=== PATIENT | female | born 1940 | race Caucasian/White ===

== ENCOUNTER 2016-12-05 08:22 | Inpatient (IN) ==
[2016-12-05 08:58] VITALS: BMI 40.1
[2016-12-05] MEDS ORDERED: ONDANSETRON 4 MG/2 ML INJECTION IVP PRN (08:58)
[2016-12-05] MEDS ORDERED: NS 1,000 ML IV SCH (09:00)
--- NOTE | 2016-12-05 10:05 | XRay Report ---
Indication: Preop PROCEDURE: XR chest 1V: Encounter: Initial Comparison: October 27, 2015 Findings: Prior right PICC line has been removed. Mild interstitial prominence without focal lobar consolidation. No pneumothorax or obvious pleural effusion. Heart size and mediastinal contours are stable. Scoliosis. Prior distal left clavicular resection with suture anchor in the left humeral head. Impression: No focal pneumonia or CHF. Chronic increased interstitial markings. .
--- NOTE | 2016-12-05 10:44 | History & Physical Report ---
<Diana Arana V - Last Filed: 12/05/16 10:39> History of Present Illness Date: 12/05/16 Chief complaint: Abdominal pain HPI: Suzy is a 76 yr old female who is known to the hospitalist services from previous admission in 2015 at which time she was admitted for intra abdominal abscess. Since that time she has been under the primary care of Dr Kevin Pro and attends the [facility] twice a week. Over the past 4-5 days. She reports having increased abdominal pain. It radiates into the lower abdomen. She was seen and found to have a fever greater than 101. An outpatient CT scan was performed on 11/27/16 that did reveal a large area of fluid in the left anterior pelvis extending through the pelvic wall into subcutaneous tissue. There is also presence of a large peristomal and small ventral hernia. Outpatient lab did reveal an elevated white count, this accompanied with fever and concern for abscess recurrence Dr. Pro contacted the hospitalist service and patient was directly admitted as an inpatient for further evaluation and treatment. Labs were obtained on admission and she was found to have leukocytosis with WBC count 13.3, hemoglobin 9.3, hematocrit 32.8, platelet count 440, neutrophils 89% . Sodium is normal at 143, potassium low at 3.2, BUN 8, creatinine 0.7, calcium 8.3. CRP is elevated at 61.7. Venous lactate 1.2, pro calcitonin 0.08. INR 1.45. On arrival, patient is afebrile with temperature of 97.3, pulse 95, respiration rate 18, blood pressure 101/65, room air saturations 90%. Chest x- ray on admission does not show any acute pneumonia or failure. However, does show chronic interstitial markings. Review of Systems All systems PM: 10-point ROS was reviewed, no additional remarkable complaints except - Constitutional Constitutional: Present: chills, fever(s) - Gastrointestinal Gastrointestinal: Present: as per HPI, abdominal pain Gastrointestinal Comments: Ostomy present [facility] Patient Stated Medical History History of intra-abdominal abscess. Hypertension Hyperlipidemia Congestive heart failure GERD Restless leg syndrome chronic back pain Cataracts Anxiety Depression Obesity Surgical History: 09/20/15: PICC line inserted, intubated, and NG tube placed. : Exploratory laparotomy, extensive adhesiolysis, drainage of. multiple intra-abdominal abscesses, small bowel resection, placement of. multiple intraperitoneal drains, creation of end colostomy, drainage of. abdominal wall abscess with excisional surgical debridement of necrotic. skin and subcutaneous tissues. Per Dr. Bowers, and Dr. Mays. Echocardiogram on September 21, 2015. EF 55%. Moderate tricuspid regurgitation with moderate pulmonary hypertension. 10/05/15: Additional excisional surgical debridement of skin and necrotic. tissues. Area excised 5 cm x 4 cm. Delayed primary closure of 16 cm wound. with application of wound VAC. Per Dr. Bowers. 10/11/15: Ultrasound guided percutaneous abscess drainage with removal of. approximately 40 cc of straw-colored fluid. vaginal hysterectomy. CT guided drainage intra- abdominal abscesses 07-06-2015. colonoscopy 03-30-2015. EGD 03-30-2015. right total knee. back surgery- Lumbar. left shoulder surgery Family History: Mother had Parkinson's and father had Alzheimer's dementia - Social History Smoking status: Never smoker Substance use type: does not use Current residence: Apartment/Private Home Social history: Resides independently in [place]. Attends [facility] twice a week PCP Dr Pro Medications Home Medications Medication Instructions Recorded Confirmed Type Alendronate [Fosamax] 70 mg PO Q7D #0 tab 06/18/14 12/05/16 History Aspirin [Aspir-Low] 81 mg PO DAILY #0 06/18/14 12/05/16 History Lovastatin 40 mg PO WS #0 tab 06/18/14 12/05/16 History Pramipexole Di-HCl [Pramipexole 2 mg PO DAILY #0 06/18/14 12/05/16 History Dihydrochloride] Amox/Clav [Augmentin] 500 mg PO DAILY 12/05/16 12/05/16 History Baclofen [Lioresal] 1 tab PO TID 12/05/16 12/05/16 History Calcium Carbonate/Vitamin D3 1 each PO DAILY 12/05/16 12/05/16 History [Calcium 600-Vit D3 200 Tablet] Cyanocobalamin (B-12) [Vit. B-12] 1,000 mcg IM Q14D 12/05/16 12/05/16 History Estradiol Vag Cream [Estrace Vag 1 applic VAGINAL 3XW 12/05/16 12/05/16 History Cream] Folic Acid [Folate] 1 tab PO DAILY 12/05/16 12/05/16 History Potassium Chloride 10 meq PO DAILY 12/05/16 12/05/16 History Sertraline [Zoloft] 150 mg PO DAILY 12/05/16 12/05/16 History metroNIDAZOLE [Flagyl] 500 mg PO TID 12/05/16 12/05/16 History Allergies Allergy/AdvReac Type Severity Reaction Status Date / Time hydrocodone bit Allergy Unknown Uncoded 12/05/16 09:09 Exam Vital Signs: Temperature 97.3 F 12/05/16 08:41 Pulse Rate 95 12/05/16 08:41 Respiratory Rate 18 12/05/16 08:41 Blood Pressure 101/65 12/05/16 08:41 Pulse Oximetry 90 12/05/16 08:41 Telemetry Rhythm: Sinus Rhythm Height/Weight/BMI: Height 1.55 m Weight 96.4 kg Body Mass Index 40.1 - Constitutional Present: no acute distress, well nourished, well developed - Routine HEENT Exam Eye: Present: EOMI, PERRL ENT: Present: mucous membranes moist, dentition normal - Routine Neck Exam Present: full ROM - Routine Respiratory Exam Present: CTA bilaterally. Absent: wheezes - Routine Cardiovascular Exam Present: RRR. Absent: murmur - Routine Abdominal Exam Present: soft, normoactive bowel sounds, non distended, ostomy. Absent: tenderness - Routine Extremities Exam Present: edema (1+ bilateral lower ext), full ROM, pulses intact - Routine Skin Exam Present: dry, warm - Routine Neurological Exam Present: alert, oriented X3, CN II-XII intact - Routine Psychiatric Exam Present: normal affect Results - Labs CBC & Chem 7: 12/05/16 09:37 12/05/16 09:36 Microbiology Results: Microbiology 12/05/16 09:35 Peripheral/Iv Start Blood Culture - Preliminary Culture Initiated - Results Pending Assessment and Plan (1) Abdominal abscess Current visit: Yes Status: Acute (2) Leukocytosis Current visit: Yes Status: Acute Resuscitation Status: Do Not Resuscitate Assessment and Plan: Impression Abdominal Abscess Leukocytosis Hypokalemia History of extensive abdominal abscess related to diverticulitis Hypertension Hyperlipidemia GERD Congestive heart failure Restless leg syndrome Chronic back pain Anxiety and depression Plan Admit as a inpatient under the care of Dr. Aviles for abdominal abscess with leukocytosis. Laboratory studies are ordered on admission, CBC, CMP, venous lactate, pro calcitonin, magnesium, blood cultures 2, urinalysis. Twelve-lead EKG and chest x-ray are performed for preoperative clearance. Patient is placed on IV Zosyn on admission for antimicrobial coverage. Normal saline at 100 ML per hour for gentle hydration. Will replace potassium with IV fluid bolus given NPO status. Patient is made nothing by mouth at this time until further surgical evaluation. Consulted is placed with Dr. Bowers. According to med rec patient has currently been on Augmentin and Flagyl. Patient does wish to be a do not resuscitate and this order is written. Recheck CBC and BMP Orders and plan discussed with attending Dr Aviles At time of discharge medical care will return to PCP Dr Pro with [facility] program Hospital Course Summary Disclaimer: The visit summary below is not to be considered part of the above Progress Note. Hospital Course: 12/05/16 Impression Abdominal Abscess Leukocytosis Hypokalemia History of extensive abdominal abscess related to diverticulitis Hypertension Hyperlipidemia GERD Congestive heart failure Restless leg syndrome Chronic back pain Anxiety and depression Plan Admit as a inpatient under the care of Dr. Aviles for abdominal abscess with leukocytosis. Laboratory studies are ordered on admission, CBC, CMP, venous lactate, pro calcitonin, magnesium, blood cultures 2, urinalysis. Twelve-lead EKG and chest x-ray are performed for preoperative clearance. Patient is placed on IV Zosyn on admission for antimicrobial coverage. Normal saline at 100 ML per hour for gentle hydration. Will replace potassium with IV fluid bolus given NPO status. Patient is made nothing by mouth at this time until further surgical evaluation. Consulted is placed with Dr. Bowers. According to med rec patient has currently been on Augmentin and Flagyl. Patient does wish to be a do not resuscitate and this order is written. Recheck CBC and BMP Orders and plan discussed with attending Dr Aviles At time of discharge medical care will return to PCP Dr Pro with [facility] program <Basim Aviles - Last Filed: 12/05/16 15:05> History of Present Illness Date: 12/05/16 [facility] Patient Stated Medical History Cataracts Yes Dental Problems Yes: "BIG CHUNKS OF MY TEETH FELL OUT" Hearing Loss Yes Sleep Apnea Yes Obstructive Bowel Yes Hx Renal Disease No Anemia Yes Exam Vital Signs: Temperature 97.3 F 12/05/16 08:41 Pulse Rate 88 12/05/16 11:19 Respiratory Rate 16 12/05/16 11:19 Blood Pressure 101/65 12/05/16 08:41 Pulse Oximetry 95 12/05/16 11:19 Height/Weight/BMI: Height 1.55 m Weight 96.4 kg Body Mass Index 40.1 Results - Labs CBC & Chem 7: 12/05/16 09:37 12/05/16 09:36 Microbiology Results: Microbiology 12/05/16 13:15 Peripheral/Iv Start Blood Culture - Preliminary Culture Initiated - Results Pending 12/05/16 12:32 Not Provided Urine Culture - Preliminary Culture Initiated - Results Pending 12/05/16 09:35 Peripheral/Iv Start Blood Culture - Preliminary Culture Initiated - Results Pending Assessment and Plan (1) Abdominal abscess Current visit: Yes Status: Acute (2) Leukocytosis Current visit: Yes Status: Acute DVT Prophylaxis: SCD's Assessment and Plan: Impression 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 Chart reviewed. Case discussed with my PILL MAKER. Care plan developed with my supervision; agree with above. Admitted to [facility] for surgical evaluation and treatment of small bowel fistula. Report having temp of 102 for about 3 days ago-temp has resolve, but patient has never really started feeling better since. More tired weak and puny. Note pain in abdomen right behind her ostomy site. Appetite okay, but notes nausea frequently. No emesis, but feels like could vomit. Breathing has been stable- not feeling chest congestion, pain, or cough. No palpitations. Does report nasal congestion at night. Not having urinary pain or burning. Had recent abnormal BE showing fistula. Lungs: decreased, no crackles/wheezes/distress CV: regular AB: soft Obese nd. BS decreased. Ostomy present in LLQ EXT: patient has 1cm in diameter round red lesion on left distal leg. +2 edema bilaterally. MSE: awake alert. Interacts appropriately. GEN: looks tired and weak. Plan: Inpatient admission for surgical evaluation and correction of fistula. Consult with Dr Bowers for evaluation. Zosyn for empiric antimicrobial coverage of GI pathogens-likely with cover urine as well. Check on urine culture. Low flow IVF of NS with 20KCl to maintain hydration due to patient being NPO for potential surgery. Hold on initiations of home medications for now. SCD for DVT prevention. Zofran prn nausea. Monitor lab. Hospital Course Summary Disclaimer: The visit summary below is not to be considered part of the above Progress Note.
--- NOTE | 2016-12-05 11:29 | General Surgery Consult Note ---
Consult date: 12/05/16 Attending Physician: Basim Aviles MD Reason for consult: abdominal pain [facility] Patient Stated Medical History Cataracts Yes Dental Problems Yes: "BIG CHUNKS OF MY TEETH FELL OUT" Hearing Loss Yes Sleep Apnea Yes Obstructive Bowel Yes Anemia Yes Intr-abdominal abscess Diverticulitis Creation of colostomy colovaginal fistula Surgical History: 09/20/15: PICC line inserted, intubated, and NG tube placed. : Exploratory laparotomy, extensive adhesiolysis, drainage of. multiple intra-abdominal abscesses, small bowel resection, placement of. multiple intraperitoneal drains, creation of end colostomy, drainage of. abdominal wall abscess with excisional surgical debridement of necrotic. skin and subcutaneous tissues. Per Dr. Bowers, and Dr. Mays. Echocardiogram on September 21, 2015. EF 55%. Moderate tricuspid regurgitation with moderate pulmonary hypertension. 10/05/15: Additional excisional surgical debridement of skin and necrotic. tissues. Area excised 5 cm x 4 cm. Delayed primary closure of 16 cm wound. with application of wound VAC. Per Dr. Bowers. 10/11/15: Ultrasound guided percutaneous abscess drainage with removal of. approximately 40 cc of straw-colored fluid. vaginal hysterectomy. CT guided drainage intra- abdominal abscesses 07-06-2015. colonoscopy 03-30-2015. EGD 03-30-2015. right total knee. back surgery- Lumbar. left shoulder surgery Family History: Mother had Parkinson's and father had Alzheimer's dementia - Social History Smoking status: Never smoker Current residence: Apartment/Private Home Social history: Resides independently in [place]. Attends [facility] program twice a week PCP Dr Pro Medications Home Medications Medication Instructions Recorded Confirmed Type Alendronate [Fosamax] 70 mg PO Q7D #0 tab 06/18/14 12/05/16 History Aspirin [Aspir-Low] 81 mg PO DAILY #0 06/18/14 12/05/16 History Lovastatin 40 mg PO WS #0 tab 06/18/14 12/05/16 History Pramipexole Di-HCl [Pramipexole 2 mg PO DAILY #0 06/18/14 12/05/16 History Dihydrochloride] Amox/Clav [Augmentin] 500 mg PO DAILY 12/05/16 12/05/16 History Baclofen [Lioresal] 1 tab PO TID 12/05/16 12/05/16 History Calcium Carbonate/Vitamin D3 1 each PO DAILY 12/05/16 12/05/16 History [Calcium 600-Vit D3 200 Tablet] Cyanocobalamin (B-12) [Vit. B-12] 1,000 mcg IM Q14D 12/05/16 12/05/16 History Estradiol Vag Cream [Estrace Vag 1 applic VAGINAL 3XW 12/05/16 12/05/16 History Cream] Folic Acid [Folate] 1 tab PO DAILY 12/05/16 12/05/16 History Potassium Chloride 10 meq PO DAILY 12/05/16 12/05/16 History Sertraline [Zoloft] 150 mg PO DAILY 12/05/16 12/05/16 History metroNIDAZOLE [Flagyl] 500 mg PO TID 12/05/16 12/05/16 History Allergies Allergy/AdvReac Type Severity Reaction Status Date / Time hydrocodone bit Allergy Unknown Uncoded 12/05/16 09:09 Review of Systems 10-point ROS: negative except for HPI and the following: - General General: Present: fever, chills - Gastrointestinal Gastrointestinal: Present: other (see HPI) - Neurological Neurological: Present: muscle weakness - Psychiatric Psychiatric: Present: depression - Vital Signs Last Vital Signs Temp 97.3 F 12/05/16 08:41 Pulse 95 12/05/16 08:41 Resp 18 12/05/16 08:41 BP 101/65 12/05/16 08:41 Pulse Ox 90 12/05/16 08:41 - Laboratory Result Diagrams: 12/05/16 09:37 12/05/16 09:36 - Microbiogy Microbiology 12/05/16 09:35 Peripheral/Iv Start Blood Culture - Preliminary Culture Initiated - Results Pending General Surgery Results - Results Labs: 12/05/16 09:37 12/05/16 09:36 Microbiology: Microbiology 12/05/16 09:35 Peripheral/Iv Start Blood Culture - Preliminary Culture Initiated - Results Pending Hospital Course Summary Disclaimer: The visit summary below is not to be considered part of the above Progress Note. Hospital Course: 12/05/16 Impression Abdominal Abscess Leukocytosis Hypokalemia History of extensive abdominal abscess related to diverticulitis Hypertension Hyperlipidemia GERD Congestive heart failure Restless leg syndrome Chronic back pain Anxiety and depression Plan Admit as a inpatient under the care of Dr. Aviles for abdominal abscess with leukocytosis. Laboratory studies are ordered on admission, CBC, CMP, venous lactate, pro calcitonin, magnesium, blood cultures 2, urinalysis. Twelve-lead EKG and chest x-ray are performed for preoperative clearance. Patient is placed on IV Zosyn on admission for antimicrobial coverage. Normal saline at 100 ML per hour for gentle hydration. Will replace potassium with IV fluid bolus given NPO status. Patient is made nothing by mouth at this time until further surgical evaluation. Consulted is placed with Dr. Bowers. According to med rec patient has currently been on Augmentin and Flagyl. Patient does wish to be a do not resuscitate and this order is written. Recheck CBC and BMP Orders and plan discussed with attending Dr Aviles At time of discharge medical care will return to PCP Dr Pro with [facility] program
[2016-12-05] MEDS: PIPERACILLIN/TAZOBACTAM 3.375 GM in NS 100 ML IV SCH ×3 (13:22→21:26)
[2016-12-05] MEDS ORDERED: LIDOCAINE 1% (10mg/ml) 30ml PF SDV STERI-PAK ONE (14:48)
[2016-12-05] MEDS: NS with KCL 20 mEq 1,000 ML IV SCH (16:04)
--- NOTE | 2016-12-05 16:45 | Ultrasound Report ---
Indication:abdominal abscess Procedure:US percutaneous absc drainage ABSCESS DRAIN PLACEMENT WITH ULTRASOUND GUIDANCE: After discussing the details of the procedure, including risks, the patient wished to proceed. Informed consent was obtained. A preprocedural timeout was performed to confirm the correct patient and procedure. Using aseptic technique, local lidocaine anesthetic, and ultrasound guidance throughout, a 8.5 [place] locking loop Cook drainage catheter was advanced into the large fluid collection located in the left anterior portion of the abdomen and pelvis. Approximately 120 cc of purulent, serosanguineous fluid was aspirated from the catheter. 20 cc of this fluid was sent to lab while the remainder was discarded. A CANDACE bulb was attached to the catheter and was secured to the patient's skin with a StatLock device. The patient tolerated this procedure well. There was no complication. Following this, the patient was taken back to her room on the surgical floor in stable condition. Impression: Successful abscess drain placement in the left lower abdomen. Kishore Newell RPA/ELLA performed this under my personal supervision. .
[2016-12-05] MEDS ORDERED: ACETAMINOPHEN 325 MG TABLET PO PRN (16:57)
[2016-12-05] MEDS: PRAMIPEXOLE 1 MG TABLET PO SCH (21:25)
[2016-12-05] MEDS: BACLOFEN 10 MG TABLET PO SCH (21:25)
[2016-12-05] MEDS: LOVASTATIN 40 MG TABLET PO SCH (21:25)
[2016-12-06] MEDS: PIPERACILLIN/TAZOBACTAM 3.375 GM in NS 100 ML IV SCH ×4 (02:45→20:03)
[2016-12-06] MEDS: NS with KCL 20 mEq 1,000 ML IV SCH ×2 (05:51→06:22)
[2016-12-06] MEDS ORDERED: VANCOMYCIN - PHARMACY CONSULT MC ONE (08:15)
[2016-12-06] MEDS: PRAMIPEXOLE 1 MG TABLET PO SCH ×2 (08:28→20:02)
[2016-12-06] MEDS: FERROUS SULFATE 324 MG TABLET PO SCH (08:39)
[2016-12-06] MEDS: CALCIUM 600 + VIT D 400 TABLET PO SCH (08:40)
[2016-12-06] MEDS: FUROSEMIDE 40 MG TABLET PO SCH (08:40)
[2016-12-06] MEDS: FOLIC ACID 1 MG TABLET PO SCH (08:40)
[2016-12-06] MEDS: BACLOFEN 10 MG TABLET PO SCH ×3 (08:40→20:03)
[2016-12-06] MEDS: SPIRONOLACTONE 25 MG TABLET PO SCH (08:40)
[2016-12-06] MEDS: ASPIRIN *EC* 81 MG TABLET PO SCH (08:40)
[2016-12-06] MEDS: SERTRALINE 100 MG TABLET PO SCH (08:40)
--- NOTE | 2016-12-06 08:51 | Pharmacy Consult-Antibiotics ---
Pharmacy Consult-Vancomycin - Laboratory Information WBC 10.5 T/MM3 (4.5-11.0) 12/06/16 04:30 BUN 8.0 MG/DL (7-17) 12/06/16 04:30 Creatinine 0.7 MG/DL (0.7-1.2) 12/06/16 04:30 Procalcitonin 0.08 NG/ML 12/05/16 09:37 - Consult Information Ms Magdaleno is a 76 yo female, 97.1kg, with an abdominal abscess. Her serum creatinine is 0.7 mg/dl. Ordered vancomycin 1500mg IV q12h. Will draw a trough in the am of 12/08/16 and re-evaluate. Thank you.
[2016-12-06] MEDS ORDERED: NON-FORMULARY MEDICATION 1 EACH EACH (Calcium Carbonate/Vitamin D3 [Calcium 600-Vit D3 200 PO SCH (09:00)
--- NOTE | 2016-12-06 11:43 | Consultation ---
DATE OF CONSULTATION 12/05/2016 FINDINGS Mrs. Magdaleno is a 76-year-old female who is very well known my surgical practice. I have taken care of Suzy in the past as the result of a complicated bout of perforated diverticulitis. The patient apparently had recently had an episode of fever to 102-103 and had presented to her primary care physician. During the process of examination the patient was found to have some drainage from her vaginal area. Subsequent radiographic evaluation was undertaken consisting of a CT scan as well as a barium enema through her remaining rectal/ sigmoid stump. A CT scan did reveal evidence of an abscess extending into the subcutaneous tissues. 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 As a result of the above indications the patient was admitted to the hospital. I did see Suzy earlier today. She states that she has had no further fever and is actually feeling fairly well. Suzy does have a history of somewhat "downplaying" her symptoms. Upon questioning Suzy, she denied really much in the way of any element of abdominal pain or discomfort. Later during the discussion, she did state that she has noted some pain within her left lower quadrant. She has had no element of nausea or vomiting. She does state that she has noted at times some minimal amount of drainage from the vaginal area. She denies ever noticing any type of stool-like content coming forth from her vagina and describes it as clear mucous -like material. PAST MEDICAL HISTORY Performed by my nurse practitioner, Nitesh Waite. PAST SURGICAL HISTORY Performed by my nurse practitionerNitesh. MEDICATIONS Performed by my nurse practitionerNitesh. ALLERGIES Performed by my nurse practitionerNitesh. SOCIAL HISTORY Performed by my nurse practitionerNitesh. FAMILY HISTORY Performed by my nurse practitionerNitesh. REVIEW OF SYSTEMS Performed by my nurse practitionerNitesh. PHYSICAL EXAMINATION Mrs. Magdaleno is a 76-year-old female who earlier today did not appear to be in acute distress. VITALS: Temperature 97.3, pulse 88, respirations 16, blood pressure 101/65, SaO2 95% on room air. HEENT: Normocephalic. Pupils are equal, round and reactive to light and accommodation. NECK: Supple without lymphadenopathy. CHEST: Clear to auscultation bilaterally. HEART: Regular rate and rhythm. Normal S1 and S2 without gallops, murmurs or clicks. ABDOMEN: Visualization of the abdomen reveals it to be quite protuberant in nature, i.e. the patient has a component of obesity. The patient does have a colostomy present within the left lower quadrant. Visualization of the skin did not reveal any evidence for marked erythema. There is some erythema involving the inferior portion of her pannus. I do believe this is likely more result of a Yajaira infection than that of a true cellulitis. The entire lower aspect of her pannus is quite moist and erythematous in nature. Palpation of her abdomen did reveal a mass located beneath the colostomy. One could appreciate a firm mass that was perhaps 7-8 cm in diameter. This mass was tender on palpation. The mass does correspond with the abscess cavity noted upon prior CT scan. Remainder of the abdomen was soft and nontender without evidence for significant tenderness. 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 EXTREMITIES: Attention was focused to her upper and lower extremities. I had been informed the patient had an area of redness involving her left lower extremity. Upon further evaluation this area of erythema was actually overlying the mid anterior tibial surface and was on the order of about 2 cm in diameter. There did not appear to be any type of underlying abscess associated with this area of erythema. NEURO: Cranial nerves II-XII grossly intact. Patient is without focal motor or sensory deficits. LABORATORY/RADIOGRAPH EVALUATION I did spend a fair amount of time reviewing the patient's prior radiographic evaluation as well as her admission lab. A CBC was obtained and her white count was elevated at 13.2. Hemoglobin is low at 9.3. Did have a left shift with 89 % neutrophils. A CMP was obtained and found to be essentially within normal limits. Potassium was low at 3.2. A C-reactive protein was also obtained and found be elevated at 61.7. Plasma lactate level was normal at 1.2. Radiographically, the patient had undergone a CT scan of her abdomen and pelvis on 11/27/2016, about [address] scan did reveal a large area of enhancement and fluid within the left anterior pelvis extending into the subcutaneous tissues just beneath the colostomy. Radiology stated that this could represent necrotic tumor/metastatic disease or a potential abscess. One could see a focus of gas within this area consistent with that of an abscess. There was again abnormal wall thickening and irregularity of the remaining distal sigmoid colon to the rectum. I reviewed her barium enema results from and discussed this with our radiologist earlier today. 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 Initially there was thought to perhaps be a coloenteric fistula but upon further evaluation radiology thought that this was perhaps a colocolonic fistula between the proximal and distal portion of the remaining rectum/sigmoid stump. ASSESSMENT 76-year-old female with known significant associated medical comorbidities who presents with probable ongoing diverticulitis of remaining rectal/sigmoid stump with development of colovaginal and "colo-colo" fistula as well as development of a probable abscess. PLAN It would be my recommendation that the patient be admitted to the hospital and broad spectrum antibiotics be initiated. The patient is on Zosyn 3.375 g IV q.6h. From a surgical standpoint I would recommend that we go ahead and proceed with an attempted percutaneous drainage of this suspected abscess involving the left lower quadrant of the anterior abdominal wall and extending into the pelvis. I informed the patient that she is somewhat of an unusual case in fact that she is the only patient over the last 20 years on whom I have not been able to resect the sigmoid colon as the result of a severe phlegmonous process from a bout of ruptured diverticulitis. I informed the patient that typically when someone presents with a severe bout of ruptured diverticulitis we will perform a sigmoid resection with creation of a Batsheva' s pouch and diverting loop ileostomy. In her situation there was such a marked phlegmonous process involving the sigmoid colon that it was adherent to her iliac vessels as well as to her anterior abdominal wall and surrounding viscus. I also remember at the time of her original surgery that the mesentery to the sigmoid colon was perhaps 8 cm in thickness as a result of this phlegmonous process that was present. I had initially planned on bringing the patient back and resecting the sigmoid colon and perhaps performing a primary anastomosis at a later date. Given her significant medical comorbidities, after some additional thought, we had concluded in the past with we would not proceed with additional surgery. The patient had been doing quite well for an extended period time, perhaps over the last 9 months, until just recently. For now will proceed with percutaneous drainage, broad-spectrum antibiotics and continue to follow the patient from a clinical standpoint. Ultimately the patient may require reexploration/surgery. CARMINE
--- NOTE | 2016-12-06 11:56 | Progress Note ---
Subjective: Feeling queasy today after eating a little breakfast. Not taking in much po. No fevers, chills, dyspnea. Abdomen feels okay. Discussed antibiotics and adding vancomycin due to prelim cx results. Objective Vital signs: Temperature 96.3 F L 12/06/16 08:00 Pulse Rate 81 12/06/16 08:00 Respiratory Rate 18 12/06/16 08:00 Blood Pressure 97/61 12/06/16 08:00 Pulse Oximetry 94 12/06/16 08:00 Rhythm: Normal Sinus Rhythm Height/Weight/BMI: Height 1.55 m Weight 97.1 kg Body Mass Index 40.1 - Constitutional Present: no acute distress, well nourished, well developed - Routine HEENT Exam Head: Present: normocephalic, atraumatic Eye: Present: EOMI, PERRL ENT: Present: mucous membranes moist, oropharynx clear - Routine Respiratory Exam Present: CTA bilaterally. Absent: rales, rhonchi - Routine Cardiovascular Exam Present: RRR - Routine Abdominal Exam Present: soft, normoactive bowel sounds, non distended - Routine Extremities Exam Absent: cyanosis, clubbing, edema - Routine Skin Exam Present: intact, dry. Absent: rash - Routine Neurological Exam Present: alert, oriented X3, moving all extremities - Routine Psychiatric Exam Present: normal affect, normal thought process Results - Labs CBC & Chem 7: 12/06/16 04:30 12/06/16 04:30 Microbiology Results: Microbiology 12/05/16 12:32 Not Provided Urine Culture - Preliminary Culture Initiated - Results Pending 12/05/16 09:35 Peripheral/Iv Start Blood Culture - Preliminary No Growth After 1 Day 12/05/16 15:30 Aspirate, Abdomen Gram Stain - Final 12/05/16 15:30 Aspirate, Abdomen Body Fluid Culture - Preliminary Staphylococcus aureus Pseudomonas species Gram Negative Rafy 12/05/16 13:15 Peripheral/Iv Start Blood Culture - Preliminary Culture Initiated - Results Pending Assessment and Plan DVT Prophylaxis: SCD's Resuscitation Status: Do Not Resuscitate Assessment and Plan: Impression 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 Abdominal Abscess Leukocytosis Hypokalemia (POA) and persistent UTI (POA) History of extensive abdominal abscess related to diverticulitis Hypertension Hyperlipidemia GERD Congestive heart failure Restless leg syndrome Chronic back pain Anxiety and depression Morbid obesity with BMI 40.2 Nausea, no vomiting thus far Plan: Continue zosyn and add vancomycin for coverage of MRSA given early culture results from abdominal abscess fluid Follow cultures for final results Zofran prn for nausea Hold furosemide given poor po intake Continue gentle IVF today, may be able to DC tomorrow if taking more po Potassium chloride 20 meq BID today for replacement Repeat renal panel, Mg, CBC in AM for surveillance Hospital Course Summary Disclaimer: The visit summary below is not to be considered part of the above Progress Note. Hospital Course: 12/05/16 Impression Abdominal Abscess Leukocytosis Hypokalemia History of extensive abdominal abscess related to diverticulitis Hypertension Hyperlipidemia GERD Congestive heart failure Restless leg syndrome Chronic back pain Anxiety and depression Plan Admit as a inpatient under the care of Dr. Aviles for abdominal abscess with leukocytosis. Laboratory studies are ordered on admission, CBC, CMP, venous lactate, pro calcitonin, magnesium, blood cultures 2, urinalysis. Twelve-lead EKG and chest x-ray are performed for preoperative clearance. Patient is placed on IV Zosyn on admission for antimicrobial coverage. Normal saline at 100 ML per hour for gentle hydration. Will replace potassium with IV fluid bolus given NPO status. Patient is made nothing by mouth at this time until further surgical evaluation. Consulted is placed with Dr. Bowers. According to med rec patient has currently been on Augmentin and Flagyl. Patient does wish to be a do not resuscitate and this order is written. Recheck CBC and BMP Orders and plan discussed with attending Dr Aviles At time of discharge medical care will return to PCP Dr [facility] with [facility] 12/06/16 Continue zosyn and add vancomycin for coverage of MRSA given early culture results from abdominal abscess fluid Follow cultures for final results Zofran prn for nausea Hold furosemide given poor po intake Continue gentle IVF today, may be able to DC tomorrow if taking more po Potassium chloride 20 meq BID today for replacement Repeat renal panel, Mg, CBC in AM for surveillance
[2016-12-06] MEDS: LOVASTATIN 40 MG TABLET PO SCH (18:02)
[2016-12-07] MEDS: NS with KCL 20 mEq 1,000 ML IV SCH ×2 (01:59→08:32)
[2016-12-07] MEDS: PIPERACILLIN/TAZOBACTAM 3.375 GM in NS 100 ML IV SCH ×4 (02:00→20:58)
[2016-12-07] MEDS: FOLIC ACID 1 MG TABLET PO SCH (08:30)
[2016-12-07] MEDS: SPIRONOLACTONE 25 MG TABLET PO SCH (08:30)
[2016-12-07] MEDS: CALCIUM 600 + VIT D 400 TABLET PO SCH (08:30)
[2016-12-07] MEDS: SERTRALINE 100 MG TABLET PO SCH (08:30)
[2016-12-07] MEDS: ASPIRIN *EC* 81 MG TABLET PO SCH (08:30)
[2016-12-07] MEDS: FERROUS SULFATE 324 MG TABLET PO SCH (08:30)
[2016-12-07] MEDS: BACLOFEN 10 MG TABLET PO SCH ×3 (08:30→20:58)
--- NOTE | 2016-12-07 10:32 | Progress Note ---
Subjective: Feeling better today. Less nausea, able to eat some. Has not been drinking much water, encouraged her to drink a little more today. Has home health with [facility] already and would like to keep using them when she goes home. Still feels pretty weak today. Denies fevers, chills, dyspnea. Objective Vital signs: Temperature 97.1 F 12/07/16 08:16 Pulse Rate 73 12/07/16 08:16 Respiratory Rate 18 12/07/16 08:16 Blood Pressure 91/57 12/07/16 08:16 Pulse Oximetry 95 12/07/16 08:16 Rhythm: Normal Sinus Rhythm Height/Weight/BMI: Height 1.55 m Weight 99 kg Body Mass Index 40.1 Comments: Will DC telemetry; has been stable. - Constitutional Present: no acute distress - Routine HEENT Exam Head: Present: normocephalic, atraumatic Eye: Present: EOMI, PERRL ENT: Present: mucous membranes moist, oropharynx clear - Routine Respiratory Exam Present: decreased breath sounds. Absent: rales, wheezes - Routine Cardiovascular Exam Present: RRR. Absent: murmur - Routine Abdominal Exam Present: soft, non distended, non tender - Routine Extremities Exam Absent: cyanosis, clubbing, edema - Routine Skin Exam Present: dry, warm. Absent: rash - Routine Neurological Exam Present: alert, oriented X3, normal speech - Routine Psychiatric Exam Present: normal affect, normal thought process Results - Labs CBC & Chem 7: 12/07/16 04:47 12/07/16 04:47 Microbiology Results: Microbiology 12/05/16 09:35 Peripheral/Iv Start Blood Culture - Preliminary No Growth After 2 Days 12/05/16 15:30 Aspirate, Abdomen Gram Stain - Final 12/05/16 15:30 Aspirate, Abdomen Body Fluid Culture - Preliminary Staphylococcus aureus Pseudomonas species Gram Negative Rafy 12/05/16 12:32 Not Provided Urine Culture - Final Mixed Bacterial Ree 12/05/16 13:15 Peripheral/Iv Start Blood Culture - Preliminary No Growth After 1 Day Assessment and Plan Assessment and Plan: Impression 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 Abdominal Abscess Leukocytosis Hypokalemia (POA) and persistent UTI (POA) History of extensive abdominal abscess related to diverticulitis Hypertension Hyperlipidemia GERD Congestive heart failure Restless leg syndrome Chronic back pain Anxiety and depression Morbid obesity with BMI 40.2 Nausea, no vomiting thus far Plan: Continue zosyn and add vancomycin for coverage of MRSA given early culture results from abdominal abscess fluid Follow cultures for final results Zofran prn for nausea Hold furosemide given poor po intake Continue gentle IVF today, may be able to DC tomorrow if taking more po Potassium chloride 20 meq BID today for replacement Repeat renal panel, Mg, CBC in AM for surveillance Hospital Course Summary Disclaimer: The visit summary below is not to be considered part of the above Progress Note. Hospital Course: 12/05/16 Impression Abdominal Abscess Leukocytosis Hypokalemia History of extensive abdominal abscess related to diverticulitis Hypertension Hyperlipidemia GERD Congestive heart failure Restless leg syndrome Chronic back pain Anxiety and depression Plan Admit as a inpatient under the care of Dr. Aviles for abdominal abscess with leukocytosis. Laboratory studies are ordered on admission, CBC, CMP, venous lactate, pro calcitonin, magnesium, blood cultures 2, urinalysis. Twelve-lead EKG and chest x-ray are performed for preoperative clearance. Patient is placed on IV Zosyn on admission for antimicrobial coverage. Normal saline at 100 ML per hour for gentle hydration. Will replace potassium with IV fluid bolus given NPO status. Patient is made nothing by mouth at this time until further surgical evaluation. Consulted is placed with Dr. Bowers. According to med rec patient has currently been on Augmentin and Flagyl. Patient does wish to be a do not resuscitate and this order is written. Recheck CBC and BMP Orders and plan discussed with attending Dr Aviles At time of discharge medical care will return to PCP Dr [facility] 12/06/16 Continue zosyn and add vancomycin for coverage of MRSA given early culture results from abdominal abscess fluid Follow cultures for final results Zofran prn for nausea Hold furosemide given poor po intake Continue gentle IVF today, may be able to DC tomorrow if taking more po Potassium chloride 20 meq BID today for replacement Repeat renal panel, Mg, CBC in AM for surveillance
[2016-12-07] MEDS: LOVASTATIN 40 MG TABLET PO SCH (17:03)
[2016-12-07] MEDS: PRAMIPEXOLE 1 MG TABLET PO SCH (20:58)
[2016-12-07] MEDS: NS FLUSH BAG 500ml IV PRN (21:04)
[2016-12-08] MEDS: PIPERACILLIN/TAZOBACTAM 3.375 GM in NS 100 ML IV SCH ×4 (03:25→22:25)
--- NOTE | 2016-12-08 07:50 | Progress Note ---
DATE 12/06/2016 FINDINGS Mrs. Magdaleno today states that she is feeling significantly better. She states that as soon as the drain was placed she began to feel some relief. The patient today now informs me that she had been doing poorly over the last 4-5 days. The patient, yesterday, had stated that she was for the most part asymptomatic. Today, however, she shared with me that she had gotten to the point that it was difficult to get up out of bed or out of a chair as a result of pain and "feeling so bad." VITALS: Afebrile. Normotensive. Please refer to EMR. Last recorded vitals include temperature 96.3, pulse 81, respirations 18, blood pressure 97/61, SaO2 94% on room air. HEENT: Normocephalic. Pupils are equal, round and reactive to light and accommodation. CHEST: Clear to auscultation bilaterally. HEART: Regular rate and rhythm. Normal S1 and S2 without gallops, murmurs or clicks. ABDOMEN: Stool was present within her colostomy with the left lower quadrant. There is a drain not exiting from the left lateral abdominal wall. There is purulent drainage within the drain itself. LABORATORY/RADIOGRAPH EVALUATION The patient had a CBC today and her white count is down to 10.5. Hemoglobin is stable at 9.3. BMP obtained and found to be within normal limits. I did review the microbiology results from her drainage yesterday. Radiology stated that they had perhaps removed more than 100 ml following placement of the drain. Microbiology is showing probable MRSA, Pseudomonas, and a gram-negative lillian. Patient currently is on Zosyn and vancomycin has been added to her antibiotic regimen. ASSESSMENT A 76-year-old female with the development of a perisigmoid abscess extending into anterior abdominal wall. Patient status post exploratory laparotomy with creation of diverting end colostomy. 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 It is my recollection that the patient has had endoscopic evaluation of her colon within the last couple of years. Given her ongoing symptoms, it would be my thought that we would continue with vancomycin and broad-spectrum antibiotics at this juncture in time. I would not recommend proceeding with exploratory laparotomy in the midst of active infection. One may wish to proceed with a colonoscopy through her remaining rectal stump/remaining sigmoid to rule out an underlying potential neoplastic process. It is my clinical intuition that ultimately, if we are going to resolve this process, that she likely will need to undergo resection of her remaining sigmoid colon that still persists within the peritoneal cavity that is acting as the ongoing nidus/source for infection despite undergoing a diverting colostomy. This surgery, however, could be fraught with significant complications given her age and associated medical comorbidities. Another option may be to place the patient on long-term antibiotics. For now will continue with current care as above. CARMINE
[2016-12-08] MEDS ORDERED: FLEET PHOSPHO - SODA ENEMA 133ml PR ONE (08:04)
--- NOTE | 2016-12-08 08:46 | Progress Note ---
DATE 12/07/2016 FINDINGS Mrs. Magdaleno today states that she continues to feel better. She denied much in the way of abdominal pain. VITALS: Afebrile. Normotensive. Current vitals include temperature 97.1, pulse 73, respirations 18, blood pressure 91/57, SaO2 95% on room air. CHEST: Clear to auscultation bilaterally. HEART: Regular rate and rhythm. Normal S1 and S2 without gallops, murmurs or clicks. ABDOMEN: Soft, essentially nontender today. CANDACE drain did contain purulent serosanguineous-like material. The mass noted beneath her colostomy within the subcutaneous tissue is no longer palpable. LABORATORY/RADIOGRAPH EVALUATION White count continues on a downward trend to 8.9. Hemoglobin overall stable at 8.8. A BMP obtained and found to be essentially within normal limits with some slight electrolyte abnormalities. Sodium is elevated at 145. Chloride is elevated at 109. Culture still reveals Pseudomonas, probable MRSA and gram- negative lillian. Sensitivities are still pending. ASSESSMENT 76-year-old female status post percutaneous drainage of intraabdominal/ abdominal wall abscess. Patient with ongoing probable diverticulitis involving remaining rectum/sigmoid colon. PLAN Continue with ongoing current antibiotic therapy. Perhaps early next week we can obtain an ID consult for antibiotic recommendations and duration of antibiotics on an outpatient basis. Tomorrow, we may attempt to perform a colonoscopy through the remaining rectal stump for further evaluation. This will be performed to rule out any type of underlying malignant etiology. Once the current infection has defervesced, one may need to proceed with surgical intervention at a later date. Will continue with current care at this time. CARMINE
[2016-12-08] MEDS: FUROSEMIDE 40 MG TABLET PO SCH (08:48)
[2016-12-08] MEDS: CALCIUM 600 + VIT D 400 TABLET PO SCH (08:48)
[2016-12-08] MEDS: FERROUS SULFATE 324 MG TABLET PO SCH (08:48)
[2016-12-08] MEDS: SPIRONOLACTONE 25 MG TABLET PO SCH (08:48)
[2016-12-08] MEDS: SERTRALINE 100 MG TABLET PO SCH (08:48)
[2016-12-08] MEDS: BACLOFEN 10 MG TABLET PO SCH ×3 (08:48→22:25)
[2016-12-08] MEDS: ASPIRIN *EC* 81 MG TABLET PO SCH (08:48)
[2016-12-08] MEDS: FOLIC ACID 1 MG TABLET PO SCH (08:48)
--- NOTE | 2016-12-08 09:37 | Progress Note ---
<Diana Arana V - Last Filed: 12/08/16 09:30> Subjective: Suzy is seen this morning while resting in bed. She is overall feeling okay without new complaints. Denies shortness of breath or nausea. She is scheduled for a flex sigmoidoscopy with Dr Bowers today. VItal signs stable. Objective Vital signs: Temperature 96.4 F L 12/08/16 07:28 Pulse Rate 70 12/08/16 07:28 Respiratory Rate 20 12/08/16 07:28 Blood Pressure 120/67 12/08/16 07:28 Pulse Oximetry 95 12/08/16 07:28 Height/Weight/BMI: Height 1.55 m Weight 99.8 kg Body Mass Index 40.1 - Constitutional Present: well nourished, well developed - Routine HEENT Exam Eye: Present: EOMI ENT: Present: mucous membranes moist, dentition normal - Routine Respiratory Exam Present: CTA bilaterally. Absent: wheezes - Routine Cardiovascular Exam Present: RRR, S1, S2. Absent: murmur - Routine Abdominal Exam Present: soft, ostomy. Absent: tenderness - Routine Extremities Exam Present: normal capillary refill - Routine Skin Exam Present: dry, warm - Routine Neurological Exam Present: alert, oriented X3, CN II-XII intact - Routine Lymphatic Exam Lymphatic: Absent: adenopathy - Routine Psychiatric Exam Present: normal affect Results - Labs CBC & Chem 7: 12/08/16 08:07 12/08/16 08:07 Microbiology Results: Microbiology 12/05/16 15:30 Aspirate, Abdomen Gram Stain - Final 12/05/16 15:30 Aspirate, Abdomen Body Fluid Culture - Final Staphylococcus aureus, MRSA Pseudomonas aeruginosa Citrobacter freundii 12/05/16 13:15 Peripheral/Iv Start Blood Culture - Preliminary No Growth After 2 Days 12/05/16 09:35 Peripheral/Iv Start Blood Culture - Preliminary No Growth After 2 Days 12/05/16 12:32 Not Provided Urine Culture - Final Mixed Bacterial Ree Assessment and Plan (1) Abdominal abscess Current visit: Yes Status: Acute (2) Leukocytosis Current visit: Yes Status: Acute Assessment and Plan: Impression 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 Abdominal Abscess Leukocytosis Hypokalemia (POA) and persistent UTI (POA) History of extensive abdominal abscess related to diverticulitis Hypertension Hyperlipidemia GERD Congestive heart failure Restless leg syndrome Chronic back pain Anxiety and depression Morbid obesity with BMI 40.2 Nausea, no vomiting thus far 12/08-Plan: Continue Zosyn and vancomycin for MRSA coverage of C/S results from abdominal abscess fluid NPO this morning for planned Flex Sigmoidoscopy with Dr Bowers 1/2 NS for gently hydration. NA increased to 145. Monitor electrolytes. Continues to receive PO potassium supplementation. Encourage use of Incentive spirometry Check CBC, BMP, magnesium tomorrow Hospital Course Summary Disclaimer: The visit summary below is not to be considered part of the above Progress Note. Hospital Course: 12/05/16 Impression Abdominal Abscess Leukocytosis Hypokalemia History of extensive abdominal abscess related to diverticulitis Hypertension Hyperlipidemia GERD Congestive heart failure Restless leg syndrome Chronic back pain Anxiety and depression Plan Admit as a inpatient under the care of Dr. Aviles for abdominal abscess with leukocytosis. Laboratory studies are ordered on admission, CBC, CMP, venous lactate, pro calcitonin, magnesium, blood cultures 2, urinalysis. Twelve-lead EKG and chest x-ray are performed for preoperative clearance. Patient is placed on IV Zosyn on admission for antimicrobial coverage. Normal saline at 100 ML per hour for gentle hydration. Will replace potassium with IV fluid bolus given NPO status. Patient is made nothing by mouth at this time until further surgical evaluation. Consulted is placed with Dr. Bowers. According to med rec patient has currently been on Augmentin and Flagyl. Patient does wish to be a do not resuscitate and this order is written. Recheck CBC and BMP Orders and plan discussed with attending Dr Aviles At time of discharge medical care will return to PCP Dr Pro with [facility] program 12/06/16 Continue zosyn and add vancomycin for coverage of MRSA given early culture results from abdominal abscess fluid Follow cultures for final results Zofran prn for nausea Hold furosemide given poor po intake Continue gentle IVF today, may be able to DC tomorrow if taking more po Potassium chloride 20 meq BID today for replacement Repeat renal panel, Mg, CBC in AM for surveillance 12/08-Plan: Continue Zosyn and vancomycin for MRSA coverage of C/S results from abdominal abscess fluid NPO this morning for planned Flex Sigmoidoscopy with Dr Bowers 1/2 NS for gently hydration. NA increased to 145. Monitor electrolytes. Continues to receive PO potassium supplementation. Encourage use of Incentive spirometry Check CBC, BMP, magnesium tomorrow <Basim Aviles D - Last Filed: 12/08/16 14:37> Objective Vital signs: Temperature 97.1 F 12/08/16 13:44 Pulse Rate 75 12/08/16 13:44 Respiratory Rate 18 12/08/16 13:44 Blood Pressure 111/61 12/08/16 13:44 Pulse Oximetry 100 12/08/16 13:44 Height/Weight/BMI: Height 1.55 m Weight 99.8 kg Body Mass Index 40.1 Results - Labs CBC & Chem 7: 12/08/16 08:07 12/08/16 08:07 Microbiology Results: Microbiology 12/05/16 13:15 Peripheral/Iv Start Blood Culture - Preliminary No Growth After 3 Days 12/05/16 09:35 Peripheral/Iv Start Blood Culture - Preliminary No Growth After 3 Days 12/05/16 15:30 Aspirate, Abdomen Gram Stain - Final 12/05/16 15:30 Aspirate, Abdomen Body Fluid Culture - Final Staphylococcus aureus, MRSA Pseudomonas aeruginosa Citrobacter freundii 12/05/16 12:32 Not Provided Urine Culture - Final Mixed Bacterial Ree Assessment and Plan (1) Abdominal abscess Current visit: Yes Status: Acute (2) Leukocytosis Current visit: Yes Status: Acute Assessment and Plan: Impression Abdominal Abscess 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 Leukocytosis Hypokalemia (POA) and persistent UTI (POA) History of extensive abdominal abscess related to diverticulitis Hypertension Hyperlipidemia GERD Congestive heart failure Restless leg syndrome Chronic back pain Anxiety and depression Morbid obesity with BMI 40.2 Nausea, no vomiting thus far Have independently interviewed and examined pt. Chart reviewed. Case discussed with CM, Dr Bowers, and my [employer]. Care plan developed with my supervision; agree with above. Doing okay today. Tolerated Flex Sig. Notes minimal ab bloating. Nausea decreased. Appetite variable. No f/c. Breathing well-not SOA or congested. Strength decreased. Feels very tired and weak in general. Not sleeping well here (but also not sleeping well at home). Lungs: decreased, no distress CV: regular AB: soft obese, nt/nd BS decreased MSE: awake alert appropriate Plan: Continue with current antibiotics-should have good coverage based on C/S report. Will work on ID evaluation. PT/OT consult to help improve strength and functional status. Monitor lab. Hospital Course Summary Disclaimer: The visit summary below is not to be considered part of the above Progress Note.
--- NOTE | 2016-12-08 11:06 | General Surgery Progress Note ---
Subjective Patient reports: feels better - Vital Signs Last Vital Signs Temp 96.4 F L 12/08/16 07:28 Pulse 70 12/08/16 07:28 Resp 20 12/08/16 07:28 BP 120/67 12/08/16 07:28 Pulse Ox 95 12/08/16 07:28 - Laboratory Result Diagrams: 12/08/16 08:07 12/08/16 08:07 - Microbiogy Microbiology 12/05/16 09:35 Peripheral/Iv Start Blood Culture - Preliminary No Growth After 3 Days 12/05/16 15:30 Aspirate, Abdomen Gram Stain - Final 12/05/16 15:30 Aspirate, Abdomen Body Fluid Culture - Final Staphylococcus aureus, MRSA Pseudomonas aeruginosa Citrobacter freundii 12/05/16 13:15 Peripheral/Iv Start Blood Culture - Preliminary No Growth After 2 Days 12/05/16 12:32 Not Provided Urine Culture - Final Mixed Bacterial Ree - Abnormal Exam Abdominal: obese - Normal Exam General: no acute distress (although anxious) Respiratory: clear bilaterally Abdominal: soft, non-tender, other (CANDACE with serosanguinous fluid) Psychiatric: other (anxious) Neurological: CN 2-12 grossly intact Assessment and Plan (1) Abdominal abscess Current Visit: Yes Status: Acute Plan: Sono guided drainage of abscess on 12-05 resulted in 120 ml fluid, some sent for culture. Culture + for MRSA and Pseudomonous, sensitivity pending. She is physically feeling better today. NPO since midnight and plan Flex Sig today through rectum today. Hospital Course Summary Disclaimer: The visit summary below is not to be considered part of the above Progress Note. Hospital Course: 12/05/16 Impression Abdominal Abscess Leukocytosis Hypokalemia History of extensive abdominal abscess related to diverticulitis Hypertension Hyperlipidemia GERD Congestive heart failure Restless leg syndrome Chronic back pain Anxiety and depression Plan Admit as a inpatient under the care of Dr. Aviles for abdominal abscess with leukocytosis. Laboratory studies are ordered on admission, CBC, CMP, venous lactate, pro calcitonin, magnesium, blood cultures 2, urinalysis. Twelve-lead EKG and chest x-ray are performed for preoperative clearance. Patient is placed on IV Zosyn on admission for antimicrobial coverage. Normal saline at 100 ML per hour for gentle hydration. Will replace potassium with IV fluid bolus given NPO status. Patient is made nothing by mouth at this time until further surgical evaluation. Consulted is placed with Dr. Bowers. According to med rec patient has currently been on Augmentin and Flagyl. Patient does wish to be a do not resuscitate and this order is written. Recheck CBC and BMP Orders and plan discussed with attending Dr Aviles At time of discharge medical care will return to PCP Dr Pro with [facility] program 12/06/16 Continue zosyn and add vancomycin for coverage of MRSA given early culture results from abdominal abscess fluid Follow cultures for final results Zofran prn for nausea Hold furosemide given poor po intake Continue gentle IVF today, may be able to DC tomorrow if taking more po Potassium chloride 20 meq BID today for replacement Repeat renal panel, Mg, CBC in AM for surveillance 12/08-Plan: Continue Zosyn and vancomycin for MRSA coverage of C/S results from abdominal abscess fluid NPO this morning for planned Flex Sigmoidoscopy with Dr Bowers / NS for gently hydration. NA increased to 145. Monitor electrolytes. Continues to receive PO potassium supplementation. Encourage use of Incentive spirometry Check CBC, BMP, magnesium tomorrow
--- NOTE | 2016-12-08 12:22 | Pharmacy Consult-Antibiotics ---
Pharmacy Consult-Vancomycin - Laboratory Information WBC 8.4 T/MM3 (4.5-11.0) 12/08/16 08:07 BUN 7.0 MG/DL (7-17) 12/08/16 08:07 Creatinine 0.6 MG/DL (0.7-1.2) L 12/08/16 08:07 Procalcitonin 0.08 NG/ML 12/05/16 09:37 Vancomycin Trough 23.55 UG/ML (15-20) H* 12/08/16 08:07 - Consult Information Vancomycin day3 76 y.o. F with abdominal abscess. C&S of abdominal fluid resulted MRSA, P. Aeruginosa, and Citrobacter freundii Patient receiving Pip/Tazo and Vancomycin 1,500 mg IV Q12h. 12/08/16 am trough = 23.55 mcg/ml goal trough range= 15 to 20 mcg/ml. Dose adjusted to : Vancomycin 1,500 mg IV Q18H. Pharmacy will monitor and adjust as needed. Thank you for the consult, Keeley Myers RPh
--- NOTE | 2016-12-08 12:24 | Anesthesia Preoperative Report ---
Anesthesia Preoperative Record - Date and Time Date: 12/08/16 Preoperative Diagnosis: Abd Abcess Proposed Procedure: flexible sigmoidoscopy NPO Since Date: 12/07/16 NPO Since Time: 23:00 Allergies/Adverse Reactions: Allergies Allergy/AdvReac Type Severity Reaction Status Date / Time hydrocodone Allergy Unknown Verified 12/05/16 17:31 - Vital Signs Vital Signs: Temperature 96.4 F L 12/08/16 07:28 Pulse Rate 70 12/08/16 07:28 Respiratory Rate 20 12/08/16 07:28 Blood Pressure 120/67 12/08/16 07:28 Pulse Oximetry 95 12/08/16 07:28 Height and Weight: Height 1.55 m Weight 99.8 kg Body Mass Index 40.1 - Medications Inpatient Medications: Current Medications Acetaminophen (Tylenol) 650 mg PO Q5H PRN PRN Reason: Discomfort Aspirin (Ecotrin) 81 mg PO DAILY [facility] Last Admin: 12/08/16 08:48 Dose: Not Given Baclofen (Lioresal) 10 mg PO TID [facility] Last Admin: 12/08/16 08:48 Dose: Not Given Calcium/Vitamin D (Caltrate + D) 1 tab PO DAILY [facility] Last Admin: 12/08/16 08:48 Dose: Not Given Ferrous Sulfate (Feosol) 324 mg PO WB [facility] Last Admin: 12/08/16 08:48 Dose: Not Given Folic Acid (Folate) 1 mg PO DAILY [facility] Last Admin: 12/08/16 08:48 Dose: Not Given Furosemide (Lasix) 40 mg PO DAILY [facility] Last Admin: 12/08/16 08:48 Dose: Not Given Piperacillin Sod/Tazobactam (Sod 3.375 gm/ Sodium Chloride) 100 mls @ 200 mls/ hr IV Q6H [facility] Last Infusion: 12/08/16 09:37 Dose: Infused Vancomycin HCl 1,500 mg/ (Sodium Chloride) 500 mls @ 250 mls/hr IV Q18H [facility] Lovastatin (Mevacor) 40 mg PO WS [facility] Last Admin: 12/07/16 17:03 Dose: 40 mg Ondansetron HCl (Zofran) 4 mg IVP Q6H PRN PRN Reason: Nausea Last Admin: 12/06/16 09:19 Dose: 4 mg Potassium Chloride (K-Dur) 20 meq PO BIDWM [facility] Last Admin: 12/08/16 08:48 Dose: Not Given Pramipexole Dihydrochloride (Mirapex) 2 mg PO HS [facility] Last Admin: 12/07/16 20:58 Dose: 2 mg Sertraline HCl (Zoloft) 150 mg PO DAILY [facility] Last Admin: 12/08/16 08:48 Dose: Not Given Sodium Chloride (Normal Saline) 500 ml IV PRN PRN Last Admin: 12/07/16 21:04 Dose: 500 ml Spironolactone (Aldactone) 25 mg PO DAILY [facility] Last Admin: 12/08/16 08:48 Dose: Not Given Home Medications: Home Medications Medication Instructions Recorded Confirmed Type Alendronate [Fosamax] 70 mg PO Q7D #0 tab 06/18/14 12/05/16 History Aspirin [Aspir-Low] 81 mg PO DAILY #0 06/18/14 12/05/16 History Lovastatin 40 mg PO WS #0 tab 06/18/14 12/05/16 History Pramipexole Di-HCl [Pramipexole 2 mg PO DAILY #0 06/18/14 12/05/16 History Dihydrochloride] Amox/Clav [Augmentin] 500 mg PO DAILY 12/05/16 12/05/16 History Baclofen [Lioresal] 1 tab PO TID 12/05/16 12/05/16 History Calcium Carbonate/Vitamin D3 1 each PO DAILY 12/05/16 12/05/16 History [Calcium 600-Vit D3 200 Tablet] Cyanocobalamin (B-12) [Vit. B-12] 1,000 mcg IM Q14D 12/05/16 12/05/16 History Estradiol Vag Cream [Estrace Vag 1 applic VAGINAL 3XW 12/05/16 12/05/16 History Cream] Folic Acid [Folate] 1 tab PO DAILY 12/05/16 12/05/16 History Potassium Chloride 10 meq PO DAILY 12/05/16 12/05/16 History Sertraline [Zoloft] 150 mg PO DAILY 12/05/16 12/05/16 History metroNIDAZOLE [Flagyl] 500 mg PO TID 12/05/16 12/05/16 History - Medical History Respiratory: Reports: Sleep Apnea Gastrointestional: Reports: Morbid Obesity - Surgical History Cardiac Surgeries/Treatments: DENIES: Pacemaker GI Surgery/Treatments: Reports: Appendectomy, Colon Resection Musculoskeletal Surgery/Tx: Reports: Shoulder Arthroscopy, Total Knee Replacement, Other (bACK ) Reproductive Surgery/Treatment: Reports: Hysterectomy DENIES: Mastectomy Anesthesia Reactions: None Hx Family Anesthesia Reaction: No - Social History Smoking Status: Never smoker - Pertinent Findings Laboratory: CBC and BMP 12/08/16 08:07 12/08/16 08:07 BMP 12/08/16 08:07 Sodium 145 H Potassium 4.7 Chloride 107 Carbon Dioxide 33 H BUN 7.0 Creatinine 0.6 L Glucose 90 Calcium 8.5 D Liver Function 12/08/16 Range/Units 08:07 Albumin 2.6 L (3.5-5.0) G/DL EKG: Sinus Rhythm - Discussion Discussion: Discussed risks/options/alternatives of anesthesia and questions answered. Patient consents. Nursing pain assessment noted. Attestation Statement: Prior to the delivery of any anesthetic medication, I examined the patient, developed the plan, obtained the patient's consent and discussed the risk and benefits of the procedure with the patient/guardian.
[2016-12-08] MEDS: LR 1,000 ML IV SCH ×2 (12:35→16:10)
[2016-12-08] MEDS ORDERED: PROPOFOL 20 ML ONE (12:42)
--- NOTE | 2016-12-08 12:51 | General Surgery Procedure Note ---
Date of Procedure: 12/08/16 Surgeon: Robinson Postoperative Diagnosis: Diverticulosis Procedure: Limited Flexible Sigmoidoscopy Estimated Blood Loss: See Anesthesia Record. Pathology: none sent
--- NOTE | 2016-12-08 13:34 | Anesthesia Postoperative Note ---
- Date and Time Date: 12/08/16 Time: 13:15 - Status Patient Participated in Evaluation: Patient Participated in Person Vital Signs: Temperature 96.4 F L 12/08/16 07:28 Pulse Rate 70 12/08/16 07:28 Respiratory Rate 20 12/08/16 07:28 Blood Pressure 120/67 12/08/16 07:28 Pulse Oximetry 95 12/08/16 07:28 Respiratory Function: Airway Patent Cardiovascular Function: Regular Pulse EKG: Sinus Rhythm Mental Status: Alert and Oriented Pain Intensity: 0 Hydration: IV Infusing Complications During Recover: None Apparent - Follow-Up Instructions Instructions: Per Surgeon
--- NOTE | 2016-12-08 14:34 | Operative Note ---
DATE OF SERVICE 12/08/2016 SURGEON Alejandro Bowers MD PREOPERATIVE DIAGNOSIS Personal history for recurrent diverticular abscess, personal history for abnormal barium enema. POSTOPERATIVE DIAGNOSIS Personal history for recurrent diverticular abscess, personal history for abnormal barium enema, apparent colonic stricture at 30 cm from anal verge, sigmoid diverticulosis. PROCEDURE Flexible sigmoidoscopy up to 30 cm from anal verge. ANESTHESIA TIVA. BRIEF HISTORY/INDICATIONS Mrs. Magdaleno is a 76-year-old female who has a very unique history. The patient had initially presented to our facility as a result of a diverticular perforation/abscess greater than a year ago. Surgery was fraught with significant difficulty given the extent of inflammatory changes present within the peritoneal cavity. The patient had a very large phlegmon involving her sigmoid colon. Her sigmoid colon was unable to be completely resected and a diverting end colostomy was performed. The patient had numerous intraabdominal abscesses that were drained surgically. Overall the patient has done fairly well over the course of last year but unfortunately again began to notice a component of some discomfort involving her lower abdomen. The patient did undergo a CT scan that revealed recurrent diverticular abscess extending into the anterior abdominal wall beneath her diverting end colostomy. She did undergo a barium enema which was initially read as containing fistulas between the colon adjacent small bowel as well as between the colon and the vaginal area. Upon reviewing the films it appears that there is somewhat of a "acute cut off" near the rectosigmoid junction with some fistulization occurring down to the vagina as well as to a more proximal segment of her remaining sigmoid colon. 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 The patient did not undergo a colonoscopy at the time of her perforation. She had underwent prior colonoscopy in [place] in the remote past. It was my recommendation that we go ahead and repeat a flexible sigmoidoscopy through her remaining rectosigmoid stump to rule out a potential neoplastic process. The patient presents today to undergo this procedure. DESCRIPTION OF PROCEDURE After informed consent was obtained, the patient was brought to the operative suite and placed on the table in left lateral cubitus position. The patient subsequently underwent total intravenous anesthesia. Next, a digital rectal examination was performed. Normal sphincter tone. No rectal masses were appreciated. An Olympus colonoscope was inserted in the anus and advanced up to about 30 cm from the anal verge where an acute angulation/stricture of the colon was noted. I was unable to advance the colonoscope past this location. I could not see any evidence for a staple line indicating that this was the end of her rectosigmoid stump. I did not however see any type of neoplastic process present at this location. One could see numerous diverticula that did not appear to be acutely inflamed at this region. The colonoscope was then slowly withdrawn and several additional diverticula were noted within the sigmoid colon region. No marked mucosal abnormalities were noted within the rectum. Once the colonoscope was withdrawn back to the rectum, a J maneuver was performed. No worrisome perianal pathology was noted. The scope was allowed to straighten and was withdrawn through the anal verge. The patient tolerated the procedure without difficulty and was sent back to preop area in stable condition. CARMINE
--- NOTE | 2016-12-08 16:45 | Progress Note ---
DATE 12/08/2016 FINDINGS Mrs. Magdaleno was seen earlier this morning. She denied much in the way of abdominal pain or discomfort. She states that she was continuing to "feel better". PHYSICAL EXAMINATION VITALS: Afebrile. Normotensive. Last recorded vitals include temperature 97.1 , pulse 75, respirations 18, blood pressure 111/61, SaO2 100% on room air. HEENT: Normocephalic. Pupils are equally round and react to light and accommodation. CHEST: Clear to auscultation bilaterally. HEART: Regular rate and rhythm. Normal S1, S2, without gallops, murmurs or clicks. ABDOMEN: Soft, essentially nontender. No evidence for guarding or rebound. LABORATORY/RADIOGRAPHIC EVALUATION The patient had a CBC today that was unremarkable. White count was 8.4. Hemoglobin stable at 9.3. BMP obtained and found to be without marked abnormalities. Cultures now are confirmative for MRSA, Pseudomonas and Citrobacter. Urine culture showed a mixed bacterial kingsley, less than 100,000 CFU/mL. ASSESSMENT 76-year-old female status post percutaneous drainage of intraperitoneal/ abdominal wall abscess, most likely secondary to recurrent diverticular abscess. Status post flexible sigmoidoscopy revealing probable colonic stricture at 30 cm from the anal verge. No evidence for underlying neoplastic process. PLAN Continuation of ongoing broad-spectrum antibiotics. Will likely obtain Infectious Disease input and continue with broad-spectrum intravenous antibiotics on an outpatient basis. I am pleased with the patient's progress at this time. [facility]
[2016-12-08] MEDS: LOVASTATIN 40 MG TABLET PO SCH (18:33)
[2016-12-08] MEDS ORDERED: FALL RISK - PHARMACY CONSULT XX ONE (19:23)
[2016-12-08] MEDS: PRAMIPEXOLE 1 MG TABLET PO SCH (22:25)
[2016-12-09] MEDS: PIPERACILLIN/TAZOBACTAM 3.375 GM in NS 100 ML IV SCH ×4 (03:37→20:12)
--- NOTE | 2016-12-09 08:53 | General Surgery Progress Note ---
Subjective Patient reports: no new complaints (She is feeling fairly good, denies abd pain , nausea.), tolerating a regular diet, bowel movement (soft brown in colostomy bag), afebrile Narrative: Limited Flex Sig thru rectum yesterday revealed an area of structure at about 30 cm, no masses identified, no biopsy needed. There was diverticulosis noted. - Vital Signs Last Vital Signs Temp 95.8 F L 12/09/16 06:50 Pulse 72 12/09/16 06:50 Resp 18 12/09/16 06:50 BP 135/74 12/09/16 06:50 Pulse Ox 96 12/09/16 06:50 - Laboratory Result Diagrams: 12/10/16 05:40 12/10/16 05:40 Microbiology 12/05/16 15:30 Aspirate, Abdomen Gram Stain - Final 12/05/16 15:30 Aspirate, Abdomen Body Fluid Culture - Preliminary Staphylococcus aureus Pseudomonas species Gram Negative Rafy Laboratory Tests 12/05/16 12/06/16 12/07/16 09:37 04:30 04:47 WBC 13.2 H 10.5 8.9 12/08/16 12/09/16 08:07 04:32 WBC 8.4 8.2 - Microbiogy Microbiology 12/05/16 13:15 Peripheral/Iv Start Blood Culture - Preliminary No Growth After 3 Days 12/05/16 09:35 Peripheral/Iv Start Blood Culture - Preliminary No Growth After 3 Days 12/05/16 15:30 Aspirate, Abdomen Gram Stain - Final 12/05/16 15:30 Aspirate, Abdomen Body Fluid Culture - Final Staphylococcus aureus, MRSA Pseudomonas aeruginosa Citrobacter freundii - Abnormal Exam Abdominal: obese Additional Abnormal Findings: CANDACE placed by radiology with cloudy pink drainage, 70 ml charted for yesterday, none charted for today and perhaps 5-10 ml in bulb upon exam this morning. - Normal Exam General: awake, alert, oriented, no acute distress Cardiovascular: regular rhythm, regular rate Respiratory: clear bilaterally, no labored breathing Abdominal: BS normo active x4, soft, non-tender, other (colostomy with brown soft stool in bag) Psychiatric: normal affect (but at times can become very anxious) Neurological: CN 2-12 grossly intact Assessment and Plan (1) Abdominal abscess Current Visit: Yes Status: Acute Assessment and plan: WBC has normalized and remains stable for 4 days. CANDACE with cloudy pink drainage, minimal amount now. 120 ml purulent drainage out initially by radiology on 12-05. C&S & KARL reviewed. Meropenem might be an option. Waiting for ID recommendations for ABX therapy. (2) Diverticulosis of colon Current Visit: Yes Status: Acute Plan: She is feeling well, WBC has normalized and remains stable for 4 days. CANDACE with cloudy pink drainage, minimal amount now. 120 ml purulent drainage out initially by radiology on 12-05. C&S & KARL reviewed. Meropenem might be an option. Waiting for ID recommendations for ABX therapy. Hospital Course Summary Disclaimer: The visit summary below is not to be considered part of the above Progress Note. Hospital Course: 12/05/16 Impression Abdominal Abscess Leukocytosis Hypokalemia History of extensive abdominal abscess related to diverticulitis Hypertension Hyperlipidemia GERD Congestive heart failure Restless leg syndrome Chronic back pain Anxiety and depression Plan Admit as a inpatient under the care of Dr. Aviles for abdominal abscess with leukocytosis. Laboratory studies are ordered on admission, CBC, CMP, venous lactate, pro calcitonin, magnesium, blood cultures 2, urinalysis. Twelve-lead EKG and chest x-ray are performed for preoperative clearance. Patient is placed on IV Zosyn on admission for antimicrobial coverage. Normal saline at 100 ML per hour for gentle hydration. Will replace potassium with IV fluid bolus given NPO status. Patient is made nothing by mouth at this time until further surgical evaluation. Consulted is placed with Dr. Bowers. According to med rec patient has currently been on Augmentin and Flagyl. Patient does wish to be a do not resuscitate and this order is written. Recheck CBC and BMP Orders and plan discussed with attending Dr Aviles At time of discharge medical care will return to PCP Dr Pro with [facility] program 12/06/16 Continue zosyn and add vancomycin for coverage of MRSA given early culture results from abdominal abscess fluid Follow cultures for final results Zofran prn for nausea Hold furosemide given poor po intake Continue gentle IVF today, may be able to DC tomorrow if taking more po Potassium chloride 20 meq BID today for replacement Repeat renal panel, Mg, CBC in AM for surveillance 12/08-Plan: Continue Zosyn and vancomycin for MRSA coverage of C/S results from abdominal abscess fluid NPO this morning for planned Flex Sigmoidoscopy with Dr Bowers 1/2 NS for gently hydration. NA increased to 145. Monitor electrolytes. Continues to receive PO potassium supplementation. Encourage use of Incentive spirometry Check CBC, BMP, magnesium tomorrow
[2016-12-09] MEDS: CALCIUM 600 + VIT D 400 TABLET PO SCH (09:10)
[2016-12-09] MEDS: SPIRONOLACTONE 25 MG TABLET PO SCH (09:10)
[2016-12-09] MEDS: FERROUS SULFATE 324 MG TABLET PO SCH (09:10)
[2016-12-09] MEDS: FOLIC ACID 1 MG TABLET PO SCH (09:10)
[2016-12-09] MEDS: FUROSEMIDE 40 MG TABLET PO SCH (09:10)
[2016-12-09] MEDS: ASPIRIN *EC* 81 MG TABLET PO SCH (09:11)
[2016-12-09] MEDS: BACLOFEN 10 MG TABLET PO SCH ×3 (09:11→20:12)
[2016-12-09] MEDS: SERTRALINE 100 MG TABLET PO SCH (09:11)
--- NOTE | 2016-12-09 09:26 | Progress Note ---
<Francia Serna - Last Filed: 12/09/16 09:23> Subjective: Suzy is seen today in follow up for her intraperitoneal/abdominal wall abscess. She is seen while sitting in her recliner, eating breakfast. She reports that each day she is feeling better and denies any abdominal pain or new concerns. She does admit to her chronic right sided neck pain which she states she is working with physical therapy on. She denies any chest pain, shortness of breath, abdominal pain, nausea, vomiting or dysuria. Her appetite is good and her bowels are moving. She has remained afebrile. Review of her prior medical records and nursing notes indicates that overall, she is doing well and making gains. CBC today revealed persistent anemia with slight decrease in hemoglobin at 8.6. She denies any lightheadedness, dizziness or palpitations. BMP was unremarkable and blood cultures remain negative after 3 days. Culture of body fluid confirmed MRSA, pseudomonas and citrobacter freundii. She remains on Zosyn and Vancomycin. Objective Vital signs: Temperature 95.8 F L 12/09/16 06:50 Pulse Rate 72 12/09/16 06:50 Respiratory Rate 18 12/09/16 06:50 Blood Pressure 135/74 12/09/16 06:50 Pulse Oximetry 96 12/09/16 06:50 Height/Weight/BMI: Height 5 ft 1 in Weight 213 lb 10.047 oz Body Mass Index 40.1 - Constitutional Present: no acute distress, well nourished, well developed, obese, cooperative - Routine HEENT Exam Head: Present: normocephalic, atraumatic Eye: Present: PERRL. Absent: conjunctival icterus ENT: Present: mucous membranes moist, dentition normal - Routine Respiratory Exam Present: CTA bilaterally. Absent: stridor, wheezes, crackles - Routine Cardiovascular Exam Present: RRR, S1, S2 - Routine Abdominal Exam Present: soft, normoactive bowel sounds, non tender - Routine Extremities Exam Present: edema (2+ pitting bilateral lower extremities.), pulses intact - Routine Back/Spine/Pelvis Exam Back/Spine: Present: full ROM - Routine Musculoskeletal Exam Musculoskeletal: Present: moving extremities well - Routine Skin Exam Present: intact, dry, warm Comments: afebrile. - Routine Neurological Exam Present: alert, oriented X3, moving all extremities, normal speech - Routine Psychiatric Exam Present: normal affect, cooperative Results - Labs CBC & Chem 7: 12/09/16 04:32 12/09/16 04:32 Microbiology Results: Microbiology 12/05/16 13:15 Peripheral/Iv Start Blood Culture - Preliminary No Growth After 3 Days 12/05/16 09:35 Peripheral/Iv Start Blood Culture - Preliminary No Growth After 3 Days 12/05/16 15:30 Aspirate, Abdomen Gram Stain - Final 12/05/16 15:30 Aspirate, Abdomen Body Fluid Culture - Final Staphylococcus aureus, MRSA Pseudomonas aeruginosa Citrobacter freundii 12/05/16 12:32 Not Provided Urine Culture - Final Mixed Bacterial Ree Assessment and Plan (1) Abdominal abscess Current visit: Yes Status: Acute (2) Leukocytosis Current visit: Yes Status: Acute DVT Prophylaxis: SCD's Resuscitation Status: Do Not Resuscitate Assessment and Plan: Impression Abdominal Abscess 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 Leukocytosis Hypokalemia (POA) and persistent UTI (POA) History of extensive abdominal abscess related to diverticulitis Hypertension Hyperlipidemia GERD Congestive heart failure Restless leg syndrome Chronic back pain Anxiety and depression Morbid obesity with BMI 40.2 Nausea, no vomiting thus far Plan - 12/09/16. Overall, Suzy is doing well. She tolerated the flexible sigmoidoscopy by Dr. Bowers which revealed probably colonic stricture. Review of body fluid culture confirmed MRSA, pseudomonas and citrobacter freundii. Continue Zosyn and Vancomycin for antimicrobial coverage. Will discuss duration of treatment with infectious disease. Vancomycin dosage was adjusted by pharmacy in light of elevated trough. Pharmacy to continue to monitor and manage. CBC revealed persistent anemia with hemoglobin slightly decreased at 8.6. Patient remains asymptomatic. Continue to monitor closely for signs of bleeding. BMP was unremarkable and potassium stable at 4.1. Blood cultures negative after 3 days. Will recheck CBC and BMP in AM to monitor blood counts, electrolytes and renal function.. Continue to encourage PT/OT to help improve strength and functional status. - Time spent with patient Time with patient PN: 25 minutes Hospital Course Summary Disclaimer: The visit summary below is not to be considered part of the above Progress Note. Hospital Course: 12/05/16 Impression Abdominal Abscess Leukocytosis Hypokalemia History of extensive abdominal abscess related to diverticulitis Hypertension Hyperlipidemia GERD Congestive heart failure Restless leg syndrome Chronic back pain Anxiety and depression Plan Admit as a inpatient under the care of Dr. Aviles for abdominal abscess with leukocytosis. Laboratory studies are ordered on admission, CBC, CMP, venous lactate, pro calcitonin, magnesium, blood cultures 2, urinalysis. Twelve-lead EKG and chest x-ray are performed for preoperative clearance. Patient is placed on IV Zosyn on admission for antimicrobial coverage. Normal saline at 100 ML per hour for gentle hydration. Will replace potassium with IV fluid bolus given NPO status. Patient is made nothing by mouth at this time until further surgical evaluation. Consulted is placed with Dr. Bowers. According to med rec patient has currently been on Augmentin and Flagyl. Patient does wish to be a do not resuscitate and this order is written. Recheck CBC and BMP Orders and plan discussed with attending Dr Aviles At time of discharge medical care will return to PCP Dr Pro with [facility] program 12/06/16 Continue zosyn and add vancomycin for coverage of MRSA given early culture results from abdominal abscess fluid Follow cultures for final results Zofran prn for nausea Hold furosemide given poor po intake Continue gentle IVF today, may be able to DC tomorrow if taking more po Potassium chloride 20 meq BID today for replacement Repeat renal panel, Mg, CBC in AM for surveillance 12/08-Plan: Continue Zosyn and vancomycin for MRSA coverage of C/S results from abdominal abscess fluid NPO this morning for planned Flex Sigmoidoscopy with Dr Bowers 03/10 NS for gently hydration. NA increased to 145. Monitor electrolytes. Continues to receive PO potassium supplementation. Encourage use of Incentive spirometry Check CBC, BMP, magnesium tomorrow Plan - 12/09/16. Overall, Suzy is doing well. She tolerated the flexible sigmoidoscopy by Dr. Bowers which revealed probably colonic stricture. Review of body fluid culture confirmed MRSA, pseudomonas and citrobacter freundii. Continue Zosyn and Vancomycin for antimicrobial coverage. Will discuss duration of treatment with infectious disease. Vancomycin dosage was adjusted by pharmacy in light of elevated trough. Pharmacy to continue to monitor and manage. CBC revealed persistent anemia with hemoglobin slightly decreased at 8.6. Patient remains asymptomatic. Continue to monitor closely for signs of bleeding. BMP was unremarkable and potassium stable at 4.1. Blood cultures negative after 3 days. Will recheck CBC and BMP in AM to monitor blood counts, electrolytes and renal function.. Continue to encourage PT/OT to help improve strength and functional status. <Basim Aviles D - Last Filed: 12/09/16 14:49> Objective Vital signs: Temperature 96.7 F L 12/09/16 12:29 Pulse Rate 74 12/09/16 12:29 Respiratory Rate 16 12/09/16 12:29 Blood Pressure 122/62 12/09/16 12:29 Pulse Oximetry 97 12/09/16 12:29 Height/Weight/BMI: Height 1.55 m Weight 96.9 kg Body Mass Index 40.1 Results - Labs CBC & Chem 7: 12/09/16 04:32 12/09/16 04:32 Microbiology Results: Microbiology 12/05/16 13:15 Peripheral/Iv Start Blood Culture - Preliminary No Growth After 4 Days 12/05/16 09:35 Peripheral/Iv Start Blood Culture - Preliminary No Growth After 4 Days 12/05/16 15:30 Aspirate, Abdomen Gram Stain - Final 12/05/16 15:30 Aspirate, Abdomen Body Fluid Culture - Final Staphylococcus aureus, MRSA Pseudomonas aeruginosa Citrobacter freundii 12/05/16 12:32 Not Provided Urine Culture - Final Mixed Bacterial Ree Assessment and Plan (1) Abdominal abscess Current visit: Yes Status: Acute (2) Leukocytosis Current visit: Yes Status: Acute Assessment and Plan: Impression Abdominal Abscess - polymicrobial growth 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 Leukocytosis (POA) - resolved Hypokalemia (POA) - resolved UTI (POA) - mixed growth History of extensive abdominal abscess related to diverticulitis Hypertension Hyperlipidemia GERD Congestive heart failure Restless leg syndrome Chronic back pain Anxiety and depression Morbid obesity with BMI 40.2 Nausea, no vomiting thus far Have independently interviewed and examined pt. Chart reviewed. Case discussed with PAUL, Dr Bowers, and my PA. Care plan developed with my supervision; agree with above. Doing okay today. Not having ab pain or discomfort. Eating well. No nausea. Tolerating therapy-strength starting to increase. Still weak, but improving. Breathing well. No f/c. Lungs: decreased, no distress CV: regular AB: soft nt BS present MSE: Awake alert appropriate Plan: Dr Bowers anticipate reassessing patient in 4 to 6 weeks for possible colon resection-need to have current abscess resolve and patient's functional status improve prior to colonic resection. Will continue with Zosyn and Vancomycin for antimicrobial coverage during hospitalization. Working with ID for outpatient recommendations. Encourage continue work with PT/OT to help improve patients strength prior to return home. Monitor lab. Likely discharge in near future. Time spent with patient care 25 minutes. Hospital Course Summary Disclaimer: The visit summary below is not to be considered part of the above Progress Note.
--- NOTE | 2016-12-09 15:39 | Progress Note ---
DATE 12/09/2016 FINDINGS Mrs. Magdaleno today states that she is feeling better. She states that she is having some problems "holding her urine". EXAM VITALS: Afebrile. Normotensive. Last recorded vitals include temperature 95.8 , pulse 72, respirations 18, blood pressure 135/74, SaO2 96% on room air. CHEST: Clear to auscultation bilaterally. HEART: Regular rate and rhythm. Normal S1, S2, without gallops, murmurs or clicks. ABDOMEN: Palpation of the abdomen reveals it to be soft and completely nontender. Previously noted mass beneath the colostomy is no longer palpable. CANDACE drainage continues to have some purulent serosanguineous material within the bulb. LABORATORY/RADIOGRAPHIC EVALUATION The patient's white count remains stable at 8.2. Hemoglobin stable at 8.6. BMP obtained and found to be within normal limits. ASSESSMENT 76-year-old female with history for recurrent diverticular abscess. Status post percutaneous placement of pigtail drain secondary to intraabdominal/ abdominal wall abscess. Patient has made marked clinical improvement. PLAN Continue with broad-spectrum antibiotics, percutaneous drainage. Yesterday upon flexible sigmoidoscopy, there was no evidence for any type of underlying malignant process as the potential etiology for her ongoing intraperitoneal process. It would be my recommendation that once she has been stabilized from a medical standpoint and arrangements have been made with Infectious Disease and that the patient be discharged to home with ongoing outpatient antibiotic infusions. Perhaps in 4-6 weeks after this acute infection has resolved, at that time we may proceed with exploratory laparotomy, sigmoid resection and possible takedown of her end colostomy/coloproctostomy. The above plan was discussed with the patient today. She understood and agreed. CARMINE
[2016-12-09] MEDS: LOVASTATIN 40 MG TABLET PO SCH (17:12)
[2016-12-09] MEDS: PRAMIPEXOLE 1 MG TABLET PO SCH (19:06)
[2016-12-10] MEDS: PIPERACILLIN/TAZOBACTAM 3.375 GM in NS 100 ML IV SCH ×4 (02:16→20:17)
[2016-12-10] MEDS: CALCIUM 600 + VIT D 400 TABLET PO SCH (09:30)
[2016-12-10] MEDS: SPIRONOLACTONE 25 MG TABLET PO SCH (09:30)
[2016-12-10] MEDS: SERTRALINE 100 MG TABLET PO SCH (09:31)
[2016-12-10] MEDS: ASPIRIN *EC* 81 MG TABLET PO SCH (09:31)
[2016-12-10] MEDS: FOLIC ACID 1 MG TABLET PO SCH (09:31)
[2016-12-10] MEDS: BACLOFEN 10 MG TABLET PO SCH ×3 (09:31→22:44)
[2016-12-10] MEDS: FERROUS SULFATE 324 MG TABLET PO SCH (09:31)
[2016-12-10] MEDS: FUROSEMIDE 40 MG TABLET PO SCH (09:31)
--- NOTE | 2016-12-10 09:42 | Progress Note ---
<Diana Arana V - Last Filed: 12/10/16 09:37> Subjective: Suzy is seen this morning in follow up. She is up in the chair eating breakfast without difficulty. She is without complains of pain or shortness of breath. No nausea and she is having normal stool output via ostomy. Appetite is good. Remains afebrile. Objective Vital signs: Temperature 98.0 F 12/10/16 07:00 Pulse Rate 61 12/10/16 07:00 Respiratory Rate 18 12/10/16 07:00 Blood Pressure 131/67 12/10/16 07:00 Pulse Oximetry 99 12/10/16 07:00 Height/Weight/BMI: Height 1.55 m Weight 96.9 kg Body Mass Index 40.1 - Constitutional Present: no acute distress, well nourished, well developed - Routine HEENT Exam Eye: Present: EOMI ENT: Present: mucous membranes moist, dentition normal - Routine Respiratory Exam Present: CTA bilaterally. Absent: wheezes - Routine Cardiovascular Exam Present: RRR. Absent: murmur - Routine Abdominal Exam Present: soft, normoactive bowel sounds, non distended. Absent: tenderness - Routine Extremities Exam Present: normal capillary refill - Routine Skin Exam Present: dry, warm - Routine Neurological Exam Present: alert, oriented X3, CN II-XII intact - Routine Lymphatic Exam Lymphatic: Absent: adenopathy - Routine Psychiatric Exam Present: normal affect Results - Labs CBC & Chem 7: 12/10/16 05:40 12/10/16 05:40 Microbiology Results: Microbiology 12/05/16 13:15 Peripheral/Iv Start Blood Culture - Preliminary No Growth After 4 Days 12/05/16 09:35 Peripheral/Iv Start Blood Culture - Preliminary No Growth After 4 Days 12/05/16 15:30 Aspirate, Abdomen Gram Stain - Final 12/05/16 15:30 Aspirate, Abdomen Body Fluid Culture - Final Staphylococcus aureus, MRSA Pseudomonas aeruginosa Citrobacter freundii 12/05/16 12:32 Not Provided Urine Culture - Final Mixed Bacterial Ree Assessment and Plan (1) Abdominal abscess Current visit: Yes Status: Acute (2) Leukocytosis Current visit: Yes Status: Acute Assessment and Plan: Impression Abdominal Abscess - polymicrobial growth 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 Leukocytosis (POA) - resolved Hypokalemia (POA) - resolved UTI (POA) - mixed growth History of extensive abdominal abscess related to diverticulitis Hypertension Hyperlipidemia GERD Congestive heart failure Restless leg syndrome Chronic back pain Anxiety and depression Morbid obesity with BMI 40.2 Nausea, no vomiting thus far 12/10-Plan Spoke with PCP Dr Pro with [facility] he is arranging discharge plan, as she will likely need stay at a facility for IV antibiotics. Appreciate Dr. Manning recommendations for ongoing IV antibiotics. Will likely do vancomycin and meropenem. Abdominal wound culture does reveal MRSA, Pseudomonas and Citrobacter. Blood cultures negative. Will plan follow-up at wound care center with Dr. Bowers in 4-6 weeks for reevaluation and possible further surgical procedure if needed. Reviewed morning labs, they remain stable. Awaiting further discharge plans Hospital Course Summary Disclaimer: The visit summary below is not to be considered part of the above Progress Note. Hospital Course: 12/05/16 Impression Abdominal Abscess Leukocytosis Hypokalemia History of extensive abdominal abscess related to diverticulitis Hypertension Hyperlipidemia GERD Congestive heart failure Restless leg syndrome Chronic back pain Anxiety and depression Plan Admit as a inpatient under the care of Dr. Aviles for abdominal abscess with leukocytosis. Laboratory studies are ordered on admission, CBC, CMP, venous lactate, pro calcitonin, magnesium, blood cultures 2, urinalysis. Twelve-lead EKG and chest x-ray are performed for preoperative clearance. Patient is placed on IV Zosyn on admission for antimicrobial coverage. Normal saline at 100 ML per hour for gentle hydration. Will replace potassium with IV fluid bolus given NPO status. Patient is made nothing by mouth at this time until further surgical evaluation. Consulted is placed with Dr. Bowers. According to med rec patient has currently been on Augmentin and Flagyl. Patient does wish to be a do not resuscitate and this order is written. Recheck CBC and BMP Orders and plan discussed with attending Dr Aviles At time of discharge medical care will return to PCP Dr Pro with [facility] 12/06/16 Continue zosyn and add vancomycin for coverage of MRSA given early culture results from abdominal abscess fluid Follow cultures for final results Zofran prn for nausea Hold furosemide given poor po intake Continue gentle IVF today, may be able to DC tomorrow if taking more po Potassium chloride 20 meq BID today for replacement Repeat renal panel, Mg, CBC in AM for surveillance 12/08-Plan: Continue Zosyn and vancomycin for MRSA coverage of C/S results from abdominal abscess fluid NPO this morning for planned Flex Sigmoidoscopy with Dr Bowers 03/10 NS for gently hydration. NA increased to 145. Monitor electrolytes. Continues to receive PO potassium supplementation. Encourage use of Incentive spirometry Check CBC, BMP, magnesium tomorrow Plan - 12/09/16. Overall, Suzy is doing well. She tolerated the flexible sigmoidoscopy by Dr. Bowers which revealed probably colonic stricture. Review of body fluid culture confirmed MRSA, pseudomonas and citrobacter freundii. Continue Zosyn and Vancomycin for antimicrobial coverage. Will discuss duration of treatment with infectious disease. Vancomycin dosage was adjusted by pharmacy in light of elevated trough. Pharmacy to continue to monitor and manage. CBC revealed persistent anemia with hemoglobin slightly decreased at 8.6. Patient remains asymptomatic. Continue to monitor closely for signs of bleeding. BMP was unremarkable and potassium stable at 4.1. Blood cultures negative after 3 days. Will recheck CBC and BMP in AM to monitor blood counts, electrolytes and renal function.. Continue to encourage PT/OT to help improve strength and functional status. 12/10-Plan Spoke with PCP Dr Pro with [facility] he is arranging discharge plan, as she will likely need stay at a facility for IV antibiotics. Appreciate Dr. Manning recommendations for ongoing IV antibiotics. Will likely do vancomycin and meropenem. Abdominal wound culture does reveal MRSA, Pseudomonas and Citrobacter. Blood cultures negative. Will plan follow-up at wound care center with Dr. Bowers in 4-6 weeks for reevaluation and possible further surgical procedure if needed. Reviewed morning labs, they remain stable. Awaiting further discharge plans <Basim Aviles D - Last Filed: 12/10/16 19:05> Objective Vital signs: Temperature 97.9 F 12/10/16 15:54 Pulse Rate 16 L 12/10/16 15:54 Respiratory Rate 77 H 12/10/16 15:54 Blood Pressure 117/56 12/10/16 15:54 Pulse Oximetry 96 12/10/16 15:54 Height/Weight/BMI: Height 1.55 m Weight 96.9 kg Body Mass Index 40.1 Results - Labs CBC & Chem 7: 12/10/16 05:40 12/10/16 05:40 Microbiology Results: Microbiology 12/05/16 13:15 Peripheral/Iv Start Blood Culture - Final No Growth After 5 Days 12/05/16 15:30 Aspirate Organism Identification - Preliminary 12/05/16 09:35 Peripheral/Iv Start Blood Culture - Final No Growth After 5 Days 12/05/16 15:30 Aspirate, Abdomen Gram Stain - Final 12/05/16 15:30 Aspirate, Abdomen Body Fluid Culture - Final Staphylococcus aureus, MRSA Pseudomonas aeruginosa Citrobacter freundii 12/05/16 12:32 Not Provided Urine Culture - Final Mixed Bacterial Ree Assessment and Plan (1) Abdominal abscess Current visit: Yes Status: Acute (2) Leukocytosis Current visit: Yes Status: Acute Assessment and Plan: Impression Abdominal Abscess - polymicrobial growth 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 Leukocytosis (POA) - resolved Hypokalemia (POA) - resolved UTI (POA) - mixed growth History of extensive abdominal abscess related to diverticulitis Hypertension Hyperlipidemia GERD Congestive heart failure Restless leg syndrome Chronic back pain Anxiety and depression Morbid obesity with BMI 40.2 Nausea, no vomiting thus far Have independently interviewed and examined pt. Chart reviewed. Cased discussed with CM and my PERSONAL FITNESS TRAINER. Care plan developed with my supervision; agree with above. Resting in chair this evening. Reports being up in chair all day. Up with assistance to bathroom. Breathing well. No nausea. Lungs: decreased, no distress CV: regular MSE: awake alert appropriate Plan: Continue with antimicrobial coverage for ab abscess. CM working on post discharge arrangements. Encourage activities to help strength. Hospital Course Summary Disclaimer: The visit summary below is not to be considered part of the above Progress Note.
--- NOTE | 2016-12-10 18:00 | General Surgery Progress Note ---
Subjective Patient reports: no new complaints, tolerating a regular diet, bowel movement ( normal brown in colostomy bag.), afebrile - Vital Signs Last Vital Signs Temp 97.9 F 12/10/16 15:54 Pulse 16 L 12/10/16 15:54 Resp 77 H 12/10/16 15:54 BP 117/56 12/10/16 15:54 Pulse Ox 96 12/10/16 15:54 - Laboratory Result Diagrams: 12/10/16 05:40 12/10/16 05:40 - Microbiogy Microbiology 12/05/16 13:15 Peripheral/Iv Start Blood Culture - Final No Growth After 5 Days 12/05/16 15:30 Aspirate Organism Identification - Preliminary 12/05/16 09:35 Peripheral/Iv Start Blood Culture - Final No Growth After 5 Days - Abnormal Exam Additional Abnormal Findings: CANDACE from intraabdominal abscess with cloudy pink drainage, 55 ml is documented in the I&O in the last 12 hours. - Normal Exam General: awake, alert, oriented, no acute distress Cardiovascular: regular rhythm, regular rate Respiratory: no labored breathing Psychiatric: normal affect Neurological: CN 2-12 grossly intact Assessment and Plan (1) Abdominal abscess Current Visit: Yes Status: Acute (2) Diverticulosis of colon Current Visit: Yes Status: Acute Plan: CANDACE still with some cloudy output. Appreciate ID consult, she has been switched to Meropenem and Vancomycin. Hospitalist team working with Dr. Pro for placement with [facility] and IV ABX after discharge. We would like to see her in the office the 1st or 2nd week of January to discuss colostomy takedown, after she has been on several weeks ABX. Hospital Course Summary Disclaimer: The visit summary below is not to be considered part of the above Progress Note. Hospital Course: 12/05/16 Impression Abdominal Abscess Leukocytosis Hypokalemia History of extensive abdominal abscess related to diverticulitis Hypertension Hyperlipidemia GERD Congestive heart failure Restless leg syndrome Chronic back pain Anxiety and depression Plan Admit as a inpatient under the care of Dr. Aviles for abdominal abscess with leukocytosis. Laboratory studies are ordered on admission, CBC, CMP, venous lactate, pro calcitonin, magnesium, blood cultures 2, urinalysis. Twelve-lead EKG and chest x-ray are performed for preoperative clearance. Patient is placed on IV Zosyn on admission for antimicrobial coverage. Normal saline at 100 ML per hour for gentle hydration. Will replace potassium with IV fluid bolus given NPO status. Patient is made nothing by mouth at this time until further surgical evaluation. Consulted is placed with Dr. Bowers. According to med rec patient has currently been on Augmentin and Flagyl. Patient does wish to be a do not resuscitate and this order is written. Recheck CBC and BMP Orders and plan discussed with attending Dr Aviles At time of discharge medical care will return to PCP Dr Pro with [facility] 12/06/16 Continue zosyn and add vancomycin for coverage of MRSA given early culture results from abdominal abscess fluid Follow cultures for final results Zofran prn for nausea Hold furosemide given poor po intake Continue gentle IVF today, may be able to DC tomorrow if taking more po Potassium chloride 20 meq BID today for replacement Repeat renal panel, Mg, CBC in AM for surveillance 12/08-Plan: Continue Zosyn and vancomycin for MRSA coverage of C/S results from abdominal abscess fluid NPO this morning for planned Flex Sigmoidoscopy with Dr Bowers 03/10 NS for gently hydration. NA increased to 145. Monitor electrolytes. Continues to receive PO potassium supplementation. Encourage use of Incentive spirometry Check CBC, BMP, magnesium tomorrow 12/10/16 18:06 12/10 CANDACE still with some cloudy output. Appreciate ID consult, she has been switched to Meropenem and Vancomycin. Hospitalist team working with Dr. Pro for placement with [facility] and IV ABX after discharge. We would like to see her in the office the or 2nd week of January to discuss colostomy takedown, after she has been on several weeks ABX.
[2016-12-10] MEDS: LOVASTATIN 40 MG TABLET PO SCH (18:08)
[2016-12-10] MEDS: PRAMIPEXOLE 1 MG TABLET PO SCH (18:08)
--- NOTE | 2016-12-10 18:09 | Discharge Instructions ---
Discharge Plan - Med Rec/Dispo Referrals/Follow Up: Alejandro Bowers MD [Physician] - 01/07/17 (Call for appointment time, this can be Jan 06 or Jan.07, 7, or 8.) Prescriptions: No Action Spironolactone [Aldactone] 25 mg PO DAILY 10 Days #10 tab Ferrous Sulfate 324 mg PO WB 30 Days #30 tab Furosemide 40 mg PO DAILY 30 Days #30 tab Potassium Chloride 10 meq PO DAILY metroNIDAZOLE [Flagyl] 500 mg PO TID Folic Acid [Folate] 1 tab PO DAILY Estradiol Vag Cream [Estrace Vag Cream] 1 applic VAGINAL 3XW Calcium Carbonate/Vitamin D3 [Calcium 600-Vit D3 200 Tablet] 1 each PO DAILY Baclofen [Lioresal] 1 tab PO TID Sertraline [Zoloft] 150 mg PO DAILY Aspirin [Aspir-Low] 81 mg PO DAILY #0 Pramipexole Di-HCl [Pramipexole Dihydrochloride] 2 mg PO DAILY #0 Lovastatin 40 mg PO WS #0 tab Alendronate [Fosamax] 70 mg PO Q7D #0 tab Cyanocobalamin (B-12) [Vit. B-12] 1,000 mcg IM Q14D Amox/Clav [Augmentin] 500 mg PO DAILY
[2016-12-10] MEDS: SALINE FLUSH 10ml SYRINGE IV PRN (23:33)
[2016-12-11] MEDS: SALINE FLUSH 10ml SYRINGE IV PRN ×3 (03:41→23:41)
[2016-12-11] MEDS: PIPERACILLIN/TAZOBACTAM 3.375 GM in NS 100 ML IV SCH ×3 (03:41→15:26)
[2016-12-11] MEDS: CALCIUM 600 + VIT D 400 TABLET PO SCH (08:44)
[2016-12-11] MEDS: SERTRALINE 100 MG TABLET PO SCH (08:44)
[2016-12-11] MEDS: FUROSEMIDE 40 MG TABLET PO SCH (08:45)
[2016-12-11] MEDS: SPIRONOLACTONE 25 MG TABLET PO SCH (08:45)
[2016-12-11] MEDS: ASPIRIN *EC* 81 MG TABLET PO SCH (08:45)
[2016-12-11] MEDS: BACLOFEN 10 MG TABLET PO SCH ×3 (08:46→23:40)
[2016-12-11] MEDS: FOLIC ACID 1 MG TABLET PO SCH (08:46)
[2016-12-11] MEDS: FERROUS SULFATE 324 MG TABLET PO SCH (08:46)
[2016-12-11] MEDS: NS FLUSH BAG 500ml IV PRN (08:47)
--- NOTE | 2016-12-11 14:31 | Progress Note ---
<Diana Arana V - Last Filed: 12/11/16 14:25> Subjective: Suzy is seen today in follow up today. She is up in the chair and in good spirits. Denies feeling short of breath or having chest pain. CANDACE drain in abdomen , draining without difficulty. Stool via ostomy, appetite is good. Objective Vital signs: Temperature 97.5 F 12/11/16 11:51 Pulse Rate 73 12/11/16 11:51 Respiratory Rate 18 12/11/16 11:51 Blood Pressure 120/68 12/11/16 11:51 Pulse Oximetry 95 12/11/16 11:51 Height/Weight/BMI: Height 1.55 m Weight 93.1 kg Body Mass Index 40.1 - Constitutional Present: no acute distress - Routine HEENT Exam Head: Present: normocephalic Eye: Present: EOMI ENT: Present: mucous membranes moist - Routine Respiratory Exam Present: CTA bilaterally - Routine Cardiovascular Exam Present: RRR, S1, S2, no murmur - Routine Abdominal Exam Present: soft Comments: CANDACE drain intact - Routine Extremities Exam Present: full ROM - Routine Back/Spine/Pelvis Exam Back/Spine: Present: full ROM - Routine Skin Exam Present: intact, warm - Routine Neurological Exam Present: alert, oriented X3, CN II-XII intact - Routine Psychiatric Exam Present: normal affect, normal thought process, cooperative Results - Labs CBC & Chem 7: 12/10/16 05:40 12/11/16 07:50 Microbiology Results: Microbiology 12/05/16 15:30 Aspirate Organism Identification - Final 12/05/16 13:15 Peripheral/Iv Start Blood Culture - Final No Growth After 5 Days 12/05/16 09:35 Peripheral/Iv Start Blood Culture - Final No Growth After 5 Days 12/05/16 15:30 Aspirate, Abdomen Gram Stain - Final 12/05/16 15:30 Aspirate, Abdomen Body Fluid Culture - Final Staphylococcus aureus, MRSA Pseudomonas aeruginosa Citrobacter freundii 12/05/16 12:32 Not Provided Urine Culture - Final Mixed Bacterial Ree Assessment and Plan (1) Abdominal abscess Current visit: Yes Status: Acute (2) Leukocytosis Current visit: Yes Status: Acute Assessment and Plan: Impression Abdominal Abscess - polymicrobial growth 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 Leukocytosis (POA) - resolved Hypokalemia (POA) - resolved UTI (POA) - mixed growth History of extensive abdominal abscess related to diverticulitis Hypertension Hyperlipidemia GERD Congestive heart failure Restless leg syndrome Chronic back pain Anxiety and depression Morbid obesity with BMI 40.2 Nausea, no vomiting thus far Plan Continue to work with [facility]- Dr Morteza CM and attending regarding fpc plan. Dr Manning recommends vancomycin and meropenem for antimicrobial coverage. She will decide length of treatment needed. Possible options- [facility]- home health. Overall doing well. Hospital Course Summary Disclaimer: The visit summary below is not to be considered part of the above Progress Note. Hospital Course: 12/05/16 Impression Abdominal Abscess Leukocytosis Hypokalemia History of extensive abdominal abscess related to diverticulitis Hypertension Hyperlipidemia GERD Congestive heart failure Restless leg syndrome Chronic back pain Anxiety and depression Plan Admit as a inpatient under the care of Dr. Aviles for abdominal abscess with leukocytosis. Laboratory studies are ordered on admission, CBC, CMP, venous lactate, pro calcitonin, magnesium, blood cultures 2, urinalysis. Twelve-lead EKG and chest x-ray are performed for preoperative clearance. Patient is placed on IV Zosyn on admission for antimicrobial coverage. Normal saline at 100 ML per hour for gentle hydration. Will replace potassium with IV fluid bolus given NPO status. Patient is made nothing by mouth at this time until further surgical evaluation. Consulted is placed with Dr. Bowers. According to med rec patient has currently been on Augmentin and Flagyl. Patient does wish to be a do not resuscitate and this order is written. Recheck CBC and BMP Orders and plan discussed with attending Dr Aviles At time of discharge medical care will return to PCP Dr Pro with [facility] 12/06/16 Continue zosyn and add vancomycin for coverage of MRSA given early culture results from abdominal abscess fluid Follow cultures for final results Zofran prn for nausea Hold furosemide given poor po intake Continue gentle IVF today, may be able to DC tomorrow if taking more po Potassium chloride 20 meq BID today for replacement Repeat renal panel, Mg, CBC in AM for surveillance 12/08-Plan: Continue Zosyn and vancomycin for MRSA coverage of C/S results from abdominal abscess fluid NPO this morning for planned Flex Sigmoidoscopy with Dr Bowers 1/2 NS for gently hydration. NA increased to 145. Monitor electrolytes. Continues to receive PO potassium supplementation. Encourage use of Incentive spirometry Check CBC, BMP, magnesium tomorrow 12/10/16 18:06 12/10 CANDACE still with some cloudy output. Appreciate ID consult, she has been switched to Meropenem and Vancomycin. Hospitalist team working with Dr. Pro for placement with [facility] and IV ABX after discharge. We would like to see her in the office the 1st or 2nd week of January to discuss colostomy takedown, after she has been on several weeks ABX. 12/11/16 Continue to work with [facility]- Dr Pro, PAUL and attending regarding fpc plan. Dr Manning recommends vancomycin and meropenem for antimicrobial coverage. She will decide length of treatment needed. Possible options- [facility]- home health. Overall doing well. <Basim Aviles - Last Filed: 12/11/16 16:03> Objective Vital signs: Temperature 97.5 F 12/11/16 11:51 Pulse Rate 73 12/11/16 11:51 Respiratory Rate 18 12/11/16 11:51 Blood Pressure 120/68 12/11/16 11:51 Pulse Oximetry 95 12/11/16 11:51 Height/Weight/BMI: Height 1.55 m Weight 93.1 kg Body Mass Index 40.1 Results - Labs CBC & Chem 7: 12/10/16 05:40 12/11/16 07:50 Microbiology Results: Microbiology 12/05/16 15:30 Aspirate Organism Identification - Final 12/05/16 13:15 Peripheral/Iv Start Blood Culture - Final No Growth After 5 Days 12/05/16 09:35 Peripheral/Iv Start Blood Culture - Final No Growth After 5 Days 12/05/16 15:30 Aspirate, Abdomen Gram Stain - Final 12/05/16 15:30 Aspirate, Abdomen Body Fluid Culture - Final Staphylococcus aureus, MRSA Pseudomonas aeruginosa Citrobacter freundii 12/05/16 12:32 Not Provided Urine Culture - Final Mixed Bacterial Ree Assessment and Plan (1) Abdominal abscess Current visit: Yes Status: Acute (2) Leukocytosis Current visit: Yes Status: Acute DVT Prophylaxis: SCD's Resuscitation Status: Do Not Resuscitate Assessment and Plan: Impression Abdominal Abscess - polymicrobial growth 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 Leukocytosis (POA) - resolved Hypokalemia (POA) - resolved UTI (POA) - mixed growth History of extensive abdominal abscess related to diverticulitis Hypertension Hyperlipidemia GERD Congestive heart failure Restless leg syndrome Chronic back pain Anxiety and depression Morbid obesity with BMI 40.2 Nausea Have independently interviewed and examined pt. Chart reviewed. Case discussed with CM and my MANAGING SUPERVISOR. Care plan developed with my supervision; agree with above. Doing okay overall. Not having ab pain. Eating well. Stools stable. Breathing without difficulty. Tolerating antibiotics. Lungs: clear bilaterally CV: regular AB: soft nt/nd +BS MSE: Awake alert appropriate Plan: Continue with antibiotics. Continue to work with CM on discharge disposition. Currently doing well and clinically responding to treatments. Hospital Course Summary Disclaimer: The visit summary below is not to be considered part of the above Progress Note.
--- NOTE | 2016-12-11 14:56 | Pharmacy Consult-Antibiotics ---
Pharmacy Consult-Vancomycin - Laboratory Information WBC 8.6 T/MM3 (4.5-11.0) 12/10/16 05:40 BUN 7.0 MG/DL (7-17) 12/10/16 05:40 Creatinine 0.7 MG/DL (0.7-1.2) 12/11/16 07:50 Procalcitonin 0.08 NG/ML 12/05/16 09:37 Vancomycin Trough 25.67 UG/ML (15-20) H* 12/11/16 07:50 Vancomycin day 6 76 y.o. F with abdominal abscess. C&S of abdominal fluid resulted MRSA, P. Aeruginosa, and Citrobacter freundii. Patient is receiving Pip/Tazo and Vancomycin 1,500 mg IV Q18h. S Cr= 0.7 mg/dL Cr Cl ~ 50 mL/min WBC's = N/A Tmax 24hr = 97.2 degrees F The 12/11/16 vancomycin level = 25.67 mcg/ml which drawn several hours early, but the pharmacokinetic verified that the current Vancomycin dose and frequency is okay. The Pharmacy will monitor and adjust as needed. Thank you for the consult, Janes Finn, Pharmacist.
[2016-12-11] MEDS: MEROPENEM 1 GM in NS 100 ML IV SCH ×3 (17:49→19:16)
[2016-12-11] MEDS: PRAMIPEXOLE 1 MG TABLET PO SCH (18:28)
[2016-12-11] MEDS: LOVASTATIN 40 MG TABLET PO SCH (18:29)
[2016-12-12] MEDS: MEROPENEM 1 GM in NS 100 ML IV SCH ×2 (01:53→09:22)
[2016-12-12] MEDS: SALINE FLUSH 10ml SYRINGE IV PRN (01:54)
--- NOTE | 2016-12-12 07:53 | Progress Note ---
DATE 12/11/2016 FINDINGS Ms. Magdaleno, this evening, was in good spirits. She denied any abdominal pain. She was eating a regular supper. VITALS: Temperature 98.5, pulse 80, respirations 20, blood pressure 96/56, SsO2 94% on room air. HEENT: Normocephalic. Pupils are equal, round and reactive to light and accommodation. CHEST: Clear to auscultation bilaterally. HEART: Regular rate and rhythm. Normal S1 and S2 without gallops, murmurs or clicks. ABDOMEN: Soft, nontender. CANDACE drainage was slightly purulent and serosanguineous. CANDACE output has been fairly minimal. ASSESSMENT 76-year-old female status post percutaneous drainage of a diverticular abscess. Patient with ongoing chronic diverticulitis, status post creation of end colostomy. PLAN Continue with broad-spectrum antibiotics. After several weeks' worth of intravenous antibiotics, would recommend proceeding with exploratory laparotomy , sigmoid resection and coloproctostomy. I am pleased with the patient's progress at this time. CARMINE
[2016-12-12] MEDS: ASPIRIN *EC* 81 MG TABLET PO SCH (09:17)
[2016-12-12] MEDS: FOLIC ACID 1 MG TABLET PO SCH (09:17)
[2016-12-12] MEDS: CALCIUM 600 + VIT D 400 TABLET PO SCH (09:17)
[2016-12-12] MEDS: BACLOFEN 10 MG TABLET PO SCH ×2 (09:17→15:30)
[2016-12-12] MEDS: FERROUS SULFATE 324 MG TABLET PO SCH (09:17)
[2016-12-12] MEDS: SERTRALINE 100 MG TABLET PO SCH (09:18)
[2016-12-12] MEDS: FUROSEMIDE 40 MG TABLET PO SCH (09:18)
[2016-12-12] MEDS: SPIRONOLACTONE 25 MG TABLET PO SCH (09:18)
[2016-12-12] MEDS: NS FLUSH BAG 500ml IV PRN (09:19)
--- NOTE | 2016-12-12 09:44 | Progress Note ---
<Diana Arana V - Last Filed: 12/12/16 09:14> Subjective: Suzy is seen this morning in follow up. She overall is without complaints. She is worried that she needs her ostomy and dressing changed today as it has been over a week and she generally changes it every 5 days. Appetite good. Vitals stable. Objective Vital signs: Temperature 97.2 F 12/12/16 07:56 Pulse Rate 74 12/12/16 07:56 Respiratory Rate 18 12/12/16 07:56 Blood Pressure 106/63 12/12/16 07:56 Pulse Oximetry 93 12/12/16 07:56 Height/Weight/BMI: Height 1.55 m Weight 91 kg Body Mass Index 40.1 - Constitutional Present: no acute distress, well nourished, well developed - Routine HEENT Exam Eye: Present: EOMI ENT: Present: mucous membranes moist, dentition normal - Routine Respiratory Exam Present: CTA bilaterally. Absent: wheezes - Routine Cardiovascular Exam Present: RRR, S1, S2. Absent: murmur - Routine Abdominal Exam Present: soft, normoactive bowel sounds, non distended. Absent: tenderness - Routine Extremities Exam Present: full ROM, normal capillary refill - Routine Back/Spine/Pelvis Exam Back/Spine: Present: full ROM - Routine Skin Exam Present: dry, warm - Routine Neurological Exam Present: alert, oriented X3, CN II-XII intact - Routine Lymphatic Exam Lymphatic: Absent: adenopathy - Routine Psychiatric Exam Present: normal affect Results - Labs CBC & Chem 7: 12/10/16 05:40 12/11/16 07:50 Microbiology Results: Microbiology 12/05/16 15:30 Aspirate Organism Identification - Final 12/05/16 13:15 Peripheral/Iv Start Blood Culture - Final No Growth After 5 Days 12/05/16 09:35 Peripheral/Iv Start Blood Culture - Final No Growth After 5 Days 12/05/16 15:30 Aspirate, Abdomen Gram Stain - Final 12/05/16 15:30 Aspirate, Abdomen Body Fluid Culture - Final Staphylococcus aureus, MRSA Pseudomonas aeruginosa Citrobacter freundii 12/05/16 12:32 Not Provided Urine Culture - Final Mixed Bacterial Ree Assessment and Plan (1) Abdominal abscess Current visit: Yes Status: Acute (2) Leukocytosis Current visit: Yes Status: Acute Assessment and Plan: Impression Abdominal Abscess - polymicrobial growth 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 Leukocytosis (POA) - resolved Hypokalemia (POA) - resolved UTI (POA) - mixed growth History of extensive abdominal abscess related to diverticulitis Hypertension Hyperlipidemia GERD Congestive heart failure Restless leg syndrome Chronic back pain Anxiety and depression Morbid obesity with BMI 40.2 Nausea Plan- 12/12 Continue on IV Meropenem and vancomycin for antimicrobial coverage. Awaiting for length of treatment as per Dr Manning Asked nursing staff to change ostomy bag and dressing. Will continue to change it every 5 days to avoid skin irritation Overall stable and doing well CM working with [facility] program to decide discharge plan. Swing verses outpatient IV antibiotics Hospital Course Summary Disclaimer: The visit summary below is not to be considered part of the above Progress Note. Hospital Course: 12/05/16 Impression Abdominal Abscess Leukocytosis Hypokalemia History of extensive abdominal abscess related to diverticulitis Hypertension Hyperlipidemia GERD Congestive heart failure Restless leg syndrome Chronic back pain Anxiety and depression Plan Admit as a inpatient under the care of Dr. Aviles for abdominal abscess with leukocytosis. Laboratory studies are ordered on admission, CBC, CMP, venous lactate, pro calcitonin, magnesium, blood cultures 2, urinalysis. Twelve-lead EKG and chest x-ray are performed for preoperative clearance. Patient is placed on IV Zosyn on admission for antimicrobial coverage. Normal saline at 100 ML per hour for gentle hydration. Will replace potassium with IV fluid bolus given NPO status. Patient is made nothing by mouth at this time until further surgical evaluation. Consulted is placed with Dr. Bowers. According to med rec patient has currently been on Augmentin and Flagyl. Patient does wish to be a do not resuscitate and this order is written. Recheck CBC and BMP Orders and plan discussed with attending Dr Aviles At time of discharge medical care will return to PCP Dr Pro with [facility] program 12/06/16 Continue zosyn and add vancomycin for coverage of MRSA given early culture results from abdominal abscess fluid Follow cultures for final results Zofran prn for nausea Hold furosemide given poor po intake Continue gentle IVF today, may be able to DC tomorrow if taking more po Potassium chloride 20 meq BID today for replacement Repeat renal panel, Mg, CBC in AM for surveillance 12/08-Plan: Continue Zosyn and vancomycin for MRSA coverage of C/S results from abdominal abscess fluid NPO this morning for planned Flex Sigmoidoscopy with Dr Bowers 1/2 NS for gently hydration. NA increased to 145. Monitor electrolytes. Continues to receive PO potassium supplementation. Encourage use of Incentive spirometry Check CBC, BMP, magnesium tomorrow 12/10/16 18:06 10/ CANDACE still with some cloudy output. Appreciate ID consult, she has been switched to Meropenem and Vancomycin. Hospitalist team working with Dr. Pro for placement with [facility] and IV ABX after discharge. We would like to see her in the office the or 2nd week of January to discuss colostomy takedown, after she has been on several weeks ABX. 12/11/16 Continue to work with [facility]- Dr Morteza CM and attending regarding manager long term care plan. Dr Manning recommends vancomycin and meropenem for antimicrobial coverage. She will decide length of treatment needed. Possible options- Swing-vs- home health. Overall doing well. Plan- 12/12 Continue on IV Meropenem and vancomycin for antimicrobial coverage. Awaiting for length of treatment as per Dr Manning Asked nursing staff to change ostomy bag and dressing. Will continue to change it every 5 days to avoid skin irritation Overall stable and doing well CM working with [facility] program to decide discharge plan. Swing verses outpatient IV antibiotics <Basim Aviles D - Last Filed: 12/12/16 14:14> Objective Vital signs: Temperature 97.2 F 12/12/16 11:00 Pulse Rate 78 12/12/16 11:00 Respiratory Rate 20 12/12/16 11:00 Blood Pressure 121/87 12/12/16 11:00 Pulse Oximetry 92 12/12/16 11:00 Height/Weight/BMI: Height 1.55 m Weight 91 kg Body Mass Index 40.1 Results - Labs CBC & Chem 7: 12/10/16 05:40 12/11/16 07:50 Microbiology Results: Microbiology 12/05/16 15:30 Aspirate Organism Identification - Final 12/05/16 13:15 Peripheral/Iv Start Blood Culture - Final No Growth After 5 Days 12/05/16 09:35 Peripheral/Iv Start Blood Culture - Final No Growth After 5 Days 12/05/16 15:30 Aspirate, Abdomen Gram Stain - Final 12/05/16 15:30 Aspirate, Abdomen Body Fluid Culture - Final Staphylococcus aureus, MRSA Pseudomonas aeruginosa Citrobacter freundii 12/05/16 12:32 Not Provided Urine Culture - Final Mixed Bacterial Ree Assessment and Plan (1) Abdominal abscess Current visit: Yes Status: Acute (2) Leukocytosis Current visit: Yes Status: Acute Resuscitation Status: Do Not Resuscitate Assessment and Plan: Impression Abdominal Abscess - polymicrobial growth 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 Leukocytosis (POA) - resolved Hypokalemia (POA) - resolved UTI (POA) - mixed growth History of extensive abdominal abscess related to diverticulitis Hypertension Hyperlipidemia GERD Congestive heart failure Restless leg syndrome Chronic back pain Anxiety and depression Morbid obesity with BMI 40.2 Nausea Have independently interviewed and examined pt. Chart reviewed. Case discussed with CM and my [employer]. Care plan developed with my supervision; agree with above. Doing okay today. Denies ab pain or nausea. Eating well. Breathing stable. No f/ c. Lungs: clear, no distress on RA CV: regular AB: soft nt/nd MSE: awake alert appropriate Plan: Will discharge to Swing Bed at [facility] [place] to continue IV antibiotics and care. Medically stable for Swing bed. See orders for details. Hospital Course Summary Disclaimer: The visit summary below is not to be considered part of the above Progress Note.
[2016-12-12 11:22] VITALS: RESP 20
--- NOTE | 2016-12-12 14:19 | Discharge Summary ---
Discharge Information Date of admission: 12/05/16 08:22 Anticipated date of discharge: 12/12/16 Attending Physician: Basim Aviles MD Primary care physician: Kevin Pro MD Consults: Physician Consult: Alejandro Bowers Reason For Exam: ab abcess, fistula PT/OT - Discharge Diagnosis (1) Abdominal abscess Status: Acute (2) Leukocytosis Status: Acute Discharge Diagnosis: Discharge diagnosis Abdominal Abscess - polymicrobial growth Associated conditions and complications 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 Leukocytosis (POA) - resolved Hypokalemia (POA) - resolved UTI (POA) - mixed growth History of extensive abdominal abscess related to diverticulitis Hypertension Hyperlipidemia GERD Congestive heart failure Restless leg syndrome Chronic back pain Anxiety and depression Morbid obesity with BMI 40.2 Nausea - Procedures Procedures: Date of Exam: 12/05/16 Type of Exam: US percutaneous absc drainage Impression: Successful abscess drain placement in the left lower abdomen. 12/08/2016 SURGEON: Alejandro Bowers MD PREOPERATIVE DIAGNOSIS Personal history for recurrent diverticular abscess, personal history for abnormal barium enema. POSTOPERATIVE DIAGNOSIS Personal history for recurrent diverticular abscess, personal history for abnormal barium enema, apparent colonic stricture at 30 cm from anal verge, sigmoid diverticulosis. PROCEDURE Flexible sigmoidoscopy up to 30 cm from anal verge. - Laboratory Labs: Admit Lab 12/05/16 09:37 WBC 13.2 H Hgb 9.3 L Hct 32.8 L Plt Count 440 H Neutrophils % (Manual) 89.0 H Band Neutrophils % 2.0 Lymphocytes % (Manual) 4.0 L Admit Lab 12/05/16 09:36 Sodium 143 Potassium 3.2 L Chloride 100 Carbon Dioxide 35 H Anion Gap 8 BUN 8.0 Creatinine 0.7 GFR Calculation 82 BUN/Creatinine Ratio 11 Glucose 100 Calculated Osmolality 273 Calcium 8.3 L Magnesium 1.9 Total Bilirubin 0.60 AST 9 L ALT 10 C-Reactive Protein 61.7 H Albumin 2.8 L Globulin 4.1 H Plasma Lactate 1.2 12/10/16 05:40 12/11/16 07:50 - Microbiology Microbiology 12/05/16 15:30 Aspirate Organism Identification - Final 12/05/16 13:15 Peripheral/Iv Start Blood Culture - Final No Growth After 5 Days 12/05/16 09:35 Peripheral/Iv Start Blood Culture - Final No Growth After 5 Days 12/05/16 15:30 Aspirate, Abdomen Gram Stain - Final 12/05/16 15:30 Aspirate, Abdomen Body Fluid Culture - Final Staphylococcus aureus, MRSA Pseudomonas aeruginosa Citrobacter freundii 12/05/16 12:32 Not Provided Urine Culture - Final Mixed Bacterial Ree - Radiology Radiology: Date of Exam: 12/05/16 PROCEDURE: XR chest 1V Findings: Prior right PICC line has been removed. Mild interstitial prominence without focal lobar consolidation. No pneumothorax or obvious pleural effusion. Heart size and mediastinal contours are stable. Scoliosis. Prior distal left clavicular resection with suture anchor in the left humeral head. Impression: No focal pneumonia or CHF. Chronic increased interstitial markings. History of Present Illness HPI: Suzy is a 76 yr old female who is known to the hospitalist services from previous admission in 2016 at which time she was admitted for intra abdominal abscess. Since that time she has been under the primary care of Dr Kevin Pro and attends the [facility] twice a week. Over the past 4-5 days. She reports having increased abdominal pain. It radiates into the lower abdomen. She was seen and found to have a fever greater than 101. An outpatient CT scan was performed on 11/27/16 that did reveal a large area of fluid in the left anterior pelvis extending through the pelvic wall into subcutaneous tissue. There is also presence of a large peristomal and small ventral hernia. Outpatient lab did reveal an elevated white count, this accompanied with fever and concern for abscess recurrence Dr. Pro contacted the hospitalist service and patient was directly admitted as an inpatient for further evaluation and treatment. Labs were obtained on admission and she was found to have leukocytosis with WBC count 13.3, hemoglobin 9.3, hematocrit 32.8, platelet count 440, neutrophils 89% . Sodium is normal at 143, potassium low at 3.2, BUN 8, creatinine 0.7, calcium 8.3. CRP is elevated at 61.7. Venous lactate 1.2, pro calcitonin 0.08. INR 1.45. On arrival, patient is afebrile with temperature of 97.3, pulse 95, respiration rate 18, blood pressure 101/65, room air saturations 90%. Chest x- ray on admission does not show any acute pneumonia or failure. However, does show chronic interstitial markings. For complete details of the H&P refer to that document. Objective Vital signs: Temperature 97.2 F 12/12/16 11:00 Pulse Rate 78 12/12/16 11:00 Respiratory Rate 20 12/12/16 11:00 Blood Pressure 121/87 12/12/16 11:00 Pulse Oximetry 92 12/12/16 11:00 Rhythm: Normal Sinus Rhythm Height/Weight/BMI: Height 1.55 m Weight 91 kg Body Mass Index 40.1 Hospital Course This is a general summary of the patient's hospital course. For more details refer to the complete medical record. Hospital course: 12/05/16 Admission Impression Abdominal Abscess Leukocytosis Hypokalemia History of extensive abdominal abscess related to diverticulitis Hypertension Hyperlipidemia GERD Congestive heart failure Restless leg syndrome Chronic back pain Anxiety and depression Plan Admit as a inpatient under the care of Dr. Aviles for abdominal abscess with leukocytosis. Laboratory studies are ordered on admission, CBC, CMP, venous lactate, pro calcitonin, magnesium, blood cultures 2, urinalysis. Twelve-lead EKG and chest x-ray are performed for preoperative clearance. Patient is placed on IV Zosyn for antimicrobial coverage. Normal saline at 100 ML per hour for gentle hydration. Will replace potassium with IV fluid bolus given NPO status. Patient is made nothing by mouth at this time until further surgical evaluation. Consulted is placed with Dr. Bowers. According to med rec patient has currently been on Augmentin and Flagyl. Patient does wish to be a do not resuscitate and this order is written. Recheck CBC and BMP Orders and plan discussed with attending Dr Aviles At time of discharge medical care will return to PCP Dr Pro with [facility] program CT guided percutaneous drain placed to abdominal abscess. 12/06/16 Continue zosyn and add vancomycin for coverage of MRSA given early culture results from abdominal abscess fluid Hold furosemide given poor po intake. Continue gentle IVF today, may be able to DC tomorrow if taking more po Potassium chloride 20 meq BID today for replacement 12/08-Plan: Continue Zosyn and vancomycin for MRSA coverage of C/S results from abdominal abscess fluid NPO this morning for planned Flex Sigmoidoscopy with Dr Bowers 03/10 NS for gently hydration. NA increased to 145. Monitor electrolytes. Continues to receive PO potassium supplementation. Encourage use of Incentive spirometry 12/10 CANDACE still with some cloudy output. Hospitalist team working with Dr. Pro for placement with [facility] and IV ABX after discharge. We would like to see her in the office the or week of January to discuss colostomy takedown, after she has been on several weeks ABX. 12/11/16 Continue to work with [facility]- Dr Morteza CM and attending regarding [facility] plan. Dr Manning recommends vancomycin and meropenem for antimicrobial coverage. She will decide length of treatment needed. Overall doing well. 12/12/16 Continue on IV Meropenem and vancomycin for antimicrobial coverage. Awaiting for length of treatment as per Dr Manning Asked nursing staff to change ostomy bag and dressing. Will continue to change it every 5 days to avoid skin irritation Will discharge patient to Swing bed at [facility] [place] [place] to continue antibiotic therapy. Time spent with patient: discharge greater than 30 minutes DVT Prophylaxis: SCD's Discharge Plan - Med Rec/Dispo Referrals/Follow Up: Alejandro Bowers MD [Physician] - 01/07/17 (Call for appointment time, this can be Jan 06 or Jan. 1, 7, or 8.) Prescriptions: New Meropenem [Merrem] 1 gm IV Q8HR ml Vancomycin [Vancocin] 1,500 mg IV Q18H vial Calcium 600 + D [Caltrate + D] 1 tab PO DAILY tablet Continue Spironolactone [Aldactone] 25 mg PO DAILY 10 Days #10 tab Ferrous Sulfate 324 mg PO WB 30 Days #30 tab Furosemide 40 mg PO DAILY 30 Days #30 tab Folic Acid [Folate] 1 tab PO DAILY Estradiol Vag Cream [Estrace Vag Cream] 1 applic VAGINAL 3XW Calcium Carbonate/Vitamin D3 [Calcium 600-Vit D3 200 Tablet] 1 each PO DAILY Baclofen [Lioresal] 1 tab PO TID Sertraline [Zoloft] 150 mg PO DAILY Aspirin [Aspir-Low] 81 mg PO DAILY #0 Pramipexole Di-HCl [Pramipexole Dihydrochloride] 2 mg PO DAILY #0 Lovastatin 40 mg PO WS #0 tab Alendronate [Fosamax] 70 mg PO Q7D #0 tab Cyanocobalamin (B-12) [Vit. B-12] 1,000 mcg IM Q14D Discontinued Potassium Chloride 10 meq PO DAILY metroNIDAZOLE [Flagyl] 500 mg PO TID Amox/Clav [Augmentin] 500 mg PO DAILY Discharge Instructions/Outpatient Orders: Final Provider Discharge Instructions Location: Determined By Patient - Disposition 61 To Any Swing Bed - Attestation Attestation Narrative: 12/12/16 14:48 I have independently interviewed and examined patient prior to discharge. See my progress note from today for details. Medically stable for discharge to Swing Bed at [facility] [place].
[2016-12-12 15:17] VITALS: BP 106/55; PULSE 73; TEMP 96.8; O2SAT 93
== END 2016-12-12 15:38 | disposition swing bed (61) | DRG 393 ==
LOC: SRG 08:22
PROVIDERS: ADMIT Hospitalist; ATTEND Hospitalist

== ENCOUNTER 2016-12-12 13:43 | Inpatient (IN) ==
[2016-12-12] MEDS ORDERED: ONDANSETRON 4 MG/2 ML INJECTION IVP PRN (16:21)
[2016-12-12] MEDS ORDERED: FALL RISK - PHARMACY CONSULT XX ONE (16:21)
[2016-12-12] MEDS ORDERED: ACETAMINOPHEN 325 MG TABLET PO PRN (16:21)
[2016-12-12 16:57] VITALS: BMI 37.9
[2016-12-12] MEDS: MEROPENEM 1 GM in NS 100 ML IV SCH (17:21)
[2016-12-12] MEDS: SALINE FLUSH 10ml SYRINGE IV PRN ×3 (17:22→21:46)
[2016-12-12] MEDS: LOVASTATIN 40 MG TABLET PO SCH (18:09)
[2016-12-12] MEDS: PRAMIPEXOLE 1 MG TABLET PO SCH (18:10)
[2016-12-12] MEDS: BACLOFEN 10 MG TABLET PO SCH (21:46)
[2016-12-13] MEDS: MEROPENEM 1 GM in NS 100 ML IV SCH ×3 (01:15→18:07)
[2016-12-13] MEDS: SALINE FLUSH 10ml SYRINGE IV PRN ×4 (05:51→21:41)
[2016-12-13] MEDS ORDERED: FUROSEMIDE 40 MG TABLET PO SCH (09:00)
--- NOTE | 2016-12-13 09:09 | History & Physical Report ---
<Francia Serna Benson - Last Filed: 12/13/16 09:42> History of Present Illness Date: 12/13/16 Chief complaint: intra-abdominal abscess HPI: Suzy Magdaleno is a very pleasant 76-year-old female who is known to the hospitalist services from previous admission in 2016 at which time she was admitted for intra-abdominal abscess. Since that time she has been under the primary care of Dr Kevin Pro and attends the [facility] program twice a week. She was admitted to [facility] as a direct admit on 12/05/16 due to increased abdominal pain. An outpatient CT scan was performed on 11/27/16 that revealed a large area of fluid in the left anterior pelvis extending through the pelvic wall and into subcutaneous tissue. There was also presence of a large peristomal and small ventral hernia. At that time, lab also revealed an elevated white count accompanied with fever and concern for abscess recurrence. Dr. Pro contacted the hospitalist service and patient was directly admitted as an inpatient for further evaluation and treatment. Labs were obtained on admission and she was found to have leukocytosis with WBC count 13.3, hemoglobin 9.3, hematocrit 32.8, platelet count 440, neutrophils 89%. BMP was unremarkable and CRP was elevated at 61.7. Venous lactate 1.2, pro calcitonin 0.08. Zosyn was initiated for empiric coverage of GI pathogens. Successful placement of CANDACE- drain to LLQ abdomen for drainage of suspected was done on 12/05. Cultures from abscess fluid revealed multiorganism growth including MRSA, pseudomonas aeruginosa and citrobacter freundii. Vancomycin was initiated in addition to the Zosyn. She underwent a flexible sigmoidoscopy by Dr. Bowers on 12/08 which revealed multiple diverticuli without evidence of acute diverticulitis. Dr. Manning was consulted and recommended adjusting antimicrobial treatment and discontinuing Zosyn and adding Meropenem in conjunction with continuation of the Vancomycin. The hospitalist team continues to work with Dr. Pro for placement with [facility] and continuation of antibiotics following discharge. She was converted to swing status on 12/12/16 as clinical team continues to work on emt intermediate plan. On exam, she is seen in her room, watching TV, sitting in her recliner and has just finished all her breakfast. She is alert and pleasant and denies any complaint or concerns today. She denies any chest pain, shortness of breath, abdominal pain, nausea, vomiting or dysuria. Her appetite has been good and her bowels are moving. She does request that if possible, she would like to receive her "water pills" earlier in the day as she is up frequently urinating at night. Review of her prior medical records and nursing notes was done and appears she has been doing well and making slow gains. She continues to work with therapy with regard to her chronic neck pain that she states is worse with side to side movement, particularly to when looking to the left. She denies any headache, changes in vision, fevers or chills. She is pleased with the reduction in edema and states "I have ankles.". Review of Systems All systems PM: 10-point ROS was reviewed, no additional remarkable complaints except - Constitutional Constitutional: Absent: chills, fatigue, fever(s), lethargy - EENMT Eyes: Absent: blurry vision, photophobia Balance: Absent: falling to one side Nose: Absent: nosebleeds Mouth/Throat: Absent: sore throat, changes in swallowing - Cardiovascular Cardiovascular: Present: edema. Absent: chest pain, palpitations, syncope, dyspnea on exertion Rhythm: Present: regular rhythm Vascular: Present: pedal edema. Absent: unilateral swelling - Respiratory Respiratory: Absent: cough, dyspnea, wheezing - Gastrointestinal Gastrointestinal: Absent: abdominal pain, change in bowel habits, constipation, diarrhea, hematochezia, melena, nausea, vomiting Gastrointestinal Comments: LLQ colostomy present. - Genitourinary Genitourinary: Present: urinary frequency. Absent: dysuria, flank pain Menstruation: post menopausal - Musculoskeletal Musculoskeletal: Absent: deformity Musculoskeletal Comments: limited ROM to neck secondary to chronic pain. - Integumentary/Breasts Integumentary: Absent: rash - Neurological Neurological: Absent: confusion, dizziness, headache(s) - Psychiatric Psychiatric: Absent: anxiety, depression - Endocrine Endocrine: Absent: palpitations - Hematologic/Lymphatic Hematologic/Lymphatic: Absent: easy bleeding, easy bruising - Allergic/Immunologic Allergic/Immunologic: Absent: itchy eyes PFS Patient Stated Medical History History of extensive abdominal abscess related to diverticulitis. Hypertension. Hyperlipidemia. GERD. CHF. Restless leg syndrome. Anxiety and depression. Morbid obesity with BMI 38. Cataracts. Anemia. Chronic neck pain. Surgical History: 12/05/16: intra-abdominal abscess drained and CANDACE drain placed. 12/08/16: flexible sigmoidoscopy-Dr. Bowers. 09/20/15: PICC line inserted, intubated, and NG tube placed. 09/20/15: Exploratory laparotomy, extensive adhesiolysis, drainage of. multiple intra-abdominal abscesses, small bowel resection, placement of. multiple intraperitoneal drains, creation of end colostomy, drainage of. abdominal wall abscess with excisional surgical debridement of necrotic. skin and subcutaneous tissues. Per Dr. Boewrs, and Dr. Mays. 09/21/15: Echocardiogram-EF 55% with moderate tricuspid regurgitation and moderate pulmonary hypertension. 10/05/15: Additional excisional surgical debridement of skin and necrotic. tissues. Area excised 5 cm x 4 cm. Delayed primary closure of 16 cm wound. with application of wound VAC. Per Dr. Bowers. 10/11/15: Ultrasound guided percutaneous abscess drainage with removal of. approximately 40 cc of straw-colored fluid. Vaginal hysterectomy. 07/06/15: CT guided drainage intra-abdominal abscesses. 03/30/15: Colonoscopy and EGD. Right total knee. Back surgery- Lumbar. Left shoulder surgery. Family History: Mother had Parkinson's and father had Alzheimer's dementia. - Social History Smoking status: Never smoker Substance use type: does not use Alcohol intake frequency: does not drink Housing: house Household members: none Current occupational status: retired Does patient use chewing tobacco?: No Current residence: Apartment/Private Home Social history: PCP - Dr. Pro. Resides independently in [place]. Attends [facility] program twice a week. Medications Home Medications Medication Instructions Recorded Confirmed Type Alendronate [Fosamax] 70 mg PO Q7D #0 tab 06/18/14 12/12/16 History Aspirin [Aspir-Low] 81 mg PO DAILY #0 06/18/14 12/12/16 History Lovastatin 40 mg PO WS #0 tab 06/18/14 12/12/16 History Pramipexole Di-HCl [Pramipexole 2 mg PO DAILY #0 06/18/14 12/12/16 History Dihydrochloride] Baclofen [Lioresal] 1 tab PO TID 12/05/16 12/12/16 History Calcium Carbonate/Vitamin D3 1 each PO DAILY 12/05/16 12/12/16 History [Calcium 600-Vit D3 200 Tablet] Cyanocobalamin (B-12) [Vit. B-12] 1,000 mcg IM Q14D 12/05/16 12/12/16 History Estradiol Vag Cream [Estrace Vag 1 applic VAGINAL 3XW 12/05/16 12/12/16 History Cream] Folic Acid [Folate] 1 tab PO DAILY 12/05/16 12/12/16 History Sertraline [Zoloft] 150 mg PO DAILY 12/05/16 12/12/16 History Potassium Chloride [K-Dur] 1 tab PO BID 12/12/16 12/12/16 History Allergies Allergy/AdvReac Type Severity Reaction Status Date / Time hydrocodone Allergy Unknown Verified 12/12/16 17:52 Exam Vital Signs: Temperature 98.0 F 12/13/16 08:18 Pulse Rate 77 12/13/16 08:18 Respiratory Rate 20 12/13/16 08:18 Blood Pressure 123/67 12/13/16 08:18 Pulse Oximetry 95 12/13/16 08:18 Height/Weight/BMI: Height 5 ft 1 in Weight 202 lb 6.15 oz Body Mass Index 37.9 - Constitutional Present: no acute distress, well nourished, well developed, morbidly obese, cooperative - Routine HEENT Exam Head: Present: normocephalic, atraumatic Eye: Present: PERRL. Absent: conjunctival icterus ENT: Present: mucous membranes moist - Routine Neck Exam Present: supple, trachea midline Comments: limited ROM due to chronic pain, worse when looking to left. - Routine Chest/Breast/Axilla Exam Chest wall: Absent: pacemaker - Routine Respiratory Exam Present: CTA bilaterally. Absent: stridor, wheezes, crackles - Routine Cardiovascular Exam Present: RRR, S1, S2 - Routine Abdominal Exam Present: soft, normoactive bowel sounds, non distended, non tender Comments: colostomy noted to LLQ. CANDACE drain noted to LLQ with bloody, purulent drainage. - Routine Extremities Exam Present: edema (1+ bilaterally.), non tender, pulses intact. Absent: calf tenderness Comments: SCDs in place bilaterally. - Routine Back/Spine/Pelvis Exam Back/Spine: Present: full ROM - Routine Skin Exam Present: intact, dry, warm. Absent: jaundice Comments: afebrile; patient complains of pain to left anterior renee. Questionable mild erythema noted to anterior renee. No lesions or ulcerations. - Routine Neurological Exam Present: alert, oriented X3, moving all extremities, normal speech. Absent: facial asymmetry - Routine Psychiatric Exam Present: normal affect, cooperative, good insight, good judgment Results - Labs CBC & Chem 7: 12/13/16 04:15 12/13/16 04:15 - Impressions Procedures: Date of Exam: 12/05/16 Type of Exam: US percutaneous absc drainage Impression: Successful abscess drain placement in the left lower abdomen. 12/08/2016 SURGEON: Alejandro Bowers MD PROCEDURE Flexible sigmoidoscopy up to 30 cm from anal verge. POSTOPERATIVE DIAGNOSIS Personal history for recurrent diverticular abscess, personal history for abnormal barium enema, apparent colonic stricture at 30 cm from anal verge, sigmoid diverticulosis. Assessment and Plan (1) Abdominal abscess Current visit: No Status: Acute (2) Diverticulosis of colon Current visit: No Status: Chronic DVT Prophylaxis: SCD's Resuscitation Status: Do Not Resuscitate Assessment and Plan: 76-year-old female with polymicrobial intra-abdominal abscess. Assessment Intra-abdominal abscess with polymicrobial growth including MRSA, pseudomonas aeruginosa and citrobacter freundii, acute. Anemia, acute. Hypertension, chronic. Hyperlipidemia, chronic. GERD, chronic. CHF, chronic. Restless leg syndrome, chronic. Anxiety and depression, chronic. Morbid obesity with BMI 38, chronic. Chronic neck pain. Plan-12/13/16 (Admission to swing) Admit to swing bed status under the care of the hospitalist service, Dr. Aviles attending, for continued IV antibiotic treatment and physical therapy. Continue Vancomycin and Meropenum for treatment of intra-abdominal abscess. Culture from abscess fluid revealed MRSA, pseudomonas aerugenosa and citrobacter freundii. Dr. Manning was consulted and directing antimicrobial treatment and awaiting her recommendations on length of treatment needed. Case management and hospitalist service continues to work with HARPER gray and Dr. Pro regarding emt intermediate health plan. CANDACE drain remains present to [facility], continuing to drain bloody purulent drainage. Dr. Bowers following and recommends patient following up in the office in the or 2nd week of January to discuss colostomy takedown. Continue to encourage therapies for improvement in neck flexibility, strength and movement. Continue to change ostomy bad and dressing every 5 days to avoid skin irritation. SCDs for DVT prophylaxis. Continue home medications. Patient requested lasix be given earlier in the day as she is up multiple times at night to urinate. Currently she is scheduled to receive lasix 40mg at 0900 daily. Suspect nocturia is secondary increased fluids from IV antibiotics. Will given Lasix at 0700 per patient request and continue to monitor. UTI noted on admission on 12/05 revealing mixed bacteria kingsley. Continue to monitor. Patient denies dysuria. Labs today revealed persistent, stable anemia with hemoglobin at 9.0 and otherwise unremarkable. Will continue to monitor. Recheck CBC and BMP in AM. Encourage incentive spirometry for pulmonary toileting. Upon discharge, patient's care will be returned to her PCP, Dr. Pro. - Time spent with patient Time with patient PN: 70 minutes Hospital Course Summary Disclaimer: The visit summary below is not to be considered part of the above Progress Note. Hospital Course: Assessment Intra-abdominal abscess with polymicrobial growth including MRSA, pseudomonas aeruginosa and citrobacter freundii, acute. Anemia, acute. Hypertension, chronic. Hyperlipidemia, chronic. GERD, chronic. CHF, chronic. Restless leg syndrome, chronic. Anxiety and depression, chronic. Morbid obesity with BMI 38, chronic. Chronic neck pain. Plan-12/13/16 (Admission to swing) Admit to swing bed status under the care of the hospitalist service, Dr. Aviles attending, for continued IV antibiotic treatment and physical therapy. Continue Vancomycin and Meropenum for treatment of intra-abdominal abscess. Culture from abscess fluid revealed MRSA, pseudomonas aerugenosa and citrobacter freundii. Dr. Manning was consulted and directing antimicrobial treatment and awaiting her recommendations on length of treatment needed. Case management and hospitalist service continues to work with HARPER gray and Dr. Pro regarding care home health plan. CANDACE drain remains present to [facility], continuing to drain bloody purulent drainage. Dr. Bowers following and recommends patient following up in the office in the or 2nd week of January to discuss colostomy takedown. Continue to encourage therapies for improvement in neck flexibility, strength and movement. Continue to change ostomy bad and dressing every 5 days to avoid skin irritation. SCDs for DVT prophylaxis. Continue home medications. Patient requested lasix be given earlier in the day as she is up multiple times at night to urinate. Currently she is scheduled to receive lasix 40mg at 0900 daily. Suspect nocturia is secondary increased fluids from IV antibiotics. Will given Lasix at 0700 per patient request and continue to monitor. UTI noted on admission on 12/05 revealing mixed bacteria kingsley. Continue to monitor. Patient denies dysuria. Labs today revealed persistent, stable anemia with hemoglobin at 9.0 and otherwise unremarkable. Will continue to monitor. Recheck CBC and BMP in AM. Encourage incentive spirometry for pulmonary toileting. Upon discharge, patient's care will be returned to her PCP, Dr. Pro. <Basim Aviles - Last Filed: 12/13/16 14:43> History of Present Illness Date: 12/13/16 [facility] Patient Stated Medical History Cataracts Yes Dental Problems Yes: "BIG CHUNKS OF MY TEETH FELL OUT" Hearing Loss Yes Sleep Apnea Yes Obstructive Bowel Yes Hx Renal Disease No Anemia Yes Exam Vital Signs: Temperature 98.0 F 12/13/16 08:18 Pulse Rate 77 12/13/16 08:18 Respiratory Rate 20 12/13/16 08:18 Blood Pressure 123/67 12/13/16 08:18 Pulse Oximetry 95 12/13/16 08:18 Height/Weight/BMI: Height 1.55 m Weight 91.8 kg Body Mass Index 37.9 Results - Labs CBC & Chem 7: 12/13/16 04:15 12/13/16 04:15 Assessment and Plan (1) Abdominal abscess Current visit: No Status: Acute (2) Diverticulosis of colon Current visit: No Status: Chronic Assessment and Plan: Assessment Intra-abdominal abscess with polymicrobial growth including MRSA, pseudomonas aeruginosa and citrobacter freundii, acute. Anemia, acute. Hypertension, chronic. Hyperlipidemia, chronic. GERD, chronic. CHF, chronic. Restless leg syndrome, chronic. Anxiety and depression, chronic. Morbid obesity with BMI 38, chronic. Chronic neck pain. Have independently interviewed and examined pt. Chart reviewed. Case discussed with my PA. Care plan developed with my supervision; agree with above. Doing well this afternoon. No f/c. Denies ab pain. No mouth pain or difficulty swallowing. Breathing well. No chest pain. Urinating well. Lungs: clear bilaterally CV: regular AB: soft obese nt/nd +BS MSE: awake alert appropriate HEENT: MMM, no thrush Plan: Swing bed admission initiated to continue IV antibiotics due to abdominal abscess. Will consult with Dr Manning on Thursday for ID evaluation and treatment duration. Continue chronic medications. Encourage activities. Encourage pulm toilet. Will hold on lab tomorrow as has been stable-recheck on Thursday. Hospital Course Summary Disclaimer: The visit summary below is not to be considered part of the above Progress Note.
[2016-12-13] MEDS: ASPIRIN *EC* 81 MG TABLET PO SCH (09:22)
[2016-12-13] MEDS: BACLOFEN 10 MG TABLET PO SCH ×3 (09:22→21:41)
[2016-12-13] MEDS: CALCIUM 600 + VIT D 400 TABLET PO SCH (09:22)
[2016-12-13] MEDS: FERROUS SULFATE 324 MG TABLET PO SCH (09:22)
[2016-12-13] MEDS: FOLIC ACID 1 MG TABLET PO SCH (09:23)
[2016-12-13] MEDS: SERTRALINE 100 MG TABLET PO SCH (09:23)
[2016-12-13] MEDS: SPIRONOLACTONE 25 MG TABLET PO SCH (09:24)
--- NOTE | 2016-12-13 12:57 | Progress Note ---
DATE OF SERVICE 12/13/2016 FINDINGS Mrs. Magdaleno this morning was in good spirits. She denied had any abdominal pain. EXAM VITAL SIGNS: Afebrile, normotensive. Current vitals include temperature 98.0, pulse 77, respirations 20, blood pressure 123/67, SAO2 95% room air. CHEST: Clear to auscultation bilaterally. HEART: Regular rate and rhythm. Normal S1 and S2 without gallops, murmurs or clicks. ABDOMEN: Soft, nontender. No evidence for guarding or rebound. LABORATORY/RADIOGRAPHIC EVALUATION The patient had CBC today and her white count was 8.2. Hemoglobin is stable at 9.0. ASSESSMENT 76-year-old female status post percutaneous drainage of a diverticular abscess, patient doing well. PLAN Continue with broad-spectrum antibiotics. Will likely proceed with surgical intervention in four to six weeks. GREGD
[2016-12-13] MEDS: LOVASTATIN 40 MG TABLET PO SCH (18:06)
[2016-12-13] MEDS: NS FLUSH BAG 500ml IV PRN (18:06)
[2016-12-13] MEDS: PRAMIPEXOLE 1 MG TABLET PO SCH (19:11)
[2016-12-14] MEDS: MEROPENEM 1 GM in NS 100 ML IV SCH ×3 (01:28→17:46)
[2016-12-14] MEDS: SALINE FLUSH 10ml SYRINGE IV PRN ×4 (02:23→18:27)
[2016-12-14] MEDS: FUROSEMIDE 40 MG TABLET PO SCH ×2 (06:24→08:13)
[2016-12-14] MEDS: CALCIUM 600 + VIT D 400 TABLET PO SCH (08:11)
[2016-12-14] MEDS: ASPIRIN *EC* 81 MG TABLET PO SCH (08:11)
[2016-12-14] MEDS: SPIRONOLACTONE 25 MG TABLET PO SCH (08:11)
[2016-12-14] MEDS: BACLOFEN 10 MG TABLET PO SCH ×3 (08:11→21:50)
[2016-12-14] MEDS: FERROUS SULFATE 324 MG TABLET PO SCH (08:11)
[2016-12-14] MEDS: FOLIC ACID 1 MG TABLET PO SCH (08:12)
[2016-12-14] MEDS: SERTRALINE 100 MG TABLET PO SCH (10:31)
[2016-12-14] MEDS: LOVASTATIN 40 MG TABLET PO SCH (17:47)
[2016-12-14] MEDS: PRAMIPEXOLE 1 MG TABLET PO SCH (18:28)
[2016-12-15] MEDS: MEROPENEM 1 GM in NS 100 ML IV SCH ×3 (02:31→17:59)
[2016-12-15] MEDS: NS FLUSH BAG 500ml IV PRN (02:32)
[2016-12-15] MEDS: SALINE FLUSH 10ml SYRINGE IV PRN ×2 (02:32→17:59)
[2016-12-15] MEDS: CALCIUM 600 + VIT D 400 TABLET PO SCH (08:11)
[2016-12-15] MEDS: SERTRALINE 100 MG TABLET PO SCH (08:11)
[2016-12-15] MEDS: ASPIRIN *EC* 81 MG TABLET PO SCH (08:11)
[2016-12-15] MEDS: FUROSEMIDE 40 MG TABLET PO SCH (08:11)
[2016-12-15] MEDS: SPIRONOLACTONE 25 MG TABLET PO SCH (08:11)
[2016-12-15] MEDS: BACLOFEN 10 MG TABLET PO SCH ×3 (08:12→21:13)
[2016-12-15] MEDS: FOLIC ACID 1 MG TABLET PO SCH (08:12)
[2016-12-15] MEDS: FERROUS SULFATE 324 MG TABLET PO SCH (08:12)
--- NOTE | 2016-12-15 09:12 | Progress Note ---
<Diana Arana V - Last Filed: 12/15/16 09:09> Subjective: Suzy is seen today on swing bed follow up. She is up in the chair eating breakfast without any complaints of pain. She reports her appetite is good. No difficulty with ostomy output. CANDACE drain remains intact with 15-20ml output every day. She has chronic neck pain and stiffness otherwise no pain. BP 106/ 58. Objective Vital signs: Temperature 97.1 F 12/15/16 07:38 Pulse Rate 79 12/15/16 07:38 Respiratory Rate 18 12/15/16 07:38 Blood Pressure 106/58 12/15/16 07:38 Pulse Oximetry 94 12/15/16 07:38 Height/Weight/BMI: Height 1.55 m Weight 90.5 kg Body Mass Index 37.9 - Constitutional Present: no acute distress, well nourished, well developed - Routine HEENT Exam Eye: Present: EOMI, PERRL ENT: Present: mucous membranes moist, dentition normal - Routine Respiratory Exam Present: CTA bilaterally. Absent: wheezes - Routine Cardiovascular Exam Present: RRR, S1, S2. Absent: murmur - Routine Abdominal Exam Present: soft, normoactive bowel sounds, non distended, ostomy. Absent: tenderness Comments: CANDACE drain intact - Routine Extremities Exam Present: normal capillary refill - Routine Skin Exam Present: intact, dry, warm - Routine Neurological Exam Present: alert, oriented X3, CN II-XII intact - Routine Lymphatic Exam Lymphatic: Absent: adenopathy - Routine Psychiatric Exam Present: normal affect, cooperative Results - Labs CBC & Chem 7: 12/15/16 04:58 12/15/16 04:58 Assessment and Plan (1) Abdominal abscess Current visit: No Status: Acute (2) Diverticulosis of colon Current visit: No Status: Chronic Assessment and Plan: Assessment Intra-abdominal abscess with polymicrobial growth including MRSA, pseudomonas aeruginosa and citrobacter freundii, acute. Anemia, acute. Hypertension, chronic. Hyperlipidemia, chronic. GERD, chronic. CHF, chronic. Restless leg syndrome, chronic. Anxiety and depression, chronic. Morbid obesity with BMI 38, chronic. Chronic neck pain. Plan Continues on Swing bed status for IV antibiotics. Awaiting Dr Manning recommendations for IV antibiotic course length for treatment of low microbial abdominal abscess which was positive for MRSA, pseudomonas aeruginosa and citrobacter freundii Continue on IV meropenem and vancomycin for antimicrobial coverage Will monitor labs every few days while on swing to follow electrolytes and renal function Consultation with Dr Bowers for ongoing wound management. CANDACE drain remains intact. Discuss patient plan of care with attending, Dr Sorensen Hospital Course Summary Disclaimer: The visit summary below is not to be considered part of the above Progress Note. Hospital Course: Assessment Intra-abdominal abscess with polymicrobial growth including MRSA, pseudomonas aeruginosa and citrobacter freundii, acute. Anemia, acute. Hypertension, chronic. Hyperlipidemia, chronic. GERD, chronic. CHF, chronic. Restless leg syndrome, chronic. Anxiety and depression, chronic. Morbid obesity with BMI 38, chronic. Chronic neck pain. Plan-12/13/16 (Admission to [facility]) Admit to [facility] bed status under the care of the hospitalist service, Dr. Aviles attending, for continued IV antibiotic treatment and physical therapy. Continue Vancomycin and Meropenum for treatment of intra-abdominal abscess. Culture from abscess fluid revealed MRSA, pseudomonas aerugenosa and citrobacter freundii. Dr. Manning was consulted and directing antimicrobial treatment and awaiting her recommendations on length of treatment needed. Case management and hospitalist service continues to work with [facility] program and Dr. Pro regarding terminal system operator health plan. CANDACE drain remains present to [facility], continuing to drain bloody purulent drainage. Dr. Bowers following and recommends patient following up in the office in the 1st or 2nd week of January to discuss colostomy takedown. Continue to encourage therapies for improvement in neck flexibility, strength and movement. Continue to change ostomy bad and dressing every 5 days to avoid skin irritation. SCDs for DVT prophylaxis. Continue home medications. Patient requested lasix be given earlier in the day as she is up multiple times at night to urinate. Currently she is scheduled to receive lasix 40mg at 0900 daily. Suspect nocturia is secondary increased fluids from IV antibiotics. Will given Lasix at 0700 per patient request and continue to monitor. UTI noted on admission on 12/05 revealing mixed bacteria kingsley. Continue to monitor. Patient denies dysuria. Labs today revealed persistent, stable anemia with hemoglobin at 9.0 and otherwise unremarkable. Will continue to monitor. Recheck CBC and BMP in AM. Encourage incentive spirometry for pulmonary toileting. Upon discharge, patient's care will be returned to her PCP, Dr. Pro. 12/15- continue on IV vancomycin and meropenem. Hopeful for recommendations by Dr. Manning for length of treatment. Overall stable, labs reviewed. <Kim Sorensen - Last Filed: 12/15/16 18:04> Objective Vital signs: Temperature 96.9 F 12/15/16 15:54 Pulse Rate 86 12/15/16 15:54 Respiratory Rate 20 12/15/16 15:54 Blood Pressure 115/46 12/15/16 15:54 Pulse Oximetry 94 12/15/16 15:54 Height/Weight/BMI: Height 1.55 m Weight 90.5 kg Body Mass Index 37.9 Results - Labs CBC & Chem 7: 12/15/16 04:58 12/15/16 04:58 Assessment and Plan (1) Abdominal abscess Current visit: No Status: Acute (2) Diverticulosis of colon Current visit: No Status: Chronic DVT Prophylaxis: SCD's Resuscitation Status: Do Not Resuscitate Assessment and Plan: I have independently evaluated and examined this patient. I reviewed the chart, the patient's history, and the STENCIL MACHINE OPERATOR/PA's documented findings as above. We discussed and formulated the assessment and plan as above with additions as below: Mrs. Magdaleno denied dyspnea or abdominal pain when seen. She has a small lesion on the distal left leg which is thought to be embolic or small abscess. She's been afebrile since converted to swing bed status. Patient is alert and in no distress Respirations nonlabored Abdomen is obese, soft, nontender; drain in the left lower quadrant Discussed with Dr. Manning-continue current IV antibiotics, Diflucan added for fungal coverage. Dr. Pro attempting to arrange ability to provide IV antibiotics in the outpatient setting. In addition to above diagnoses please add: Chronic hypercapnic respiratory failure-patient has home BiPAP but report indicates she doesn't use it. Hospital Course Summary Disclaimer: The visit summary below is not to be considered part of the above Progress Note.
--- NOTE | 2016-12-15 11:58 | Infectious Disease Consult ---
Infectious Disease Consult Date of Consultation: 12/15/16 Requesting Physician: Kim Sorensen Reason for Consultation: antibiotic recs History of Present Illness: Mrs. Magdaleno is a 76 y/o woman known to me from her admission about 1 year ago when she was found to have an intra-abdominal abscess. 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 She underwent exploratory laparotomy with DANIELLE, small bowel resection with placement of an end colostomy and drainage of multiple abscesses. Her cultures were polymicrobial, including E. coli, Pseudomonas, K. pneumoniae, S. anginosis, and anaerobes. She later had a percutaneous drainage procedure about 1 month later, in October, which grew Pseudomonas and Citrobacter. She was treated with cipro and flagyl for several months, with repeat CT scans until this finally resolved. More recently, she reports that she had fever up to 103 for about 3 days a couple weeks ago. Not long after that she developed L-sided abdominal pain. She reports her abdominal pain had been present for about 5 days prior to her admission here on 12/05/16. She was admitted to [facility] as a direct admit on due to increased abdominal pain. An outpatient CT scan was performed on that revealed a large area of fluid in the left anterior pelvis extending through the pelvic wall and into subcutaneous tissue. There was also presence of a large peristomal and small ventral hernia. At that time, lab also revealed an elevated white count accompanied with fever and concern for abscess recurrence. Zosyn was initiated for empiric coverage of GI pathogens. Successful placement of CANDACE-drain to [facility] abdomen for drainage of suspected was done on 12/05. Cultures from abscess fluid revealed multiorganism growth including MRSA, pseudomonas aeruginosa and citrobacter freundii. Vancomycin was initiated in addition to the Zosyn. She underwent a flexible sigmoidoscopy by Dr. Bowers on 12/08 which revealed multiple diverticuli without evidence of acute diverticulitis. She was converted to swing status on 12/12/16 as clinical team continues to work on manager terminal plan. She reports that her pain is improved. She also states that Dr. Bowers is planning to take her back to surgery about 6 weeks after this abscess is resolved. Medications Home Medications Medication Instructions Recorded Confirmed Type Alendronate [Fosamax] 70 mg PO Q7D #0 tab 06/18/14 12/12/16 History Aspirin [Aspir-Low] 81 mg PO DAILY #0 06/18/14 12/12/16 History Lovastatin 40 mg PO WS #0 tab 06/18/14 12/12/16 History Pramipexole Di-HCl [Pramipexole 2 mg PO DAILY #0 06/18/14 12/12/16 History Dihydrochloride] Baclofen [Lioresal] 1 tab PO TID 12/05/16 12/12/16 History Calcium Carbonate/Vitamin D3 1 each PO DAILY 12/05/16 12/12/16 History [Calcium 600-Vit D3 200 Tablet] Cyanocobalamin (B-12) [Vit. B-12] 1,000 mcg IM Q14D 12/05/16 12/12/16 History Estradiol Vag Cream [Estrace Vag 1 applic VAGINAL 3XW 12/05/16 12/12/16 History Cream] Folic Acid [Folate] 1 tab PO DAILY 12/05/16 12/12/16 History Sertraline [Zoloft] 150 mg PO DAILY 12/05/16 12/12/16 History Potassium Chloride [K-Dur] 1 tab PO BID 12/12/16 12/12/16 History Allergies Allergy/AdvReac Type Severity Reaction Status Date / Time hydrocodone Allergy Unknown Verified 12/12/16 17:52 PFS Patient Stated Medical History Cataracts Yes Dental Problems Yes: "BIG CHUNKS OF MY TEETH FELL OUT" Hearing Loss Yes Sleep Apnea Yes Obstructive Bowel Yes Hx Renal Disease No Anemia Yes Multifocal pericolonic abscess in sigmoid regions 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 Surgical History: 12/05/16: intra-abdominal abscess drained and CANDACE drain placed. 12/08/16: flexible sigmoidoscopy-Dr. Bowers. 09/20/15: PICC line inserted, intubated, and NG tube placed. 09/20/15: Exploratory laparotomy, extensive adhesiolysis, drainage of multiple intra-abdominal abscesses, small bowel resection, placement of multiple intraperitoneal drains, creation of end colostomy, drainage of abdominal wall abscess with excisional surgical debridement of necrotic skin and subcutaneous tissues. Per Dr. Bowers, and Dr. Mays. 09/21/15: Echocardiogram-EF 55% with moderate tricuspid regurgitation and moderate pulmonary hypertension. 10/05/15: Additional excisional surgical debridement of skin and necrotic. tissues. Area excised 5 cm x 4 cm. Delayed primary closure of 16 cm wound with application of wound VAC. Per Dr. Bowers. 10/11/15: Ultrasound guided percutaneous abscess drainage with removal of approximately 40 cc of straw-colored fluid. Vaginal hysterectomy. 07/06/15: CT guided drainage intra-abdominal abscesses. 03/30/15: Colonoscopy and EGD. Right total knee. Back surgery- Lumbar. Left shoulder surgery. - Social History Smoking status: Never smoker Substance use type: does not use Does patient use chewing tobacco?: No Current residence: Apartment/Private Home Review of Systems All systems PM: 10-point ROS was reviewed, no additional remarkable complaints except - Constitutional Constitutional: Absent: chills, fever(s) - EENMT Eyes: Absent: blurry vision, change in vision Mouth/Throat: Absent: sore throat - Cardiovascular Cardiovascular: Absent: chest pain - Respiratory Respiratory: Absent: cough, dyspnea - Gastrointestinal Gastrointestinal: Present: abdominal pain (L sided ), change in bowel habits. Absent: diarrhea, nausea - Genitourinary Genitourinary: Absent: dysuria - Musculoskeletal Musculoskeletal: Absent: arthralgias - Integumentary/Breasts Integumentary: Absent: rash - Neurological Neurological: Absent: headache(s) Exam Vital Signs: Temperature 97.1 F 12/15/16 07:38 Pulse Rate 79 12/15/16 07:38 Respiratory Rate 18 12/15/16 07:38 Blood Pressure 106/58 12/15/16 07:38 Pulse Oximetry 94 12/15/16 07:38 Height/Weight/BMI: Height 1.55 m Weight 90.5 kg Body Mass Index 37.9 - Constitutional Present: no acute distress, well nourished, well developed - Routine HEENT Exam Head: Present: normocephalic, atraumatic Eye: Present: EOMI, PERRL ENT: Present: mucous membranes moist, dentition normal - Routine Neck Exam Present: supple. Absent: lymphadenopathy - Routine Respiratory Exam Present: CTA bilaterally. Absent: accessory muscle use - Routine Cardiovascular Exam Present: RRR. Absent: murmur - Routine Abdominal Exam Present: soft, drain (LLQ with slightly purulent fluid), ostomy. Absent: tenderness, rebound, guarding Comments: hypoactive BS - Routine Exam Comments: no preciado, no bladder distention - Routine Extremities Exam Absent: cyanosis, clubbing, edema - Routine Skin Exam Present: intact. Absent: rash - Routine Neurological Exam Present: alert, oriented X3, CN II-XII intact. Absent: motor deficit - Routine Psychiatric Exam Present: normal affect, normal thought process Results - Labs CBC & Chem 7: 12/15/16 04:58 12/15/16 04:58 Impression: Intra-abdominal abscess, s/p percutaneous drainage 12/05/16, cultures with Pseudomonas R to quinolones and intermediate to cefepime, Citrobacter, and MRSA. 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 COPD with chronic home O2. CHF Obesity Recommendation: Recommend either Zosyn or Merrem for the gram negatives, and Vancomycin for the MRSA. There are no oral options for her. I would recommend monitoring drain output and repeating imaging in the next few days to weeks to document resolution of this process. I'll also empirically add fluconazole.
[2016-12-15] MEDS: FLUCONAZOLE 100 MG TABLET PO SCH (15:17)
--- NOTE | 2016-12-15 15:23 | General Surgery Progress Note ---
Subjective Patient reports: no new complaints (She has been transitioned to SWING status. She would like her friend to bring her sewing from home for her to work on.), tolerating a regular diet, bowel movement (soft brown in colostomy bag) Narrative: Sates she has not been walking, although PT has been consulted. Not sure of the accuracy of this statement. - Vital Signs Last Vital Signs Temp 97.1 F 12/15/16 07:38 Pulse 79 12/15/16 07:38 Resp 18 12/15/16 07:38 BP 106/58 12/15/16 07:38 Pulse Ox 94 12/15/16 07:38 - Laboratory Result Diagrams: 12/15/16 04:58 12/15/16 04:58 - Normal Exam General: awake, alert, oriented, no acute distress Cardiovascular: regular rhythm, regular rate Respiratory: equal bilaterally, no labored breathing Abdominal: soft, non-tender, other (CANDACE with cloudy white drainage. 20 ml yesterday) Psychiatric: normal affect (states she hopes she does not become "crabby") Assessment and Plan (1) Abdominal abscess Current Visit: No Status: Acute (2) History of diverticulitis of colon Current Visit: Yes Status: Chronic (3) Obesity (BMI 30-39.9) Current Visit: Yes Status: Chronic Plan: Appreciated Dr. Manning input, Continue ABX as directed. PT and nursing to assist with ambulation. Hope to be able to do colostomy reversal and resected area of colonic stricture seen on Flex Sig once abscess has resolved. Resection and take-down too soon would significantly increase risk of post op complications, including major incisional wound infection then requiring debridement, prolonged wound vac and then delayed closure. This often results in a large ventral incisional hernia. Will continue to follow and seek the optimal time for resection and take-down. Hospital Course Summary Disclaimer: The visit summary below is not to be considered part of the above Progress Note. Hospital Course: Assessment Intra-abdominal abscess with polymicrobial growth including MRSA, pseudomonas aeruginosa and citrobacter freundii, acute. Anemia, acute. Hypertension, chronic. Hyperlipidemia, chronic. GERD, chronic. CHF, chronic. Restless leg syndrome, chronic. Anxiety and depression, chronic. Morbid obesity with BMI 38, chronic. Chronic neck pain. Plan-12/13/16 (Admission to swing) Admit to swing bed status under the care of the hospitalist service, Dr. Aviles attending, for continued IV antibiotic treatment and physical therapy. Continue Vancomycin and Meropenum for treatment of intra-abdominal abscess. Culture from abscess fluid revealed MRSA, pseudomonas aerugenosa and citrobacter freundii. Dr. Manning was consulted and directing antimicrobial treatment and awaiting her recommendations on length of treatment needed. Case management and hospitalist service continues to work with [employer] and Dr. 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 CANDACE drain remains present to [facility], continuing to drain bloody purulent drainage. Dr. Bowers following and recommends patient following up in the office in the 1st or 2nd week of January to discuss colostomy takedown. Continue to encourage therapies for improvement in neck flexibility, strength and movement. Continue to change ostomy bad and dressing every 5 days to avoid skin irritation. SCDs for DVT prophylaxis. Continue home medications. Patient requested lasix be given earlier in the day as she is up multiple times at night to urinate. Currently she is scheduled to receive lasix 40mg at 0900 daily. Suspect nocturia is secondary increased fluids from IV antibiotics. Will given Lasix at 0700 per patient request and continue to monitor. UTI noted on admission on 12/05 revealing mixed bacteria kingsley. Continue to monitor. Patient denies dysuria. Labs today revealed persistent, stable anemia with hemoglobin at 9.0 and otherwise unremarkable. Will continue to monitor. Recheck CBC and BMP in AM. Encourage incentive spirometry for pulmonary toileting. Upon discharge, patient's care will be returned to her PCP, Dr. Pro. 12/15- continue on IV vancomycin and meropenem. Hopeful for recommendations by Dr. Manning for length of treatment. Overall stable, labs reviewed.
[2016-12-15] MEDS: LOVASTATIN 40 MG TABLET PO SCH (17:58)
[2016-12-15] MEDS: PRAMIPEXOLE 1 MG TABLET PO SCH (18:00)
[2016-12-16] MEDS: MEROPENEM 1 GM in NS 100 ML IV SCH ×3 (01:22→18:27)
[2016-12-16] MEDS: SALINE FLUSH 10ml SYRINGE IV PRN ×5 (01:22→18:27)
[2016-12-16] MEDS: NS FLUSH BAG 500ml IV PRN (01:23)
[2016-12-16] MEDS: SERTRALINE 100 MG TABLET PO SCH (10:57)
[2016-12-16] MEDS: CALCIUM 600 + VIT D 400 TABLET PO SCH (10:58)
[2016-12-16] MEDS: FLUCONAZOLE 100 MG TABLET PO SCH (10:58)
[2016-12-16] MEDS: FUROSEMIDE 40 MG TABLET PO SCH (10:58)
[2016-12-16] MEDS: ASPIRIN *EC* 81 MG TABLET PO SCH (10:59)
[2016-12-16] MEDS: FOLIC ACID 1 MG TABLET PO SCH (10:59)
[2016-12-16] MEDS: BACLOFEN 10 MG TABLET PO SCH ×3 (10:59→22:44)
[2016-12-16] MEDS: SPIRONOLACTONE 25 MG TABLET PO SCH (10:59)
[2016-12-16] MEDS: FERROUS SULFATE 324 MG TABLET PO SCH (11:00)
--- NOTE | 2016-12-16 15:19 | Progress Note ---
Subjective: No complaints other than urinary frequency which she attributes to getting Lasix too late. Denies dyspnea, abdominal pain, generalized pain. No dysuria. Objective Vital signs: Temperature 97.2 F 12/16/16 08:13 Pulse Rate 80 12/16/16 08:13 Respiratory Rate 18 12/16/16 08:13 Blood Pressure 123/62 12/16/16 08:13 Pulse Oximetry 91 12/16/16 08:13 EXAM General-NAD, alert Lungs-Respirations nonlabored, good airflow, breath sounds clear Cardiac-regular rhythm, S1-S2 Abd-obese, soft, nontender Ext-trace edema - Height/Weight/BMI: Height 1.55 m Weight 90.5 kg Body Mass Index 37.9 Results - Labs CBC & Chem 7: 12/15/16 04:58 12/15/16 04:58 Labs: CRP (high-sensitivity) yesterday 12.64 Assessment and Plan (1) Abdominal abscess Current visit: No Status: Acute (2) Diverticulosis of colon Current visit: No Status: Chronic DVT Prophylaxis: SCD's Resuscitation Status: Do Not Resuscitate Assessment and Plan: Assessment Intra-abdominal abscess with polymicrobial growth including MRSA, pseudomonas aeruginosa and citrobacter freundii, acute. Anemia, acute. Hypertension, chronic. Hyperlipidemia, chronic. Chronic hypercapnic respiratory failure GERD, chronic. CHF, chronic. Restless leg syndrome, chronic. Anxiety and depression, chronic. Morbid obesity with BMI 38, chronic. Chronic neck pain. Plan Continues on Swing bed status for IV antibiotics. Dr. Manning recommended continuation of Zosyn or meropenem for Citrobacter and Pseudomonas and continuation of vancomycin for MRSA. No oral options available. Fluconazole added empirically to antimicrobial regimen. Dr. Pro working on arranging provider for IV antibiotics through the pace program. Lasix order reviewed-currently ordered for 7 AM but given late today. PT evaluation pending. Hospital Course Summary Disclaimer: The visit summary below is not to be considered part of the above Progress Note. Hospital Course: Assessment Intra-abdominal abscess with polymicrobial growth including MRSA, pseudomonas aeruginosa and citrobacter freundii, acute. Anemia, acute. Hypertension, chronic. Hyperlipidemia, chronic. GERD, chronic. CHF, chronic. Restless leg syndrome, chronic. Anxiety and depression, chronic. Morbid obesity with BMI 38, chronic. Chronic neck pain. Plan-12/13/16 (Admission to swing) Admit to swing bed status under the care of the hospitalist service, Dr. Aviles attending, for continued IV antibiotic treatment and physical therapy. Continue Vancomycin and Meropenum for treatment of intra-abdominal abscess. Culture from abscess fluid revealed MRSA, pseudomonas aerugenosa and citrobacter freundii. Dr. Manning was consulted and directing antimicrobial treatment and awaiting her recommendations on length of treatment needed. Case management and hospitalist service continues to work with [employer] and Dr. Pro regarding in store demonstrator health plan. CANDACE drain remains present to [facility], continuing to drain bloody purulent drainage. Dr. Bowers following and recommends patient following up in the office in the 1st or 2nd week of January to discuss colostomy takedown. Continue to encourage therapies for improvement in neck flexibility, strength and movement. Continue to change ostomy bad and dressing every 5 days to avoid skin irritation. SCDs for DVT prophylaxis. Continue home medications. Patient requested lasix be given earlier in the day as she is up multiple times at night to urinate. Currently she is scheduled to receive lasix 40mg at 0900 daily. Suspect nocturia is secondary increased fluids from IV antibiotics. Will given Lasix at 0700 per patient request and continue to monitor. UTI noted on admission on 12/05 revealing mixed bacteria kingsley. Continue to monitor. Patient denies dysuria. Labs today revealed persistent, stable anemia with hemoglobin at 9.0 and otherwise unremarkable. Will continue to monitor. Recheck CBC and BMP in AM. Encourage incentive spirometry for pulmonary toileting. Upon discharge, patient's care will be returned to her PCP, Dr. Pro. 12/15- continue on IV vancomycin and meropenem. Hopeful for recommendations by Dr. Manning for length of treatment. Overall stable, labs reviewed. 12/16/16 Continues on Swing bed status for IV antibiotics. Dr. Manning recommended continuation of Zosyn or meropenem for Citrobacter and Pseudomonas and continuation of vancomycin for MRSA. No oral options available. Fluconazole added empirically to antimicrobial regimen. Dr. Pro working on arranging provider for IV antibiotics through the pace program. Lasix order reviewed-currently ordered for 7 AM but given late today. PT evaluation pending.
[2016-12-16] MEDS: PRAMIPEXOLE 1 MG TABLET PO SCH (18:27)
[2016-12-16] MEDS: LOVASTATIN 40 MG TABLET PO SCH (22:44)
[2016-12-17] MEDS: MEROPENEM 1 GM in NS 100 ML IV SCH ×3 (02:21→17:53)
--- NOTE | 2016-12-17 07:50 | General Surgery Progress Note ---
Subjective Patient reports: no new complaints (She has been ambulating with PT and nursing. Slept well"in spirts" last night.), tolerating a regular diet, voiding w/o difficulty (complained some of frequency, due to lasix), afebrile - Vital Signs Last Vital Signs Temp 98.2 F 12/16/16 19:34 Pulse 93 12/16/16 19:34 Resp 20 12/16/16 19:34 BP 97/60 12/16/16 19:34 Pulse Ox 91 12/16/16 19:34 - Laboratory Result Diagrams: 12/15/16 04:58 12/15/16 04:58 - Abnormal Exam Abdominal: obese, other (CANDACE with purlent lookin fluid, 10 ml since midnight.) - Normal Exam General: awake, alert, no acute distress Cardiovascular: regular rhythm Respiratory: no labored breathing Abdominal: soft, non-tender, other (colostomy with soft brown stool) Psychiatric: normal affect Assessment and Plan (1) Abdominal abscess Current Visit: No Status: Acute (2) History of diverticulitis of colon Current Visit: Yes Status: Chronic (3) Obesity (BMI 30-39.9) Current Visit: Yes Status: Chronic Plan: Continue ABX per ID. Will see her periodically while in Swing. Hospital Course Summary Disclaimer: The visit summary below is not to be considered part of the above Progress Note. Hospital Course: Assessment Intra-abdominal abscess with polymicrobial growth including MRSA, pseudomonas aeruginosa and citrobacter freundii, acute. Anemia, acute. Hypertension, chronic. Hyperlipidemia, chronic. GERD, chronic. CHF, chronic. Restless leg syndrome, chronic. Anxiety and depression, chronic. Morbid obesity with BMI 38, chronic. Chronic neck pain. Plan-12/13/16 (Admission to swing) Admit to swing bed status under the care of the hospitalist service, Dr. Aviles attending, for continued IV antibiotic treatment and physical therapy. Continue Vancomycin and Meropenum for treatment of intra-abdominal abscess. Culture from abscess fluid revealed MRSA, pseudomonas aerugenosa and citrobacter freundii. Dr. Manning was consulted and directing antimicrobial treatment and awaiting her recommendations on length of treatment needed. 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 CANDACE drain remains present to [facility], continuing to drain bloody purulent drainage. Dr. Bowers following and recommends patient following up in the office in the 1st or 2nd week of January to discuss colostomy takedown. Continue to encourage therapies for improvement in neck flexibility, strength and movement. Continue to change ostomy bad and dressing every 5 days to avoid skin irritation. SCDs for DVT prophylaxis. Continue home medications. Patient requested lasix be given earlier in the day as she is up multiple times at night to urinate. Currently she is scheduled to receive lasix 40mg at 0900 daily. Suspect nocturia is secondary increased fluids from IV antibiotics. Will given Lasix at 0700 per patient request and continue to monitor. UTI noted on admission on 12/05 revealing mixed bacteria kingsley. Continue to monitor. Patient denies dysuria. Labs today revealed persistent, stable anemia with hemoglobin at 9.0 and otherwise unremarkable. Will continue to monitor. Recheck CBC and BMP in AM. Encourage incentive spirometry for pulmonary toileting. Upon discharge, patient's care will be returned to her PCP, Dr. Pro. 12/15- continue on IV vancomycin and meropenem. Hopeful for recommendations by Dr. Manning for length of treatment. Overall stable, labs reviewed. 12/16/16 Continues on Swing bed status for IV antibiotics. Dr. Manning recommended continuation of Zosyn or meropenem for Citrobacter and Pseudomonas and continuation of vancomycin for MRSA. No oral options available. Fluconazole added empirically to antimicrobial regimen. Dr. Pro working on arranging provider for IV antibiotics through the pace program. Lasix order reviewed-currently ordered for 7 AM but given late today. PT evaluation pending.
[2016-12-17] MEDS: BACLOFEN 10 MG TABLET PO SCH ×3 (08:07→20:24)
[2016-12-17] MEDS: SERTRALINE 100 MG TABLET PO SCH (08:07)
[2016-12-17] MEDS: CALCIUM 600 + VIT D 400 TABLET PO SCH (08:08)
[2016-12-17] MEDS: ASPIRIN *EC* 81 MG TABLET PO SCH (08:08)
[2016-12-17] MEDS: FLUCONAZOLE 100 MG TABLET PO SCH (08:08)
[2016-12-17] MEDS: FUROSEMIDE 40 MG TABLET PO SCH (08:09)
[2016-12-17] MEDS: FOLIC ACID 1 MG TABLET PO SCH (08:09)
[2016-12-17] MEDS: SPIRONOLACTONE 25 MG TABLET PO SCH (08:10)
[2016-12-17] MEDS: FERROUS SULFATE 324 MG TABLET PO SCH (08:10)
--- NOTE | 2016-12-17 09:05 | Progress Note ---
Subjective Date: 12/17/16 Subjective: Ms. Magdaleno is feeling ok. She denies any fevers, chills, N/V or diarrhea. She reports a h/o vaginal discharge and that recently it's been bloody. Exam Vital Signs: Temperature 97.5 F 12/17/16 08:00 Pulse Rate 79 12/17/16 08:00 Respiratory Rate 18 12/17/16 08:00 Blood Pressure 112/57 12/17/16 08:00 Pulse Oximetry 94 12/17/16 08:00 Height/Weight/BMI: Height 1.55 m Weight 90 kg Body Mass Index 37.9 - Constitutional Present: no acute distress, well nourished, well developed - Routine HEENT Exam Head: Present: normocephalic, atraumatic Eye: Present: EOMI, PERRL ENT: Present: mucous membranes moist - Routine Neck Exam Present: supple - Routine Respiratory Exam Present: CTA bilaterally. Absent: accessory muscle use - Routine Cardiovascular Exam Present: RRR. Absent: murmur - Routine Abdominal Exam Present: soft (hypoactive bowel sounds), non tender, drain (LLQ with purulent drainage), ostomy. Absent: rebound, guarding - Routine Extremities Exam Present: edema (trace LE). Absent: cyanosis, clubbing - Routine Skin Exam Present: intact. Absent: rash Comments: LUE PICC site without redness - Routine Neurological Exam Present: alert, oriented X3, CN II-XII intact - Routine Psychiatric Exam Present: normal affect Results - Labs CBC & Chem 7: 12/15/16 04:58 12/15/16 04:58 Impression: Intra-abdominal abscess, s/p percutaneous drainage 12/05/16, cultures with Pseudomonas R to quinolones and intermediate to cefepime, Citrobacter, and MRSA. 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 COPD with chronic home O2. CHF Obesity Vaginal bleeding vs drainage, ? fistula Recommendation: Recommend either Zosyn or Merrem for the gram negatives, and Vancomycin for the MRSA. There are no oral options for her. I would recommend monitoring drain output and repeating imaging to document resolution of this process. Continue empiric fluconazole. Monitor vaginal discharge. Her hemoglobin is stable. Discussed with Diana Arana APRN.
--- NOTE | 2016-12-17 10:54 | Progress Note ---
<Diana Arana V - Last Filed: 12/17/16 10:50> Subjective: Suzy is seen and examined today. She is up in the chair and states that she is feeling well without any pain this morning. She has a good appetite and denies difficulty with ostomy. CANDACE drain remains intact. Objective Vital signs: Temperature 97.5 F 12/17/16 08:00 Pulse Rate 79 12/17/16 08:00 Respiratory Rate 18 12/17/16 08:00 Blood Pressure 112/57 12/17/16 08:00 Pulse Oximetry 94 12/17/16 08:00 Height/Weight/BMI: Height 1.55 m Weight 90 kg Body Mass Index 37.9 - Constitutional Present: no acute distress, well nourished, well developed - Routine HEENT Exam Eye: Present: EOMI ENT: Present: mucous membranes moist, dentition normal - Routine Respiratory Exam Present: CTA bilaterally. Absent: wheezes - Routine Cardiovascular Exam Present: RRR, S1, S2. Absent: murmur - Routine Abdominal Exam Present: soft, normoactive bowel sounds, non distended, ostomy. Absent: tenderness Comments: CANDACE drain - Routine Extremities Exam Present: normal capillary refill - Routine Skin Exam Present: intact, dry, warm - Routine Neurological Exam Present: alert, oriented X3, CN II-XII intact - Routine Lymphatic Exam Lymphatic: Absent: adenopathy - Routine Psychiatric Exam Present: normal affect, cooperative Results - Labs CBC & Chem 7: 12/15/16 04:58 12/15/16 04:58 Assessment and Plan (1) Abdominal abscess Current visit: No Status: Acute (2) Diverticulosis of colon Current visit: No Status: Chronic Assessment and Plan: Assessment Intra-abdominal abscess with polymicrobial growth including MRSA, pseudomonas aeruginosa and citrobacter freundii, acute. Anemia, acute. Hypertension, chronic. Hyperlipidemia, chronic. Chronic hypercapnic respiratory failure GERD, chronic. CHF, chronic. Restless leg syndrome, chronic. Anxiety and depression, chronic. Morbid obesity with BMI 38, chronic. Chronic neck pain. Plan Continues on Swing bed status for IV antibiotics. Continue on Meropenem and Vancomycin for treatment of Citrobacter, Pseudomonas and MRSA. Fluconazole added empirically to antimicrobial regimen. Spoke with Dr Pro (PCP with [facility]), and Dr Manning ([facility]) regarding coordination of care. Will obtain CT scan of Abdomen today for reevaluation of abdominal abscess. Will plan for discharge home tomorrow. IV antibiotics will continue under the care of Dr. Pro and the [facility] program. Patient will need to be on vancomycin and meropenem. The length of this course is unknown at this time. However, will be followed by Dr. Manning in the outpatient setting. Hospital Course Summary Disclaimer: The visit summary below is not to be considered part of the above Progress Note. Hospital Course: Assessment Intra-abdominal abscess with polymicrobial growth including MRSA, pseudomonas aeruginosa and citrobacter freundii, acute. Anemia, acute. Hypertension, chronic. Hyperlipidemia, chronic. GERD, chronic. CHF, chronic. Restless leg syndrome, chronic. Anxiety and depression, chronic. Morbid obesity with BMI 38, chronic. Chronic neck pain. Plan-12/13/16 (Admission to swing) Admit to swing bed status under the care of the hospitalist service, Dr. Aviles attending, for continued IV antibiotic treatment and physical therapy. Continue Vancomycin and Meropenum for treatment of intra-abdominal abscess. Culture from abscess fluid revealed MRSA, pseudomonas aerugenosa and citrobacter freundii. Dr. Manning was consulted and directing antimicrobial treatment and awaiting her recommendations on length of treatment needed. Case management and hospitalist service continues to work with [facility] and Dr. Pro regarding [facility] supervisor health plan. CANDACE drain remains present to [facility], continuing to drain bloody purulent drainage. Dr. Bowers following and recommends patient following up in the office in the 1st or 2nd week of January to discuss colostomy takedown. Continue to encourage therapies for improvement in neck flexibility, strength and movement. Continue to change ostomy bad and dressing every 5 days to avoid skin irritation. SCDs for DVT prophylaxis. Continue home medications. Patient requested lasix be given earlier in the day as she is up multiple times at night to urinate. Currently she is scheduled to receive lasix 40mg at 0900 daily. Suspect nocturia is secondary increased fluids from IV antibiotics. Will given Lasix at 0700 per patient request and continue to monitor. UTI noted on admission on 12/05 revealing mixed bacteria kingsley. Continue to monitor. Patient denies dysuria. Labs today revealed persistent, stable anemia with hemoglobin at 9.0 and otherwise unremarkable. Will continue to monitor. Recheck CBC and BMP in AM. Encourage incentive spirometry for pulmonary toileting. Upon discharge, patient's care will be returned to her PCP, Dr. Pro. 12/15- continue on IV vancomycin and meropenem. Hopeful for recommendations by Dr. Manning for length of treatment. Overall stable, labs reviewed. 12/16/16 Continues on Swing bed status for IV antibiotics. Dr. Manning recommended continuation of Zosyn or meropenem for Citrobacter and Pseudomonas and continuation of vancomycin for MRSA. No oral options available. Fluconazole added empirically to antimicrobial regimen. Dr. Pro working on arranging provider for IV antibiotics through the [facility]. Lasix order reviewed-currently ordered for 7 AM but given late today. PT evaluation pending. 12/17/[address] abd for evaluation of abscess. Planning for discharge tomorrow 12/18. Will continue under the care of Dr. Pro and [facility] program followed by Dr. Manning for IV antibiotic therapy <Basim Aviles - Last Filed: 12/17/16 19:42> Objective Vital signs: Temperature 98.3 F 12/17/16 16:00 Pulse Rate 81 12/17/16 16:00 Respiratory Rate 18 12/17/16 16:00 Blood Pressure 126/59 12/17/16 16:00 Pulse Oximetry 95 12/17/16 16:00 Height/Weight/BMI: Height 1.55 m Weight 90 kg Body Mass Index 37.9 Results - Labs CBC & Chem 7: 12/15/16 04:58 12/17/16 12:46 Assessment and Plan (1) Abdominal abscess Current visit: No Status: Acute (2) Diverticulosis of colon Current visit: No Status: Chronic DVT Prophylaxis: SCD's Resuscitation Status: Do Not Resuscitate Assessment and Plan: Assessment Intra-abdominal abscess with polymicrobial growth including MRSA, pseudomonas aeruginosa and citrobacter freundii, acute. Anemia, acute. Hypertension, chronic. Hyperlipidemia, chronic. Chronic hypercapnic respiratory failure GERD, chronic. CHF, chronic. Restless leg syndrome, chronic. Anxiety and depression, chronic. Morbid obesity with BMI 38, chronic. Chronic neck pain. Have independently interviewed and examined pt. Chart reviewed. Case discussed with my [employer]. Care plan developed with my supervision; agree with above. Doing well this evening. Eating well. No ab pain. Reports has walked 2 times today and wants to walk again this evening. Breathing stable. Lungs: decreased, no distress CV: regular AB: soft nt/nd +BS MSE: awake alert appropriate Plan: Continue with antibiotics and supportive care. Possible d/c tomorrow for continuation of outpatient antibiotics. Hospital Course Summary Disclaimer: The visit summary below is not to be considered part of the above Progress Note.
[2016-12-17] MEDS ORDERED: IOHEXOL 300mg/ml 100ml INJECTION ONE (11:42)
[2016-12-17] MEDS ORDERED: SALINE FLUSH 10ml SYRINGE ONE (11:42)
[2016-12-17] MEDS ORDERED: NS 100 ML ONE (11:42)
--- NOTE | 2016-12-17 13:47 | Pharmacy Consult-Antibiotics ---
Pharmacy Consult-Vancomycin - Laboratory Information WBC 9.6 T/MM3 (4.5-11.0) 12/15/16 04:58 BUN 14.0 MG/DL (7-17) 12/15/16 04:58 Creatinine 0.7 MG/DL (0.7-1.2) 12/17/16 12:46 Vancomycin Trough 23.76 UG/ML (15-20) H* 12/16/16 20:35 - Consult Information Vancomycin trough elevated last night. Held dosing until trough at noon which was 14.4 mcg/ml. Resumed dosing at 1750mg vancomycin IV q24h. Thank you.
[2016-12-17] MEDS: NS FLUSH BAG 500ml IV PRN (14:37)
--- NOTE | 2016-12-17 16:08 | CT Scan Report ---
Indication: re-eval abdominal abscess PROCEDURE: CT abdomen pelvis w con: Encounter: Subsequent Comparison: CT abdomen dated November 27, 2016 and barium enema dated December 01, 2016. Technique: Axial CT images were performed through the abdomen and pelvis after the administration of intravenous contrast. Coronal and sagittal two-dimensional reformats. Automated Exposure Control and Iterative Reconstruction dose reducing techniques were utilized. Contrast: Omnipaque 300 98 mL Findings: Lung bases are unchanged. The liver is stable in appearance. Distended gallbladder with multiple gallstones. The spleen, pancreas and adrenal glands are stable. Kidneys are unchanged. Large peristomal hernia in the left abdomen. Percutaneous drainage catheter is seen in the abscess associated with the left lower abdominal wall at the level of the anterior superior iliac spine. There is high attenuation material within the cavity. This seemingly confirms continuity with the distal colonic stump given the prior barium administered per rectum. The size of the abscess cavity is decreased. There is now a phlegmonous region measuring 3.3 x 4.6 cm in size compared to 6.9 x 8.2 cm previously. There is only a small amount of fluid left within this collection. Surrounding inflammation extending into the left pelvic peritoneal space is redemonstrated. Bladder is unremarkable. Inflammatory change and wall thickening seen within the sigmoid colon as noted previously with adjacent thick walled small bowel loops and a small area of contained abscess along the left margin of the sigmoid colon which is grossly stable at 3.4 cm maximal diameter on axial images 127. Impression: Interval percutaneous drainage procedure of the abdominal wall/subcutaneous abscess in the lower abdomen and upper pelvis with residual phlegmon remaining. Residual barium contrast material within this cavity confirms communication with the sigmoid colonic stump. 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 The fistulous tract to the vagina is faintly visible. No new areas of undrained abscess appreciated. .
[2016-12-17] MEDS: SALINE FLUSH 10ml SYRINGE IV PRN (17:53)
[2016-12-17] MEDS: PRAMIPEXOLE 1 MG TABLET PO SCH (18:34)
[2016-12-17] MEDS: LOVASTATIN 40 MG TABLET PO SCH (20:24)
[2016-12-18] MEDS: MEROPENEM 1 GM in NS 100 ML IV SCH ×3 (00:35→17:31)
[2016-12-18] MEDS: FUROSEMIDE 40 MG TABLET PO SCH (08:08)
[2016-12-18] MEDS: CALCIUM 600 + VIT D 400 TABLET PO SCH (09:13)
[2016-12-18] MEDS: FERROUS SULFATE 324 MG TABLET PO SCH (09:13)
[2016-12-18] MEDS: SERTRALINE 100 MG TABLET PO SCH (09:14)
[2016-12-18] MEDS: BACLOFEN 10 MG TABLET PO SCH ×3 (09:14→21:16)
[2016-12-18] MEDS: FOLIC ACID 1 MG TABLET PO SCH (09:14)
[2016-12-18] MEDS: SPIRONOLACTONE 25 MG TABLET PO SCH (09:14)
[2016-12-18] MEDS: ASPIRIN *EC* 81 MG TABLET PO SCH (09:15)
[2016-12-18] MEDS: FLUCONAZOLE 100 MG TABLET PO SCH (09:15)
--- NOTE | 2016-12-18 13:33 | Progress Note ---
Subjective: Suzy is seen in swing follow up today. She complains of having some erythema to the right groin fold. She also complains of having increased restless leg symptoms all the time. She questions is the Mirapex is not effectively working as she has been on it for years. Otherwise she is without pain, nausea or shortness of breath. Feels that her leg swelling continues to improve. Vitals stable Objective Vital signs: Temperature 97.9 F 12/18/16 07:54 Pulse Rate 65 12/18/16 00:33 Respiratory Rate 20 12/18/16 07:54 Blood Pressure 113/50 12/18/16 07:54 Pulse Oximetry 91 12/18/16 07:54 Height/Weight/BMI: Height 1.55 m Weight 90 kg Body Mass Index 37.9 - Constitutional Present: no acute distress, well nourished, well developed - Routine HEENT Exam Eye: Present: EOMI ENT: Present: mucous membranes moist, dentition normal - Routine Respiratory Exam Present: CTA bilaterally. Absent: wheezes - Routine Cardiovascular Exam Present: RRR, S1, S2. Absent: murmur - Routine Abdominal Exam Present: soft, normoactive bowel sounds, non distended. Absent: tenderness - Routine Extremities Exam Present: full ROM, normal capillary refill - Routine Back/Spine/Pelvis Exam Back/Spine: Present: full ROM - Routine Skin Exam Present: intact, dry, warm - Routine Neurological Exam Present: alert, oriented X3, CN II-XII intact, moving all extremities - Routine Lymphatic Exam Lymphatic: Absent: adenopathy - Routine Psychiatric Exam Present: normal affect, cooperative Results - Labs CBC & Chem 7: 12/15/16 04:58 12/18/16 05:47 Assessment and Plan (1) Abdominal abscess Current visit: No Status: Acute (2) Diverticulosis of colon Current visit: No Status: Chronic Assessment and Plan: Assessment Intra-abdominal abscess with polymicrobial growth including MRSA, pseudomonas aeruginosa and citrobacter freundii, acute. Anemia, acute. Hypertension, chronic. Hyperlipidemia, chronic. Chronic hypercapnic respiratory failure GERD, chronic. CHF, chronic. Restless leg syndrome, chronic. Anxiety and depression, chronic. Morbid obesity with BMI 38, chronic. Chronic neck pain. Plan Will add nystatin powder for groin folds given yeastlike erythema Any with current antibiotic regimen, meropenem and vancomycin. Spoke with PCP with the [facility], Dr. Pro. Awaiting for outpatient antibiotic contract to be approved. Hopeful for discharge home in the next few days with scheduled home health antibiotic administration. Patient will need to be monitored in the outpatient setting with serial CT scans to monitor abdominal abscess. Patient does continue to have intermittent mild vaginal bleeding which is secondary to her known fistula. Her hemoglobin remained stable at 9.9. Spoke with pharmacist regarding restless leg medications. Patient is currently on Mirapex 2 milligrams daily. Will discuss with adding a 2nd agent or changing agents for improved symptom relief. Hospital Course Summary Disclaimer: The visit summary below is not to be considered part of the above Progress Note. Hospital Course: Assessment Intra-abdominal abscess with polymicrobial growth including MRSA, pseudomonas aeruginosa and citrobacter freundii, acute. Anemia, acute. Hypertension, chronic. Hyperlipidemia, chronic. GERD, chronic. CHF, chronic. Restless leg syndrome, chronic. Anxiety and depression, chronic. Morbid obesity with BMI 38, chronic. Chronic neck pain. Plan-12/13/16 (Admission to swing) Admit to swing bed status under the care of the hospitalist service, Dr. Aviles attending, for continued IV antibiotic treatment and physical therapy. Continue Vancomycin and Meropenum for treatment of intra-abdominal abscess. Culture from abscess fluid revealed MRSA, pseudomonas aerugenosa and citrobacter freundii. Dr. Manning was consulted and directing antimicrobial treatment and awaiting her recommendations on length of treatment needed. Case management and hospitalist service continues to work with [facility] and Dr. Pro regarding [facility] health plan. CANDACE drain remains present to [facility], continuing to drain bloody purulent drainage. Dr. Bowers following and recommends patient following up in the office in the 1st or 2nd week of January to discuss colostomy takedown. Continue to encourage therapies for improvement in neck flexibility, strength and movement. Continue to change ostomy bad and dressing every 5 days to avoid skin irritation. SCDs for DVT prophylaxis. Continue home medications. Patient requested lasix be given earlier in the day as she is up multiple times at night to urinate. Currently she is scheduled to receive lasix 40mg at 0900 daily. Suspect nocturia is secondary increased fluids from IV antibiotics. Will given Lasix at 0700 per patient request and continue to monitor. UTI noted on admission on 12/05 revealing mixed bacteria kingsley. Continue to monitor. Patient denies dysuria. Labs today revealed persistent, stable anemia with hemoglobin at 9.0 and otherwise unremarkable. Will continue to monitor. Recheck CBC and BMP in AM. Encourage incentive spirometry for pulmonary toileting. Upon discharge, patient's care will be returned to her PCP, Dr. Pro. 12/15- continue on IV vancomycin and meropenem. Hopeful for recommendations by Dr. Manning for length of treatment. Overall stable, labs reviewed. 12/16/16 Continues on Swing bed status for IV antibiotics. Dr. Manning recommended continuation of Zosyn or meropenem for Citrobacter and Pseudomonas and continuation of vancomycin for MRSA. No oral options available. Fluconazole added empirically to antimicrobial regimen. Dr. Pro working on arranging provider for IV antibiotics through the [facility] program. Lasix order reviewed-currently ordered for 7 AM but given late today. PT evaluation pending. 12/17/[address] abd for evaluation of abscess. Planning for discharge tomorrow 12/18. Will continue under the care of Dr. Pro and [facility] program followed by Dr. Manning for IV antibiotic therapy 12/18/16- Adding nystatin powder. Considering changing Mirapex for RLS symptoms. Working with PCP Dr. Pro for outpatient antibiotic plan
[2016-12-18] MEDS: GABAPENTIN 600 MG TABLET PO SCH (16:40)
[2016-12-18] MEDS: PRAMIPEXOLE 1 MG TABLET PO SCH (18:57)
[2016-12-18] MEDS: LOVASTATIN 40 MG TABLET PO SCH (21:16)
[2016-12-18] MEDS: SALINE FLUSH 10ml SYRINGE IV PRN (21:16)
[2016-12-19] MEDS: NS FLUSH BAG 500ml IV PRN (01:14)
[2016-12-19] MEDS: MEROPENEM 1 GM in NS 100 ML IV SCH ×3 (01:14→20:43)
[2016-12-19] MEDS: SALINE FLUSH 10ml SYRINGE IV PRN ×6 (02:00→20:43)
[2016-12-19] MEDS: FLUCONAZOLE 100 MG TABLET PO SCH (09:20)
[2016-12-19] MEDS: FERROUS SULFATE 324 MG TABLET PO SCH (09:21)
[2016-12-19] MEDS: SPIRONOLACTONE 25 MG TABLET PO SCH (09:21)
[2016-12-19] MEDS: FOLIC ACID 1 MG TABLET PO SCH (09:21)
[2016-12-19] MEDS: FUROSEMIDE 40 MG TABLET PO SCH (09:21)
[2016-12-19] MEDS: BACLOFEN 10 MG TABLET PO SCH ×3 (09:22→20:43)
[2016-12-19] MEDS: SERTRALINE 100 MG TABLET PO SCH (09:22)
[2016-12-19] MEDS: ASPIRIN *EC* 81 MG TABLET PO SCH (09:22)
[2016-12-19] MEDS: CALCIUM 600 + VIT D 400 TABLET PO SCH (09:22)
--- NOTE | 2016-12-19 10:08 | Progress Note ---
Subjective Date: 12/19/16 Subjective: She denies much abdominal pain. No nausea. Is doing fairly well. She denies fevers or chills. No rashes. Exam Vital Signs: Temperature 98.3 F 12/19/16 08:17 Pulse Rate 81 12/19/16 08:17 Respiratory Rate 16 12/19/16 08:17 Blood Pressure 120/62 12/19/16 08:17 Pulse Oximetry 93 12/19/16 08:17 Height/Weight/BMI: Height 1.55 m Weight 90 kg Body Mass Index 37.9 - Constitutional Present: no acute distress - Routine HEENT Exam Head: Present: normocephalic, atraumatic Eye: Present: EOMI, PERRL ENT: Present: mucous membranes moist - Routine Neck Exam Present: supple - Routine Respiratory Exam Present: CTA bilaterally. Absent: accessory muscle use - Routine Cardiovascular Exam Present: RRR. Absent: murmur - Routine Abdominal Exam Present: soft, normoactive bowel sounds, non distended, drain (LLQ with some purulent drainage), ostomy. Absent: tenderness, rebound, guarding - Routine Extremities Exam Present: edema (trace LE). Absent: cyanosis, clubbing - Routine Skin Exam Present: intact. Absent: rash - Routine Neurological Exam Present: alert, oriented X3, CN II-XII intact - Routine Psychiatric Exam Present: normal affect, normal thought process Results - Labs CBC & Chem 7: 12/19/16 04:20 12/19/16 04:20 - Impressions Repeat CT yesterday 12/18: "There is now a phlegmonous region measuring 3.3 x 4.6 cm in size compared to 6.9 x 8.2 cm previously. There is only a small amount of fluid left within this collection. Surrounding inflammation extending into the left pelvic peritoneal space is redemonstrated. Bladder is unremarkable. Inflammatory change and wall thickening seen within the sigmoid colon as noted previously with adjacent thick walled small bowel loops and a small area of contained abscess along the left margin of the sigmoid colon which is grossly stable at 3.4 cm maximal diameter on axial images 127." Impression: Intra-abdominal abscess, s/p percutaneous drainage 12/05/16, cultures with Pseudomonas R to quinolones and intermediate to cefepime, Citrobacter, and MRSA. Improving on repeat CT scan 12/18. Colovaginal fistula. 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 COPD with chronic home O2. CHF Obesity Recommendation: Continue Merrem for the gram negatives, and Vancomycin for the MRSA. There are no oral options for her. I would recommend monitoring drain output and repeating imaging to document resolution of this process. Continue empiric fluconazole. Once this fluid collection appears to be resolved in imaging, then I would put her on some oral antibiotics (knowing that they don't have activity against the pseudomonas and Citrobacter) until she has more definitive surgery in the future.
--- NOTE | 2016-12-19 11:55 | Progress Note ---
<Diana Arana V - Last Filed: 12/19/16 11:50> Subjective: Suzy is seen for swing bed follow up. She is without complaints or pain or difficulty. Informed her that at this time the plan is to remain at [facility] at least until later next week. Objective Vital signs: Temperature 98.3 F 12/19/16 08:17 Pulse Rate 81 12/19/16 08:17 Respiratory Rate 16 12/19/16 08:17 Blood Pressure 120/62 12/19/16 08:17 Pulse Oximetry 93 12/19/16 08:17 Height/Weight/BMI: Height 1.55 m Weight 90 kg Body Mass Index 37.9 - Constitutional Present: no acute distress, well nourished, well developed - Routine HEENT Exam Eye: Present: EOMI ENT: Present: mucous membranes moist, dentition normal - Routine Respiratory Exam Present: CTA bilaterally. Absent: wheezes - Routine Cardiovascular Exam Present: RRR. Absent: murmur - Routine Abdominal Exam Present: soft, normoactive bowel sounds, non distended, ostomy. Absent: tenderness - Routine Extremities Exam Present: normal capillary refill - Routine Skin Exam Present: intact, dry, warm Comments: erythema to groin folds - Routine Neurological Exam Present: alert, oriented X3, CN II-XII intact, moving all extremities - Routine Lymphatic Exam Lymphatic: Absent: adenopathy - Routine Psychiatric Exam Present: normal affect, cooperative Results - Labs CBC & Chem 7: 12/19/16 04:20 12/19/16 04:20 Assessment and Plan (1) Abdominal abscess Current visit: No Status: Acute (2) Diverticulosis of colon Current visit: No Status: Chronic Assessment and Plan: Assessment Intra-abdominal abscess with polymicrobial growth including MRSA, pseudomonas aeruginosa and citrobacter freundii, acute. Anemia, acute. Hypertension, chronic. Hyperlipidemia, chronic. Chronic hypercapnic respiratory failure GERD, chronic. CHF, chronic. Restless leg syndrome, chronic. Anxiety and depression, chronic. Morbid obesity with BMI 38, chronic. Chronic neck pain. Plan Continue on swing bed status. Spoke with PCP Dr. Pro with the patient's program. At this point, she will remain at [facility] for continued IV antibiotics at least until next 12/25. Awaiting approval of contract for for and to have outpatient antibiotics through home health. Continue with current regimen of meropenem and vancomycin. Ostomy dressing and leg were last changed on Sunday 12/17. Recommend changing this every 5 days Nystatin for erythema to groin folds Added Neurontin yesterday 12/18 for further assistance with restless leg syndrome. Labs reviewed this morning, hemoglobin stable at 9.4. Sodium slightly up at 146. Will continue to periodically monitor labs. Hospital Course Summary Disclaimer: The visit summary below is not to be considered part of the above Progress Note. Hospital Course: Assessment Intra-abdominal abscess with polymicrobial growth including MRSA, pseudomonas aeruginosa and citrobacter freundii, acute. Anemia, acute. Hypertension, chronic. Hyperlipidemia, chronic. GERD, chronic. CHF, chronic. Restless leg syndrome, chronic. Anxiety and depression, chronic. Morbid obesity with BMI 38, chronic. Chronic neck pain. Plan-12/13/16 (Admission to swing) Admit to swing bed status under the care of the hospitalist service, Dr. Aviles attending, for continued IV antibiotic treatment and physical therapy. Continue Vancomycin and Meropenum for treatment of intra-abdominal abscess. Culture from abscess fluid revealed MRSA, pseudomonas aerugenosa and citrobacter freundii. Dr. Manning was consulted and directing antimicrobial treatment and awaiting her recommendations on length of treatment needed. Case management and hospitalist service continues to work with [facility] and Dr. Pro regarding long term care pharmacist health plan. CANDACE drain remains present to [facility], continuing to drain bloody purulent drainage. Dr. Bowers following and recommends patient following up in the office in the 1st or 2nd week of January to discuss colostomy takedown. Continue to encourage therapies for improvement in neck flexibility, strength and movement. Continue to change ostomy bad and dressing every 5 days to avoid skin irritation. SCDs for DVT prophylaxis. Continue home medications. Patient requested lasix be given earlier in the day as she is up multiple times at night to urinate. Currently she is scheduled to receive lasix 40mg at 0900 daily. Suspect nocturia is secondary increased fluids from IV antibiotics. Will given Lasix at 0700 per patient request and continue to monitor. UTI noted on admission on 12/05 revealing mixed bacteria kingsley. Continue to monitor. Patient denies dysuria. Labs today revealed persistent, stable anemia with hemoglobin at 9.0 and otherwise unremarkable. Will continue to monitor. Recheck CBC and BMP in AM. Encourage incentive spirometry for pulmonary toileting. Upon discharge, patient's care will be returned to her PCP, Dr. Pro. 12/15- continue on IV vancomycin and meropenem. Hopeful for recommendations by Dr. Manning for length of treatment. Overall stable, labs reviewed. 12/16/16 Continues on Swing bed status for IV antibiotics. Dr. Manning recommended continuation of Zosyn or meropenem for Citrobacter and Pseudomonas and continuation of vancomycin for MRSA. No oral options available. Fluconazole added empirically to antimicrobial regimen. Dr. Pro working on arranging provider for IV antibiotics through the pace program. Lasix order reviewed-currently ordered for 7 AM but given late today. PT evaluation pending. 12/17/[address] abd for evaluation of abscess. Planning for discharge tomorrow 12/18. Will continue under the care of Dr. rPo and pace program followed by Dr. Manning for IV antibiotic therapy 12/18/16- Adding nystatin powder. Considering changing Mirapex for RLS symptoms. Working with PCP Dr. Pro for outpatient antibiotic plan 12/19/16- Planning to remain at [facility] for IV abd intil later next week. Awaiting approval by [facility] program. Continue vancomycin and meropenem. Nystatin added for erythema. Continue to monitor RLS symptoms added Neurontin on 12/18 . <Basim Aviles - Last Filed: 12/19/16 19:03> Objective Vital signs: Temperature 99.4 F 12/19/16 15:12 Pulse Rate 92 12/19/16 15:12 Respiratory Rate 19 12/19/16 15:12 Blood Pressure 110/56 12/19/16 15:12 Pulse Oximetry 94 12/19/16 15:12 Height/Weight/BMI: Height 1.55 m Weight 90 kg Body Mass Index 37.9 Results - Labs CBC & Chem 7: 12/19/16 04:20 12/19/16 04:20 Assessment and Plan (1) Abdominal abscess Current visit: No Status: Acute (2) Diverticulosis of colon Current visit: No Status: Chronic Assessment and Plan: Assessment Intra-abdominal abscess with polymicrobial growth including MRSA, pseudomonas aeruginosa and citrobacter freundii, acute. Anemia, acute. Hypertension, chronic. Hyperlipidemia, chronic. Chronic hypercapnic respiratory failure GERD, chronic. CHF, chronic. Restless leg syndrome, chronic. Anxiety and depression, chronic. Obesity with BMI 38, chronic. Chronic neck pain. Have independently interviewed and examined pt. Chart reviewed. Case discussed with my LAMINATOR. Care plan developed with my supervision; agree with above. Doing well today. Reports being up and ambulatory-strength doing okay. No ab pain. Eating well. Breathing stable. Lungs: clear bilaterally CV: regular MSE: awake alert appropriate Plan: Continue antibiotics and care. Medically doing well. Hospital Course Summary Disclaimer: The visit summary below is not to be considered part of the above Progress Note.
[2016-12-19] MEDS: GABAPENTIN 600 MG TABLET PO SCH (17:57)
[2016-12-19] MEDS: PRAMIPEXOLE 1 MG TABLET PO SCH (18:00)
[2016-12-19] MEDS: LOVASTATIN 40 MG TABLET PO SCH (20:43)
[2016-12-20] MEDS: MEROPENEM 1 GM in NS 100 ML IV SCH ×3 (04:15→20:01)
[2016-12-20] MEDS: SALINE FLUSH 10ml SYRINGE IV PRN ×2 (04:15→20:00)
[2016-12-20] MEDS: NS FLUSH BAG 500ml IV PRN (04:16)
[2016-12-20] MEDS: CALCIUM 600 + VIT D 400 TABLET PO SCH (08:27)
[2016-12-20] MEDS: FERROUS SULFATE 324 MG TABLET PO SCH (08:27)
[2016-12-20] MEDS: FOLIC ACID 1 MG TABLET PO SCH (08:27)
[2016-12-20] MEDS: FLUCONAZOLE 100 MG TABLET PO SCH (08:27)
[2016-12-20] MEDS: FUROSEMIDE 40 MG TABLET PO SCH (08:27)
[2016-12-20] MEDS: SPIRONOLACTONE 25 MG TABLET PO SCH (08:27)
[2016-12-20] MEDS: SERTRALINE 100 MG TABLET PO SCH (08:28)
[2016-12-20] MEDS: ASPIRIN *EC* 81 MG TABLET PO SCH (08:28)
[2016-12-20] MEDS: BACLOFEN 10 MG TABLET PO SCH ×3 (08:28→20:01)
[2016-12-20] MEDS: PRAMIPEXOLE 1 MG TABLET PO SCH ×2 (17:10→18:22)
[2016-12-20] MEDS: GABAPENTIN 600 MG TABLET PO SCH (17:11)
[2016-12-20] MEDS: LOVASTATIN 40 MG TABLET PO SCH (20:01)
[2016-12-21] MEDS: MEROPENEM 1 GM in NS 100 ML IV SCH ×3 (03:35→21:43)
[2016-12-21] MEDS: CALCIUM 600 + VIT D 400 TABLET PO SCH (09:32)
[2016-12-21] MEDS: FUROSEMIDE 40 MG TABLET PO SCH (09:32)
[2016-12-21] MEDS: FOLIC ACID 1 MG TABLET PO SCH (09:32)
[2016-12-21] MEDS: SERTRALINE 100 MG TABLET PO SCH (09:32)
[2016-12-21] MEDS: ASPIRIN *EC* 81 MG TABLET PO SCH (09:33)
[2016-12-21] MEDS: BACLOFEN 10 MG TABLET PO SCH ×3 (09:33→21:47)
[2016-12-21] MEDS: FERROUS SULFATE 324 MG TABLET PO SCH (09:33)
[2016-12-21] MEDS: SPIRONOLACTONE 25 MG TABLET PO SCH (09:33)
[2016-12-21] MEDS: FLUCONAZOLE 100 MG TABLET PO SCH (09:35)
[2016-12-21] MEDS: SALINE FLUSH 10ml SYRINGE IV PRN ×4 (09:36→21:43)
[2016-12-21] MEDS ORDERED: VANCOMYCIN - PHARMACY CONSULT MC ONE (11:38)
[2016-12-21] MEDS: GABAPENTIN 600 MG TABLET PO SCH (17:27)
[2016-12-21] MEDS: PRAMIPEXOLE 1 MG TABLET PO SCH (18:01)
[2016-12-21] MEDS: LOVASTATIN 40 MG TABLET PO SCH (21:47)
[2016-12-21] MEDS ORDERED: FALL RISK - PHARMACY CONSULT MC ONE (22:46)
[2016-12-22] MEDS: MEROPENEM 1 GM in NS 100 ML IV SCH ×3 (05:02→20:22)
[2016-12-22] MEDS: SALINE FLUSH 10ml SYRINGE IV PRN ×4 (05:03→09:11)
[2016-12-22] MEDS: CALCIUM 600 + VIT D 400 TABLET PO SCH (09:07)
[2016-12-22] MEDS: SERTRALINE 100 MG TABLET PO SCH (09:07)
[2016-12-22] MEDS: ASPIRIN *EC* 81 MG TABLET PO SCH (09:08)
[2016-12-22] MEDS: FERROUS SULFATE 324 MG TABLET PO SCH (09:08)
[2016-12-22] MEDS: BACLOFEN 10 MG TABLET PO SCH ×3 (09:08→20:23)
[2016-12-22] MEDS: FUROSEMIDE 40 MG TABLET PO SCH (09:09)
[2016-12-22] MEDS: FOLIC ACID 1 MG TABLET PO SCH (09:09)
[2016-12-22] MEDS: SPIRONOLACTONE 25 MG TABLET PO SCH (09:12)
[2016-12-22] MEDS: FLUCONAZOLE 100 MG TABLET PO SCH (09:12)
--- NOTE | 2016-12-22 09:25 | Progress Note ---
Subjective Date: 12/22/16 Subjective: Ms. Magdaleno denies any pain or nausea over the weekend. No fevers or chills. No dyspnea. She is eating well. She says she'll be here until . Exam Vital Signs: Temperature 97.9 F 12/22/16 07:52 Pulse Rate 79 12/22/16 07:52 Respiratory Rate 16 12/22/16 07:52 Blood Pressure 104/55 12/22/16 07:52 Pulse Oximetry 92 12/22/16 07:52 Height/Weight/BMI: Height 1.55 m Weight 89.7 kg Body Mass Index 37.9 - Constitutional Present: no acute distress, well nourished, well developed - Routine HEENT Exam Head: Present: normocephalic, atraumatic Eye: Present: EOMI, PERRL ENT: Present: mucous membranes moist, dentition normal - Routine Neck Exam Present: supple - Routine Respiratory Exam Present: CTA bilaterally. Absent: accessory muscle use - Routine Cardiovascular Exam Present: RRR. Absent: murmur - Routine Abdominal Exam Present: soft, normoactive bowel sounds, non distended, drain (LLQ with slightly purulent drainage), ostomy. Absent: tenderness - Routine Extremities Exam Present: edema (trace LE). Absent: cyanosis, clubbing - Routine Skin Exam Present: intact. Absent: rash Comments: RUE PICC site ok - Routine Neurological Exam Present: alert, oriented X3, CN II-XII intact - Routine Psychiatric Exam Present: normal affect, normal thought process Results - Labs CBC & Chem 7: 12/22/16 03:52 12/22/16 03:52 Impression: Intra-abdominal abscess, s/p percutaneous drainage 12/05/16, cultures with Pseudomonas R to quinolones and intermediate to cefepime, Citrobacter, and MRSA. Improving on repeat CT scan 12/18. Colovaginal fistula. 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 COPD with chronic home O2. CHF Obesity Recommendation: Continue Merrem for the gram negatives, and Vancomycin for the MRSA. There are no oral options for her. I would recommend monitoring drain output and repeating imaging to document resolution of this process. Continue empiric fluconazole. Once this fluid collection appears to be resolved in imaging, then I would put her on some oral antibiotics (knowing that they don't have activity against the pseudomonas and Citrobacter) until she has more definitive surgery in the future. She is requesting that her CT be repeated prior to her discharge later this week.
--- NOTE | 2016-12-22 15:09 | Progress Note ---
<Jeaneth Alaniz - Last Filed: 12/22/16 15:06> Subjective: Pt seen lying in her bed. She reports she is doing well. "Ready to go home." Appetite is fine. No pain other than her chronic neck pain. No CP or SOA. Bowels are moving. Walking several times a day. Objective Vital signs: Temperature 97.9 F 12/22/16 07:52 Pulse Rate 79 12/22/16 07:52 Respiratory Rate 16 12/22/16 07:52 Blood Pressure 104/55 12/22/16 07:52 Pulse Oximetry 92 12/22/16 07:52 Height/Weight/BMI: Height 1.55 m Weight 89.7 kg Body Mass Index 37.9 - Constitutional Present: no acute distress, well nourished, well developed - Routine Respiratory Exam Present: CTA bilaterally. Absent: wheezes - Routine Cardiovascular Exam Present: RRR, S1, S2. Absent: murmur - Routine Abdominal Exam Present: soft, normoactive bowel sounds, non distended. Absent: tenderness - Routine Extremities Exam Present: no edema, normal capillary refill - Routine Skin Exam Present: dry, warm - Routine Neurological Exam Present: alert, oriented X3 - Routine Lymphatic Exam Lymphatic: Absent: adenopathy - Routine Psychiatric Exam Present: normal affect, cooperative Results - Labs CBC & Chem 7: 12/22/16 03:52 12/22/16 03:52 Assessment and Plan (1) Abdominal abscess Current visit: No Status: Acute (2) Diverticulosis of colon Current visit: No Status: Chronic Assessment and Plan: Assessment Intra-abdominal abscess with polymicrobial growth including MRSA, pseudomonas aeruginosa and citrobacter freundii, acute. Anemia, acute. Hypertension, chronic. Hyperlipidemia, chronic. Chronic hypercapnic respiratory failure GERD, chronic. CHF, chronic. Restless leg syndrome, chronic. Anxiety and depression, chronic. Obesity with BMI 38, chronic. Chronic neck pain. Plan: Continue IV antibiotics. Plan CT prior to dismissal per Dr. Manning' note. Overall doing well. Hospital Course Summary Disclaimer: The visit summary below is not to be considered part of the above Progress Note. Hospital Course: Assessment Intra-abdominal abscess with polymicrobial growth including MRSA, pseudomonas aeruginosa and citrobacter freundii, acute. Anemia, acute. Hypertension, chronic. Hyperlipidemia, chronic. GERD, chronic. CHF, chronic. Restless leg syndrome, chronic. Anxiety and depression, chronic. Morbid obesity with BMI 38, chronic. Chronic neck pain. Plan-12/13/16 (Admission to swing) Admit to swing bed status under the care of the hospitalist service, Dr. Aviles attending, for continued IV antibiotic treatment and physical therapy. Continue Vancomycin and Meropenum for treatment of intra-abdominal abscess. Culture from abscess fluid revealed MRSA, pseudomonas aerugenosa and citrobacter freundii. Dr. Manning was consulted and directing antimicrobial treatment and awaiting her recommendations on length of treatment needed. Case management and hospitalist service continues to work with [facility] and Dr. Pro regarding manager long term care health plan. CANDACE drain remains present to [facility], continuing to drain bloody purulent drainage. Dr. Bowers following and recommends patient following up in the office in the 1st or 2nd week of January to discuss colostomy takedown. Continue to encourage therapies for improvement in neck flexibility, strength and movement. Continue to change ostomy bad and dressing every 5 days to avoid skin irritation. SCDs for DVT prophylaxis. Continue home medications. Patient requested lasix be given earlier in the day as she is up multiple times at night to urinate. Currently she is scheduled to receive lasix 40mg at 0900 daily. Suspect nocturia is secondary increased fluids from IV antibiotics. Will given Lasix at 0700 per patient request and continue to monitor. UTI noted on admission on 12/05 revealing mixed bacteria kingsley. Continue to monitor. Patient denies dysuria. Labs today revealed persistent, stable anemia with hemoglobin at 9.0 and otherwise unremarkable. Will continue to monitor. Recheck CBC and BMP in AM. Encourage incentive spirometry for pulmonary toileting. Upon discharge, patient's care will be returned to her PCP, Dr. Pro. 12/15- continue on IV vancomycin and meropenem. Hopeful for recommendations by Dr. Manning for length of treatment. Overall stable, labs reviewed. 12/16/16 Continues on Swing bed status for IV antibiotics. Dr. Manning recommended continuation of Zosyn or meropenem for Citrobacter and Pseudomonas and continuation of vancomycin for MRSA. No oral options available. Fluconazole added empirically to antimicrobial regimen. Dr. Pro working on arranging provider for IV antibiotics through the [facility] program. Lasix order reviewed-currently ordered for 7 AM but given late today. PT evaluation pending. 12/17/[address] abd for evaluation of abscess. Planning for discharge tomorrow 12/18. Will continue under the care of Dr. Pro and pace program followed by Dr. Manning for IV antibiotic therapy 12/18/16- Adding nystatin powder. Mirapex not fully helping with her RLS symptoms. Add Neurontin. Working with PCP Dr. Pro for outpatient antibiotic plan 12/19/16- Planning to remain at [facility] Swing for IV abd intil later next week. Awaiting approval by [facility] program. Continue vancomycin and meropenem. Nystatin added for erythema. . 12/22/16 Continue IV antibiotics. Plan CT prior to dismissal per Dr. Manning' note. Overall doing well. <Basim Aviles - Last Filed: 12/22/16 16:06> Objective Vital signs: Temperature 96.6 F L 12/22/16 15:23 Pulse Rate 79 12/22/16 15:23 Respiratory Rate 16 12/22/16 15:23 Blood Pressure 115/53 12/22/16 15:23 Pulse Oximetry 96 12/22/16 15:23 Height/Weight/BMI: Height 1.55 m Weight 89.7 kg Body Mass Index 37.9 Results - Labs CBC & Chem 7: 12/22/16 03:52 12/22/16 03:52 Assessment and Plan (1) Abdominal abscess Current visit: No Status: Acute (2) Diverticulosis of colon Current visit: No Status: Chronic Assessment and Plan: Assessment Intra-abdominal abscess with polymicrobial growth including MRSA, pseudomonas aeruginosa and citrobacter freundii, acute. Anemia, acute. Hypertension, chronic. Hyperlipidemia, chronic. Chronic hypercapnic respiratory failure GERD, chronic. CHF, chronic. Restless leg syndrome, chronic. Anxiety and depression, chronic. Obesity with BMI 38, chronic. Chronic neck pain. Have independently interviewed and examined pt. Chart reviewed. Case discussed with my PA. Care plan developed with my supervision; agree with above. Doing well today. Continue to working with nursing on ambulation 3 times a day. Working to get strong and ready to return home. Breathing well. No ab pain. Eating well. No f/c. Lungs: clear bilaterally CV: regular MSE: awake alert appropriate Lab: reviewed. CRP with slight increase. AST with increase from 39 to 49. Plan: Continue with IV antibiotics. Continue to work on activities to build strength. Medically doing well. Tolerating antibiotics. Hospital Course Summary Disclaimer: The visit summary below is not to be considered part of the above Progress Note.
[2016-12-22] MEDS: GABAPENTIN 600 MG TABLET PO SCH (18:35)
[2016-12-22] MEDS: PRAMIPEXOLE 1 MG TABLET PO SCH (18:35)
[2016-12-22] MEDS: NS FLUSH BAG 500ml IV PRN (20:22)
[2016-12-22] MEDS: LOVASTATIN 40 MG TABLET PO SCH (20:23)
[2016-12-23] MEDS: MEROPENEM 1 GM in NS 100 ML IV SCH ×3 (04:51→19:52)
[2016-12-23] MEDS: FERROUS SULFATE 324 MG TABLET PO SCH (08:17)
[2016-12-23] MEDS: CALCIUM 600 + VIT D 400 TABLET PO SCH (08:17)
[2016-12-23] MEDS: BACLOFEN 10 MG TABLET PO SCH ×3 (08:17→20:00)
[2016-12-23] MEDS: ASPIRIN *EC* 81 MG TABLET PO SCH (08:17)
[2016-12-23] MEDS: SERTRALINE 100 MG TABLET PO SCH (08:18)
[2016-12-23] MEDS: SPIRONOLACTONE 25 MG TABLET PO SCH (08:18)
[2016-12-23] MEDS: FOLIC ACID 1 MG TABLET PO SCH (08:18)
[2016-12-23] MEDS: FUROSEMIDE 40 MG TABLET PO SCH (08:18)
[2016-12-23] MEDS: FLUCONAZOLE 100 MG TABLET PO SCH (08:19)
--- NOTE | 2016-12-23 09:54 | General Surgery Progress Note ---
Subjective Patient reports: no new complaints, tolerating a regular diet, voiding w/o difficulty Narrative: she states a CT is planned for tomorrow (Thursday)and possible home on . CANDACE has small amount of purulent fluid in it. - Vital Signs Last Vital Signs Temp 97.8 F 12/23/16 07:27 Pulse 82 12/23/16 07:27 Resp 24 12/23/16 07:27 BP 108/50 12/23/16 07:27 Pulse Ox 94 12/23/16 07:27 - Laboratory Result Diagrams: 12/22/16 03:52 12/22/16 03:52 - Abnormal Exam Abdominal: other (CANDACE with samll amount of purulent drainage) - Normal Exam General: awake, alert, oriented, no acute distress Cardiovascular: regular rhythm, regular rate Respiratory: clear all gonzalez, no labored breathing Abdominal: soft, non-tender, other (brown stool in colostomy bag) Wound/Stoma/Drain Assessment - Drain Management Left Lower Abdomen Drains Present: siva miller Drainage Amount: None Drainage character: purulent Assessment and Plan (1) Abdominal abscess Current Visit: No Status: Acute (2) History of diverticulitis of colon Current Visit: Yes Status: Chronic (3) Obesity (BMI 30-39.9) Current Visit: Yes Status: Chronic Plan: Pt states a CT is plan this week, see if we are getting close to resolution of the abscess. Continue with ABX pre Dr. Manning. Will plan colostomy reversal in the future. Hospital Course Summary Disclaimer: The visit summary below is not to be considered part of the above Progress Note. Hospital Course: Assessment Intra-abdominal abscess with polymicrobial growth including MRSA, pseudomonas aeruginosa and citrobacter freundii, acute. Anemia, acute. Hypertension, chronic. Hyperlipidemia, chronic. GERD, chronic. CHF, chronic. Restless leg syndrome, chronic. Anxiety and depression, chronic. Morbid obesity with BMI 38, chronic. Chronic neck pain. Plan-12/13/16 (Admission to swing) Admit to swing bed status under the care of the hospitalist service, Dr. Aviles attending, for continued IV antibiotic treatment and physical therapy. Continue Vancomycin and Meropenum for treatment of intra-abdominal abscess. Culture from abscess fluid revealed MRSA, pseudomonas aerugenosa and citrobacter freundii. Dr. Manning was consulted and directing antimicrobial treatment and awaiting her recommendations on length of treatment needed. Case management and hospitalist service continues to work with [facility] and Dr. Pro regarding intermediate manager health plan. CANDACE drain remains present to [facility], continuing to drain bloody purulent drainage. Dr. Bowers following and recommends patient following up in the office in the 1st or 2nd week of January to discuss colostomy takedown. Continue to encourage therapies for improvement in neck flexibility, strength and movement. Continue to change ostomy bad and dressing every 5 days to avoid skin irritation. SCDs for DVT prophylaxis. Continue home medications. Patient requested lasix be given earlier in the day as she is up multiple times at night to urinate. Currently she is scheduled to receive lasix 40mg at 0900 daily. Suspect nocturia is secondary increased fluids from IV antibiotics. Will given Lasix at 0700 per patient request and continue to monitor. UTI noted on admission on 12/05 revealing mixed bacteria kingsley. Continue to monitor. Patient denies dysuria. Labs today revealed persistent, stable anemia with hemoglobin at 9.0 and otherwise unremarkable. Will continue to monitor. Recheck CBC and BMP in AM. Encourage incentive spirometry for pulmonary toileting. Upon discharge, patient's care will be returned to her PCP, Dr. Pro. 12/15- continue on IV vancomycin and meropenem. Hopeful for recommendations by Dr. Manning for length of treatment. Overall stable, labs reviewed. 12/16/16 Continues on Swing bed status for IV antibiotics. Dr. Manning recommended continuation of Zosyn or meropenem for Citrobacter and Pseudomonas and continuation of vancomycin for MRSA. No oral options available. Fluconazole added empirically to antimicrobial regimen. Dr. Pro working on arranging provider for IV antibiotics through the [facility] program. Lasix order reviewed-currently ordered for 7 AM but given late today. PT evaluation pending. 12/17/[address] abd for evaluation of abscess. Planning for discharge tomorrow 12/18. Will continue under the care of Dr. Pro and pace program followed by Dr. Manning for IV antibiotic therapy 12/18/16- Adding nystatin powder. Mirapex not fully helping with her RLS symptoms. Add Neurontin. Working with PCP Dr. Pro for outpatient antibiotic plan 12/19/16- Planning to remain at [facility] Swing for IV abd intil later next week. Awaiting approval by [facility] program. Continue vancomycin and meropenem. Nystatin added for erythema. . 12/22/16 Continue IV antibiotics. Plan CT prior to dismissal per Dr. Manning' note. Overall doing well.
[2016-12-23] MEDS: GABAPENTIN 600 MG TABLET PO SCH (16:32)
[2016-12-23] MEDS: SALINE FLUSH 10ml SYRINGE IV PRN (19:52)
[2016-12-23] MEDS: PRAMIPEXOLE 1 MG TABLET PO SCH (19:53)
[2016-12-23] MEDS: LOVASTATIN 40 MG TABLET PO SCH (20:00)
[2016-12-24] MEDS: SALINE FLUSH 10ml SYRINGE IV PRN (04:54)
[2016-12-24] MEDS: NS FLUSH BAG 500ml IV PRN (04:54)
[2016-12-24] MEDS: MEROPENEM 1 GM in NS 100 ML IV SCH ×3 (04:54→20:29)
[2016-12-24] MEDS: FUROSEMIDE 40 MG TABLET PO SCH (07:57)
[2016-12-24] MEDS: SPIRONOLACTONE 25 MG TABLET PO SCH (07:57)
--- NOTE | 2016-12-24 09:06 | Progress Note ---
Subjective Date: 12/24/16 Subjective: Ms. Magdaleno denies any N/V or diarrhea. Eating ok. No fevers. CANDACE with only about 10ccs of drainage this morning per RN. She is currently getting a bath. Exam Vital Signs: Temperature 96.7 F L 12/24/16 00:00 Pulse Rate 76 12/24/16 00:00 Respiratory Rate 16 12/24/16 00:00 Blood Pressure 119/58 12/24/16 00:00 Pulse Oximetry 93 12/24/16 00:00 Height/Weight/BMI: Height 1.55 m Weight 90.8 kg Body Mass Index 37.9 - Constitutional Present: no acute distress - Routine HEENT Exam Head: Present: normocephalic Eye: Present: EOMI, PERRL ENT: Present: mucous membranes moist - Routine Neck Exam Present: supple - Routine Respiratory Exam Absent: accessory muscle use - Routine Skin Exam Absent: rash - Routine Neurological Exam Present: alert, oriented X3, CN II-XII intact - Routine Psychiatric Exam Present: normal affect Results - Labs CBC & Chem 7: 12/22/16 03:52 12/22/16 03:52 Impression: Intra-abdominal abscess, s/p percutaneous drainage 12/05/16, cultures with Pseudomonas R to quinolones and intermediate to cefepime, Citrobacter, and MRSA. Improving on repeat CT scan 12/18. Colovaginal fistula. 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 COPD with chronic home O2. CHF Obesity Recommendation: Continue Merrem for the gram negatives, and Vancomycin for the MRSA. There are no oral options for her. I would recommend monitoring drain output and repeating imaging to document resolution of this process. Continue empiric fluconazole. Once this fluid collection appears to be resolved in imaging, then I would put her on some oral antibiotics (knowing that they don't have activity against the pseudomonas and Citrobacter) until she has more definitive surgery in the future. Will repeat CT today.
[2016-12-24] MEDS ORDERED: IOHEXOL 300mg/ml 100ml INJECTION ONE (09:45)
[2016-12-24] MEDS ORDERED: SALINE FLUSH 10ml SYRINGE ONE (09:45)
[2016-12-24] MEDS ORDERED: NS 100 ML ONE (09:45)
[2016-12-24] MEDS: SERTRALINE 100 MG TABLET PO SCH (09:49)
[2016-12-24] MEDS: FOLIC ACID 1 MG TABLET PO SCH (09:49)
[2016-12-24] MEDS: FLUCONAZOLE 100 MG TABLET PO SCH (09:50)
[2016-12-24] MEDS: CALCIUM 600 + VIT D 400 TABLET PO SCH (09:50)
[2016-12-24] MEDS: FERROUS SULFATE 324 MG TABLET PO SCH (09:50)
[2016-12-24] MEDS: BACLOFEN 10 MG TABLET PO SCH ×3 (09:50→20:30)
[2016-12-24] MEDS: ASPIRIN *EC* 81 MG TABLET PO SCH (09:50)
--- NOTE | 2016-12-24 11:38 | Progress Note ---
<Diana Arana V - Last Filed: 12/24/16 11:33> - Date 12/24/16 Subjective: Suzy is seen today up in the chair. She is pleasant and reports that she is doing well. Denies pain or shortness of breath, Appetite is good. CANDACE drain remains intact. Ostomy bag and dressings were changed on 12/22. Objective Vital signs: Temperature 98.8 F 12/24/16 08:00 Pulse Rate 87 12/24/16 08:00 Respiratory Rate 18 12/24/16 08:00 Blood Pressure 108/63 12/24/16 08:00 Pulse Oximetry 91 12/24/16 08:00 Height/Weight/BMI: Height 1.55 m Weight 90.8 kg Body Mass Index 37.9 - Constitutional Present: well nourished, well developed - Routine HEENT Exam Eye: Present: EOMI ENT: Present: mucous membranes moist, dentition normal - Routine Respiratory Exam Present: CTA bilaterally. Absent: wheezes - Routine Cardiovascular Exam Present: RRR, S1, S2. Absent: murmur - Routine Abdominal Exam Present: soft, normoactive bowel sounds, non distended. Absent: tenderness Comments: CANDACE drain inplace - Routine Extremities Exam Present: normal capillary refill - Routine Skin Exam Present: dry, warm - Routine Neurological Exam Present: alert, oriented X3, CN II-XII intact - Routine Lymphatic Exam Lymphatic: Absent: adenopathy - Routine Psychiatric Exam Present: normal affect, tactile hallucinations Results - Labs CBC & Chem 7: 12/22/16 03:52 12/22/16 03:52 Assessment and Plan (1) Abdominal abscess Current visit: No Status: Acute (2) Diverticulosis of colon Current visit: No Status: Chronic Assessment and Plan: Assessment Intra-abdominal abscess with polymicrobial growth including MRSA, pseudomonas aeruginosa and citrobacter freundii, acute. Anemia, acute. Hypertension, chronic. Hyperlipidemia, chronic. Chronic hypercapnic respiratory failure GERD, chronic. CHF, chronic. Restless leg syndrome, chronic. Anxiety and depression, chronic. Obesity with BMI 38, chronic. Chronic neck pain. Plan Remains in swing bed status Plan to obtain an abdomen CT today to monitor size of abscess. This will determine need for continued CANDACE drain as well as ongoing IV antibiotics. She is being followed by Dr Bowers Was originally admitted on 12/13/16- IV ABX started at that time. ID consult with Dr Manning Did speak with PCP Dr. Pro with the [facility]. There continue to work on a contract for outpatient antibiotics. [place] and well contact us at that time. Hospital Course Summary Disclaimer: The visit summary below is not to be considered part of the above Progress Note. Hospital Course: Assessment Intra-abdominal abscess with polymicrobial growth including MRSA, pseudomonas aeruginosa and citrobacter freundii, acute. Anemia, acute. Hypertension, chronic. Hyperlipidemia, chronic. GERD, chronic. CHF, chronic. Restless leg syndrome, chronic. Anxiety and depression, chronic. Morbid obesity with BMI 38, chronic. Chronic neck pain. Plan-12/13/16 (Admission to swing) Admit to swing bed status under the care of the hospitalist service, Dr. Aviles attending, for continued IV antibiotic treatment and physical therapy. Continue Vancomycin and Meropenum for treatment of intra-abdominal abscess. Culture from abscess fluid revealed MRSA, pseudomonas aerugenosa and citrobacter freundii. Dr. Manning was consulted and directing antimicrobial treatment and awaiting her recommendations on length of treatment needed. Case management and hospitalist service continues to work with [facility] and Dr. Pro regarding [facility]. CANDACE drain remains present to [facility], continuing to drain bloody purulent drainage. Dr. Bowers following and recommends patient following up in the office in the 1st or 2nd week of January to discuss colostomy takedown. Continue to encourage therapies for improvement in neck flexibility, strength and movement. Continue to change ostomy bad and dressing every 5 days to avoid skin irritation. SCDs for DVT prophylaxis. Continue home medications. Patient requested lasix be given earlier in the day as she is up multiple times at night to urinate. Currently she is scheduled to receive lasix 40mg at 0900 daily. Suspect nocturia is secondary increased fluids from IV antibiotics. Will given Lasix at 0700 per patient request and continue to monitor. UTI noted on admission on 12/05 revealing mixed bacteria kings[place]. Continue to monitor. Patient denies dysuria. Labs today revealed persistent, stable anemia with hemoglobin at 9.0 and otherwise unremarkable. Will continue to monitor. Recheck CBC and BMP in AM. Encourage incentive spirometry for pulmonary toileting. Upon discharge, patient's care will be returned to her PCP, Dr. Pro. 12/15- continue on IV vancomycin and meropenem. Hopeful for recommendations by Dr. Manning for length of treatment. Overall stable, labs reviewed. 12/16/16 Continues on Swing bed status for IV antibiotics. Dr. Manning recommended continuation of Zosyn or meropenem for Citrobacter and Pseudomonas and continuation of vancomycin for MRSA. No oral options available. Fluconazole added empirically to antimicrobial regimen. Dr. Pro working on arranging provider for IV antibiotics through the [facility]. Lasix order reviewed-currently ordered for 7 AM but given late today. PT evaluation pending. 12/17/[address] abd for evaluation of abscess. Planning for discharge tomorrow 12/18. Will continue under the care of Dr. Pro and [facility] followed by Dr. Manning for IV antibiotic therapy 12/18/16- Adding nystatin powder. Mirapex not fully helping with her RLS symptoms. Add Neurontin. Working with PCP Dr. Pro for outpatient antibiotic plan 12/19/16- Planning to remain at [facility] for IV abd intil later next week. Awaiting approval by [facility]. Continue vancomycin and meropenem. Nystatin added for erythema. . 12/22/16 - Continue IV antibiotics. Plan CT prior to dismissal per Dr. Manning' note. 12/24/16- CT scan planned for today to evaluate abscess size. Will determine ongoing need for ABX at that time. Currently on meropenem and vancomycin. <Aishwarya Danielle - Last Filed: 12/24/16 16:28> - Date 12/24/16 Subjective: I have independently evaluated and examined this patient. I reviewed the chart, the patient's history, and the CASTING ROOM HELPER/PA's documented findings as above. We discussed and formulated the assessment and plan as above with additions as below. The patient was seen at 1605. She is sitting in a chair resting quietly. She reports that she is eating well. Occasionally has liquid stools from her colostomy when she drinks liquids. Objective Vital signs: Temperature 98.8 F 12/24/16 08:00 Pulse Rate 87 12/24/16 08:00 Respiratory Rate 18 12/24/16 08:00 Blood Pressure 108/63 12/24/16 08:00 Pulse Oximetry 91 12/24/16 08:00 Height/Weight/BMI: Height 5 ft 1 in Weight 200 lb 2.876 oz Body Mass Index 37.9 - Routine Psychiatric Exam Comments: In general, the patient is alert and oriented 3, cooperative with exam, and in no respiratory distress. HEENT: Head is atraumatic, normocephalic, no conjunctival petechiae, no oral thrush, mucous membranes are moist and pink. Lungs: Clear to auscultation without wheezes, crackles or rhonchi CV: Regular rate and rhythm without murmur Abdomen: Soft, nontender,obese, bowel sounds are present, there is no guarding no rebound. Colostomy in the left lower quadrant Extremities: No clubbing, no cyanosis, no edema. Skin: Warm and dry no sign of rash Neuro: Patient is alert and oriented IV access: r PICC Results - Labs CBC & Chem 7: 12/22/16 03:52 12/22/16 03:52 - Imaging and Cardiology CT scan - abdomen Additional comments: Findings: The lung bases are grossly clear. The liver is stable in appearance. Multiple gallstones within the contracted gallbladder. No free air. The spleen, pancreas and adrenal glands are within normal limits. Kidneys are stable. Large peristomal hernia noted on the left side. No abdominal or pelvic adenopathy. Postsurgical changes in the pelvis. The bladder is grossly normal. Persistent wall thickening and inflammation in the sigmoid colon stump. Persistent abscess or fistula tract adjacent to the left of the mid sigmoid colon without interval change. Fistulous connection from this region to the vagina is again noted. Evaluation is somewhat limited without oral contrast. Pigtail catheter drain is again seen in the left anterior pelvic wall. There is some residual contrast material surrounding the drain. No undrained fluid pockets appreciated. The overall size of this phlegmonous region is 6.7 x 3.6 cm on axial image #64. There is also contrast material tracking within an inferior extension of the cavity tracking into the patient's pannus seen on axial images 70 through 73. The size of this collection is stable overall. Thick-walled inflamed small bowel loops are again seen along the margin of the sigmoid stump. No evidence of an acute small bowel obstruction. Bone windows are unchanged. Impression: Overall stable appearance of the abdomen and pelvis with a left pelvic percutaneous drain in a collapsed abscess cavity in the left pelvic wall. Assessment and Plan (1) Abdominal abscess Current visit: No Status: Acute (2) Diverticulosis of colon Current visit: No Status: Chronic Assessment and Plan: Repeat CT of abdomen essentially unchanged- pt understands that this will probably not change until she undergoes surgery. At this time, we are awaiting discharge plans to see if she would qualify for IV antibiotics as an outpatient. Could consider adjusting meropenem dose to 500 mg IV every 6 hours. Have encouraged the patient to increase her protein intake to increase her wound healing. Hospital Course Summary Disclaimer: The visit summary below is not to be considered part of the above Progress Note.
--- NOTE | 2016-12-24 15:25 | CT Scan Report ---
Indication: evaluate abscess PROCEDURE: CT abdomen pelvis w con: Encounter: Initial Comparison: CT abdomen and pelvis dated December 17, 2016 and November 27, 2016 Technique: Axial CT images were performed through the abdomen and pelvis after the administration of intravenous contrast. Coronal and sagittal two-dimensional reformats. Automated Exposure Control and Iterative Reconstruction dose reducing techniques were utilized. Contrast: Omnipaque 300 100 mL Findings: The lung bases are grossly clear. The liver is stable in appearance. Multiple gallstones within the contracted gallbladder. No free air. The spleen, pancreas and adrenal glands are within normal limits. Kidneys are stable. Large peristomal hernia noted on the left side. No abdominal or pelvic adenopathy. Postsurgical changes in the pelvis. The bladder is grossly normal. Persistent wall thickening and inflammation in the sigmoid colon stump. Persistent abscess or fistula tract adjacent to the left of the mid sigmoid colon without interval change. Fistulous connection from this region to the vagina is again noted. Evaluation is somewhat limited without oral contrast. Pigtail catheter drain is again seen in the left anterior pelvic wall. There is some residual contrast material surrounding the drain. No undrained fluid pockets appreciated. The overall size of this phlegmonous region is 6.7 x 3.6 cm on axial image #64. There is also contrast material tracking within an inferior extension of the cavity tracking into the patient's pannus seen on axial images 70 through 73. The size of this collection is stable overall. Thick-walled inflamed small bowel loops are again seen along the margin of the sigmoid stump. No evidence of an acute small bowel obstruction. Bone windows are unchanged. Impression: Overall stable appearance of the abdomen and pelvis with a left pelvic percutaneous drain in a collapsed abscess cavity in the left pelvic wall. .
[2016-12-24] MEDS: PRAMIPEXOLE 1 MG TABLET PO SCH (18:13)
[2016-12-24] MEDS: GABAPENTIN 600 MG TABLET PO SCH (18:13)
[2016-12-24] MEDS: LOVASTATIN 40 MG TABLET PO SCH (21:47)
[2016-12-25] MEDS: SALINE FLUSH 10ml SYRINGE IV PRN ×2 (03:38→09:05)
[2016-12-25] MEDS: MEROPENEM 1 GM in NS 100 ML IV SCH ×2 (03:38→11:52)
[2016-12-25 03:57] VITALS: RESP 16
[2016-12-25] MEDS: FUROSEMIDE 40 MG TABLET PO SCH (06:19)
[2016-12-25] MEDS: SPIRONOLACTONE 25 MG TABLET PO SCH (06:19)
[2016-12-25 08:26] VITALS: BP 115/65; PULSE 85; TEMP 97.8; O2SAT 91
[2016-12-25] MEDS: BACLOFEN 10 MG TABLET PO SCH (09:01)
[2016-12-25] MEDS: FOLIC ACID 1 MG TABLET PO SCH (09:01)
[2016-12-25] MEDS: NS FLUSH BAG 500ml IV PRN (09:01)
[2016-12-25] MEDS: ASPIRIN *EC* 81 MG TABLET PO SCH (09:02)
[2016-12-25] MEDS: SERTRALINE 100 MG TABLET PO SCH (09:02)
[2016-12-25] MEDS: CALCIUM 600 + VIT D 400 TABLET PO SCH (09:02)
[2016-12-25] MEDS: FLUCONAZOLE 100 MG TABLET PO SCH (09:03)
[2016-12-25] MEDS: FERROUS SULFATE 324 MG TABLET PO SCH (09:04)
--- NOTE | 2016-12-25 10:38 | Discharge Instructions ---
Discharge Plan - Med Rec/Dispo Referrals/Follow Up: Kevin Pro MD [Family Provider] - (Schedule follow-up appointment for 1 week) Radha Manning MD [Physician] - (Please schedule follow-up appointment for [address] Manning is a [place] on Wednesdays) Alejandro Bowers MD [Physician] - (Please schedule follow-up appointment for 2 weeks) Prescriptions: New Gabapentin [Neurontin] 600 mg PO 1700 tablet Potassium Chloride [K-Dur] 20 meq PO BIDWM tablet Acetaminophen [Tylenol] 650 mg PO Q5H PRN tablet PRN Reason: Discomfort Ciprofloxacin HCl [Cipro] 500 mg PO BID 30 Days #60 tablet metroNIDAZOLE [Flagyl] 500 mg PO TID 30 Days #90 tablet Continue Spironolactone [Aldactone] 25 mg PO DAILY 10 Days #10 tab Ferrous Sulfate 324 mg PO WB 30 Days #30 tab Furosemide 40 mg PO DAILY 30 Days #30 tab Folic Acid [Folate] 1 tab PO DAILY Calcium Carbonate/Vitamin D3 [Calcium 600-Vit D3 200 Tablet] 1 each PO DAILY Baclofen [Lioresal] 1 tab PO TID Sertraline [Zoloft] 150 mg PO DAILY Aspirin [Aspir-Low] 81 mg PO DAILY #0 Pramipexole Di-HCl [Pramipexole Dihydrochloride] 2 mg PO DAILY #0 Lovastatin 40 mg PO WS #0 tab Cyanocobalamin (B-12) [Vit. B-12] 1,000 mcg IM Q14D Calcium 600 + D [Caltrate + D] 1 tab PO DAILY tablet Discontinued Estradiol Vag Cream [Estrace Vag Cream] 1 applic VAGINAL 3XW Meropenem [Merrem] 1 gm IV Q8HR ml Vancomycin [Vancocin] 1,500 mg IV Q18H vial Alendronate [Fosamax] 70 mg PO Q7D #0 tab Potassium Chloride [K-Dur] 1 tab PO BID Discharge Instructions/Outpatient Orders: Provider Discharge Instructions Location: Determined By Patient - Disposition 01 Discharged Home, Self-Care
--- NOTE | 2016-12-25 11:31 | Discharge Summary ---
<Diana Arana V - Last Filed: 12/25/16 11:26> Discharge Information Date of admission: 12/12/16 15:40 Anticipated date of discharge: 12/25/16 Attending Physician: Aishwarya Danielle MD Primary care physician: Kevin Pro MD Consults: 12/12/16 16:21 [Physician Consult] [CONS] Routine Consulting Provider: Alejandro Bowers Reason For Exam: Patient moved to swing bed Ordering Provider has Notified Logistics Analytics Manager: No 12/14/16 15:45 [Physician Consult] [CONS] Routine Consulting Provider: Radha Manning Reason For Exam: Antibiotic adjustments and duration of therapy Ordering Provider has Notified Logistics Analytics Manager: No Comment: May see 12/15/16 - Discharge Diagnosis (1) Abdominal abscess Status: Acute (2) Diverticulosis of colon Status: Chronic Discharge Diagnosis: Intra-abdominal abscess with polymicrobial growth including MRSA, pseudomonas aeruginosa and citrobacter freundii, acute. Anemia, acute. Hypertension, chronic. Hyperlipidemia, chronic. Chronic hypercapnic respiratory failure GERD, chronic. CHF, chronic. Restless leg syndrome, chronic. Anxiety and depression, chronic. Obesity with BMI 38, chronic. Chronic neck pain. - Procedures Procedures: None - Laboratory Labs: 12/22/16 03:52 12/25/16 04:07 - Microbiology 12/05/16-abdominal fluid culture positive for MRSA, Pseudomonas and Citrobacter - Radiology Radiology: 12/17/16-CT scan of the abdomen and pelvis- Impression: Interval percutaneous drainage procedure of the abdominal wall/subcutaneous abscess in the lower abdomen and upper pelvis with residual phlegmon remaining. Residual barium contrast material within this cavity confirms communication with the sigmoid colonic stump. 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 The fistulous tract to the vagina is faintly visible. No new areas of undrained abscess appreciated. 12/24/16- CT scan of abdomen and pelvis-Impression: Overall stable appearance of the abdomen and pelvis with a left pelvic percutaneous drain in a collapsed abscess cavity in the left pelvic wall. - Pathology None History of Present Illness HPI: Suzy Magdaleno is a very pleasant 76-year-old female who is known to the hospitalist services from previous admission in 2016 at which time she was admitted for intra-abdominal abscess. Since that time she has been under the primary care of Dr Kevin Pro and attends the [facility] program twice a week. She was admitted to [facility] as a direct admit on 12/05/16 due to increased abdominal pain. An outpatient CT scan was performed on 11/27/16 that revealed a large area of fluid in the left anterior pelvis extending through the pelvic wall and into subcutaneous tissue. There was also presence of a large peristomal and small ventral hernia. At that time, lab also revealed an elevated white count accompanied with fever and concern for abscess recurrence. Dr. Pro contacted the hospitalist service and patient was directly admitted as an inpatient for further evaluation and treatment. Labs were obtained on admission and she was found to have leukocytosis with WBC count 13.3, hemoglobin 9.3, hematocrit 32.8, platelet count 440, neutrophils 89%. BMP was unremarkable and CRP was elevated at 61.7. Venous lactate 1.2, pro calcitonin 0.08. Zosyn was initiated for empiric coverage of GI pathogens. Successful placement of CANDACE- drain to LLQ abdomen for drainage of suspected was done on 12/05. Cultures from abscess fluid revealed multiorganism growth including MRSA, pseudomonas aeruginosa and citrobacter freundii. Vancomycin was initiated in addition to the Zosyn. She underwent a flexible sigmoidoscopy by Dr. Bowers on 12/08 which revealed multiple diverticuli without evidence of acute diverticulitis. Dr. Manning was consulted and recommended adjusting antimicrobial treatment and discontinuing Zosyn and adding Meropenem in conjunction with continuation of the Vancomycin. The hospitalist team continues to work with Dr. Pro for placement with [facility] and continuation of antibiotics following discharge. She was converted to swing status on 12/12/16 as clinical team continues to work on long-term plan. On exam, she is seen in her room, watching TV, sitting in her recliner and has just finished all her breakfast. She is alert and pleasant and denies any complaint or concerns today. She denies any chest pain, shortness of breath, abdominal pain, nausea, vomiting or dysuria. Her appetite has been good and her bowels are moving. She does request that if possible, she would like to receive her "water pills" earlier in the day as she is up frequently urinating at night. Review of her prior medical records and nursing notes was done and appears she has been doing well and making slow gains. She continues to work with therapy with regard to her chronic neck pain that she states is worse with side to side movement, particularly to when looking to the left. She denies any headache, changes in vision, fevers or chills. She is pleased with the reduction in edema and states "I have ankles.". Objective Vital signs: Temperature 97.8 F 12/25/16 08:00 Pulse Rate 85 12/25/16 08:00 Respiratory Rate 16 12/25/16 08:00 Blood Pressure 115/65 12/25/16 08:00 Pulse Oximetry 91 12/25/16 08:00 Height/Weight/BMI: Height 1.55 m Weight 90.8 kg Body Mass Index 37.9 - Constitutional Present: well nourished, well developed - Routine HEENT Exam Eye: Present: EOMI ENT: Present: mucous membranes moist, dentition normal - Routine Respiratory Exam Present: CTA bilaterally. Absent: wheezes - Routine Cardiovascular Exam Present: RRR, S1, S2. Absent: murmur - Routine Abdominal Exam Present: soft, normoactive bowel sounds, non distended. Absent: tenderness Comments: CANDACE drain intact - Routine Extremities Exam Present: full ROM - Routine Back/Spine/Pelvis Exam Back/Spine: Present: full ROM - Routine Skin Exam Present: intact, dry, warm - Routine Neurological Exam Present: alert, oriented X3, CN II-XII intact - Routine Lymphatic Exam Lymphatic: Absent: adenopathy - Routine Psychiatric Exam Present: normal affect Hospital Course This is a general summary of the patient's hospital course. For more details refer to the complete medical record. Hospital course: Assessment Intra-abdominal abscess with polymicrobial growth including MRSA, pseudomonas aeruginosa and citrobacter freundii, acute. Anemia, acute. Hypertension, chronic. Hyperlipidemia, chronic. GERD, chronic. CHF, chronic. Restless leg syndrome, chronic. Anxiety and depression, chronic. Morbid obesity with BMI 38, chronic. Chronic neck pain. Plan-12/13/16 (Admission to swing) Admit to swing bed status under the care of the hospitalist service, Dr. Aviles attending, for continued IV antibiotic treatment and physical therapy. Continue Vancomycin and Meropenum for treatment of intra-abdominal abscess. Culture from abscess fluid revealed MRSA, pseudomonas aerugenosa and citrobacter freundii. Dr. Manning was consulted and directing antimicrobial treatment and awaiting her recommendations on length of treatment needed. Case management and hospitalist service continues to work with HARPER gray and Dr. Pro regarding long-term health plan. CANDACE drain remains present to [facility], continuing to drain bloody purulent drainage. Dr. Bowers following and recommends patient following up in the office in the 1st or 2nd week of January to discuss colostomy takedown. Continue to encourage therapies for improvement in neck flexibility, strength and movement. Continue to change ostomy bad and dressing every 5 days to avoid skin irritation. SCDs for DVT prophylaxis. Continue home medications. Patient requested lasix be given earlier in the day as she is up multiple times at night to urinate. Currently she is scheduled to receive lasix 40mg at 0900 daily. Suspect nocturia is secondary increased fluids from IV antibiotics. Will given Lasix at 0700 per patient request and continue to monitor. UTI noted on admission on 12/05 revealing mixed bacteria kingsley. Continue to monitor. Patient denies dysuria. Labs today revealed persistent, stable anemia with hemoglobin at 9.0 and otherwise unremarkable. Will continue to monitor. Recheck CBC and BMP in AM. Encourage incentive spirometry for pulmonary toileting. Upon discharge, patient's care will be returned to her PCP, Dr. Pro. 12/15- continue on IV vancomycin and meropenem. Hopeful for recommendations by Dr. Manning for length of treatment. Overall stable, labs reviewed. 12/16/16 Continues on Swing bed status for IV antibiotics. Dr. Manning recommended continuation of Zosyn or meropenem for Citrobacter and Pseudomonas and continuation of vancomycin for MRSA. No oral options available. Fluconazole added empirically to antimicrobial regimen. Dr. Pro working on arranging provider for IV antibiotics through the [facility] program. Lasix order reviewed-currently ordered for 7 AM but given late today. PT evaluation pending. 12/17/[address] abd for evaluation of abscess. Planning for discharge tomorrow 12/18. Will continue under the care of Dr. Pro and pace program followed by Dr. Manning for IV antibiotic therapy 12/18/16- Adding nystatin powder. Mirapex not fully helping with her RLS symptoms. Add Neurontin. Working with PCP Dr. Pro for outpatient antibiotic plan 12/19/16- Planning to remain at [facility] Swing for IV abd intil later next week. Awaiting approval by [facility] program. Continue vancomycin and meropenem. Nystatin added for erythema. . 12/22/16 - Continue IV antibiotics. Plan CT prior to dismissal per Dr. Manning' note. 12/24/16- CT scan planned for today to evaluate abscess size. Will determine ongoing need for ABX at that time. Currently on meropenem and vancomycin. 12/25/16- Discharge Overall final doing well and she is excited about her discharge plan to return home. CT scan performed yesterday did reveal abscess has adequately drained with a CANDACE drain as well as vaginally Case discussed with Dr. Bowers and Dr. Manning. At this point they feel the patient is able to be discharged home and will leave CANDACE drain in place. Dr. Bowers. Will see patient in 2 weeks in the outpatient setting. Dr. Manning recommends oral Flagyl and Cipro for one month for antibiotic coverage. She would like to see patient in 2 weeks for follow- up. Case discussed with PCP, Dr. Pro. Home health, PT and OT will be as per [facility] orders. Home health will see patient daily and empty her CANDACE drain. Dr Tony will continue to follow patient in the outpatient setting. Time spent with patient: discharge greater than 30 minutes Discharge Plan - Med Rec/Dispo Referrals/Follow Up: Kevin Pro MD [Family Provider] - (Schedule follow-up appointment for 1 week) Radha Manning MD [Physician] - (Please schedule follow-up appointment for [address] Manning is a [place] on Wednesdays) Alejandro Bowers MD [Physician] - (Please schedule follow-up appointment for 2 weeks) [facility] Instructions: [facility] Congestive Heart Failure, Neeraj-Hughes Drain Care (DC ), Abscess (GEN) Prescriptions: New Gabapentin [Neurontin] 600 mg PO 1700 tablet Potassium Chloride [K-Dur] 20 meq PO BIDWM tablet Acetaminophen [Tylenol] 650 mg PO Q5H PRN tablet PRN Reason: Discomfort Ciprofloxacin HCl [Cipro] 500 mg PO BID 30 Days #60 tablet metroNIDAZOLE [Flagyl] 500 mg PO TID 30 Days #90 tablet Continue Spironolactone [Aldactone] 25 mg PO DAILY 10 Days #10 tab Ferrous Sulfate 324 mg PO WB 30 Days #30 tab Furosemide 40 mg PO DAILY 30 Days #30 tab Folic Acid [Folate] 1 tab PO DAILY Calcium Carbonate/Vitamin D3 [Calcium 600-Vit D3 200 Tablet] 1 each PO DAILY Baclofen [Lioresal] 1 tab PO TID Sertraline [Zoloft] 150 mg PO DAILY Aspirin [Aspir-Low] 81 mg PO DAILY #0 Pramipexole Di-HCl [Pramipexole Dihydrochloride] 2 mg PO DAILY #0 Lovastatin 40 mg PO WS #0 tab Cyanocobalamin (B-12) [Vit. B-12] 1,000 mcg IM Q14D Calcium 600 + D [Caltrate + D] 1 tab PO DAILY tablet Discontinued Estradiol Vag Cream [Estrace Vag Cream] 1 applic VAGINAL 3XW Meropenem [Merrem] 1 gm IV Q8HR ml Vancomycin [Vancocin] 1,500 mg IV Q18H vial Alendronate [Fosamax] 70 mg PO Q7D #0 tab Potassium Chloride [K-Dur] 1 tab PO BID Discharge Instructions/Outpatient Orders: Provider Discharge Instructions Location: Determined By Patient <Aishwarya Danielle - Last Filed: 12/25/16 12:24> Discharge Information Date of admission: 12/12/16 15:40 Attending Physician: Aishwarya Danielle MD Primary care physician: Kevin Pro MD Consults: 12/12/16 16:21 Dr [Physician Consult] [CONS] Routine Consulting Provider: Alejandro Bowers Reason For Exam: Patient moved to swing bed Ordering Provider has Notified Logistics Analytics Manager: No 12/14/16 15:45 Dr [Physician Consult] [CONS] Routine Consulting Provider: Radha Manning Reason For Exam: Antibiotic adjustments and duration of therapy Ordering Provider has Notified Logistics Analytics Manager: No Comment: May see 12/15/16 - Discharge Diagnosis (1) Abdominal abscess Status: Acute (2) Diverticulosis of colon Status: Chronic - Laboratory Labs: 12/22/16 03:52 12/25/16 04:07 Objective Vital signs: Temperature 97.8 F 12/25/16 08:00 Pulse Rate 85 12/25/16 08:00 Respiratory Rate 16 12/25/16 08:00 Blood Pressure 115/65 12/25/16 08:00 Pulse Oximetry 91 12/25/16 08:00 Height/Weight/BMI: Height 5 ft 1 in Weight 200 lb 2.876 oz Body Mass Index 37.9 Hospital Course This is a general summary of the patient's hospital course. For more details refer to the complete medical record. I have independently evaluated and examined this patient. I reviewed the chart, the patient's history, and the TIP STITCHER/PA's documented findings as above. We discussed and formulated the assessment and plan as above with additions as below. The patient was seen on the day of discharge 10:25 AM. She is sitting in the bathroom getting ready for her back. She reports overall she is doing very well. She is looking forward to discharge however she realizes she may be back eventually. In general, the patient is alert and oriented 3, cooperative with exam, and in no respiratory distress. HEENT: Head is atraumatic, normocephalic, no conjunctival petechiae, no oral thrush, mucous membranes are moist and pink. Lungs: Clear to auscultation without wheezes, crackles or rhonchi CV: Regular rate and rhythm without murmur Abdomen: Soft, nontender, bowel sounds are present, there is no guarding no rebound. Extremities: No clubbing, no cyanosis, no edema. Skin: Warm and dry no sign of rash Neuro: Patient is alert IV access:Picc right upper arm Will discharge the patient with plans as outlined above, will discontinue PICC line prior to discharge.
[2016-12-25] MEDS ORDERED: NEOMYCIN/POLYMYXIN/BACITRACIN OINT PACKET TP PRN (12:29)
== END 2016-12-25 13:43 | disposition home or self-care (01) | DRG 372 ==
LOC: SRG 15:40 → SUATTDRO 15:40
PROVIDERS: ADMIT Hospitalist; ATTEND Internal Medicine Infectious Disease

== ENCOUNTER 2017-02-02 05:19 | Inpatient (IN) ==
[2017-02-02] MEDS: LR 1,000 ML IV SCH ×5 (05:58→14:00)
[2017-02-02] MEDS ORDERED: HEPARIN 5,000unit/ml 1ml INJECTION IV ONE (06:01)
[2017-02-02] MEDS ORDERED: HEPARIN SUB-Q 5,000units/0.5ml INJECTION SQ ONE (06:07)
--- NOTE | 2017-02-02 07:14 | Anesthesia Preoperative Report ---
Anesthesia Preoperative Record - Date and Time Date: 02/02/17 Preoperative Diagnosis: sigmoid resection L02.211 z87.19 n82.3 colon ca Proposed Procedure: sigmoid colon resection, cystoscopy NPO Since Date: 02/01/17 NPO Since Time: 23:00 Allergies/Adverse Reactions: Allergies Allergy/AdvReac Type Severity Reaction Status Date / Time hydrocodone Allergy Unknown Verified 12/12/16 17:52 - Vital Signs Vital Signs: Temperature 98.3 F 02/02/17 05:54 Pulse Rate 100 02/02/17 06:40 Respiratory Rate 22 02/02/17 05:54 Blood Pressure 130/74 02/02/17 05:54 Pulse Oximetry 96 02/02/17 05:54 Height and Weight: Height 1.55 m Weight 88.8 kg Body Mass Index 37.0 - Medications Inpatient Medications: Current Medications Ertapenem 1 g/ Sodium Chloride 100 mls @ 200 mls/hr IV PREOP ONE Stop: 02/02/17 16:00 Lactated Ringer's (Lactated Ringers) 1,000 mls @ 30 mls/hr IV .Q24H VASILIY Last Admin: 02/02/17 05:58 Dose: 30 mls/hr Lidocaine HCl (Xylocaine-Mpf 1% Vial) 1 mg ID O ONE Stop: 02/02/17 15:22 Last Admin: 02/02/17 06:06 Dose: Not Given Home Medications: Home Medications Medication Instructions Recorded Confirmed Type Aspirin [Aspir-Low] 81 mg PO DAILY #0 06/18/14 01/28/17 History Lovastatin 40 mg PO WS #0 tab 06/18/14 02/02/17 History Pramipexole Di-HCl [Pramipexole 2 mg PO DAILY #0 06/18/14 02/02/17 History Dihydrochloride] Baclofen [Lioresal] 1 tab PO TID 12/05/16 02/02/17 History Calcium Carbonate/Vitamin D3 1 each PO DAILY 12/05/16 02/02/17 History [Calcium 600-Vit D3 200 Tablet] Cyanocobalamin (B-12) [Vit. B-12] 1,000 mcg IM Q14D 12/05/16 02/02/17 History Folic Acid [Folate] 1 tab PO DAILY 12/05/16 02/02/17 History Sertraline [Zoloft] 150 mg PO DAILY 12/05/16 02/02/17 History - Medical History Respiratory: Reports: Chronic Obstructive Pulmonary Disease (COPD), Sleep Apnea (o2 as needed ) Gastrointestional: Reports: Obstructive Bowel, Morbid Obesity Neuro/Musculoskeletal: Reports: Depression (anxiety ) - Surgical History HEENT Surgeries: Reports: Tonsillectomy Cardiac Surgeries/Treatments: DENIES: Pacemaker Respiratory Surgery/Treatments: Reports: CPAP Use (SUPPOSED TO USE ONE), Oxygen Administration (AT NIGHT) GI Surgery/Treatments: Reports: Appendectomy, Colon Resection, Colonoscopy, EGD , Other (COLOSTOMY) Musculoskeletal Surgery/Tx: Reports: Shoulder Arthroscopy, Total Knee Replacement (RIGHT), Other (BACK) Reproductive Surgery/Treatment: Reports: Hysterectomy DENIES: Mastectomy Hx Family Anesthesia Reaction: No - Social History Smoking Status: Never smoker Hx Chewing Tobacco Use: No Substance Use Type: does not use Alcohol Intake Frequency: does not drink - Pertinent Findings Laboratory: CBC and BMP 02/02/17 05:59 02/02/17 05:59 BMP 02/02/17 05:59 Sodium 138 Potassium 3.7 Chloride 99 Carbon Dioxide 27 BUN 10.0 Creatinine 0.7 Glucose 118 H Calcium 9.5 Liver Function 02/02/17 Range/Units 05:59 Total Bilirubin 0.80 (0.20-1.30) MG/DL AST 16 (14-36) U/L ALT 10 (9-52) U/L Alkaline Phosphatase 115 (38-126) U/L Albumin 3.8 (3.5-5.0) G/DL EKG: Sinus Dysrhythmia - Physical Exam Respiratory Exam: Present: lungs clear, bilateral breath sounds equal Cardiovascular Exam: Present: regular rate and rhythm, no murmur - Airway Assessment Mallampati Score: III TMD: 3 Fingerbreadths Neck Extension: poor (osteoporosis in neck, leans to right side ) Overall Assessment: may be difficult intubation - ASA ASA Score: 3 - Plan Anesthesia: General Inhalation Gases - Discussion Discussion: Discussed risks/options/alternatives of anesthesia and questions answered. Patient consents. Nursing pain assessment noted. Attestation Statement: Prior to the delivery of any anesthetic medication, I examined the patient, developed the plan, obtained the patient's consent and discussed the risk and benefits of the procedure with the patient/guardian.
[2017-02-02] MEDS ORDERED: SCOPOLAMINE 1mg/3 days PATCH TD ONE (07:16)
[2017-02-02] MEDS ORDERED: MIDAZOLAM 2mg/2ml INJECTION IVP ONE (07:16)
[2017-02-02] MEDS ORDERED: FentaNYL 100 MCG/2 ML INJECTION ONE ×2 (07:28→09:48)
[2017-02-02] MEDS ORDERED: ROCURONIUM 50 MG/5 ML INJECTION IVP ONE ×2 (07:29→09:45)
[2017-02-02] MEDS ORDERED: PROPOFOL 20 ML ONE (07:29)
[2017-02-02] MEDS ORDERED: LIDOCAINE 2% (100mg/5mL) PF 5ml vl ONE (07:29)
[2017-02-02] MEDS ORDERED: LIDOCAINE 2% JELLY Tube 30ml ONE (07:32)
[2017-02-02] MEDS ORDERED: DEXAMETHASONE 4 MG/ML INJECTION ONE (07:54)
[2017-02-02] MEDS ORDERED: METOCLOPRAMIDE 10mg/2ml INJECTION ONE (07:54)
[2017-02-02] MEDS ORDERED: ONDANSETRON 4 MG/2 ML INJECTION ONE ×2 (07:54→14:14)
[2017-02-02] MEDS ORDERED: ANESTHESIA MIXTURE 50 ML IV ONE ×2 (08:00→10:30)
[2017-02-02] MEDS ORDERED: METHYLENE BLUE ONE (09:43)
[2017-02-02] MEDS ORDERED: SUGAMMADEX 200mg/2ml INJECTION IVP ONE (14:56)
[2017-02-02] MEDS ORDERED: LIDOCAINE 1% (10mg/ml) 2mL INJ PF SDV ID ONE (15:21)
[2017-02-02] MEDS ORDERED: ERTAPENEM 1 G in NS 100 ML IV ONE (15:31)
[2017-02-02] MEDS ORDERED: HEPARIN 5,000unit/ml 1ml INJECTION SUB-Q ONE (15:31)
--- NOTE | 2017-02-02 15:39 | General Surgery Procedure Note ---
Date of Procedure: 02/02/17 Surgeon: [employer] Teacher: Nitesh Waite APRN Postoperative Diagnosis: complicated history of diverticulitis with mass and colovaginal fistula Procedure: exploratory laparotomy with excision diverticulitis mass and colovaginal fistula , with takedown of end colostomy Estimated Blood Loss: See Anesthesia Record.
[2017-02-02] MEDS ORDERED: HYDROMORPHONE PCA 30mg/30ml VIAL IV PRN (15:48)
[2017-02-02] MEDS ORDERED: Oxycodone/Acetaminophen 5/325 1 TAB PO PRN (15:48)
[2017-02-02] MEDS ORDERED: VASOPRESSIN IV SCH (15:48)
[2017-02-02] MEDS ORDERED: KETOROLAC 15 MG/ML INJECTION IVP PRN (15:48)
[2017-02-02] MEDS ORDERED: ERTAPENEM 1 G in NS 100 ML IV SCH (15:48)
[2017-02-02] MEDS ORDERED: NS IV SCH (15:48)
--- NOTE | 2017-02-02 15:52 | Consult Note ---
<Fatimah Holland - Last Filed: 02/02/17 15:48> Consult Information - Data of Consult Consult date: 02/02/17 Requesting Physician: Alejandro Bowers MD Primary Care Provider: Kevin Pro MD Family Provider: Kevin Pro MD - Consult Narrative Reason for consult: seizure postop History of present illness: Suzy Magdaleno is a 76 y/o with a hx of a complicated diverticular abscess. She was admitted under Dr. Bowers's service on 02/02/17 and underwent a 7-hour surgery, exploratory laparotomy with excision diverticulitis mass and colovaginal fistula, with takedown of end colostomy. During that same procedure the right ureter was cut and Dr. Dela Cruz placed a stent. Preop she received a dose of Invanz. Intraop blood loss was minimal. She received 5L of IVF. Postop she had a possible generalized seizure, witnessed, that appeared like whole- body fine tremors, and spontaneously resolved after about 30 sec. She's had extremely low BP, 40s/20s, and has been unresponsive. Review of previous records show no hx of sz and DNR status. The hospitalist service was consulted for seizure-like activity and hypotension. Approx 25 min post-seizure like activity her BP drastically improved and she was able to follow commands. PFSH Intra-abdominal abscess with polymicrobial growth including MRSA, pseudomonas aeruginosa and citrobacter freundii. Anemia. Hypertension. Hyperlipidemia. Chronic hypercapnic respiratory failure; ROLO and O2 as needed GERD. CHF. Restless leg syndrome. Anxiety and depression. Obesity with BMI 37. Chronic neck pain. Surgical History: 02/02/17: exploratory laparotomy with excision diverticulitis mass and colovaginal fistula, with takedown of end colostomy-Dr. Bowers. : intra-abdominal abscess drained and CANDACE drain placed. 12/08/16: flexible sigmoidoscopy-Dr. Bowers. 09/20/15: PICC line inserted, intubated, and NG tube placed. 09/20/15: Exploratory laparotomy, extensive adhesiolysis, drainage of multiple intra-abdominal abscesses, small bowel resection, placement of multiple intraperitoneal drains, creation of end colostomy, drainage of abdominal wall abscess with excisional surgical debridement of necrotic skin and subcutaneous tissues. Per Dr. Bowers, and Dr. Mays. 09/21/15: Echocardiogram-EF 55% with moderate tricuspid regurgitation and moderate pulmonary hypertension. 10/05/15: Additional excisional surgical debridement of skin and necrotic. tissues. Area excised 5 cm x 4 cm. Delayed primary closure of 16 cm wound with application of wound VAC. Per Dr. Bowers. 10/11/15: Ultrasound guided percutaneous abscess drainage with removal of approximately 40 cc of straw-colored fluid. Vaginal hysterectomy. 07/06/15: CT guided drainage intra-abdominal abscesses. 03/30/15: Colonoscopy and EGD. Right total knee. Back surgery- Lumbar. Left shoulder surgery. Family History: Mother - Parkinson's Father - Alzheimer's dementia - Social History Smoking status: Never smoker Substance use type: does not use Alcohol intake frequency: does not drink Does patient use chewing tobacco?: No Review of Systems ROS unobtainable: due to mental status Medications Home Medications Medication Instructions Recorded Confirmed Type Aspirin [Aspir-Low] 81 mg PO DAILY #0 06/18/14 01/28/17 History Lovastatin 40 mg PO WS #0 tab 06/18/14 02/02/17 History Pramipexole Di-HCl [Pramipexole 2 mg PO DAILY #0 06/18/14 02/02/17 History Dihydrochloride] Baclofen [Lioresal] 1 tab PO TID 12/05/16 02/02/17 History Calcium Carbonate/Vitamin D3 1 each PO DAILY 12/05/16 02/02/17 History [Calcium 600-Vit D3 200 Tablet] Cyanocobalamin (B-12) [Vit. B-12] 1,000 mcg IM Q14D 12/05/16 02/02/17 History Folic Acid [Folate] 1 tab PO DAILY 12/05/16 02/02/17 History Sertraline [Zoloft] 150 mg PO DAILY 12/05/16 02/02/17 History Allergies Allergy/AdvReac Type Severity Reaction Status Date / Time hydrocodone Allergy Unknown Verified 12/12/16 17:52 Exam Vital Signs: Temperature 98.9 F 02/02/17 15:01 Pulse Rate 124 H 02/02/17 15:01 Respiratory Rate 16 02/02/17 15:01 Blood Pressure 93/62 02/02/17 15:01 Pulse Oximetry 97 02/02/17 15:01 Telemetry Rhythm: Sinus Tachycardia (occ PVC) Height/Weight/BMI: Height 1.55 m Weight 88.8 kg Body Mass Index 37.0 - Constitutional Present: other (initially, unresponsive; within 25 min she opened eyes to verbal and followed simple commands) - Routine HEENT Exam Head: Present: normocephalic Eye: Present: PERRL (4 mm equal b/l; pupils equally reactive). Absent: conjunctival icterus, scleral injection ENT: Present: mucous membranes dry Comments: no oral obstruction ngt to left nare - Routine Neck Exam Present: supple - Routine Respiratory Exam Present: CTA bilaterally Comments: good air movement, good chest rise sats 100% on simple facemask - Routine Cardiovascular Exam Present: RRR, S1, S2, tachycardia (rates 110-120) - Routine Abdominal Exam Present: soft, normoactive bowel sounds (hypoactive), drain Comments: multiple dressings CANDACE drains with serosanguineous drainage - Routine Exam Comments: Hernandez to DD with red-tinged urine and some clots - Routine Extremities Exam Present: edema (trace b/l lower ext), pulses intact (radial pulses went from 2+ to extremely thready; when patient improved her distal pulses improved to 2+) - Routine Skin Exam Present: dry, warm - Routine Neurological Exam initially unresponsive within 25 min she opened eyes to verbal and followed simple commands - able to move both upper ext and wiggle toes on both feet - Routine Psychiatric Exam Present: unable to assess Results - Labs CBC & Chem 7: 02/02/17 05:59 02/02/17 05:59 Assessment and Plan (1) Seizure Current visit: Yes Status: Acute Assessment and Plan: Impression Post op seizure like activity Post op Leukocytosis and thrombocytosis - stress response vs. infection s/p exploratory laparotomy with excision diverticulitis mass and colovaginal fistula, with takedown of end colostomy per Dr. Bowers s/p stenting of right ureter per Dr. Dela Cruz Intra-abdominal abscess with polymicrobial growth including MRSA, pseudomonas aeruginosa and citrobacter freundii. Anemia. Hypertension. Hyperlipidemia. Chronic hypercapnic respiratory failure; ROLO and O2 as needed GERD. CHF - diastolic - Echo 09/21/15 showed EF 55%; moderate TR and moderate PH. Restless leg syndrome. Anxiety and depression. Obesity with BMI 37. Chronic neck pain. Plan Place PICC Stat labs ordered - hgb stable. Lactate 11.8 - unable to determine if septic shock or if elevated lactate was from hypoperfusion (hypoxia; hypotension). She had well over 30 ml/kg IVF (89 kg x 30 mL = 2,670mL) sz precautions - Invanz may lower sz threshold; perhaps hypoxia d/t prolonged sx - consider neuro consult, head CT Abx changed to meropenem + vanco. BP was dangerously low but now improving - monitor closely as she still may need pressor support With IVF, need to monitor closely for fluid overload - measure I/O + weights. Hernandez; right ureteral stent mgt per urology. DNR status Dr. Sorensen d/w Dr. Pro. Critically ill. Time spent at bedside: 45 min. DVT Prophylaxis: Lovenox Resuscitation Status: Do Not Resuscitate Hospital Course Summary Disclaimer: The visit summary below is not to be considered part of the above Progress Note. Hospital Course: 02/02/17 16:09 Impression Post op seizure like activity Post op Leukocytosis and thrombocytosis - stress response vs. infection s/p exploratory laparotomy with excision diverticulitis mass and colovaginal fistula, with takedown of end colostomy per Dr. Bowers s/p stenting of right ureter per Dr. Dela Cruz Intra-abdominal abscess with polymicrobial growth including MRSA, pseudomonas aeruginosa and citrobacter freundii. Anemia. Hypertension. Hyperlipidemia. Chronic hypercapnic respiratory failure; ROLO and O2 as needed GERD. CHF - diastolic - Echo 09/21/15 showed EF 55%; moderate TR and moderate PH. Restless leg syndrome. Anxiety and depression. Obesity with BMI 37. Chronic neck pain. Plan Place PICC Stat labs ordered - hgb stable. Lactate 11.8 - unable to determine if septic shock or if elevated lactate was from hypoperfusion (hypoxia; hypotension). She had well over 30 ml/kg IVF (89 kg x 30 mL = 2,670mL) sz precautions - Invanz may lower sz threshold; perhaps hypoxia d/t prolonged sx - consider neuro consult, head CT Abx changed to meropenem + vanco. BP was dangerously low but now improving - monitor closely as she still may need pressor support With IVF, need to monitor closely for fluid overload - measure I/O + weights. Hernandez; right ureteral stent mgt per urology. DNR status Dr. Sorensen d/w Dr. Pro. Critically ill. Time spent at bedside: 45 min. <Kim Sorensen - Last Filed: 02/02/17 17:51> Consult Information - Data of Consult Primary Care Provider: Results - Labs CBC & Chem 7: 02/02/17 15:38 02/02/17 15:38 Assessment and Plan (1) Seizure Problem details: Postoperative Current visit: Yes Status: Acute Assessment and Plan: I have independently evaluated and examined this patient. I reviewed the chart, the patient's history, and the PIPE STEM REPAIRER/PA's documented findings as above. We discussed and formulated the assessment and plan as above with additions as below: Mrs. Magdaleno was seen briefly immediately after seizure activity following extensive abdominal surgery; that time she was unresponsive and hypotensive. Fluid boluses were being given. 15-30 minutes later the pressure began improving and the patient began responding and following simple commands- squeezing fingers, we going her toes. She began describing nausea and abdominal pain as would be anticipated following the extensive abdominal procedure. At that time breath sounds were clear although patient was hypoventilating, cardiac rhythm regular with sinus tach on bedside monitor, bowel sounds absent, and skin was warm with capillary refill 1-2 seconds (slightly slower in the lower extremities and upper extremities). Labs as noted above, hemoglobin stable postoperatively. Lactic acid elevated- likely reflects seizure/hypotension brothers and sepsis but given nature of abdominal surgery cannot exclude sepsis of abdominal origin. Preoperative EKG reviewed by myself-sinus rhythm, left axis deviation, LAFB, old postero--inferior MA, no acute ST/T-wave changes, diffuse T flattening. Invanz discontinued due to potential for neuro side effects-have switched from Neeraj to Zosyn plus vancomycin for better postoperative abdominal coverage and due to reported potential seizure risk with meropenem. Continue to monitor neurological exam and agree would benefit from head CT when clearly hemodynamically stable. Discussed with Dr. Pro, Nitesh Waite APRN, and Dr. Manning. Anticipate transferring care to Dr. Pro in a.m. 15 min care at bedside. Hospital Course Summary Disclaimer: The visit summary below is not to be considered part of the above Progress Note.
[2017-02-02] MEDS ORDERED: VANCOMYCIN - PHARMACY CONSULT MC ONE (15:56)
[2017-02-02] MEDS ORDERED: PROMETHAZINE 25 MG INJECTION IVP PRN (16:03)
[2017-02-02] MEDS ORDERED: MEROPENEM 1 GM in NS 100 ML IV SCH (16:15)
[2017-02-02] MEDS: ONDANSETRON 4 MG/2 ML INJECTION IVP PRN ×2 (16:25→20:06)
[2017-02-02] MEDS: NS 1,000 ML IV SCH (16:25)
[2017-02-02] MEDS ORDERED: FALL RISK - PHARMACY CONSULT XX ONE (16:47)
[2017-02-02] MEDS ORDERED: INDIGO CARMINE IV ONE (17:01)
--- NOTE | 2017-02-02 17:35 | Pharmacy Consult-Antibiotics ---
Pharmacy Consult-Vancomycin - Laboratory Information WBC 29.3 T/MM3 (4.5-11.0) H* D 02/02/17 15:38 BUN 12.0 MG/DL (7-17) 02/02/17 15:38 Creatinine 0.9 MG/DL (0.7-1.2) D 02/02/17 15:38 - Consult Information 76 y.o. F with history of MRSA infection, post op surgical removal of intra- abdominal abscess. Vancomycin consult and Zosyn antibiotics ordered empirically post op. goal trough range= 15 to 20 mcg/ml. Will give Vancomcyin 2,000 mg IV x 1 dose then Vancomycin 1,750 mg IV Q18H. Pharmacy will monitor and adjust as needed. Thank you, Keeley Myers [facility]
[2017-02-02] MEDS: PIPERACILLIN/TAZOBACTAM 3.375 GM in NS 100 ML IV SCH (18:00)
--- NOTE | 2017-02-02 18:05 | Anesthesia Postoperative Note ---
- Date and Time Date: 02/02/17 Time: 18:00 - Status Patient Participated in Evaluation: Patient Participated in Person Vital Signs: Temperature 98.9 F 02/02/17 16:05 Pulse Rate 116 H 02/02/17 16:46 Respiratory Rate 7 L 02/02/17 16:46 Blood Pressure 99/72 02/02/17 16:46 Pulse Oximetry 99 02/02/17 16:46 Respiratory Function: Airway Patent, Regular Respirations Cardiovascular Function: Regular Pulse Mental Status: Alert and Oriented Pain Intensity: 0 (unable to rate, patient does have discomfort. ) Hydration: IV Infusing Complications During Recover: None Apparent - Follow-Up Instructions Instructions: Per Surgeon
[2017-02-03] MEDS: D5-1/2NS with KCL 20mEq 1,000 ML IV SCH ×3 (00:37→07:19)
[2017-02-03] MEDS: PIPERACILLIN/TAZOBACTAM 3.375 GM in NS 100 ML IV SCH ×5 (00:39→22:37)
--- NOTE | 2017-02-03 07:16 | Operative Note ---
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 POSTOPERATIVE DIAGNOSIS Same, right iatrogenic ureteral injury. PROCEDURE Exploratory laparotomy, extensive adhesiolysis, takedown of end colostomy, low anterior resection with coloproctostomy, mobilization of the splenic flexure. Repair of right ureteral iatrogenic injury (will be dictated by Dr. Dela Cruz). ANESTHESIA General endotracheal. EBL AND FLUIDS Please see chart. BRIEF HISTORY/INDICATIONS Mrs. Magdaleno is a 76-year-old female who has very unique history. I initially met Mrs. Magdaleno quite some time ago when she presented to our facility as a result of a surgical abdomen/perforated sigmoid diverticulitis. The patient at that time underwent exploratory laparotomy. There was such an extensive phlegmon present involving her sigmoid colon/left lower quadrant I was unable to perform a sigmoidectomy with creation of a Batsheva's pouch at the time of her original surgery. I was able, however, to drain multiple intraabdominal abscesses and perform a diverting end colostomy. It was my hope that after her fecal stream had been diverted that the sigmoid diverticulitis/phlegmonous process would resolve on its own behalf with additional antibiotics. Unfortunately, the patient over the last several months has continued to have ongoing problems with diverticulitis. She recently had developed an additional intraabdominal abscess requiring a percutaneous CT-guided drainage and recent prolonged hospitalization. Additionally, upon radiographic evaluation, the patient was found to have evidence for a colovaginal fistula as well as a colo- colonic fistula. The patient clinically also has had a fair amount of purulent/ mucous material draining forth from the vagina consistent with her radiographic findings. The patient has been on a prolonged course of intravenous and oral antibiotics. She presents today to undergo elective sigmoid resection with possible coloproctostomy, possible creation of a temporary diverting loop ileostomy, possible continued end colostomy. I did request also that Urology place ureteral stents preoperatively given the fact that she was known to have a large phlegmonous process previously and likely continues to have ongoing inflammatory changes present within the peritoneal cavity. For completeness please refer to notes in the patient's chart. FINDINGS Upon laparotomy the patient was found to have extensive adhesions. There remained to be a fairly significant phlegmonous process present within the left lower quadrant. Sigmoid colon was densely adherent to adjacent structures including small bowel. The sigmoid colon was also adhered to the upper aspect of the vaginal vault. The patient had undergone a prior bhuz-rj-wibz anastomosis involving the mid ileum. This was densely adherent overlying the right iliac vessels. During the process of dissection within the right pelvis , the right ureter was transected. Although bilateral ureteral stents were placed preoperatively, unfortunately the right ureteral stent was never completely advanced into the right ureter. During the process of dissection within the right pelvis, the right ureter was transected and the stent was not palpable at this location, nor was it visible after transection of the ureter. I did identify the injury, however, at the time of the procedure and Urology did perform ureteroureterostomy. This portion of the procedure will be dictated by Urology/Dr. Dela Cruz. Perhaps 4-5 hours was spent just performing adhesiolysis. The case was quite difficult and tedious given the marked adhesions and inflammatory process that was present. Eventually, however, the sigmoid colon and proximal rectum was able to be divided. The proximal margin of descending colon was without inflammatory changes. The distal margin/rectum was normal and was not thickened or fibrotic in nature. Although there was inflammatory changes present there was no ivy purulence present within the peritoneal cavity. As a result of the above circumstances I elected to perform a primary anastomosis/coloproctostomy. DESCRIPTION OF PROCEDURE After informed consent was obtained, the patient was brought to the operative suite and placed on the table in a supine/lithotomy fashion. Initially, Urology placed ureteral stents. This portion of the procedure will be dictated by Urology. Next, the abdomen was then prepped and draped in a sterile fashion. Formal time-out was then completed. A standard midline incision was then made from the pubic symphysis up to and into the epigastric region through her prior surgical incision site. Dissection was then carried down to the deep subcuticular tissues to the underlying fascia. The fascia was then opened along its midline to the length of the incision. The underlying peritoneum was then opened. [facility] clamps were then placed upon the fascial edges and there were some adhesions between the omentum, small bowel and the anterior abdominal wall. A moderate amount of time was then spent performing adhesiolysis involving the anterior abdominal wall. Once these adhesions had been freed, attention was then focused towards the pelvic region. Unfortunately, there was a residual large phlegmonous process still present within the left lower quadrant. One could see small bowel adhered to this phlegmonous process. This phlegmonous process extended into the pelvic region. A Bookwalter retractor was then placed to provide adequate exposure. The patient was placed in Trendelenburg position. Small bowel that was adhered to the phlegmonous process was then began to be dissected away carefully and meticulously. Perhaps the next 4-5 hours was spent just simply performing slow and meticulous adhesiolysis. Eventually the small bowel was able to be dissected away from the remaining sigmoid colon. Attention was then focused into the pelvic region. There were dense adhesions between the small bowel and the rectum and the deep pelvis. Again, meticulous dissection was then continued. Dissection was then continued to be carried out laterally on the patient's right. One could see a prior staple line between two segments of small bowel/terminal ileum indicative of a prior side to side anastomosis. Small bowel was densely adhered to the underlying pelvic structures. There were essentially no normal tissue planes present and the dissection was quite difficult. I was unable upon palpation of the dense fibrotic tissue to palpate the ureteral stent. Dissection was continued through this dense fibrotic tissue within the right lateral/posterior pelvis. After the segment of ileum which was adhered within the pelvis was freed and brought up into the upper abdomen I noted what I felt was likely a transected ureter. One could see a tubular structure which was transected within the dense fibrotic/adhesions which had been previously dissected. One could then see a lumen and it appeared that this was consistent with that of the right ureter. There was no evidence, however, of the ureteral stent within the ureter and that had been placed preoperatively. To document with more certainty that this was the ureter, I had Anesthesia administer indigo carmine intravenously. Several minutes later, one could then see the greenish indigo carmine coming forth from the transected end of the ureter. I then had staff notify Urology of this transected ureter. Several hours were then spent continuing with slow and meticulous dissection. Eventually the small bowel was able be completely delivered from the pelvic region. The mesentery to the remaining sigmoid colon was then divided close to the colon to avoid injury to the left ureter. There was a phlegmonous process present involving the mesentery. The mesentery was sequentially divided between right angle clamps fairly close to the sigmoid colon down towards the sacral promontory region. Dissection was not carried out in the vicinity of the left ureter. A [employer] retractor was utilized and the presacral space was eventually able to be entered below the sacral promontory. The presacral space was dissected out towards the distal rectum. There were dense adhesions along the lateral aspect of the rectum, but with utilization of the [employer] Sameer's retractor and again slow and meticulous dissection, the lateral stalks of the rectum were able to be divided. Anteriorly, there were also, unfortunately, dense adhesions between the rectum and what appeared to be that of the vaginal cuff. The patient did have a known colovaginal fistula. Rectum was freed anteriorly and the vaginal cuff was dissected away from the rectum. The process of dissecting the perirectal tissues was also quite slow and tedious and perhaps an hour or more was spent just in this vicinity. Eventually the rectum was able to be freed circumferentially and brought forth up into the pelvis. One could then see normal-appearing rectum distally beyond this phlegmonous process. Next, a contour stapler was then brought forth the operative field and placed across the distal rectum where it was normal in its appearance and not found to be thickened and fibrotic in nature. Contour stapler was then fired. The proximal rectum and sigmoid colon was then passed off table as a surgical specimen. About this time Urology did return to the operative suite and proceeded to repair the ureteral injury. This portion of the procedure will be dictated by Urology. Once Urology had completed the ureteral repair, attention was then focused towards performing a coloproctostomy. A small elliptical incision was made encompassing the colostomy. The colostomy had been closed preoperatively in a pursestring fashion with 3-0 Vicryl. Dissection was then carried down through deep subcuticular tissues to the underlying fascia. The colostomy was then completely freed and delivered into the abdominal cavity. The gastrocolic ligament was then divided along the distal portion of the transverse colon under direct visualization with the use of electrocautery as well as ligating vessels between right angle clamps when encountered. Splenic flexure was completely mobilized. Splenocolic and renocolic attachments were also divided under direct visualization with the use of electrocautery until the splenic flexure been completely mobilized. Omentum that was adhered to the remaining portion of the descending colon was also freed. The colon at this time could easily be brought forth into the pelvis. Next, a point about 4-5 cm proximal to the skin level was then ascertained upon the descending colon. The mesentery surrounding this area was divided between right angle clamps and ligated with 3-0 Vicryl ties. An [facility] clamp was then placed across the colon at this location. Colon was then transected proximal to the [facility] clamp. The colon edge that was transected did bleed indicative of adequate blood supply. Three Allis clamps were then placed upon the transected end of the colon in a triangulated fashion. A 28 EEA sizer was able to be placed into the transected end of the colon without difficulty. 29-mm stapler was then obtained. The anvil portion of the stapler was placed within the transected end of the colon. The transected end of the colon was then closed in a pursestring fashion with 2-0 Prolene. Pursestring suture was then tied securely resulting in nice imbrication of the colonic mucosa adjacent to the anvil portion of the stapler. Next, I had my construction assistant then "go below." I first had my construction assistant advance the EEA sizer into the vagina and advanced it to the end of the vaginal vault. One could see that the vaginal vault was no longer adhered to the rectum and was completely at this time. I then had my construction assistant advance the EEA sizer through the anal verge and up to the distal rectal stump. One could see the prior staple line from the contour stapler. Next the EEA sizer was then removed and the EEA stapler was then advanced through the anal verge and advanced up to the staple line upon the distal rectum. Trocar portion of the stapler was then allowed to exit just anterior to the staple line. The anvil portion of the stapler was then attached to the trocar portion of the stapler and the stapler was then tightened to the appropriate tension and fired. Stapler was then loosened and removed from the anus. Two complete doughnuts were present within the EEA stapler. Saline was then placed within the pelvis. Then I had my construction assistant place a rigid proctoscope through the anal verge and insufflate the rectum. I grasped the remaining descending colon proximal to the anastomosis. Once the anastomosis was fairly taut with air and air began to pass out through the anal verge. At no point in time could one see any bubbles coming forth from the saline that covered the anastomosis; i.e., the anastomosis was airtight in nature. Care was taken to make sure that the mesentery was not "twisted" as the remaining descending colon was brought forth into the pelvis. There was no tension upon the anastomosis. There was no evidence for vascular compromise once the anastomosis had been completed. Prior areas of dissection were inspected and found be hemostatic in nature. Attention was focused back to the ureteroureterostomy. There was no evidence for bleeding. Small bowel was then run from the ligament of Treitz to the terminal ileum. During the process of dissection, a few small serosal tears occurred and these serosal tears were closed by placing several simple interrupted sutures of 3-0 Vicryl. These small serosal tears would be considered to be an inherent risk to the procedure. Additional irrigation was performed and all irrigant was suctioned until clear. Next, attention was then focused towards the colostomy site. The fascia at the prior colostomy site was then closed in a running fashion with #1 PDS suture. Two 19-Korean drains were placed. One drain was then placed within the subcutaneous tissues at the colostomy site and allowed to exit in a cephalad fashion upon the anterior abdominal wall. Deep subcutaneous tissues were then approximated in a running fashion with 3-0 Vicryl. Skin edge overlying the colostomy site was then closed with nicky. Second drain was allowed to exit within the right upper quadrant and was placed along the right paracolic gutter. Next, new instruments, gowns and gloves were obtained to provide the fascial closure of the midline incision. Instrument, sponge and needle counts was performed and found be correct. Fascia was closed a running fashion with #1 PDS suture. Skin and subcutaneous tissues were then irrigated with iodine solution. Skin edges were then imbricated with nicky. The patient was awakened from her anesthetic and sent back to the ICU once deemed in stable condition. Additionally, it should be noted that Nitesh Waite APRN, was present throughout the entire case and played a pivotal role in providing assistance and exposure during the course of the procedure. CARMINE
--- NOTE | 2017-02-03 08:32 | XRay Report ---
Indication: hypoxia PROCEDURE: XR chest 1V: Encounter: Initial Comparison: December 05, 2016 Findings: Overlying monitoring leads. Nasogastric tube in place, tip cannot be seen on this image. Lungs are hypoinflated chronic scarring in the left base. Numerous consolidation in the medial right upper lobe. Possible trace effusions. No pneumothorax. Heart size and mediastinal contours are grossly stable. Pulmonary vascularity is unchanged. Old left rib fractures. Impression: New right upper lobe pneumonia or atelectasis. .
[2017-02-03] MEDS: D5-1/2NS 1,000 ML IV SCH (08:34)
[2017-02-03] MEDS: PANTOPRAZOLE 40 MG INJECTION IVP SCH (08:35)
[2017-02-03] MEDS: ENOXAPARIN 40 MG/0.4 ML INJECTION SQ SCH (08:36)
[2017-02-03] MEDS: ONDANSETRON 4 MG/2 ML INJECTION IVP PRN (09:12)
--- NOTE | 2017-02-03 09:14 | General Surgery Progress Note ---
Subjective Narrative: She is in the recliner, calls me by name and carries on a nice conversation this morning. States she does not want to be in the recliner very long, she is tired and wants back in bed. Pain is controlled with SILVER LAP [employer]ACH[employer] TENDER Dilaudid, no additional prn's for pain have been documented. Denies flatus, nausea. NG in place, no output. - Vital Signs Last Vital Signs Temp 98.5 F 02/03/17 04:00 Pulse 131 H 02/03/17 07:30 Resp 29 H 02/03/17 07:30 BP 94/62 02/03/17 07:00 Pulse Ox 93 02/03/17 07:00 - Laboratory Result Diagrams: 02/03/17 06:01 02/03/17 06:01 - Abnormal Exam Cardiovascular: other (tachy 120's, RSR with a few PVC's) Abdominal: obese, hypoactive bowel sounds - Normal Exam General: awake, alert Eyes: PERRL Respiratory: clear all gonzalez, no labored breathing Abdominal: incision(s) (Dressings in tact, Right CANDACE with bloody drainage, Left CANDACE with serous drainage.) Psychiatric: normal affect Assessment and Plan (1) Status post colostomy takedown Current Visit: Yes Status: Acute (2) Status post partial resection of colon Current Visit: Yes Status: Acute (3) Seizure Current Visit: Yes Status: Acute Problem details: Postoperative (4) Leukocytosis Current Visit: No Status: Acute (5) History of diverticulitis of colon Current Visit: No Status: Resolved (6) Obesity (BMI 30-39.9) Current Visit: No Status: Chronic Plan: POD #1 -No seizure activity since the initial one of less than 30 sec while in recovery phase post op. -Invanz cancelled as this does have a "caution/contraindication" of Seizure Hx. Zosyn and Vancomycin with pharmacy consult in place. -Urine output marginal, around 22-40/hr for the last 6-8 hours. Will give NS bolus due to marginal U/O and lowe SBP -SBP tends to be in the 90's. will continue to monitor, continue fluids at 125/ hr for now. -NG without output, cannot see the tip on CXR, it appears to be out a long way, will have staff advance it 10-12 cm. -K+ upper limit of normal, although it was hemolyzed, will change IVF to D5 1/2 without K+, repeat labs. -Discussed case with Dr. Pro, he indicated we will continue to defer medical management to hospitalist team as long as pt is in CCU, he will likely ' pick her -up" when she transfers to surgical floor. Hospital Course Summary Disclaimer: The visit summary below is not to be considered part of the above Progress Note. Hospital Course: 02/02/17 16:09 Impression Post op seizure like activity Post op Leukocytosis and thrombocytosis - stress response vs. infection s/p exploratory laparotomy with excision diverticulitis mass and colovaginal fistula, with takedown of end colostomy per Dr. Bowers s/p stenting of right ureter per Dr. Dela Cruz Intra-abdominal abscess with polymicrobial growth including MRSA, pseudomonas aeruginosa and citrobacter freundii. Anemia. Hypertension. Hyperlipidemia. Chronic hypercapnic respiratory failure; ROLO and O2 as needed GERD. CHF - diastolic - Echo 09/21/15 showed EF 55%; moderate TR and moderate PH. Restless leg syndrome. Anxiety and depression. Obesity with BMI 37. Chronic neck pain. Plan Place PICC Stat labs ordered - hgb stable. Lactate 11.8 - unable to determine if septic shock or if elevated lactate was from hypoperfusion (hypoxia; hypotension). She had well over 30 ml/kg IVF (89 kg x 30 mL = 2,670mL) sz precautions - Invanz may lower sz threshold; perhaps hypoxia d/t prolonged sx - consider neuro consult, head CT Abx changed to meropenem + vanco. BP was dangerously low but now improving - monitor closely as she still may need pressor support With IVF, need to monitor closely for fluid overload - measure I/O + weights. Hernandez; right ureteral stent mgt per urology. DNR status Dr. Sorensen d/w Dr. Pro. Critically ill. Time spent at bedside: 45 min. 02/03/17 09:25 POD #1 -No seizure activity since the initial one of less than 30 sec while in recovery phase post op. -Invanz cancelled as this does have a "caution/contraindication" of Seizure Hx. Zosyn and Vancomycin with pharmacy consult in place. -Urine output marginal, around 22-40/hr for the last 6-8 hours. Will give NS bolus due to marginal U/O and lower SBP -SBP tends to be in the 90's. will continue to monitor, continue fluids at 125/ hr for now. -NG without output, cannot see the tip on CXR, it appears to be out a long way, will have staff advance it 10-12 cm. -K+ upper limit of normal, although it was hemolyzed, will change IVF to D5 1/2 without K+, repeat labs. -Discussed case with Dr. Pro, he indicated we will continue to defer medical management to hospitalist team as long as pt is in CCU, he will likely ' pick her -up" when she transfers to surgical floor. 02/03/17 09:43
--- NOTE | 2017-02-03 09:38 | Operative Note ---
DATE OF PROCEDURE 02/02/2017 PREOPERATIVE DIAGNOSIS Bilateral ureteral catheters for colorectal surgery. POSTOPERATIVE DIAGNOSIS Bilateral ureteral catheters for colorectal surgery. PROCEDURE PERFORMED Cystoscopy with placement of bilateral ureteral catheters. SURGEON Baltazar Dela Cruz MD INDICATION FOR THE PROCEDURE This is a 76-year-old female who is undergoing sigmoid resection with Dr. Bowers for severe diverticulitis. I was asked to place bilateral ureteral catheters before the surgery to help identify the ureters. PROCEDURE DESCRIPTION The patient was brought to the operating room. She was placed supine on the operating table. She was then placed in dorsal lithotomy position. Her genitalia were prepped and draped in the usual fashion. At this time a formal- time was done. All the persons in the room were in agreement. I began the procedure by introducing a scope inside the bladder. The bladder appeared to be displaced from the midline probably from the severe diverticulitis. I identified the two UO's. A 5-Brazilian ureteral catheter was placed in each UO and advanced until I met resistance. I then placed a Hernandez catheter in the bladder and tied the ureteral catheters to the Hernandez using umbilical tape. This concluded the urology portion of the case and care of the patient was handed back to Dr. Bowers. [facility]
--- NOTE | 2017-02-03 10:04 | Operative Note ---
DATE OF PROCEDURE 02/02/2017 PREOPERATIVE DIAGNOSIS Right ureteral injury. POSTOPERATIVE DIAGNOSIS Right ureteral injury. PROCEDURE PERFORMED 1. Right ureteroureterostomy. 2. Right stent placement. 3. Right ureteroscopy. SURGEON Baltazar Dela Cruz MD INDICATION FOR THE PROCEDURE This is a 76-year-old female who was undergoing sigmoid colon resection with Dr. Bowers for severe diverticulitis. During the surgery, the right ureter was transected. I was consulted by Dr. Bowers to repair the injury to the right ureter. DESCRIPTION OF THE PROCEDURE I scrubbed into the case. Retraction was already in place by Dr. Bowers. I was able to identify the injury of the ureter. It was completely transected slightly above the level of the iliac vessels on the right side. There was no cautery injury and tissues of the ureter appeared healthy. The two ends of the ureter were clearly identified. I wanted to make sure that the distal end was patent, so a 5-Portuguese ureteral catheter was placed to the distal end; however, it would then go easily to the bladder. At this time I elected to perform a flexible ureteroscopy through the distal end of the ureter to make sure that it is open before i perform the anastomosis. The flexible ureteroscope was introduced through the distal end of the ureter. I was able to advance it to the bladder. The distal ureter was tortuous probably because of all the inflammation around it. Once I confirmed that the ureter was patent distally and since the two stumps of the ureter appeared to be healthy and there was no necrotic tissue, I decided to perform an end-to-end ureteroureterostomy. The proximal stump of the ureter was then mobilized to gain maximum length. Once it was mobilized, I spatulated it on the ventral aspect. The distal end of the ureter was spatulated on the dorsal aspect. It was only minimally mobilized to preserve the blood supply to it. At this point the two ends were reaching each other with no tension at all. I began the anastomosis by placing a 4-0 Vicryl between the apex of the spatulation at each end of the ureter. The two stitches were then tied defining the two angles. I then ran one of the 4-0 Vicryls and performed the posterior aspect of the anastomosis. I then introduced the cystoscope in the bladder and placed a 5-Portuguese ureteral catheter in the right UO. This was followed by a Sensor wire, then a double-J stent was placed over the wire and advanced to the level of the right kidney. The wire was then removed. Once the stent was across the anastomosis, I completed the anastomosis by closing the anterior part of it with interrupted 4- 0 Vicryl sutures. Again, the anastomosis appeared to be tension-free. I did a second layer using interrupted 4-0 Vicryls in order to relieve the tension even more off the anastomosis. At this point I completed the ureteroureterostomy and the care of the patient was given back to Dr. Bowers so he could complete his procedure. He will also place a drain at the end. DISPOSITION I will follow up on the patient during her hospital stay. The stent will have to stay in for 6 weeks. CARMINE
[2017-02-03] MEDS: ALBUTEROL 2.5mg/3ml (0.083%) NEB AEROSOL PRN (12:06)
[2017-02-03] MEDS: NS IV SCH ×2 (13:17→21:36)
[2017-02-03] MEDS: VASOPRESSIN IV SCH ×2 (13:17→21:36)
[2017-02-03] MEDS: ALBUTEROL 2.5mg/3ml (0.083%) NEB AEROSOL SCH ×2 (14:29→19:46)
[2017-02-03] MEDS ORDERED: INSULIN ASPART 100unit/ml INJECTION SQ PRN (15:20)
[2017-02-03] MEDS ORDERED: METOCLOPRAMIDE 10mg/2ml INJECTION IVP PRN (15:24)
[2017-02-03] MEDS: NS 1,000 ML IV SCH (17:13)
--- NOTE | 2017-02-03 18:18 | Progress Note ---
DATE OF SERVICE 02/03/2017 FINDINGS Mrs. Magdaleno was seen earlier this morning by myself on morning rounds. I have seen the patient again this evening. She is alert, awake and oriented. She is complaining of some incisional discomfort as one would expect. EXAM VITAL SIGNS: Afebrile. She has been tachycardic throughout the day. She has been hypotensive earlier today and was begun on ionotropic support. Last recorded blood pressure is 102/69. CHEST: Clear to auscultation bilaterally. HEART: Regular rate and rhythm. Normal S1 and S2 without gallops, murmurs or clicks. ABDOMEN: Soft. Minimal incisional tenderness. No evidence for involuntary guarding or rebound. LABORATORY/RADIOGRAPHIC EVALUATION The patient had a CBC today and her white count was 20.9. Hemoglobin is stable at 11.0. BMP was obtained and found to be essentially within normal limits with the exception of potassium slightly elevated at 5.0. BUN was slightly elevated at 20.0. Procalcitonin was elevated at 4.87. ASSESSMENT 76-year-old female status post complicated exploratory laparotomy, takedown of end colostomy, sigmoid resection, coloproctostomy. Patient remains somewhat critical in nature. PLAN Insertion of central line. Continuation of current care. Consult was put forth to the hospitalist service for management of her hypotension and critical status. Given the marked inflammatory process that was still present and her leukocytosis, will continue with ongoing antibiotics consisting of Zosyn and vancomycin. The patient had a prior history for MRSA intraperitoneal abscess. I did inform the patient that I would recommend proceeding with insertion of a central line to facilitate her ongoing care. I did discuss with the patient what insertion of a central line entailed and its associated risks. Patient understood and wished to proceed. CARMINE
[2017-02-03] MEDS ORDERED: NS 1,000 ML IV ONE ×2 (18:53→21:00)
--- NOTE | 2017-02-03 20:26 | Progress Note ---
- Date 02/03/17 Subjective: Suzy was confused when seen. Blood pressure has been low through the morning/ afternoon the morning with tachycardia. Nursing reports limited urine output and minimal NG output. She's had no fever. Bowel sounds are present but no flatus reported. Patient was unable to provide history at the time of my assessment. Objective Vital signs: Temperature 97.8 F 02/03/17 07:45 Pulse Rate 119 H 02/03/17 18:00 Respiratory Rate 23 02/03/17 19:46 Blood Pressure 91/52 02/03/17 18:00 Pulse Oximetry 98 02/03/17 19:46 I/O 7933/776 Drowsy, mumbled speech, follow simple commands-psychomotor retardation present Conjugate gaze, EOMI, dry oral membranes Respirations nonlabored however air flow is diminished, breath sounds are clear anteriorly but diminished at the bases Regular rhythm, S1-S2, tachycardic with rate 125-130 Abdomen soft, multiple dressings, sparse bowel sounds +2 lower extremity edema, extremities warm Rhythm: Sinus Tachycardia Height/Weight/BMI: Height 1.55 m Weight 91.4 kg Body Mass Index 37.0 Results - Labs CBC & Chem 7: 02/03/17 06:01 02/03/17 18:24 Labs: S84 B3 L7 M3 E3 Creatinine has increased progressively 0.7-0.9-1.1-1.2 Lactic acid 2.8 this morning, procalcitonin 4.87 - ABG Interpretation ABG results: 02/02/17 18:36 ABG pH 7.310 L ABG pCO2 39 ABG pO2 92 ABG HCO3 20 L ABG Total CO2 20.8 L ABG O2 Saturation 96.0 ABG Base Excess -6.2 L - Imaging and Cardiology Chest x-ray Status: image reviewed by me (chest x-ray hypoinflation/atelectasis-NG position uncertain distal esophagus versus stomach) Assessment and Plan (1) Seizure Problem details: Postoperative Current visit: Yes Status: Acute (2) Hypotension Current visit: Yes Status: Acute Assessment and Plan: Impression Post op seizure like activity Hypotension with tachycardia Post op Leukocytosis and thrombocytosis - stress response vs. infection s/p exploratory laparotomy with excision diverticulitis mass and colovaginal fistula, with takedown of end colostomy per Dr. Bowers s/p stenting of right ureter per Dr. Dela Cruz Intra-abdominal abscess with polymicrobial growth including MRSA, pseudomonas aeruginosa and citrobacter freundii. Anemia. Hypertension. Hyperlipidemia. Chronic hypercapnic respiratory failure; ROLO and O2 as needed GERD. CHF - diastolic - Echo 09/21/15 showed EF 55%; moderate TR and moderate PH. Restless leg syndrome. Anxiety and depression. Obesity with BMI 37. Chronic neck pain. Plan No further seizure activity. Would like to proceed with CT head when hemodynamically stable to proceed to do so. No focal neurological deficits by bedside exam. Persistent hypotension-central line placed today, CVP 6-7-fluid boluses being given. Anticipate improvement in both blood pressure and tachycardia with fluids. Continue Zosyn/vancomycin. Creatinine up slightly, follow with fluids. Discussed with nursing multiply throughout the day, discussed with Dr. Bowers. Critically ill-time in 1515, timeout 1547; time in 1731, timeout 1739. Hospital Course Summary Disclaimer: The visit summary below is not to be considered part of the above Progress Note. Hospital Course: 02/02/17 16:09 Impression Post op seizure like activity Post op Leukocytosis and thrombocytosis - stress response vs. infection s/p exploratory laparotomy with excision diverticulitis mass and colovaginal fistula, with takedown of end colostomy per Dr. Bowers s/p stenting of right ureter per Dr. Dela Cruz Intra-abdominal abscess with polymicrobial growth including MRSA, pseudomonas aeruginosa and citrobacter freundii. Anemia. Hypertension. Hyperlipidemia. Chronic hypercapnic respiratory failure; ROLO and O2 as needed GERD. CHF - diastolic - Echo 09/21/15 showed EF 55%; moderate TR and moderate PH. Restless leg syndrome. Anxiety and depression. Obesity with BMI 37. Chronic neck pain. Plan Place PICC Stat labs ordered - hgb stable. Lactate 11.8 - unable to determine if septic shock or if elevated lactate was from hypoperfusion (hypoxia; hypotension). She had well over 30 ml/kg IVF (89 kg x 30 mL = 2,670mL) sz precautions - Invanz may lower sz threshold; perhaps hypoxia d/t prolonged sx - consider neuro consult, head CT Abx changed to meropenem + vanco. BP was dangerously low but now improving - monitor closely as she still may need pressor support With IVF, need to monitor closely for fluid overload - measure I/O + weights. Hernandez; right ureteral stent mgt per urology. DNR status Dr. oSrensen d/w Dr. Pro. Critically ill. Time spent at bedside: 45 min. 02/03/17 09:25 POD #1 -No seizure activity since the initial one of less than 30 sec while in recovery phase post op. -Invanz cancelled as this does have a "caution/contraindication" of Seizure Hx. Zosyn and Vancomycin with pharmacy consult in place. -Urine output marginal, around 22-40/hr for the last 6-8 hours. Will give NS bolus due to marginal U/O and lower SBP -SBP tends to be in the 90's. will continue to monitor, continue fluids at 125/ hr for now. -NG without output, cannot see the tip on CXR, it appears to be out a long way, will have staff advance it 10-12 cm. -K+ upper limit of normal, although it was hemolyzed, will change IVF to D5 1/2 without K+, repeat labs. -Discussed case with Dr. Pro, he indicated we will continue to defer medical management to hospitalist team as long as pt is in CCU, he will likely ' pick her -up" when she transfers to surgical floor. 02/03/17 09:43 02/03/17 Franchesca No further seizure activity. Would like to proceed with CT head when hemodynamically stable to proceed to do so. No focal neurological deficits by bedside exam. Persistent hypotension-central line placed today, CVP 6-7-fluid boluses being given. Anticipate improvement in both blood pressure and tachycardia with fluids. Continue Zosyn/vancomycin. Creatinine up slightly, follow with fluids.
[2017-02-04] MEDS: D5-1/2NS 1,000 ML IV SCH ×3 (03:46→08:59)
[2017-02-04] MEDS: NS IV SCH ×3 (05:58→22:24)
[2017-02-04] MEDS: VASOPRESSIN IV SCH ×3 (05:58→22:24)
[2017-02-04] MEDS: PIPERACILLIN/TAZOBACTAM 3.375 GM in NS 100 ML IV SCH ×4 (05:58→23:43)
[2017-02-04] MEDS: SALINE FLUSH 10ml SYRINGE IV PRN ×3 (06:36→11:00)
[2017-02-04] MEDS: ALBUTEROL 2.5mg/3ml (0.083%) NEB AEROSOL SCH ×4 (07:06→20:26)
[2017-02-04] MEDS ORDERED: DiphenhydrAMINE 50 MG/ML INJECTION IVP ONE (07:23)
[2017-02-04] MEDS ORDERED: ACETAMINOPHEN 325 MG TABLET PO ONE (07:24)
--- NOTE | 2017-02-04 07:44 | General Surgery Progress Note ---
Subjective Narrative: Some confusion this morning, but did call both me and Dr. Pro by name. Vasopressin was started yesterday for BP support. Additional 2000 ml fluid bolused during the night. She remains tacky 100-120's, SBP about 90's this am. Urine output 35-70 ml/hr during the night. HGB this am 7.4 and 7.1 on redraw. IT was 11.0 yesterday. WBC coming down 16 today, 20.9 yesterday. K+ removed from fluids yesterday, and is currently 3.4. - Vital Signs Last Vital Signs Temp 99.6 F 02/04/17 04:15 Pulse 107 H 02/04/17 05:15 Resp 22 02/04/17 07:00 BP 89/52 02/04/17 05:15 Pulse Ox 96 02/04/17 07:00 - Laboratory Result Diagrams: 02/04/17 06:57 02/04/17 04:28 Laboratory Tests 02/02/17 02/02/17 02/02/17 05:59 15:38 15:38 WBC 9.0 29.3 H* D Hgb 12.1 11.7 L Potassium 3.9 02/03/17 02/03/17 02/03/17 06:01 06:01 18:24 WBC 20.9 H Hgb 11.0 L Potassium 5.0 D 3.7 D 02/04/17 02/04/17 02/04/17 04:28 04:28 06:57 WBC 16.0 H Hgb 7.4 L D 7.1 L Potassium 3.4 L - Abnormal Exam General: confused, mild distress (anxiety) Cardiovascular: other (tachy 100-120's) Abdominal: obese, hypoactive bowel sounds (gurgling) - Normal Exam Abdominal: soft, appropriately tender, incision(s) (midline dressing lifted, dressing dry) Assessment and Plan (1) Status post colostomy takedown Current Visit: Yes Status: Acute (2) Status post partial resection of colon Current Visit: Yes Status: Acute (3) Seizure Current Visit: Yes Status: Acute Problem details: Postoperative (4) Leukocytosis Current Visit: No Status: Acute Qualifiers: Leukocytosis type: bandemia Qualified Code(s): D72.825 - Bandemia (5) Obesity (BMI 30-39.9) Current Visit: No Status: Chronic (6) Acute blood loss as cause of postoperative anemia Current Visit: Yes Status: Acute (7) Hypotension Current Visit: Yes Status: Acute Qualifiers: Hypotension type: postprocedural hypotension Qualified Code(s): I95.81 - Postprocedural hypotension (8) Hypokalemia Current Visit: Yes Status: Acute Plan: With drop in HGB, tachycardia, hypotension, and requiring vasopressin and fluid bolus during the night, 1 unit PRBC orderd, repeat HGB after 1st unit, may need a 2nd. WBC 16.0, 20.9 yesterday Serum Creatinine back down to 1.0. from 1.2 yesterday CANDACE with serosanguineous fluid, not ivy blood. Fluid from Right CANDACE sent for creatinine, this is send out to [facility] and should be available by later this evening or tomorrow morning. No flatus yet, but there are hypoactive but reasonable bowel sounds. Will ask about TPN. K+ 3.4, down from 5.0 yesterday, K+ removed from IVF yesterday, IVF changed this am to NS with 20 KCla Hospital Course Summary Disclaimer: The visit summary below is not to be considered part of the above Progress Note. Hospital Course: 02/02/17 16:09 Impression Post op seizure like activity Post op Leukocytosis and thrombocytosis - stress response vs. infection s/p exploratory laparotomy with excision diverticulitis mass and colovaginal fistula, with takedown of end colostomy per Dr. Bowers s/p stenting of right ureter per Dr. Dela Cruz Intra-abdominal abscess with polymicrobial growth including MRSA, pseudomonas aeruginosa and citrobacter freundii. Anemia. Hypertension. Hyperlipidemia. Chronic hypercapnic respiratory failure; ROLO and O2 as needed GERD. CHF - diastolic - Echo 09/21/15 showed EF 55%; moderate TR and moderate PH. Restless leg syndrome. Anxiety and depression. Obesity with BMI 37. Chronic neck pain. Plan Place PICC Stat labs ordered - hgb stable. Lactate 11.8 - unable to determine if septic shock or if elevated lactate was from hypoperfusion (hypoxia; hypotension). She had well over 30 ml/kg IVF (89 kg x 30 mL = 2,670mL) sz precautions - Invanz may lower sz threshold; perhaps hypoxia d/t prolonged sx - consider neuro consult, head CT Abx changed to meropenem + vanco. BP was dangerously low but now improving - monitor closely as she still may need pressor support With IVF, need to monitor closely for fluid overload - measure I/O + weights. Hernandez; right ureteral stent mgt per urology. DNR status Dr. Sorensen d/w Dr. Pro. Critically ill. Time spent at bedside: 45 min. 02/03/17 09:25 POD #1 -No seizure activity since the initial one of less than 30 sec while in recovery phase post op. -Invanz cancelled as this does have a "caution/contraindication" of Seizure Hx. Zosyn and Vancomycin with pharmacy consult in place. -Urine output marginal, around 22-40/hr for the last 6-8 hours. Will give NS bolus due to marginal U/O and lower SBP -SBP tends to be in the 90's. will continue to monitor, continue fluids at 125/ hr for now. -NG without output, cannot see the tip on CXR, it appears to be out a long way, will have staff advance it 10-12 cm. -K+ upper limit of normal, although it was hemolyzed, will change IVF to D5 1/2 without K+, repeat labs. -Discussed case with Dr. Pro, he indicated we will continue to defer medical management to hospitalist team as long as pt is in CCU, he will likely ' pick her -up" when she transfers to surgical floor. 02/03/17 09:43 02/03/17 Franchesca No further seizure activity. Would like to proceed with CT head when hemodynamically stable to proceed to do so. No focal neurological deficits by bedside exam. Persistent hypotension-central line placed today, CVP 6-7-fluid boluses being given. Anticipate improvement in both blood pressure and tachycardia with fluids. Continue Zosyn/vancomycin. Creatinine up slightly, follow with fluids. 02/04/17 08:11 Some confusion this morning, but did call both me and Dr. Pro by name. Vasopressin was started yesterday for BP support. Additional 2000 ml fluid bolused during the night. She remains tacky 100-120's, SBP about 90's this am. Urine output 35-70 ml/hr during the night. HGB this am 7.4 and 7.1 on redraw. IT was 11.0 yesterday. WBC coming down 16 today, 20.9 yesterday. K+ removed from fluids yesterday, and is currently 3.4 With drop in HGB, tachycardia, hypotension, and requiring vasopressin and fluid bolus during the night, 1 unit PRBC orderd, repeat HGB after 1st unit, may need a 2nd. WBC 16.0, 20.9 yesterday Serum Creatinine back down to 1.0. from 1.2 yesterday CANDACE with serosanguineous fluid, not ivy blood. Fluid from Right CANDACE sent for creatinine, this is send out to [facility] and should be available by later this evening or tomorrow morning. No flatus yet, but there are hypoactive but reasonable bowel sounds. Will ask about TPN. K+ 3.4, down from 5.0 yesterday, K+ removed from IVF yesterday, IVF changed this am to NS with 20 KCla 02/04/17 08:13
[2017-02-04] MEDS: PANTOPRAZOLE 40 MG INJECTION IVP SCH (08:00)
--- NOTE | 2017-02-04 08:00 | Operative Note ---
DATE OF SERVICE 02/03/2017 SURGEON Alejandro Bowers MD PREOPERATIVE DIAGNOSIS Inadequate peripheral IV access. Need for central venous access to facilitate inotropic/antibiotic therapy. POSTOPERATIVE DIAGNOSIS Inadequate peripheral IV access. Need for central venous access to facilitate inotropic/antibiotic therapy. PROCEDURE Insertion of triple-lumen catheter under sonographic guidance. ANESTHESIA Local. DESCRIPTION OF PROCEDURE After informed consent was obtained the right lateral neck was prepped and draped in sterile fashion. Ultrasonography was performed and one could then see the anatomic location of the internal jugular vein. 1% lidocaine was then injected overlying the anatomic location of the internal jugular vein. Cook needle was then introduced through the area of analgesia and subsequently into the underlying internal jugular vein under sonographic guidance. Venous flush was obtained. Guidewire was advanced with the Cook needle and the Cook needle was then removed. A small incision was then made adjacent to exit site of the guidewire. Dilator was then advanced over the guidewire. Next, a flushed triple-lumen catheter was advanced over the guidewire. Guidewire was then removed. All ports were then aspirated and flushed with heparinized saline. Catheter was then fixated to the right lateral neck. The patient tolerated the procedure without difficulty. Postprocedure chest x-ray has been ordered. Results are pending at the time of dictation. [facility]
--- NOTE | 2017-02-04 08:12 | XRay Report ---
Indication: post central line insertion PROCEDURE: XR chest 1V: Encounter: Initial Comparison: February 03, 2017 Findings: New right IJ central venous catheter tip projects over the right atrium. Nasogastric tube remains coiled in the stomach. Lungs are hypoinflated with basilar atelectasis and areas of patchy bilateral lower lobe and right upper lobe consolidation. Patient is rotated. Heart size and mediastinal contours are grossly stable. Pulmonary vascularity is mildly congested. No pneumothorax. Right-sided surgical drains noted. Right-sided ureteral catheter noted. Impression: New right IJ line tip projects over the right atrium. There is a preliminary report by virtual [facility]. .
--- NOTE | 2017-02-04 08:42 | XRay Report ---
Indication: hypoxia PROCEDURE: XR chest 1V: Encounter: Initial Comparison: January 14, 2017 Findings: Right IJ line remains in place. Nasogastric tube is stable in appearance. Improving aeration of the lungs with decreasing basilar atelectasis. There is continued airspace consolidation in the medial right upper lobe. No pneumothorax. Small left effusion. Heart size and mediastinal contours are stable. Pulmonary vascularity appears normal. Impression: Improving atelectasis. .
[2017-02-04] MEDS: NS with KCL 20 mEq 1,000 ML IV SCH ×2 (09:07→18:13)
--- NOTE | 2017-02-04 13:27 | Progress Note ---
DATE 02/04/2017 FINDINGS Ms. Magdaleno was awake and alert this morning and conversant. Apparently, prior my arrival, she was a little more somnolent. VITALS: Afebrile. Remains slightly tachycardic and hypotensive. Last recorded vitals include temperature 99.6, pulse 107, blood pressure 89/52, SaO2 97% on 1 liter per nasal cannula.. CHEST: Clear to auscultation bilaterally. HEART: Regular rate and rhythm. Normal S1 and S2 without gallops, murmurs or clicks. ABDOMEN: Palpation of the abdomen reveals some incisional tenderness. I did not appreciate any evidence for involuntary guarding or rebound tenderness. CANDACE drainage continues to somewhat serosanguineous in nature. LABORATORY/RADIOGRAPH EVALUATION The patient's hemoglobin has precipitously decreased from 11.0 yesterday now down to 7.1. Her white count is on a downward trend at 16.0. Does have left shift with 91% neutrophils. CMP was obtained. Calcium is slightly low at 3.4. BUN is slightly improved at 18.0. ASSESSMENT 76-year-old female status post takedown of end colostomy, sigmoid/low anterior resection with coloproctostomy. The patient remains critically ill. PLAN The patient remains on inotropic support with vasopressin. I am little concerned that her hemoglobin has drifted downward from 11 down to 7. The patient has received a moderate amount of fluids. Her CANDACE drainage does not appear to be frankly bloody in nature. Will go ahead and transfuse 1 unit of blood and recheck hemoglobin. Continue with broad-spectrum antibiotic coverage. Overall patient is stable, but I do feel that her prognosis is somewhat guarded. CARMINE
[2017-02-04] MEDS ORDERED: TPN - PHARMACY CONSULT MC ONE (16:02)
--- NOTE | 2017-02-04 16:08 | Progress Note ---
- Date 02/04/17 Subjective: Suzy reports her abdomen is sore and that she's had some nausea but no vomiting. She reports having flatus this morning. Suzy denies chest pain or palpitations and confirms no history of seizures. Ongoing hematuria with drift in hemoglobin progressively prompting transfusion today. Nursing describes some confusion overnight, minimal drainage per NG (pulled out this am inadvertently), one of 3 drains abdominal drains continues to have some drainage. Remains on vasopressin for blood pressure control. Objective Vital signs: Temperature 97.2 F 02/04/17 12:00 Pulse Rate 104 H 02/04/17 12:15 Respiratory Rate 18 02/04/17 12:15 Blood Pressure 92/58 02/04/17 12:15 Pulse Oximetry 97 -1 L 02/04/17 12:15 I/O 5087/1014 Weight up 6 kg from admission CVP 5 (has been running about 5 throughout the day) NAD, responds to questions appropriately at present, oriented 3, able to tell me why she is hospitalized Conjunctiva clear, conjugate gaze, oropharynx clear although membranes are dry Respirations nonlabored, decreased air flow laterally/bases otherwise clear Regular rhythm, S1-S2, low-grade tachycardia Abdomen soft, sparse bowel sounds present, tender to light palpation +2 edema Student Outreach Coordinator strong bilaterally, dorsiflexion symmetric and strong Rhythm: Sinus Tachycardia Height/Weight/BMI: Height 1.55 m Weight 95 kg Body Mass Index 37.0 Results - Labs CBC & Chem 7: 02/04/17 11:28 02/04/17 04:28 Labs: WBC 16.0 with S91 B5 L1 M3 Using 2.1, phosphorus 3.2, albumin 2.1, procalcitonin 1.79 - ABG Interpretation ABG results: 02/02/17 18:36 ABG pH 7.310 L ABG pCO2 39 ABG pO2 92 ABG HCO3 20 L ABG Total CO2 20.8 L ABG O2 Saturation 96.0 ABG Base Excess -6.2 L - Imaging and Cardiology Chest x-ray Status: image reviewed by me (lung gonzalez clear) Assessment and Plan (1) Seizure Problem details: Postoperative Current visit: Yes Status: Acute (2) Hypotension Current visit: Yes Status: Acute Assessment and Plan: Impression Post op seizure like activity Hypotension with tachycardia Post op Leukocytosis and thrombocytosis - stress response vs. infection s/p exploratory laparotomy with excision diverticulitis mass and colovaginal fistula, with takedown of end colostomy per Dr. Bowers s/p stenting of right ureter per Dr. Dela Cruz Intra-abdominal abscess with polymicrobial growth including MRSA, pseudomonas aeruginosa and citrobacter freundii. Anemia-postoperative/chronic. Hypertension. Hyperlipidemia. Chronic hypercapnic respiratory failure; ROLO and O2 as needed GERD. CHF - diastolic - Echo 09/21/15 showed EF 55%; moderate TR and moderate PH. Restless leg syndrome. Anxiety and depression. Obesity with BMI 37. Chronic neck pain. Hypokalemia Plan No further seizure activity. Would like to proceed with CT head when hemodynamically stable to proceed to do so. No focal neurological deficits by bedside exam. Persistent hypotension, remains on vasopressin, CVP 5. Convert fluids and NS with additional volume to be given. Initiate TPN-discussed with Dr. Bowers. 2 units PRBCs earlier today, hemoglobin 7.1-7.5-8.3. Potassium being reevaluated following blood transfusions, if remains low will supplement further. Continue Zosyn/vancomycin. Home CPAP now available for nighttime use. Discussed with nursing multiply throughout the day, discussed with Dr. Bowers ; family updated. Critically ill/hemodynamically unstable-time in 1545, time out 1624. Resuscitation Status: Do Not Resuscitate Hospital Course Summary Disclaimer: The visit summary below is not to be considered part of the above Progress Note. Hospital Course: 02/02/17 16:09 Impression Post op seizure like activity Post op Leukocytosis and thrombocytosis - stress response vs. infection s/p exploratory laparotomy with excision diverticulitis mass and colovaginal fistula, with takedown of end colostomy per Dr. Bowers s/p stenting of right ureter per Dr. Dela Cruz Intra-abdominal abscess with polymicrobial growth including MRSA, pseudomonas aeruginosa and citrobacter freundii. Anemia. Hypertension. Hyperlipidemia. Chronic hypercapnic respiratory failure; ROLO and O2 as needed GERD. CHF - diastolic - Echo 09/21/15 showed EF 55%; moderate TR and moderate PH. Restless leg syndrome. Anxiety and depression. Obesity with BMI 37. Chronic neck pain. Plan Place PICC Stat labs ordered - hgb stable. Lactate 11.8 - unable to determine if septic shock or if elevated lactate was from hypoperfusion (hypoxia; hypotension). She had well over 30 ml/kg IVF (89 kg x 30 mL = 2,670mL) sz precautions - Invanz may lower sz threshold; perhaps hypoxia d/t prolonged sx - consider neuro consult, head CT Abx changed to meropenem + vanco. BP was dangerously low but now improving - monitor closely as she still may need pressor support With IVF, need to monitor closely for fluid overload - measure I/O + weights. Hernandez; right ureteral stent mgt per urology. DNR status Dr. Sorensen d/w Dr. Pro. Critically ill. Time spent at bedside: 45 min. 02/03/17 09:25 POD #1 -No seizure activity since the initial one of less than 30 sec while in recovery phase post op. -Invanz cancelled as this does have a "caution/contraindication" of Seizure Hx. Zosyn and Vancomycin with pharmacy consult in place. -Urine output marginal, around 22-40/hr for the last 6-8 hours. Will give NS bolus due to marginal U/O and lower SBP -SBP tends to be in the 90's. will continue to monitor, continue fluids at 125/ hr for now. -NG without output, cannot see the tip on CXR, it appears to be out a long way, will have staff advance it 10-12 cm. -K+ upper limit of normal, although it was hemolyzed, will change IVF to D5 1/2 without K+, repeat labs. -Discussed case with Dr. Pro, he indicated we will continue to defer medical management to hospitalist team as long as pt is in CCU, he will likely ' pick her -up" when she transfers to surgical floor. 02/03/17 09:43 02/03/17 Franchesca No further seizure activity. Would like to proceed with CT head when hemodynamically stable to proceed to do so. No focal neurological deficits by bedside exam. Persistent hypotension-central line placed today, CVP 6-7-fluid boluses being given. Anticipate improvement in both blood pressure and tachycardia with fluids. Continue Zosyn/vancomycin. Creatinine up slightly, follow with fluids. 02/04/17 08:11 Some confusion this morning, but did call both me and Dr. Pro by name. Vasopressin was started yesterday for BP support. Additional 2000 ml fluid bolused during the night. She remains tacky 100-120's, SBP about 90's this am. Urine output 35-70 ml/hr during the night. HGB this am 7.4 and 7.1 on redraw. IT was 11.0 yesterday. WBC coming down 16 today, 20.9 yesterday. K+ removed from fluids yesterday, and is currently 3.4 With drop in HGB, tachycardia, hypotension, and requiring vasopressin and fluid bolus during the night, 1 unit PRBC orderd, repeat HGB after 1st unit, may need a 2nd. WBC 16.0, 20.9 yesterday Serum Creatinine back down to 1.0. from 1.2 yesterday CANDACE with serosanguineous fluid, not ivy blood. Fluid from Right CANDACE sent for creatinine, this is send out to [facility] and should be available by later this evening or tomorrow morning. No flatus yet, but there are hypoactive but reasonable bowel sounds. Will ask about TPN. K+ 3.4, down from 5.0 yesterday, K+ removed from IVF yesterday, IVF changed this am to NS with 20 KCla 02/04/17 Franchesca No further seizure activity. Would like to proceed with CT head when hemodynamically stable to proceed to do so. No focal neurological deficits by bedside exam. Persistent hypotension, remains on vasopressin, CVP 5. Convert fluids and NS with additional volume to be given. Initiate TPN-discussed with Dr. Bowers. 2 units PRBCs earlier today, hemoglobin 7.1-7.5-8.3.
--- NOTE | 2017-02-04 17:13 | Pharmacy Consult-TPN/PPN ---
Pharmacy Consult-TPN/PPN - Laboratory Information Chemistry Turbidity < 20 (0-20) 02/04/17 16:29 Sodium 144 MEQ/L (134-144) 02/04/17 16:29 Potassium 3.2 MEQ/L (3.6-5) L 02/04/17 16:29 Chloride 115 MEQ/L (98-107) H 02/04/17 16:29 Carbon Dioxide 24 MEQ/L (22-30) 02/04/17 16:29 Anion Gap 5 MEQ/L (5-15) 02/04/17 16:29 BUN 14.0 MG/DL (7-17) 02/04/17 16:29 Creatinine 0.8 MG/DL (0.7-1.2) D 02/04/17 16:29 GFR Calculation 70 02/04/17 16:29 BUN/Creatinine Ratio 18 RATIO (6-26) 02/04/17 16:29 Glucose 102 MG/DL (65-110) 02/04/17 16:29 Glucometer 112 mg/dL (65-110) 02/04/17 11:22 Calculated Osmolality 278 MOSM/KG (261-280) 02/04/17 16:29 Calcium 7.1 MG/DL (8.4-10.2) L 02/04/17 16:29 Phosphorus 3.2 MG/DL (2.5-4.5) 02/04/17 04:28 Magnesium 2.1 MG/DL (1.6-2.3) 02/04/17 04:28 Total Bilirubin 0.80 MG/DL (0.20-1.30) 02/02/17 15:38 Icterus Index < 2 (0-7) 02/04/17 16:29 AST 22 U/L (14-36) 02/02/17 15:38 ALT 19 U/L (9-52) 02/02/17 15:38 Alkaline Phosphatase 82 U/L (38-126) D 02/02/17 15:38 Total Protein 6.7 G/DL (6.3-8.2) 02/02/17 15:38 Albumin 2.1 G/DL (3.5-5.0) L 02/04/17 04:28 Globulin 3.6 G/DL (2.4-3.6) 02/02/17 15:38 Albumin/Globulin Ratio 0.9 RATIO (1.1-2.2) L 02/02/17 15:38 Plasma Lactate 2.8 MMOL/L (0.6-2.2) H 02/03/17 06:01 Procalcitonin 1.79 NG/ML 02/04/17 11:28 Specimen Hemolysis < 15 (0-25) 02/04/17 16:29 Intake and Output 02/03/17 02/04/17 02/05/17 06:59 06:59 06:59 Intake Total 7932.917 / 7932.917 5087.016 / 5087.016 1383.000 / 1383.000 Output Total 776 / 776 1014 / 1014 918 / 918 Balance 7156.917 / 7156.917 4073.016 / 4073.016 465.000 / 465.000 Weight 91.4 kg 95 kg Intake: IV 7172.917 / 7172.917 4987.016 / 4987.016 1076.000 / 1076.000 D5-1/2NS with KCL 20mEq 1 672.917 / 672.917 320.833 / 320.833 ,000 ml @ 125 mls/hr IV . Q8H VASILIY Rx#:[id number] D5-1/2Ns 1,000 ml @ 125 983.333 / 983.333 0 / 0 mls/hr IV .Q8H VASILIY Rx#: [id number] Ertapenem 1 g In Ns 100 100 / 100 ml @ 200 mls/hr IV PREOP ONE Rx#:[id number] Lr 1,000 ml @ 30 mls/hr 4700 / 4700 IV .Q24H VASILIY Rx#: [id number] NS 500ml 500 ml @ 250 mls 500.000 / 500.000 /hr IV .Q2H VASILIY Rx#: [id number] NS with KCL 20 mEq 1,000 495.000 / 495.000 ml @ 100 mls/hr IV .Q10H VASILIY Rx#:[id number] Ns 1,000 ml @ 250 mls/hr 1000.000 / 1650.730 3363.000 / 2000.000 IV .Q4H ONE Rx#: [id number] Piperacillin/Tazobactam 3 200 / 200 500 / 500 .375 gm In Ns 100 ml @ 200 mls/hr IV Q6H VASILIY Rx# :[id number] Vancomycin 1,750 mg In NS 500.000 / 500.000 500 / 500 500.000 / 500.000 500ml 500 ml @ 250 mls/ hr IV Q18H VASILIY Rx#: [id number] Vasopressin 20 unit In Ns 182.85 / 182.85 81.0 / 81.0 100 ml @ 0.03 UNIT/MIN 9 mls/hr IV .Q11H7M VASILIY Rx #:[id number] Intake, Gastric Tube 60 / 60 100 / 100 40 / 40 Irrigant Amount Left Nare 60 / 60 100 / 100 40 / 40 Intake (Blood Product) 267 / 267 Amt Intake, Catheter Irrigant 700 / 700 Amount Urethral 700 / 700 Output: Urine Amount (Catheter) 524 / 524 759 / 759 835 / 835 Gastric Drainage 100 / 100 100 / 100 Left Nare 100 / 100 100 / 100 Wound Drainage 152 / 152 155 / 155 83 / 83 Left Abdomen 0 / 0 25 / 25 18 / 18 Left Lower Abdomen 10 / 10 Right Abdomen 142 / 142 130 / 130 65 / 65 Other: Urine Appearance Cloudy Cloudy Sediment Ureter Left Cloudy Ureter Right Cloudy Urethral Clear Urine Color Tea Colored Dark [place] Ureter Left [place] Ureter Right [place] Urethral Yellow Drain Type Left Abdomen Bulb [place] Bulb [place] Bulb [place] Left Lower Abdomen Bulb [place] Right Abdomen Bulb [place] Bulb [place] Bulb [place] # Voids 1 - Consult Information Consult noted to begin TPN on Ms Magdaleno, who is 76 years old and is a s/p sigmoid resection. She has not received any nutrition since the weekend. Will start a standard TPN with an extra 40meq of potassium acetate at half rate of 40 mls/hr for the first day, then to goal rate of 80 mls/hr on day 2. Will continue to monitor and adjust the formula accordingly. Thank you.
[2017-02-04] MEDS ORDERED: POTASSIUM CHLORIDE INJ 20 MEQ in NS 1,000 ML IV ONE (17:21)
[2017-02-04] MEDS ORDERED: POTASSIUM ACETATE IV SCH (18:00)
[2017-02-04] MEDS ORDERED: MULTI VIT INFUSION IV SCH (18:00)
[2017-02-04] MEDS ORDERED: MULTI TRACE ELEMENTS IV SCH (18:00)
[2017-02-04] MEDS ORDERED: [UNRECOGNIZED DRUG - OTHER] IV SCH (18:00)
[2017-02-04] MEDS: HALOPERIDOL 5 MG/ML INJECTION IVP PRN (21:22)
[2017-02-04] MEDS ORDERED: NS with KCL 20 mEq 1,000 ML IV SCH (23:00)
[2017-02-05] MEDS: HALOPERIDOL 5 MG/ML INJECTION IVP PRN ×2 (01:05→05:00)
[2017-02-05] MEDS: SALINE FLUSH 10ml SYRINGE IV PRN ×4 (04:53→17:46)
[2017-02-05] MEDS: PIPERACILLIN/TAZOBACTAM 3.375 GM in NS 100 ML IV SCH ×4 (04:53→23:08)
[2017-02-05] MEDS ORDERED: SCOPOLAMINE PATCH REMOVAL TD SCH (07:15)
[2017-02-05] MEDS: ALBUTEROL 2.5mg/3ml (0.083%) NEB AEROSOL SCH ×4 (07:24→21:37)
[2017-02-05] MEDS: PANTOPRAZOLE 40 MG INJECTION IVP SCH (08:36)
--- NOTE | 2017-02-05 10:40 | General Surgery Progress Note ---
Subjective Narrative: She is more lethargic this morning, but did deny pain when asked, and denies flatus and stated she "wished she could have some." She drifts back to sleep quickly. She had 2 units PRBC yestereday, HGB went up to 8.3 and has drifted down to 7.7 this am. Urine output is good at around 75-150/hr. SBP better, around 110's - 120 and pulse better in the low 100's compared to 120 's yesterday. TPN has been started. - Vital Signs Last Vital Signs Temp 98.2 F 02/05/17 09:00 Pulse 104 H 02/05/17 09:00 Resp 18 02/05/17 09:00 BP 104/57 02/05/17 09:00 Pulse Ox 94 02/05/17 09:00 - Laboratory Result Diagrams: 02/05/17 04:59 02/05/17 04:59 - Abnormal Exam General: confused Abdominal: obese, hypoactive bowel sounds (gurgling) - Normal Exam Cardiovascular: regular rhythm, regular rate Respiratory: no labored breathing (O2 at 1LNC sat 96%) Abdominal: soft, appropriately tender, incision(s) (CDI) Assessment and Plan (1) Status post colostomy takedown Current Visit: Yes Status: Acute (2) Status post partial resection of colon Current Visit: Yes Status: Acute (3) Seizure Current Visit: Yes Status: Acute Problem details: Postoperative (4) Leukocytosis Current Visit: No Status: Acute Qualifiers: Leukocytosis type: bandemia Qualified Code(s): D72.825 - Bandemia (5) Obesity (BMI 30-39.9) Current Visit: No Status: Chronic (6) Acute blood loss as cause of postoperative anemia Current Visit: Yes Status: Acute (7) Hypotension Current Visit: Yes Status: Acute Qualifiers: Hypotension type: postprocedural hypotension Qualified Code(s): I95.81 - Postprocedural hypotension (8) Hypokalemia Current Visit: Yes Status: Acute Plan: She is still quite ill, but improving. Will repeat HGB at noon today. Agree with TPN. Start clear liquids cautiously. Daily labs Hospital Course Summary Disclaimer: The visit summary below is not to be considered part of the above Progress Note. Hospital Course: 02/02/17 16:09 Impression Post op seizure like activity Post op Leukocytosis and thrombocytosis - stress response vs. infection s/p exploratory laparotomy with excision diverticulitis mass and colovaginal fistula, with takedown of end colostomy per Dr. Bowers s/p stenting of right ureter per Dr. Dela Cruz Intra-abdominal abscess with polymicrobial growth including MRSA, pseudomonas aeruginosa and citrobacter freundii. Anemia. Hypertension. Hyperlipidemia. Chronic hypercapnic respiratory failure; ROLO and O2 as needed GERD. CHF - diastolic - Echo 09/21/15 showed EF 55%; moderate TR and moderate PH. Restless leg syndrome. Anxiety and depression. Obesity with BMI 37. Chronic neck pain. Plan Place PICC Stat labs ordered - hgb stable. Lactate 11.8 - unable to determine if septic shock or if elevated lactate was from hypoperfusion (hypoxia; hypotension). She had well over 30 ml/kg IVF (89 kg x 30 mL = 2,670mL) sz precautions - Invanz may lower sz threshold; perhaps hypoxia d/t prolonged sx - consider neuro consult, head CT Abx changed to meropenem + vanco. BP was dangerously low but now improving - monitor closely as she still may need pressor support With IVF, need to monitor closely for fluid overload - measure I/O + weights. Hernandez; right ureteral stent mgt per urology. DNR status Dr. Sorensen d/w Dr. Pro. Critically ill. Time spent at bedside: 45 min. 02/03/17 09:25 POD #1 -No seizure activity since the initial one of less than 30 sec while in recovery phase post op. -Invanz cancelled as this does have a "caution/contraindication" of Seizure Hx. Zosyn and Vancomycin with pharmacy consult in place. -Urine output marginal, around 22-40/hr for the last 6-8 hours. Will give NS bolus due to marginal U/O and lower SBP -SBP tends to be in the 90's. will continue to monitor, continue fluids at 125/ hr for now. -NG without output, cannot see the tip on CXR, it appears to be out a long way, will have staff advance it 10-12 cm. -K+ upper limit of normal, although it was hemolyzed, will change IVF to D5 1/2 without K+, repeat labs. -Discussed case with Dr. Pro, he indicated we will continue to defer medical management to hospitalist team as long as pt is in CCU, he will likely ' pick her -up" when she transfers to surgical floor. 02/03/17 09:43 02/03/17 Franchesca No further seizure activity. Would like to proceed with CT head when hemodynamically stable to proceed to do so. No focal neurological deficits by bedside exam. Persistent hypotension-central line placed today, CVP 6-7-fluid boluses being given. Anticipate improvement in both blood pressure and tachycardia with fluids. Continue Zosyn/vancomycin. Creatinine up slightly, follow with fluids. 02/04/17 08:11 Surgery Some confusion this morning, but did call both me and Dr. Pro by name. Vasopressin was started yesterday for BP support. Additional 2000 ml fluid bolused during the night. She remains tacky 100-120's, SBP about 90's this am. Urine output 35-70 ml/hr during the night. HGB this am 7.4 and 7.1 on redraw. IT was 11.0 yesterday. WBC coming down 16 today, 20.9 yesterday. K+ removed from fluids yesterday, and is currently 3.4 With drop in HGB, tachycardia, hypotension, and requiring vasopressin and fluid bolus during the night, 1 unit PRBC orderd, repeat HGB after 1st unit, may need a 2nd. WBC 16.0, 20.9 yesterday Serum Creatinine back down to 1.0. from 1.2 yesterday CANDACE with serosanguineous fluid, not ivy blood. Fluid from Right CANDACE sent for creatinine, this is send out to [facility] and should be available by later this evening or tomorrow morning. No flatus yet, but there are hypoactive but reasonable bowel sounds. Will ask about TPN. K+ 3.4, down from 5.0 yesterday, K+ removed from IVF yesterday, IVF changed this am to NS with 20 KCla 02/04/17 Franchesca No further seizure activity. Would like to proceed with CT head when hemodynamically stable to proceed to do so. No focal neurological deficits by bedside exam. Persistent hypotension, remains on vasopressin, CVP 5. Convert fluids and NS with additional volume to be given. Initiate TPN-discussed with Dr. Bowers. 2 units PRBCs earlier today, hemoglobin 7.1-7.5-8.3. 02/05/17 10:40 Surgery She is more lethargic this morning, but did deny pain when asked, and denies flatus and stated she "wished she could have some." She drifts back to sleep quickly. She had 2 units PRBC yestereday, HGB went up to 8.3 and has drifted down to 7.7 this am. Urine output is good at around 75-150/hr. SBP better, around 110's - 120 and pulse better in the low 100's compared to 120 's yesterday. TPN has been started. Repeat HGB at noon today. 02/05/17 10:43
[2017-02-05] MEDS: NS IV SCH ×2 (14:22→22:49)
[2017-02-05] MEDS: VASOPRESSIN IV SCH ×2 (14:22→22:49)
--- NOTE | 2017-02-05 16:20 | Progress Note ---
DATE OF SERVICE 02/05/2017 FINDINGS Ms. Magdaleno was resting upon entering her ICU room this afternoon. She did awaken and answer questions appropriately. She states that her abdominal pain is improving. She states that she has been up in the chair today. She is requesting liquids. She denies nausea. PHYSICAL EXAM VITAL SIGNS: Afebrile, normotensive. The patient remains slightly tachycardic. Vasopressin has been recently DC'd and the patient is normotensive. For details regarding vitals please refer to EMR.. PHYSICAL EXAM CHEST: Clear to auscultation bilaterally. HEART: Regular rate and rhythm. Normal S1 and S2 without gallops, murmurs or clicks. ABDOMEN: Palpation of the abdomen reveals it to be soft with minimal incisional tenderness. There was no evidence for guarding or rebound. CANDACE drainage has been minimal. LABORATORY/RADIOGRAPHIC EVALUATION The patient had a CBC today and her hemoglobin has remained stable at 7.9. White count has returned to normal at 9.7. Still has a slight left shift with 87% neutrophils. BMP obtained and found to be without marked abnormalities. Slight component of hypokalemia with potassium 3.4. ASSESSMENT 76-year-old female status post takedown of end colostomy, sigmoid resection, extensive adhesiolysis, coloproctostomy, repair of iatrogenic right ureteral injury. Patient showing clinical improvement today. PLAN I am pleased to see the patient is clinically improving. She has now been weaned off her ionotropic support. Her leukocytosis is improving. Will place the patient on clear liquids. She has been placed on hyperalimentation as well. Continue with ongoing antibiotic therapy given the phlegmonous process that was present at the time of her surgery. Otherwise, continue with current care and continue to follow closely. CARMINE
[2017-02-05] MEDS: FAT EMULSION 20% 100 ML IV SCH (17:54)
[2017-02-05] MEDS: POTASSIUM ACETATE IV SCH (18:54)
[2017-02-05] MEDS: MULTI TRACE ELEMENTS IV SCH (18:54)
[2017-02-05] MEDS: MULTI VIT INFUSION IV SCH (18:54)
[2017-02-05] MEDS: [UNRECOGNIZED DRUG - OTHER] IV SCH (18:54)
[2017-02-05] MEDS: ONDANSETRON 4 MG/2 ML INJECTION IVP PRN (19:41)
--- NOTE | 2017-02-05 21:22 | Progress Note ---
- Date 02/05/17 Subjective: Mrs. Magdaleno had a difficult night with frequent hallucinations and little sleep. She slept much of the early part of the day but was up in a chair when I saw her at about 6 PM. She is aware of the hallucination she experienced in hopes not to have trouble again tonight. She denied dyspnea and reports having only minimal cough. She reports having minor nausea but no vomiting and is asking for additional fluids at the time of my assessment. She reports her abdomen is sore and that she is passing gas but has not had a bowel movement. She complains that her legs are jerking from restless leg syndrome. She continues to require low flow oxygen but has weaned off vasopressin. Objective Vital signs: Temperature 98.7 F 02/05/17 15:01 Pulse Rate 120 H 02/05/17 21:00 Respiratory Rate 26 H 02/05/17 21:00 Blood Pressure 125/76 02/05/17 21:00 Pulse Oximetry 96 02/05/17 21:00 I/O 4116/2903 Weight up 8-1/2 kg from admission CVP 9-10 today EXAM General-NAD, alert HEENT-thrush present on tongue, conjugate gaze, sclera anicteric Lungs-respirations nonlabored, good airflow, breath sounds clear anteriorly except left base laterally which is diminished Cardiac-regular rhythm, S1-S2, low-grade tachycardia-heart rate low 100s Abd-abdomen soft with active bowel sounds present Ext-+1 edema hands, trace edema bilateral lower extremities Neuro-occasional myoclonic jerking noted lower extremities, MAEW/symmetrically Psych-calm, cooperative, oriented to Pierre - Rhythm: Sinus Tachycardia Height/Weight/BMI: Height 1.55 m Weight 97.3 kg Body Mass Index 37.0 Results - Labs CBC & Chem 7: 02/05/17 11:34 02/05/17 04:59 Labs: White count 9.7 with S87 B2 L11 Vancomycin trough 19.25 Assessment and Plan (1) Seizure Problem details: Postoperative Current visit: Yes Status: Acute (2) Hypotension Current visit: Yes Status: Acute Assessment and Plan: Impression Post op seizure like activity Hypotension with tachycardia Post op Leukocytosis and thrombocytosis - stress response vs. infection s/p exploratory laparotomy with excision diverticulitis mass and colovaginal fistula, with takedown of end colostomy per Dr. Bowers s/p stenting of right ureter per Dr. Dela Cruz Intra-abdominal abscess with polymicrobial growth including MRSA, pseudomonas aeruginosa and citrobacter freundii. Anemia-postoperative/chronic-2 u PRBC 02/04 Hypertension. Hyperlipidemia. Chronic hypercapnic respiratory failure; ROLO and O2 as needed GERD. CHF - diastolic - Echo 09/21/15 showed EF 55%; moderate TR and moderate PH. Restless leg syndrome. Anxiety and depression. Obesity with BMI 37. Chronic neck pain. Hypokalemia Thrush-02/05 Plan No further seizure activity. CT head tomorrow if blood pressure stable overnight. No focal neurological deficits by bedside exam. Blood pressure stabilizing-off vasopressin and extra fluids; continue TPN. Hemoglobin stable after transfusion 2 units yesterday. Additional potassium given overnight, continue to monitor with TPN. Continue Zosyn/vancomycin. Nystatin suspension initiated for thrush. Home CPAP now available for nighttime use. Discussed with nursing and her son. DVT Prophylaxis: SCD's Resuscitation Status: Do Not Resuscitate Hospital Course Summary Disclaimer: The visit summary below is not to be considered part of the above Progress Note. Hospital Course: 02/02/17 16:09 Impression Post op seizure like activity Post op Leukocytosis and thrombocytosis - stress response vs. infection s/p exploratory laparotomy with excision diverticulitis mass and colovaginal fistula, with takedown of end colostomy per Dr. Bowers s/p stenting of right ureter per Dr. Dela Cruz Intra-abdominal abscess with polymicrobial growth including MRSA, pseudomonas aeruginosa and citrobacter freundii. Anemia. Hypertension. Hyperlipidemia. Chronic hypercapnic respiratory failure; ROLO and O2 as needed GERD. CHF - diastolic - Echo 09/21/15 showed EF 55%; moderate TR and moderate PH. Restless leg syndrome. Anxiety and depression. Obesity with BMI 37. Chronic neck pain. Plan Place PICC Stat labs ordered - hgb stable. Lactate 11.8 - unable to determine if septic shock or if elevated lactate was from hypoperfusion (hypoxia; hypotension). She had well over 30 ml/kg IVF (89 kg x 30 mL = 2,670mL) sz precautions - Invanz may lower sz threshold; perhaps hypoxia d/t prolonged sx - consider neuro consult, head CT Abx changed to meropenem + vanco. BP was dangerously low but now improving - monitor closely as she still may need pressor support With IVF, need to monitor closely for fluid overload - measure I/O + weights. Hernandez; right ureteral stent mgt per urology. DNR status Dr. Sorensen d/w Dr. Pro. Critically ill. Time spent at bedside: 45 min. 02/03/17 09:25 POD #1 -No seizure activity since the initial one of less than 30 sec while in recovery phase post op. -Invanz cancelled as this does have a "caution/contraindication" of Seizure Hx. Zosyn and Vancomycin with pharmacy consult in place. -Urine output marginal, around 22-40/hr for the last 6-8 hours. Will give NS bolus due to marginal U/O and lower SBP -SBP tends to be in the 90's. will continue to monitor, continue fluids at 125/ hr for now. -NG without output, cannot see the tip on CXR, it appears to be out a long way, will have staff advance it 10-12 cm. -K+ upper limit of normal, although it was hemolyzed, will change IVF to D5 1/2 without K+, repeat labs. -Discussed case with Dr. Pro, he indicated we will continue to defer medical management to hospitalist team as long as pt is in CCU, he will likely ' pick her -up" when she transfers to surgical floor. 02/03/17 09:43 02/03/17 Franchesca No further seizure activity. Would like to proceed with CT head when hemodynamically stable to proceed to do so. No focal neurological deficits by bedside exam. Persistent hypotension-central line placed today, CVP 6-7-fluid boluses being given. Anticipate improvement in both blood pressure and tachycardia with fluids. Continue Zosyn/vancomycin. Creatinine up slightly, follow with fluids. 02/04/17 08:11 Surgery Some confusion this morning, but did call both me and Dr. Pro by name. Vasopressin was started yesterday for BP support. Additional 2000 ml fluid bolused during the night. She remains tacky 100-120's, SBP about 90's this am. Urine output 35-70 ml/hr during the night. HGB this am 7.4 and 7.1 on redraw. IT was 11.0 yesterday. WBC coming down 16 today, 20.9 yesterday. K+ removed from fluids yesterday, and is currently 3.4 With drop in HGB, tachycardia, hypotension, and requiring vasopressin and fluid bolus during the night, 1 unit PRBC orderd, repeat HGB after 1st unit, may need a 2nd. WBC 16.0, 20.9 yesterday Serum Creatinine back down to 1.0. from 1.2 yesterday CANDACE with serosanguineous fluid, not ivy blood. Fluid from Right CANDACE sent for creatinine, this is send out to [facility] and should be available by later this evening or tomorrow morning. No flatus yet, but there are hypoactive but reasonable bowel sounds. Will ask about TPN. K+ 3.4, down from 5.0 yesterday, K+ removed from IVF yesterday, IVF changed this am to NS with 20 KCla 02/04/17 Franchesca No further seizure activity. Would like to proceed with CT head when hemodynamically stable to proceed to do so. No focal neurological deficits by bedside exam. Persistent hypotension, remains on vasopressin, CVP 5. Convert fluids and NS with additional volume to be given. Initiate TPN-discussed with Dr. Bowers. 2 units PRBCs earlier today, hemoglobin 7.1-7.5-8.3. 02/05/17 10:40 Surgery She is more lethargic this morning, but did deny pain when asked, and denies flatus and stated she "wished she could have some." She drifts back to sleep quickly. She had 2 units PRBC yestereday, HGB went up to 8.3 and has drifted down to 7.7 this am. Urine output is good at around 75-150/hr. SBP better, around 110's - 120 and pulse better in the low 100's compared to 120 's yesterday. TPN has been started. Repeat HGB at noon today. 02/05/17 10:43
[2017-02-06] MEDS: HALOPERIDOL 5 MG/ML INJECTION IVP PRN (03:34)
[2017-02-06] MEDS: ONDANSETRON 4 MG/2 ML INJECTION IVP PRN ×2 (03:42→13:37)
[2017-02-06] MEDS: ALBUTEROL 2.5mg/3ml (0.083%) NEB AEROSOL PRN (05:25)
[2017-02-06] MEDS: PIPERACILLIN/TAZOBACTAM 3.375 GM in NS 100 ML IV SCH ×4 (05:25→23:42)
[2017-02-06] MEDS: ALBUTEROL 2.5mg/3ml (0.083%) NEB AEROSOL SCH ×4 (06:44→19:56)
[2017-02-06] MEDS: PANTOPRAZOLE 40 MG INJECTION IVP SCH (08:09)
--- NOTE | 2017-02-06 08:10 | XRay Report ---
Indication: hypoxia PROCEDURE: XR chest 1V: Encounter: Initial Comparison: February 04, 2017 Findings: Prior nasogastric tube is been removed. Right IJ line remains in place. Lungs remain hypoinflated with bibasilar atelectatic changes and consolidation in the medial right upper lobe. The overall appearance is stable. No pneumothorax. Cardiomediastinal contours are grossly stable. Impression: Removal of the nasogastric tube with continued hypoinflation, atelectasis and infiltrates. .
--- NOTE | 2017-02-06 11:27 | General Surgery Progress Note ---
Subjective Patient reports: tolerating liquids well, bowel movement (small liquid during the night) Narrative: Again did not sleep well during the night, confusion, hallucinations that she is aware of. She was placed on Bi-Pap and is resting in bed when I saw her earlier this am. - Vital Signs Last Vital Signs Temp 98.7 F 02/05/17 15:01 Pulse 128 H 02/06/17 05:00 Resp 20 02/06/17 06:44 BP 95/68 02/06/17 05:00 Pulse Ox 98 02/06/17 06:44 - Laboratory Result Diagrams: 02/06/17 09:51 02/06/17 04:56 She received 1 unit PRBS 02/04 after the HGB 7.1 and a 2nd unit after HGB 7.5 Laboratory Tests 02/04/17 02/04/17 02/04/17 04:28 06:57 11:28 Hgb 7.4 L D 7.1 L 7.5 L 02/04/17 02/04/17 02/05/17 15:41 19:46 04:59 Hgb 8.3 L 8.0 L 7.7 L 02/05/17 02/06/17 02/06/17 11:34 04:56 09:51 Hgb 7.9 L 9.1 L D 8.0 L D - Pathology -Sigmoid colon : Chronic diverticulitis and abscess of bowel wall. No malignancy. - Radiology 02-06 PROCEDURE: XR chest 1V: Encounter: Initial Comparison: February 04, 2017 Findings: Prior nasogastric tube is been removed. Right IJ line remains in place. Lungs remain hypoinflated with bibasilar atelectatic changes and consolidation in the medial right upper lobe. The overall appearance is stable. No pneumothorax. Cardiomediastinal contours are grossly stable. Impression: Removal of the nasogastric tube with continued hypoinflation, atelectasis and infiltrates. - Abnormal Exam General: confused (by report) Respiratory: other (on Bi-Pap during my visit, I did not wake her up and remove it.) Cardiovascular: other (tacycardia) Abdominal: obese - Normal Exam General: other (resting) Cardiovascular: regular rhythm Respiratory: clear bilaterally Abdominal: BS normo active x4, soft, appropriately tender, incision(s) (CDI with a couple nicky missing, this area steri-stipped. No erythem or drainage.) Female: other (urine output adequate, dark yellow, slightly cloudy, no longer red.) Assessment and Plan (1) Status post colostomy takedown Current Visit: Yes Status: Acute (2) Status post partial resection of colon Current Visit: Yes Status: Acute (3) Seizure Current Visit: Yes Status: Acute Problem details: Postoperative (4) Leukocytosis Current Visit: No Status: Acute Qualifiers: Leukocytosis type: bandemia Qualified Code(s): D72.825 - Bandemia (5) Obesity (BMI 30-39.9) Current Visit: No Status: Chronic (6) Acute blood loss as cause of postoperative anemia Current Visit: Yes Status: Acute (7) Hypotension Current Visit: Yes Status: Acute Qualifiers: Hypotension type: postprocedural hypotension Qualified Code(s): I95.81 - Postprocedural hypotension (8) Hypokalemia Current Visit: Yes Status: Acute Plan: Encouraged that she had a small BM, will advance to full liquid diet. HGB 9.1 this am, repeat at 10 am was 8.0 continue TPN, pharmacy adjusting for lytes Would like to keep preciado another couple of days for better monitoring of output and color. Appreciate hospitalist team managing medical concerns. (Dr. Pro is out this week). The CANDACE creatinine test on Thu was normal, unlikely there is a ureteral leak. Hospital Course Summary Disclaimer: The visit summary below is not to be considered part of the above Progress Note. Hospital Course: 02/02/17 16:09 Impression Post op seizure like activity Post op Leukocytosis and thrombocytosis - stress response vs. infection s/p exploratory laparotomy with excision diverticulitis mass and colovaginal fistula, with takedown of end colostomy per Dr. Bowers s/p stenting of right ureter per Dr. Dela Cruz Intra-abdominal abscess with polymicrobial growth including MRSA, pseudomonas aeruginosa and citrobacter freundii. Anemia. Hypertension. Hyperlipidemia. Chronic hypercapnic respiratory failure; ROLO and O2 as needed GERD. CHF - diastolic - Echo 09/21/15 showed EF 55%; moderate TR and moderate PH. Restless leg syndrome. Anxiety and depression. Obesity with BMI 37. Chronic neck pain. Plan Place PICC Stat labs ordered - hgb stable. Lactate 11.8 - unable to determine if septic shock or if elevated lactate was from hypoperfusion (hypoxia; hypotension). She had well over 30 ml/kg IVF (89 kg x 30 mL = 2,670mL) sz precautions - Invanz may lower sz threshold; perhaps hypoxia d/t prolonged sx - consider neuro consult, head CT Abx changed to meropenem + vanco. BP was dangerously low but now improving - monitor closely as she still may need pressor support With IVF, need to monitor closely for fluid overload - measure I/O + weights. Preciado; right ureteral stent mgt per urology. DNR status Dr. Sorensen d/w Dr. Pro. Critically ill. Time spent at bedside: 45 min. 02/03/17 09:25 POD #1 -No seizure activity since the initial one of less than 30 sec while in recovery phase post op. -Invanz cancelled as this does have a "caution/contraindication" of Seizure Hx. Zosyn and Vancomycin with pharmacy consult in place. -Urine output marginal, around 22-40/hr for the last 6-8 hours. Will give NS bolus due to marginal U/O and lower SBP -SBP tends to be in the 90's. will continue to monitor, continue fluids at 125/ hr for now. -NG without output, cannot see the tip on CXR, it appears to be out a long way, will have staff advance it 10-12 cm. -K+ upper limit of normal, although it was hemolyzed, will change IVF to D5 1/2 without K+, repeat labs. -Discussed case with Dr. Pro, he indicated we will continue to defer medical management to hospitalist team as long as pt is in CCU, he will likely ' pick her -up" when she transfers to surgical floor. 02/03/17 09:43 02/03/17 Franchesca No further seizure activity. Would like to proceed with CT head when hemodynamically stable to proceed to do so. No focal neurological deficits by bedside exam. Persistent hypotension-central line placed today, CVP 6-7-fluid boluses being given. Anticipate improvement in both blood pressure and tachycardia with fluids. Continue Zosyn/vancomycin. Creatinine up slightly, follow with fluids. 02/04/17 08:11 Surgery Some confusion this morning, but did call both me and Dr. Pro by name. Vasopressin was started yesterday for BP support. Additional 2000 ml fluid bolused during the night. She remains tacky 100-120's, SBP about 90's this am. Urine output 35-70 ml/hr during the night. HGB this am 7.4 and 7.1 on redraw. IT was 11.0 yesterday. WBC coming down 16 today, 20.9 yesterday. K+ removed from fluids yesterday, and is currently 3.4 With drop in HGB, tachycardia, hypotension, and requiring vasopressin and fluid bolus during the night, 1 unit PRBC orderd, repeat HGB after 1st unit, may need a 2nd. WBC 16.0, 20.9 yesterday Serum Creatinine back down to 1.0. from 1.2 yesterday CANDACE with serosanguineous fluid, not ivy blood. Fluid from Right CANDACE sent for creatinine, this is send out to [facility] and should be available by later this evening or tomorrow morning. No flatus yet, but there are hypoactive but reasonable bowel sounds. Will ask about TPN. K+ 3.4, down from 5.0 yesterday, K+ removed from IVF yesterday, IVF changed this am to NS with 20 KCla 02/04/17 Franchesca No further seizure activity. Would like to proceed with CT head when hemodynamically stable to proceed to do so. No focal neurological deficits by bedside exam. Persistent hypotension, remains on vasopressin, CVP 5. Convert fluids and NS with additional volume to be given. Initiate TPN-discussed with Dr. Bowers. 2 units PRBCs earlier today, hemoglobin 7.1-7.5-8.3. 02/05/17 10:40 Surgery She is more lethargic this morning, but did deny pain when asked, and denies flatus and stated she "wished she could have some." She drifts back to sleep quickly. She had 2 units PRBC yestereday, HGB went up to 8.3 and has drifted down to 7.7 this am. Urine output is good at around 75-150/hr. SBP better, around 110's - 120 and pulse better in the low 100's compared to 120 's yesterday. TPN has been started. Repeat HGB at noon today. 02/05/17 10:43
[2017-02-06] MEDS: POTASSIUM CHLORIDE PREMIX 10 MEQ/100 ML BAG IV SCH ×4 (11:55→15:38)
[2017-02-06] MEDS: VASOPRESSIN IV SCH (12:01)
[2017-02-06] MEDS: NS IV SCH (12:01)
[2017-02-06] MEDS: NYSTATIN 500,000 units/5 ml ORAL LIQUID PO SCH ×4 (12:03→23:42)
[2017-02-06] MEDS: ENOXAPARIN 40 MG/0.4 ML INJECTION SQ SCH (12:36)
--- NOTE | 2017-02-06 12:39 | Pharmacy Consult-TPN/PPN ---
Pharmacy Consult-TPN/PPN - Laboratory Information Chemistry Turbidity < 20 (0-20) 02/06/17 04:56 Sodium 147 MEQ/L (134-144) H 02/06/17 04:56 Potassium 3.4 MEQ/L (3.6-5) L 02/06/17 04:56 Chloride 113 MEQ/L (98-107) H 02/06/17 04:56 Carbon Dioxide 27 MEQ/L (22-30) 02/06/17 04:56 Anion Gap 7 MEQ/L (5-15) 02/06/17 04:56 BUN 11.0 MG/DL (7-17) 02/06/17 04:56 Creatinine 0.7 MG/DL (0.7-1.2) 02/06/17 04:56 GFR Calculation 82 02/06/17 04:56 BUN/Creatinine Ratio 16 RATIO (6-26) 02/06/17 04:56 Glucose 172 MG/DL (65-110) H 02/06/17 04:56 Glucometer 189 mg/dL (65-110) 02/06/17 04:52 Calculated Osmolality 285 MOSM/KG (261-280) H 02/06/17 04:56 Calcium 7.7 MG/DL (8.4-10.2) L 02/06/17 04:56 Phosphorus 2.8 MG/DL (2.5-4.5) 02/06/17 04:56 Magnesium 2.1 MG/DL (1.6-2.3) 02/06/17 04:56 Total Bilirubin 0.80 MG/DL (0.20-1.30) 02/02/17 15:38 Icterus Index < 2 (0-7) 02/06/17 04:56 AST 22 U/L (14-36) 02/02/17 15:38 ALT 19 U/L (9-52) 02/02/17 15:38 Alkaline Phosphatase 82 U/L (38-126) D 02/02/17 15:38 Total Protein 6.7 G/DL (6.3-8.2) 02/02/17 15:38 Albumin 2.4 G/DL (3.5-5.0) L 02/06/17 04:56 Globulin 3.6 G/DL (2.4-3.6) 02/02/17 15:38 Albumin/Globulin Ratio 0.9 RATIO (1.1-2.2) L 02/02/17 15:38 Plasma Lactate 2.8 MMOL/L (0.6-2.2) H 02/03/17 06:01 Procalcitonin 1.79 NG/ML 02/04/17 11:28 Specimen Hemolysis < 15 (0-25) 02/06/17 04:56 Intake and Output 02/05/17 02/06/17 02/07/17 06:59 06:59 06:59 Intake Total 4116.200 / 4116.200 3578.650 / 3578.650 Output Total 2903 / 2903 2770 / 2770 181 / 181 Balance 1213.200 / 1213.200 808.650 / 808.650 -181 / -181 Weight 95 kg 97.3 kg 97.3 kg Intake: IV 3809.200 / 3809.200 3248.650 / 3248.650 D5-1/2Ns 1,000 ml @ 125 0 / 0 mls/hr IV .Q8H VASILIY Rx#: [id number] Fat Emulsion 20% 100 ml @ 100 / 100 50 mls/hr IV 1600 VASILIY Rx #:[id number] NS 500ml 500 ml @ 250 mls 218.750 / 218.750 /hr IV .Q2H ONE Rx#: [id number] NS with KCL 20 mEq 1,000 2237.500 / 2237.500 ml @ 125 mls/hr IV .Q8H VASILIY Rx#:[id number] Piperacillin/Tazobactam 3 400 / 400 400 / 400 .375 gm In Ns 100 ml @ 200 mls/hr IV Q6H VASILIY Rx# :[id number] Potassium Acetate Inj 40 2002.000 / 2002.000 meq Multi-Vit Infusion 10 ml Multi-Trace Elements 1 ml In TPN - Standard Formula 2,000 ml @ 80 mls/hr IV .Q24H VASILIY Rx#:[id number] Vancomycin 1,750 mg In NS 1000.000 / 1000.000 500.000 / 500.000 500ml 500 ml @ 250 mls/ hr IV Q18H VASILIY Rx#: [id number] Vasopressin 20 unit In Ns 171.700 / 171.700 27.9 / 27.9 100 ml @ 0.03 UNIT/MIN 9 mls/hr IV .Q11H7M VASILIY Rx #:[id number] Oral 330 / 330 Intake, Gastric Tube 40 / 40 Irrigant Amount Left Nare 40 / 40 Intake (Blood Product) 267 / 267 Amt Output: Emesis 0 / 0 Urine Amount (Catheter) 2705 / 2705 2520 / 2520 181 / 181 Wound Drainage 198 / 198 250 / 250 Left Abdomen 43 / 43 30 / 30 Right Abdomen 155 / 155 220 / 220 Other: Urine Appearance Cloudy Clear Clear Urine Color [place] Straw [place] Drain Type Left Abdomen Bulb Aspen Bulb Aspen Right Abdomen Bulb Aspen Bulb Aspen # Bowel Movements 0 - Consult Information TPN CONSULT: DAY 3 5'1" 97 KG 76 yo female s/p sigmoid resection. Patient received the TPN at 40 ml/hr x 24 hrs 02/04 and yesterday (02/05) at 18: 00 rate was increased to 80 ml/hr. A total of 40 mEq KCL bolus required this morning for a K level of 3.4. Patient will be receiving a total 100 mEq of potassium in her TPN at the rate of 80 ml/hr. Will keep the same TPN formula for today and review her electrolytes tomorrow morning as it will be 36 hours on the formula at 80 ml/ hr. The piperacillin/tazobactam 3.375 gm IV q6hrs does add additional sodium. Pharmacy will monitor. Thank you. Spring Roque, PharmD
--- NOTE | 2017-02-06 14:26 | Progress Note ---
- Date 02/06/17 Subjective: Suzy reports that she had a better night last night without hallucinations although she didn't sleep well. Nursing reports increased oxygen need overnight but she remained off of vasopressin and tolerated clear liquids. She reports having a small bowel movement earlier with minimal nausea. Surgery advance diet to full liquids although she was able to have only a small amount at lunch. She denies dyspnea but reports having a little cough. She denies dizziness or lightheadedness when she is up in a chair. No further seizure activity reported by nursing. Objective Vital signs: Temperature 98.7 F 02/05/17 15:01 Pulse Rate 128 H 02/06/17 05:00 Respiratory Rate 22 02/06/17 11:17 Blood Pressure 95/68 02/06/17 05:00 Pulse Oximetry 92 02/06/17 11:17 I/O 3579/2770 EXAM General-sleeping, awakens to voice, NAD HEENT-conjugate gaze, facial structure symmetric, conjunctiva clear Lungs-respirations nonlabored, decreased inspiratory effort, anterior breath sounds clear superiorly, decreased breath sounds bilaterally Cardiac-regular rhythm, S1-S2, low-grade tachycardia Abd-soft, nontender, bowel sounds present Ext-trace edema bilateral lower extremities, trace/+1 bilateral upper extremities Neuro-symmetric podiatric medicine doctor, intact dorsiflexion/plantarflexion, light touch present 4 extremities Psych-calm, cooperative, fatigued - Rhythm: Sinus Tachycardia Height/Weight/BMI: Height 1.55 m Weight 97.3 kg Body Mass Index 40.5 Results - Labs CBC & Chem 7: 02/06/17 09:51 02/06/17 04:56 Labs: WBC 11.7-differential unremarkable Magnesium 2.1, phosphate 2.8 Blood sugars 189-172 today, typically acceptable over the past 48 hours - Imaging and Cardiology Chest x-ray Status: image reviewed by me (poor inspiratory effort with basilar atelectasis, infiltrate right upper lobe-versus asymmetric increased vascular markings) Assessment and Plan (1) Seizure Problem details: Postoperative Current visit: Yes Status: Acute (2) Hypotension Current visit: Yes Status: Acute Assessment and Plan: Impression Post op seizure Hypotension with tachycardia Post op Leukocytosis and thrombocytosis - stress response vs. infection s/p exploratory laparotomy with excision diverticulitis mass and colovaginal fistula, with takedown of end colostomy per Dr. Bowers s/p stenting of right ureter per Dr. Dela Cruz Intra-abdominal abscess with polymicrobial growth including MRSA, pseudomonas aeruginosa and citrobacter freundii. Anemia-postoperative/chronic-2 u PRBC 02/04 Hypertension. Hyperlipidemia. Chronic hypercapnic respiratory failure; ROLO and O2 as needed GERD. CHF - diastolic - Echo 09/21/15 showed EF 55%; moderate TR and moderate PH. Restless leg syndrome. Anxiety and depression. Obesity with BMI 37. Chronic neck pain. Hypokalemia ICU psychosis Thrush-02/05 Plan No further seizure activity. CT head today without contrast. No focal neurological deficits by bedside exam. Blood pressure stabilizing-off vasopressin and extra fluids; continue TPN. Hemoglobin stable after transfusion 2 units 02/04. Additional potassium given this morning, continue to monitor with TPN. Continue Zosyn/vancomycin. Nystatin suspension for thrush 02/06-02/16. Home trilogy now available for nighttime use. Persistent tachycardia-home medications reviewed, typically not on beta saravanan nor would blood pressure tolerate one yet. CVP 9-10 but becoming total body volume overloaded and developing hypoxia. Will not push additional fluids unless BP requires. Will benefit from transferring out of ICU as soon as possible to minimize hallucinations. Home medications resumed for restless legs. Discussed with nursing who provide supplemental hx., discussed with case management and Pharm.D. DVT Prophylaxis: Lovenox Resuscitation Status: Do Not Resuscitate Hospital Course Summary Disclaimer: The visit summary below is not to be considered part of the above Progress Note. Hospital Course: 02/02/17 16:09 Impression Post op seizure like activity Post op Leukocytosis and thrombocytosis - stress response vs. infection s/p exploratory laparotomy with excision diverticulitis mass and colovaginal fistula, with takedown of end colostomy per Dr. Bowers s/p stenting of right ureter per Dr. Dela Cruz Intra-abdominal abscess with polymicrobial growth including MRSA, pseudomonas aeruginosa and citrobacter freundii. Anemia. Hypertension. Hyperlipidemia. Chronic hypercapnic respiratory failure; ROLO and O2 as needed GERD. CHF - diastolic - Echo 09/21/15 showed EF 55%; moderate TR and moderate PH. Restless leg syndrome. Anxiety and depression. Obesity with BMI 37. Chronic neck pain. Plan Place PICC Stat labs ordered - hgb stable. Lactate 11.8 - unable to determine if septic shock or if elevated lactate was from hypoperfusion (hypoxia; hypotension). She had well over 30 ml/kg IVF (89 kg x 30 mL = 2,670mL) sz precautions - Invanz may lower sz threshold; perhaps hypoxia d/t prolonged sx - consider neuro consult, head CT Abx changed to meropenem + vanco. BP was dangerously low but now improving - monitor closely as she still may need pressor support With IVF, need to monitor closely for fluid overload - measure I/O + weights. Hernandez; right ureteral stent mgt per urology. DNR status Dr. Sorensen d/w Dr. Pro. Critically ill. Time spent at bedside: 45 min. 02/03/17 09:25 POD #1 -No seizure activity since the initial one of less than 30 sec while in recovery phase post op. -Invanz cancelled as this does have a "caution/contraindication" of Seizure Hx. Zosyn and Vancomycin with pharmacy consult in place. -Urine output marginal, around 22-40/hr for the last 6-8 hours. Will give NS bolus due to marginal U/O and lower SBP -SBP tends to be in the 90's. will continue to monitor, continue fluids at 125/ hr for now. -NG without output, cannot see the tip on CXR, it appears to be out a long way, will have staff advance it 10-12 cm. -K+ upper limit of normal, although it was hemolyzed, will change IVF to D5 1/2 without K+, repeat labs. -Discussed case with Dr. Pro, he indicated we will continue to defer medical management to hospitalist team as long as pt is in CCU, he will likely ' pick her -up" when she transfers to surgical floor. 02/03/17 09:43 02/03/17 Franchesca No further seizure activity. Would like to proceed with CT head when hemodynamically stable to proceed to do so. No focal neurological deficits by bedside exam. Persistent hypotension-central line placed today, CVP 6-7-fluid boluses being given. Anticipate improvement in both blood pressure and tachycardia with fluids. Continue Zosyn/vancomycin. Creatinine up slightly, follow with fluids. 02/04/17 08:11 Surgery Some confusion this morning, but did call both me and Dr. Pro by name. Vasopressin was started yesterday for BP support. Additional 2000 ml fluid bolused during the night. She remains tacky 100-120's, SBP about 90's this am. Urine output 35-70 ml/hr during the night. HGB this am 7.4 and 7.1 on redraw. IT was 11.0 yesterday. WBC coming down 16 today, 20.9 yesterday. K+ removed from fluids yesterday, and is currently 3.4 With drop in HGB, tachycardia, hypotension, and requiring vasopressin and fluid bolus during the night, 1 unit PRBC orderd, repeat HGB after 1st unit, may need a 2nd. WBC 16.0, 20.9 yesterday Serum Creatinine back down to 1.0. from 1.2 yesterday CANDACE with serosanguineous fluid, not ivy blood. Fluid from Right CANDACE sent for creatinine, this is send out to [facility] and should be available by later this evening or tomorrow morning. No flatus yet, but there are hypoactive but reasonable bowel sounds. Will ask about TPN. K+ 3.4, down from 5.0 yesterday, K+ removed from IVF yesterday, IVF changed this am to NS with 20 KCla 02/04/17 Franchesca No further seizure activity. Would like to proceed with CT head when hemodynamically stable to proceed to do so. No focal neurological deficits by bedside exam. Persistent hypotension, remains on vasopressin, CVP 5. Convert fluids and NS with additional volume to be given. Initiate TPN-discussed with Dr. Bowers. 2 units PRBCs earlier today, hemoglobin 7.1-7.5-8.3. 02/05/17 10:40 Surgery She is more lethargic this morning, but did deny pain when asked, and denies flatus and stated she "wished she could have some." She drifts back to sleep quickly. She had 2 units PRBC yestereday, HGB went up to 8.3 and has drifted down to 7.7 this am. Urine output is good at around 75-150/hr. SBP better, around 110's - 120 and pulse better in the low 100's compared to 120 's yesterday. TPN has been started. Repeat HGB at noon today. 02/05/17 10:43 02/06/[address] head after recent seizure. Persistent sinus tachycardia-given increased oxygen demand am reluctant to use additional fluids. Resume medications for restless leg syndrome.
--- NOTE | 2017-02-06 16:08 | Progress Note ---
DATE OF SERVICE 02/06/2017 FINDINGS Mrs. Magdaleno was resting this afternoon. She was awake and was conversant, alert and oriented. PHYSICAL EXAM VITAL SIGNS: Afebrile. Remains slightly tachycardic and slightly hypotensive. Please refer to EMR. ABDOMEN: Soft. Minimal incisional tenderness. Incision is clean, dry, and intact. CANDACE drainage is serosanguineous and fairly minimal in nature. LABORATORY/RADIOGRAPHIC EVALUATION Patient had a CBC today and her hemoglobin is 8.0. White count is overall stable at 11.7. BMP obtained today and her potassium is lightly low at 3.4. ASSESSMENT 76-year-old female status post takedown of end colostomy, low anterior resection , coloproctostomy, repair of iatrogenic right ureteral injury, patient doing well. PLAN Continue with current care. The patient is making slow progress. Dr. Mays will be covering for me over the course of this upcoming weekend. I will return on Thursday. CARMINE
[2017-02-06] MEDS ORDERED: GABAPENTIN 600 MG TABLET PO SCH (17:00)
[2017-02-06] MEDS: FAT EMULSION 20% 100 ML IV SCH (18:58)
[2017-02-06] MEDS: ASPIRIN *EC* 81 MG TABLET PO SCH (19:07)
[2017-02-06] MEDS: BACLOFEN 10 MG TABLET PO SCH ×2 (19:07→23:41)
[2017-02-06] MEDS: PRAMIPEXOLE 1 MG TABLET PO SCH (19:07)
[2017-02-06] MEDS ORDERED: FUROSEMIDE 20 MG/2 ML INJECTION IVP ONE (19:58)
[2017-02-06] MEDS: MULTI VIT INFUSION IV SCH (21:02)
[2017-02-06] MEDS: [UNRECOGNIZED DRUG - OTHER] IV SCH (21:02)
[2017-02-06] MEDS: MULTI TRACE ELEMENTS IV SCH (21:02)
[2017-02-06] MEDS: POTASSIUM ACETATE IV SCH (21:02)
[2017-02-06] MEDS: NS FLUSH BAG 500ml IV PRN (21:19)
[2017-02-06] MEDS: SALINE FLUSH 10ml SYRINGE IV PRN (23:42)
[2017-02-07] MEDS: NS FLUSH BAG 500ml IV PRN ×2 (00:07→23:02)
[2017-02-07] MEDS: PIPERACILLIN/TAZOBACTAM 3.375 GM in NS 100 ML IV SCH ×4 (05:01→23:02)
[2017-02-07] MEDS: SALINE FLUSH 10ml SYRINGE IV PRN ×4 (05:02→23:02)
--- NOTE | 2017-02-07 06:40 | Pharmacy Consult-TPN/PPN ---
Pharmacy Consult-TPN/PPN - Laboratory Information Chemistry Turbidity < 20 (0-20) 02/07/17 04:30 Sodium 145 MEQ/L (134-144) H 02/07/17 04:30 Potassium 3.9 MEQ/L (3.6-5) 02/07/17 04:30 Chloride 109 MEQ/L (98-107) H 02/07/17 04:30 Carbon Dioxide 30 MEQ/L (22-30) 02/07/17 04:30 Anion Gap 6 MEQ/L (5-15) 02/07/17 04:30 BUN 14.0 MG/DL (7-17) 02/07/17 04:30 Creatinine 0.7 MG/DL (0.7-1.2) 02/07/17 04:30 GFR Calculation 82 02/07/17 04:30 BUN/Creatinine Ratio 20 RATIO (6-26) 02/07/17 04:30 Glucose 101 MG/DL (65-110) 02/07/17 04:30 Glucometer 143 mg/dL (65-110) 02/07/17 00:06 Calculated Osmolality 280 MOSM/KG (261-280) 02/07/17 04:30 Calcium 7.6 MG/DL (8.4-10.2) L 02/07/17 04:30 Phosphorus 2.8 MG/DL (2.5-4.5) 02/06/17 04:56 Magnesium 2.1 MG/DL (1.6-2.3) 02/06/17 04:56 Total Bilirubin 0.80 MG/DL (0.20-1.30) 02/02/17 15:38 Icterus Index < 2 (0-7) 02/07/17 04:30 AST 22 U/L (14-36) 02/02/17 15:38 ALT 19 U/L (9-52) 02/02/17 15:38 Alkaline Phosphatase 82 U/L (38-126) D 02/02/17 15:38 Total Protein 6.7 G/DL (6.3-8.2) 02/02/17 15:38 Albumin 2.4 G/DL (3.5-5.0) L 02/06/17 04:56 Globulin 3.6 G/DL (2.4-3.6) 02/02/17 15:38 Albumin/Globulin Ratio 0.9 RATIO (1.1-2.2) L 02/02/17 15:38 Plasma Lactate 2.8 MMOL/L (0.6-2.2) H 02/03/17 06:01 Procalcitonin 1.79 NG/ML 02/04/17 11:28 Specimen Hemolysis < 15 (0-25) 02/07/17 04:30 Intake and Output 02/05/17 02/06/17 02/07/17 06:59 06:59 06:59 Intake Total 4116.200 / 4116.200 3578.650 / 3578.650 4140.333 / 4140.333 Output Total 2903 / 2903 2770 / 2770 3346 / 3346 Balance 1213.200 / 1213.200 808.650 / 808.650 794.333 / 794.333 Weight 95 kg 97.3 kg 97.3 kg Intake: IV 3809.200 / 3809.200 3248.650 / 3248.650 3180.333 / 3180.333 D5-1/2Ns 1,000 ml @ 125 0 / 0 mls/hr IV .Q8H VASILIY Rx#: [id number] Fat Emulsion 20% 100 ml @ 100 / 100 100.000 / 100.000 50 mls/hr IV 1600 VASILIY Rx #:[id number] NS 500ml 500 ml @ 250 mls 218.750 / 218.750 /hr IV .Q2H ONE Rx#: [id number] NS with KCL 20 mEq 1,000 2237.500 / 2237.500 ml @ 125 mls/hr IV .Q8H VASILIY Rx#:[id number] Piperacillin/Tazobactam 3 400 / 400 400 / 400 400 / 400 .375 gm In Ns 100 ml @ 200 mls/hr IV Q6H VASILIY Rx# :[id number] Potassium Acetate Inj 40 2002.000 / 2002.000 1780.333 / 1780.333 meq Multi-Vit Infusion 10 ml Multi-Trace Elements 1 ml In TPN - Standard Formula 2,000 ml @ 80 mls/hr IV .Q24H VASILIY Rx#:[id number] Potassium Chloride Premix 400 / 400 10 meq In 100 ml @ 100 mls/hr IV Q1H VASILIY Rx#: [id number] Vancomycin 1,750 mg In NS 1000.000 / 1000.000 500.000 / 500.000 500 / 500 500ml 500 ml @ 250 mls/ hr IV Q18H VASILIY Rx#: [id number] Vasopressin 20 unit In Ns 171.700 / 171.700 27.9 / 27.9 100 ml @ 0.03 UNIT/MIN 9 mls/hr IV .Q11H7M VASILIY Rx #:[id number] Oral 330 / 330 960 / 960 Intake, Gastric Tube 40 / 40 Irrigant Amount Left Nare 40 / 40 Intake (Blood Product) 267 / 267 Amt Output: Emesis 0 / 0 Urine Amount (Catheter) 2705 / 2705 2520 / 2520 3191 / 3191 Wound Drainage 198 / 198 250 / 250 155 / 155 Left Abdomen 43 / 43 30 / 30 60 / 60 Right Abdomen 155 / 155 220 / 220 95 / 95 Other: Urine Appearance Cloudy Clear Sediment Urine Color [place] Straw Yellow Stool Color Brown Green Stool Consistency Liquid Size of Bowel Movement Moderate Drain Type Left Abdomen Bulb [place] Bulb [place] Bulb [place] Right Abdomen Bulb [place] Bulb [place] Bulb [place] # Bowel Movements 0 - Consult Information Serum potassium now in range, rest of lytes ok. Will continue current formula at present rate of 80 mls/hr. Thank you.
[2017-02-07] MEDS: ALBUTEROL 2.5mg/3ml (0.083%) NEB AEROSOL SCH ×4 (07:28→19:14)
[2017-02-07] MEDS ORDERED: FUROSEMIDE 20 MG/2 ML INJECTION IVP ONE (08:28)
--- NOTE | 2017-02-07 08:49 | Progress Note ---
- Date 02/07/17 Subjective: Feeling a little better today. Breathing improved. Good response to diuretics. CANDACE drains intact with small outputs. Tachycardic (sinus), has been persistent. Not on pressors but BP marginal at times. Objective Vital signs: Temperature 97.6 F 02/07/17 04:04 Pulse Rate 117 H 02/07/17 07:00 Respiratory Rate 28 H 02/07/17 07:28 Blood Pressure 93/56 02/07/17 07:00 Pulse Oximetry 98 02/07/17 07:28 Rhythm: Sinus Tachycardia Height/Weight/BMI: Height 1.55 m Weight 97.3 kg Body Mass Index 40.5 - Constitutional Present: no acute distress, morbidly obese - Routine HEENT Exam Head: Present: normocephalic, atraumatic Eye: Present: EOMI, PERRL. Absent: conjunctival icterus ENT: Present: mucous membranes moist, oropharynx clear - Routine Respiratory Exam Absent: accessory muscle use Comments: clear upper airways bilaterally with diminished bases - Routine Cardiovascular Exam Comments: regular, tachy, no murmur appreciable - Routine Abdominal Exam Present: soft, non distended Comments: CANDACE drains intact Mildly erythematous at the left pannus/intertrig areas - Routine Extremities Exam Present: edema (trace BLE), pulses intact, normal capillary refill - Routine Musculoskeletal Exam Musculoskeletal: Present: no tenderness, no erythema - Routine Skin Exam Present: dry, warm. Absent: rash - Routine Neurological Exam Present: alert, oriented X3 - Routine Psychiatric Exam Present: normal affect Results - Labs CBC & Chem 7: 02/07/17 04:30 02/07/17 04:30 Assessment and Plan Assessment and Plan: Impression Post op seizure of unclear etiology, no further seizure activity Hypotension with tachycardia; BP improved but tachycardia persistent Post op Leukocytosis and thrombocytosis - stress response vs. infection s/p exploratory laparotomy with excision diverticulitis mass and colovaginal fistula, with takedown of end colostomy per Dr. Bowers s/p stenting of right ureter per Dr. Dela Cruz Intra-abdominal abscess with polymicrobial growth including MRSA, pseudomonas aeruginosa and citrobacter freundii. Anemia-postoperative/chronic-2 u PRBC 02/04 Hypertension. Hyperlipidemia. Chronic hypercapnic respiratory failure; ROLO and O2 as needed GERD, on IV protonix currently CHF - diastolic - Echo 09/21/15 showed EF 55%; moderate TR and moderate PH. Restless leg syndrome. Anxiety and depression Obesity with BMI 37 Chronic neck pain Hypokalemia, resolved with TPN ICU psychosis, improving with supportive care Thrush-02/[address] head without contrast reviewed and unremarkable on 02/06 No focal neurological deficits by bedside exam Blood pressure stabilizing-continue TPN Good response to diuretics, still with mild volume overload, will dose lasix 20 mg IV x 1 today Hemoglobin stable after transfusion 2 units 02/04 Additional potassium given this morning, continue to monitor with TPN. Continue Zosyn/vancomycin Nystatin suspension for thrush 02/06-02/16; will add topical nystatin to the mya area due to erythema Home trilogy now available for nighttime use Persistent tachycardia-home medications reviewed, typically not on beta saravanan nor would blood pressure tolerate one yet; if BP stable this afternoon will consider trial dose of metoprolol Will benefit from transferring out of ICU as soon as possible to minimize hallucinations; may be able to transfer today if hemodynamics stabilize Discussed with nursing staff. Will discuss with surgical team later today as well if transfer from ICU considered. Slowly improving, continue supportive care, careful volume management. May trial beta blockade later today if BP stable with diuresis. TPN orders reviewed; may need additional free water tomorrow but no changes needed today with electrolytes normal. DVT Prophylaxis: Lovenox GI Prophylaxis: Protonix Resuscitation Status: Do Not Resuscitate Hospital Course Summary Disclaimer: The visit summary below is not to be considered part of the above Progress Note. Hospital Course: 02/02/17 16:09 Impression Post op seizure like activity Post op Leukocytosis and thrombocytosis - stress response vs. infection s/p exploratory laparotomy with excision diverticulitis mass and colovaginal fistula, with takedown of end colostomy per Dr. Bowers s/p stenting of right ureter per Dr. Dela Cruz Intra-abdominal abscess with polymicrobial growth including MRSA, pseudomonas aeruginosa and citrobacter freundii. Anemia. Hypertension. Hyperlipidemia. Chronic hypercapnic respiratory failure; ROLO and O2 as needed GERD. CHF - diastolic - Echo 09/21/15 showed EF 55%; moderate TR and moderate PH. Restless leg syndrome. Anxiety and depression. Obesity with BMI 37. Chronic neck pain. Plan Place PICC Stat labs ordered - hgb stable. Lactate 11.8 - unable to determine if septic shock or if elevated lactate was from hypoperfusion (hypoxia; hypotension). She had well over 30 ml/kg IVF (89 kg x 30 mL = 2,670mL) sz precautions - Invanz may lower sz threshold; perhaps hypoxia d/t prolonged sx - consider neuro consult, head CT Abx changed to meropenem + vanco. BP was dangerously low but now improving - monitor closely as she still may need pressor support With IVF, need to monitor closely for fluid overload - measure I/O + weights. Hernandez; right ureteral stent mgt per urology. DNR status Dr. Sorensen d/w Dr. Pro. Critically ill. Time spent at bedside: 45 min. 02/03/17 09:25 POD #1 -No seizure activity since the initial one of less than 30 sec while in recovery phase post op. -Invanz cancelled as this does have a "caution/contraindication" of Seizure Hx. Zosyn and Vancomycin with pharmacy consult in place. -Urine output marginal, around 22-40/hr for the last 6-8 hours. Will give NS bolus due to marginal U/O and lower SBP -SBP tends to be in the 90's. will continue to monitor, continue fluids at 125/ hr for now. -NG without output, cannot see the tip on CXR, it appears to be out a long way, will have staff advance it 10-12 cm. -K+ upper limit of normal, although it was hemolyzed, will change IVF to D5 1/2 without K+, repeat labs. -Discussed case with Dr. Pro, he indicated we will continue to defer medical management to hospitalist team as long as pt is in CCU, he will likely ' pick her -up" when she transfers to surgical floor. 02/03/17 09:43 02/03/17 Franchesca No further seizure activity. Would like to proceed with CT head when hemodynamically stable to proceed to do so. No focal neurological deficits by bedside exam. Persistent hypotension-central line placed today, CVP 6-7-fluid boluses being given. Anticipate improvement in both blood pressure and tachycardia with fluids. Continue Zosyn/vancomycin. Creatinine up slightly, follow with fluids. 02/04/17 08:11 Surgery Some confusion this morning, but did call both me and Dr. Pro by name. Vasopressin was started yesterday for BP support. Additional 2000 ml fluid bolused during the night. She remains tacky 100-120's, SBP about 90's this am. Urine output 35-70 ml/hr during the night. HGB this am 7.4 and 7.1 on redraw. IT was 11.0 yesterday. WBC coming down 16 today, 20.9 yesterday. K+ removed from fluids yesterday, and is currently 3.4 With drop in HGB, tachycardia, hypotension, and requiring vasopressin and fluid bolus during the night, 1 unit PRBC orderd, repeat HGB after 1st unit, may need a 2nd. WBC 16.0, 20.9 yesterday Serum Creatinine back down to 1.0. from 1.2 yesterday CANDACE with serosanguineous fluid, not ivy blood. Fluid from Right CANDACE sent for creatinine, this is send out to [facility] and should be available by later this evening or tomorrow morning. No flatus yet, but there are hypoactive but reasonable bowel sounds. Will ask about TPN. K+ 3.4, down from 5.0 yesterday, K+ removed from IVF yesterday, IVF changed this am to NS with 20 KCla 02/04/17 Franchesca No further seizure activity. Would like to proceed with CT head when hemodynamically stable to proceed to do so. No focal neurological deficits by bedside exam. Persistent hypotension, remains on vasopressin, CVP 5. Convert fluids and NS with additional volume to be given. Initiate TPN-discussed with Dr. Bowers. 2 units PRBCs earlier today, hemoglobin 7.1-7.5-8.3. 02/05/17 10:40 Surgery She is more lethargic this morning, but did deny pain when asked, and denies flatus and stated she "wished she could have some." She drifts back to sleep quickly. She had 2 units PRBC yestereday, HGB went up to 8.3 and has drifted down to 7.7 this am. Urine output is good at around 75-150/hr. SBP better, around 110's - 120 and pulse better in the low 100's compared to 120 's yesterday. TPN has been started. Repeat HGB at noon today. 02/05/17 10:43 02/06/[address] head after recent seizure. Persistent sinus tachycardia-given increased oxygen demand am reluctant to use additional fluids. Resume medications for restless leg syndrome. 02/07/17 08:56 Give an additional dose of lasix. Trial metoprolol if BP remains stable with diuresis later today. Continue supportive care, add nystatin powder to mya care.
[2017-02-07] MEDS ORDERED: PRAMIPEXOLE 1 MG TABLET PO SCH (09:00)
[2017-02-07] MEDS: NYSTATIN 500,000 units/5 ml ORAL LIQUID PO SCH ×4 (09:21→21:01)
[2017-02-07] MEDS: FOLIC ACID 1 MG TABLET PO SCH (09:21)
[2017-02-07] MEDS: ENOXAPARIN 40 MG/0.4 ML INJECTION SQ SCH (09:21)
[2017-02-07] MEDS: ASPIRIN *EC* 81 MG TABLET PO SCH (09:29)
[2017-02-07] MEDS: BACLOFEN 10 MG TABLET PO SCH (09:55)
[2017-02-07] MEDS: PANTOPRAZOLE 40 MG INJECTION IVP SCH (12:21)
[2017-02-07] MEDS ORDERED: ALBUMIN HUMAN 100 ML IV ONE (13:01)
--- NOTE | 2017-02-07 13:01 | Progress Note ---
DATE 02/07/2017 POSTOP DAY #5 HISTORY The patient is in the intensive care unit. She is receiving TPN. She is receiving breathing treatments at this time. The patient does have some persistent sinus tachycardia. I did talk with Dr. Carolann Romero regarding the patient this morning. Dr. Romero may give the patient a trial of metoprolol for treatment of the sinus tachycardia later today if the blood pressure remains stable with diuresis. The nurses report the patient did have some drainage of serous fluid from her incision overnight although the incision has been dry since then. Some Nystatin powder application to the skin fold beneath the abdominal pannus at the lower abdomen has been started for some possible yeast infection at the skin at this area. PHYSICAL EXAM VITAL SIGNS: Pulse is 117. Respiratory rate is 22. Blood pressure is 93/56. ABDOMEN: The abdominal incision looks good. There is no sign of any infection at the incision. The patient does have a couple of Neeraj-Hughes drains in place to the peritoneal cavity and the fluid in the drain bulbs is clear and serous and nonpurulent. The abdomen is soft. LABORATORY DATA White blood cell count is 11,900 with no bands today. Hemoglobin is 8.9. Hematocrit is 31.1. Serum sodium is 145. Serum potassium is 3.9. Serum creatinine is 0.7. IMPRESSION Doing well overall following exploratory laparotomy, extensive adhesiolysis, takedown of end colostomy, mobilization of splenic flexure, low anterior colon resection with coloproctostomy anastomosis and repair of right ureteral injury on 02/02/2017. PLAN Continue postoperative care in the intensive care unit. Continue TPN for nutritional support. MTDD
[2017-02-07] MEDS: FAT EMULSION 20% 100 ML IV SCH ×2 (16:49→16:50)
[2017-02-07] MEDS ORDERED: SALIVA SUBSTITUTE MOUTHWASH 237ml MM PRN (17:40)
[2017-02-07] MEDS: MULTI TRACE ELEMENTS IV SCH (20:58)
[2017-02-07] MEDS: MULTI VIT INFUSION IV SCH (20:58)
[2017-02-07] MEDS: POTASSIUM ACETATE IV SCH (20:58)
[2017-02-07] MEDS: [UNRECOGNIZED DRUG - OTHER] IV SCH (20:58)
[2017-02-07] MEDS: PRAMIPEXOLE 1 MG TABLET PO SCH (20:59)
[2017-02-07] MEDS: ALBUMIN HUMAN 25gm (25%) 100ml IV SCH (21:00)
[2017-02-08] MEDS: SALINE FLUSH 10ml SYRINGE IV PRN ×4 (04:15→14:32)
[2017-02-08] MEDS: PIPERACILLIN/TAZOBACTAM 3.375 GM in NS 100 ML IV SCH ×4 (04:15→23:50)
[2017-02-08] MEDS: NS FLUSH BAG 500ml IV PRN ×2 (04:28→16:09)
[2017-02-08] MEDS ORDERED: ALTEPLASE (Cathflo*) 2mg INJECTION IV ONE (05:40)
[2017-02-08] MEDS ORDERED: SALINE FLUSH 10ml SYRINGE IV PRN (06:50)
[2017-02-08] MEDS ORDERED: NS FLUSH BAG 500ml IV PRN (06:50)
[2017-02-08] MEDS: ALBUTEROL 2.5mg/3ml (0.083%) NEB AEROSOL SCH ×4 (07:54→19:17)
[2017-02-08] MEDS: ENOXAPARIN 40 MG/0.4 ML INJECTION SQ SCH (08:31)
[2017-02-08] MEDS: NYSTATIN 500,000 units/5 ml ORAL LIQUID PO SCH ×4 (08:32→22:34)
[2017-02-08] MEDS: FOLIC ACID 1 MG TABLET PO SCH (08:32)
[2017-02-08] MEDS: ASPIRIN *EC* 81 MG TABLET PO SCH (08:32)
[2017-02-08] MEDS: CALCIUM 600 + VIT D 400 TABLET PO SCH (08:32)
[2017-02-08] MEDS: PANTOPRAZOLE 40 MG INJECTION IVP SCH (08:34)
[2017-02-08] MEDS: ALBUMIN HUMAN 25gm (25%) 100ml IV SCH ×2 (08:52→20:43)
--- NOTE | 2017-02-08 09:22 | Pharmacy Consult-TPN/PPN ---
Pharmacy Consult-TPN/PPN - Laboratory Information Chemistry Turbidity < 20 (0-20) 02/08/17 05:23 Sodium 143 MEQ/L (134-144) 02/08/17 05:23 Potassium 3.4 MEQ/L (3.6-5) L 02/08/17 05:23 Chloride 105 MEQ/L (98-107) 02/08/17 05:23 Carbon Dioxide 33 MEQ/L (22-30) H 02/08/17 05:23 Anion Gap 5 MEQ/L (5-15) 02/08/17 05:23 BUN 16.0 MG/DL (7-17) 02/08/17 05:23 Creatinine 0.7 MG/DL (0.7-1.2) 02/08/17 05:23 GFR Calculation 82 02/08/17 05:23 BUN/Creatinine Ratio 23 RATIO (6-26) 02/08/17 05:23 Glucose 104 MG/DL (65-110) 02/08/17 05:23 Glucometer 111 mg/dL (65-110) 02/08/17 05:25 Calculated Osmolality 276 MOSM/KG (261-280) 02/08/17 05:23 Calcium 7.6 MG/DL (8.4-10.2) L 02/08/17 05:23 Phosphorus 2.8 MG/DL (2.5-4.5) 02/08/17 05:23 Magnesium 1.8 MG/DL (1.6-2.3) 02/08/17 05:23 Total Bilirubin 0.80 MG/DL (0.20-1.30) 02/02/17 15:38 Icterus Index < 2 (0-7) 02/08/17 05:23 AST 22 U/L (14-36) 02/02/17 15:38 ALT 19 U/L (9-52) 02/02/17 15:38 Alkaline Phosphatase 82 U/L (38-126) D 02/02/17 15:38 Troponin I 0.018 ng/ml (0-0.12) 02/08/17 07:18 Total Protein 6.7 G/DL (6.3-8.2) 02/02/17 15:38 Albumin 2.4 G/DL (3.5-5.0) L 02/06/17 04:56 Globulin 3.6 G/DL (2.4-3.6) 02/02/17 15:38 Albumin/Globulin Ratio 0.9 RATIO (1.1-2.2) L 02/02/17 15:38 Plasma Lactate 2.8 MMOL/L (0.6-2.2) H 02/03/17 06:01 Procalcitonin 1.79 NG/ML 02/04/17 11:28 Specimen Hemolysis < 15 (0-25) 02/08/17 07:18 Intake and Output 02/07/17 02/08/17 02/09/17 06:59 06:59 06:59 Intake Total 4632.833 / 4632.833 4947.500 / 4947.500 160 / 160 Output Total 3501 / 3501 3067 / 3067 Balance 1131.833 / 4332.959 9766.500 / 1880.500 160 / 160 Weight 97.3 kg 100.1 kg Intake: IV 3272.833 / 3272.833 3507.500 / 3507.500 160 / 160 Albumin Human 100 ml @ 50 100.000 / 100.000 mls/hr IV O ONE Rx#: [id number] Fat Emulsion 20% 100 ml @ 100.000 / 100.000 100.000 / 100.000 50 mls/hr IV 1600 [facility] Rx #:[id number] Piperacillin/Tazobactam 3 400 / 400 400 / 400 .375 gm In Ns 100 ml @ 200 mls/hr IV Q6H [facility] Rx# :[id number] Potassium Acetate Inj 40 1860.333 / 9019.635 3633.000 / 1920.000 160 / 160 meq Multi-Vit Infusion 10 ml Multi-Trace Elements 1 ml In TPN - Standard Formula 2,000 ml @ 80 mls/hr IV .Q24H [facility] Rx#:[id number] Potassium Chloride Premix 400 / 400 10 meq In 100 ml @ 100 mls/hr IV Q1H [facility] Rx#: [id number] Vancomycin 1,750 mg In NS 512.5 / 512.5 987.5 / 987.5 500ml 500 ml @ 250 mls/ hr IV Q18H [facility] Rx#: [id number] Oral 1360 / 1360 1440 / 1440 Output: Urine Amount (Catheter) 3346 / 3346 2864 / 2864 Wound Drainage 155 / 155 203 / 203 Left Abdomen 60 / 60 74 / 74 Left Lower Abdomen 10 / 10 Right Abdomen 95 / 95 119 / 119 Other: Urine Appearance Sediment Cloudy Sediment Urine Color Yellow Yellow Stool Color Brown Green Green Stool Consistency Liquid Liquid Size of Bowel Movement Small Small Drain Type Left Abdomen Bulb Aiken Bulb Aiken Left Lower Abdomen Bulb Aiken Right Abdomen Bulb Aiken Bulb Aiken # Incontinent Bowel 1 Movements - Consult Information Potassium bolus 10meq x4 being given this morning. Will increase extra potassium in TPN to 60meq (as potassium acetate) in next bag to be hung tonight. Thank you.
[2017-02-08] MEDS: POTASSIUM CHLORIDE PREMIX 10 MEQ/100 ML BAG IV SCH ×4 (10:33→15:53)
--- NOTE | 2017-02-08 10:57 | Progress Note ---
- Date 02/08/17 Subjective: Very somnolent through the afternoon yesterday. Gabapentin and baclofen now held. ABG with normal pH, PC02 59. CPAP overnight and more alert this morning but having some chest pressure early AM. Troponin normal, EKG assessed with sinus tachycardia, no T wave or ST segment changes. Bowels moving frequently throughout the night, C diff testing negative again. Objective Vital signs: Temperature 98.7 F 02/08/17 04:00 Pulse Rate 94 02/08/17 07:00 Respiratory Rate 29 H 02/08/17 07:10 Blood Pressure 93/52 02/08/17 07:00 Pulse Oximetry 99 02/08/17 07:10 Rhythm: Sinus Tachycardia Height/Weight/BMI: Height 1.55 m Weight 100.1 kg Body Mass Index 40.5 - Constitutional Present: no acute distress, morbidly obese, cooperative - Routine HEENT Exam Head: Present: normocephalic, atraumatic Eye: Present: EOMI, PERRL ENT: Present: mucous membranes dry, oropharynx clear - Routine Respiratory Exam Present: decreased breath sounds, diminished air movement. Absent: rhonchi, wheezes, crackles - Routine Cardiovascular Exam Present: RRR. Absent: murmur - Routine Abdominal Exam Present: soft, non tender, distended. Absent: rebound, guarding, rigid Comments: CANDACE drains intact, pannus erythema improved - Routine Extremities Exam Present: edema (trace BLE) - Routine Skin Exam Present: dry, warm. Absent: rash - Routine Neurological Exam Present: alert, normal speech Results - Labs CBC & Chem 7: 02/08/17 05:23 02/08/17 05:23 - ABG Interpretation ABG results: 02/07/17 19:30 ABG pH 7.400 ABG pCO2 59 H ABG pO2 89 ABG HCO3 37 H ABG Total CO2 38.3 H ABG O2 Saturation 97.0 ABG Base Excess 9.7 H - ECG Data Tracing #1 ECG normal with no acute: arrhythmias, ischemia, conduction abnormalities, chamber hypertrophy Arrhythmias present: sinus tach Assessment and Plan Assessment and Plan: Impression Post op seizure of unclear etiology, no further seizure activity, CT head unremarkable 02/06 Hypotension with tachycardia; BP improved but tachycardia persistent Post op Leukocytosis and thrombocytosis - stress response vs. infection s/p exploratory laparotomy with excision diverticulitis mass and colovaginal fistula, with takedown of end colostomy per Dr. Bowers s/p stenting of right ureter per Dr. Dela Cruz Intra-abdominal abscess with polymicrobial growth including MRSA, pseudomonas aeruginosa and citrobacter freundii. Anemia-postoperative/chronic-2 u PRBC 02/04 Hypertension. Hyperlipidemia. Chronic hypercapnic respiratory failure; ROLO and O2 as needed GERD, on IV protonix currently CHF - diastolic - Echo 09/21/15 showed EF 55%; moderate TR and moderate PH. Restless leg syndrome. Anxiety and depression Obesity with BMI 37 Chronic neck pain Hypokalemia, resolved with TPN ICU psychosis, improving with supportive care Thrush-02/05 and mya area yeast 12/2l; on topical nystatin Diarrhea, likely osmotic versus antibiotic induced, C diff testing negative x2 Intermittent somnolence, likely multifactorial due to medications, ROLO Plan BP stabilized after albumin 25g x2; will hold further dosing Improved volume status, holding diuretics this morning Baclofen, gabapentin, toradol held acutely Hemoglobin 7.3 this AM, receiving 1 unit PRBC Chest pain resolved, no evidence of ischemia with negative troponin and normal EKG Starting low dose metoprolol 12.5 mg BID for sinus tachycardia that has been persistent KCL 40 meq IV this AM in addition to TPN, adjusting up K supplement in TPN as well Continue Zosyn and vancomycin for now, may be able to start tapering off antibiotics tomorrow Nystatin suspension for thrush 02/06-02/16; added topical nystatin 02/07 to the mya area due to erythema Home trilogy now available for nighttime use Persistent tachycardia-home medications reviewed, typically not on beta saravanan , BP improved after albumin--> will trial metoprolol 12.5 mg BID and monitor Will monitor in ICU today given borderline hemodynamics, chest pain, transfusion plans; if stable tomorrow can likely move out of ICU at that time Discussed with nursing staff, surgical team. DVT Prophylaxis: Lovenox GI Prophylaxis: Protonix Resuscitation Status: Do Not Resuscitate - Time spent with patient Time with patient PN: 25 minutes Hospital Course Summary Disclaimer: The visit summary below is not to be considered part of the above Progress Note. Hospital Course: 02/02/17 16:09 Impression Post op seizure like activity Post op Leukocytosis and thrombocytosis - stress response vs. infection s/p exploratory laparotomy with excision diverticulitis mass and colovaginal fistula, with takedown of end colostomy per Dr. Bowers s/p stenting of right ureter per Dr. Dela Cruz Intra-abdominal abscess with polymicrobial growth including MRSA, pseudomonas aeruginosa and citrobacter freundii. Anemia. Hypertension. Hyperlipidemia. Chronic hypercapnic respiratory failure; ROLO and O2 as needed GERD. CHF - diastolic - Echo 09/21/15 showed EF 55%; moderate TR and moderate PH. Restless leg syndrome. Anxiety and depression. Obesity with BMI 37. Chronic neck pain. Plan Place PICC Stat labs ordered - hgb stable. Lactate 11.8 - unable to determine if septic shock or if elevated lactate was from hypoperfusion (hypoxia; hypotension). She had well over 30 ml/kg IVF (89 kg x 30 mL = 2,670mL) sz precautions - Invanz may lower sz threshold; perhaps hypoxia d/t prolonged sx - consider neuro consult, head CT Abx changed to meropenem + vanco. BP was dangerously low but now improving - monitor closely as she still may need pressor support With IVF, need to monitor closely for fluid overload - measure I/O + weights. Hernandez; right ureteral stent mgt per urology. DNR status Dr. Sorensen d/w Dr. Pro. Critically ill. Time spent at bedside: 45 min. 02/03/17 09:25 POD #1 -No seizure activity since the initial one of less than 30 sec while in recovery phase post op. -Invanz cancelled as this does have a "caution/contraindication" of Seizure Hx. Zosyn and Vancomycin with pharmacy consult in place. -Urine output marginal, around 22-40/hr for the last 6-8 hours. Will give NS bolus due to marginal U/O and lower SBP -SBP tends to be in the 90's. will continue to monitor, continue fluids at 125/ hr for now. -NG without output, cannot see the tip on CXR, it appears to be out a long way, will have staff advance it 10-12 cm. -K+ upper limit of normal, although it was hemolyzed, will change IVF to D5 1/2 without K+, repeat labs. -Discussed case with Dr. Pro, he indicated we will continue to defer medical management to hospitalist team as long as pt is in CCU, he will likely ' pick her -up" when she transfers to surgical floor. 02/03/17 09:43 02/03/17 [place] No further seizure activity. Would like to proceed with CT head when hemodynamically stable to proceed to do so. No focal neurological deficits by bedside exam. Persistent hypotension-central line placed today, CVP 6-7-fluid boluses being given. Anticipate improvement in both blood pressure and tachycardia with fluids. Continue Zosyn/vancomycin. Creatinine up slightly, follow with fluids. 02/04/17 08:11 Surgery Some confusion this morning, but did call both me and Dr. Pro by name. Vasopressin was started yesterday for BP support. Additional 2000 ml fluid bolused during the night. She remains tacky 100-120's, SBP about 90's this am. Urine output 35-70 ml/hr during the night. HGB this am 7.4 and 7.1 on redraw. IT was 11.0 yesterday. WBC coming down 16 today, 20.9 yesterday. K+ removed from fluids yesterday, and is currently 3.4 With drop in HGB, tachycardia, hypotension, and requiring vasopressin and fluid bolus during the night, 1 unit PRBC orderd, repeat HGB after 1st unit, may need a 2nd. WBC 16.0, 20.9 yesterday Serum Creatinine back down to 1.0. from 1.2 yesterday CANDACE with serosanguineous fluid, not ivy blood. Fluid from Right CANDACE sent for creatinine, this is send out to [facility] and should be available by later this evening or tomorrow morning. No flatus yet, but there are hypoactive but reasonable bowel sounds. Will ask about TPN. K+ 3.4, down from 5.0 yesterday, K+ removed from IVF yesterday, IVF changed this am to NS with 20 KCla 02/04/17 [place]sc[place] No further seizure activity. Would like to proceed with CT head when hemodynamically stable to proceed to do so. No focal neurological deficits by bedside exam. Persistent hypotension, remains on vasopressin, CVP 5. Convert fluids and NS with additional volume to be given. Initiate TPN-discussed with Dr. Bowers. 2 units PRBCs earlier today, hemoglobin 7.1-7.5-8.3. 02/05/17 10:40 Surgery She is more lethargic this morning, but did deny pain when asked, and denies flatus and stated she "wished she could have some." She drifts back to sleep quickly. She had 2 units PRBC yestereday, HGB went up to 8.3 and has drifted down to 7.7 this am. Urine output is good at around 75-150/hr. SBP better, around 110's - 120 and pulse better in the low 100's compared to 120 's yesterday. TPN has been started. Repeat HGB at noon today. 02/05/17 10:43 02/06/[address] head after recent seizure. Persistent sinus tachycardia-given increased oxygen demand am reluctant to use additional fluids. Resume medications for restless leg syndrome. 02/07/17 08:56 [place]ard Give an additional dose of lasix. Trial metoprolol if BP remains stable with diuresis later today. Continue supportive care, add nystatin powder to mya care. 02/08/17 11:13 Bl[place]ard BP stabilized after albumin 25g x2; will hold further dosing Improved volume status, holding diuretics this morning Baclofen, gabapentin, toradol held acutely Hemoglobin 7.3 this AM, receiving 1 unit PRBC Chest pain resolved, no evidence of ischemia with negative troponin and normal EKG Starting low dose metoprolol 12.5 mg BID for sinus tachycardia that has been persistent KCL 40 meq IV this AM in addition to TPN, adjusting up K supplement in TPN as well Continue Zosyn and vancomycin for now, may be able to start tapering off antibiotics tomorrow Nystatin suspension for thrush 02/06-02/16; added topical nystatin 02/07 to the mya area due to erythema Home trilogy now available for nighttime use Persistent tachycardia-home medications reviewed, typically not on beta saravanan , BP improved after albumin--> will trial metoprolol 12.5 mg BID and monitor Will monitor in ICU today given borderline hemodynamics, chest pain, transfusion plans; if stable tomorrow can likely move out of ICU at that time
--- NOTE | 2017-02-08 10:57 | CT Scan Report ---
Indication: recent seizure PROCEDURE: CT head/brain wo con: Encounter: Initial Comparison: None Technique: Axial CT images through the head were performed without contrast. Iterative Reconstruction dose reducing technique was utilized. FINDINGS: Exam is limited due to asymmetric positioning of the patient in the scanner. The ventricles are of normal size, shape, and contour for the patient's age. There are scattered areas of low attenuation in the white matter which most likely represent changes from chronic microvascular ischemia. The brainstem, cerebellum, and cerebral hemispheres otherwise have a normal morphology and CT attenuation. There is no evidence of midline displacement. No hemorrhage, signs of acute territorial stroke, mass effect, mass lesions, or edema is evident. The visualized portions of the skull base, midface, and calvarium demonstrate no abnormality. The paranasal sinuses are well aerated and free of significant disease. The tympanic and mastoid cavities appear normal. IMPRESSION: Limited exam. No acute intracranial abnormality or hemorrhage. There is a preliminary report by [employer] radiologic. .
[2017-02-08] MEDS ORDERED: MAGNESIUM SULFATE 1gm PREMIX 1 GM/100 ML BAG IV ONE (14:49)
[2017-02-08] MEDS: FAT EMULSION 20% 100 ML IV SCH (16:00)
[2017-02-08] MEDS: MULTI TRACE ELEMENTS IV SCH ×2 (19:20→19:44)
[2017-02-08] MEDS: POTASSIUM ACETATE IV SCH ×2 (19:20→19:44)
[2017-02-08] MEDS: MULTI VIT INFUSION IV SCH ×2 (19:20→19:44)
[2017-02-08] MEDS: [UNRECOGNIZED DRUG - OTHER] IV SCH (19:20)
[2017-02-08] MEDS: PRAMIPEXOLE 1 MG TABLET PO SCH (19:25)
[2017-02-08] MEDS: [UNRECOGNIZED DRUG - OTHER] IV SCH (19:44)
[2017-02-09] MEDS: PIPERACILLIN/TAZOBACTAM 3.375 GM in NS 100 ML IV SCH ×4 (05:19→22:36)
[2017-02-09] MEDS: ALBUTEROL 2.5mg/3ml (0.083%) NEB AEROSOL SCH ×4 (06:30→19:14)
--- NOTE | 2017-02-09 07:34 | Family Practice Progress Note ---
Progress Note-A&P - Time Spent With Patient Total time spent is greater than 50% in coordination of care (as documented) at patient's floor/unit and/or counseling patient: less than 15 minutes (1) Anemia Status: Acute Assessment and plan: She is getting IV iron currently Current Visit: Yes (2) Hypotension Status: Resolved Assessment and plan: Continue IV nutrition Current Visit: Yes (3) Status post colostomy takedown Status: Acute Current Visit: Yes (4) Status post partial resection of colon Status: Acute Current Visit: Yes (5) Abdominal abscess Status: Acute Assessment and plan: Continue current antibiotics. Current Visit: No Subjective - Subjective Principal diagnosis: Post op partial colectomy Interval history: She reports that she is feeling a little better today. She feels more clear headed (although she did ask me if she was in [place]). She reports that she is passing gas and has been able to eat jello. She denies nausea and reports her abdominal pain is less today. Exam Vital signs: Temperature 98.1 F 02/08/17 15:52 Pulse Rate 92 02/09/17 07:00 Respiratory Rate 29 H 02/09/17 07:00 Blood Pressure 93/62 02/09/17 07:00 Pulse Oximetry 97 02/09/17 07:00 - Constitutional no acute distress - Routine HEENT Exam Head: Present: normocephalic - Routine Neck Exam Present: supple - Routine Respiratory Exam Present: CTA bilaterally - Routine Cardiovascular Exam Present: RRR - Routine Abdominal Exam Present: soft, normoactive bowel sounds - Routine Extremities Exam Present: no edema Comments: Normal temperature - Routine Neurological Exam Present: alert - Routine Psychiatric Exam Comments: Nurse reports that she was crying last night. - Urinary Catheter Management Urethral Cath placed during this visit: yes, but has since been removed by the nurse Insertion date: 02/02/17 Insertion time: 08:00 Removal date: 02/02/17 (for intraoperative Cysto) Removal time: 13:45 Ureter Left Cath placed during this visit: yes, but has since been removed by the nurse Insertion date: 02/02/17 Insertion time: 08:00 Removal date: 02/02/17 Removal time: 13:45 Ureter Right Cath placed during this visit: yes, but has since been removed by the nurse Insertion date: 02/02/17 Insertion time: 14:50 Removal date: 02/02/17 Removal time: 13:45
--- NOTE | 2017-02-09 08:09 | General Surgery Progress Note ---
Subjective Patient reports: feels better (less confusion, ), tolerating liquids well (fulls , will change to regular diet this am.), diarrhea (C-diff was negative) Narrative: HGB dropped o7.9-3 over the weekend, 1 unit PRBC infused and HGB increased to 8.2, this morning we are drifting down to 7.7. will get another HGB at 10:00 today. Albumin 25 G BID ordered over the weekend. Has been off Vasopresin since last week. SBP has been stable in the 90's-110's and Pulse better in the 80's-90's. Some report of drainage from the incision, none seen on gauze or on wound today. Hernandez is in, urine output good, clear yellow this morning. A ureteral catheter remains in the right ureter and Dr. Purcell will remove it in about 6 weeks. The left ureteral catheter was removed after surgery. She has had several liquid stools, C-diff neg, denies nausea, will advance to regular diet. Will be sure there is PT/OT ordered, hope to get her moving enough to pull the Hernandez soon and perhaps move to surgical floor later today or tomorrow. - Vital Signs Last Vital Signs Temp 98.1 F 02/08/17 15:52 Pulse 92 02/09/17 07:00 Resp 29 H 02/09/17 07:00 BP 93/62 02/09/17 07:00 Pulse Ox 97 02/09/17 07:00 - Laboratory Result Diagrams: 02/09/17 04:32 02/09/17 04:32 Laboratory Tests 02/02/17 02/02/17 02/04/17 05:59 15:38 04:28 Albumin 3.8 3.1 L 2.1 L 02/06/17 02/09/17 04:56 04:32 Albumin 2.4 L 2.6 L Laboratory Tests 02/07/17 02/08/17 02/08/17 04:30 05:23 14:29 Hgb 8.9 L D 7.3 L D 8.2 L D 02/09/17 04:32 Hgb 7.7 L - Abnormal Exam Abdominal: obese Skin: Linear crease skin tear noted lower back/upper coccyx area, about 0.3cm wide and 15-20 cm in length cephalad to caudad. - Normal Exam General: awake, alert, oriented Cardiovascular: regular rhythm, regular rate (80's-90's) Respiratory: clear bilaterally, no labored breathing Abdominal: soft, appropriately tender (midline), incision(s) (inspected and remains Clean, dry, in tact, to erythema, ecchymosis, drainage. Left open to air.) Psychiatric: normal affect (although "worried" which is her normal state) Assessment and Plan (1) Status post colostomy takedown Current Visit: Yes Status: Acute (2) Status post partial resection of colon Current Visit: Yes Status: Acute (3) Seizure Current Visit: Yes Status: Acute Problem details: Postoperative (4) Leukocytosis Current Visit: No Status: Acute Qualifiers: Leukocytosis type: bandemia Qualified Code(s): D72.825 - Bandemia (5) Obesity (BMI 30-39.9) Current Visit: No Status: Chronic (6) Acute blood loss as cause of postoperative anemia Current Visit: Yes Status: Acute (7) Hypotension Current Visit: Yes Status: Acute Qualifiers: Hypotension type: postprocedural hypotension Qualified Code(s): I95.81 - Postprocedural hypotension (8) Hypokalemia Current Visit: Yes Status: Acute Plan: HGB dropped o7.9-3 over the weekend, 1 unit PRBC infused and HGB increased to 8.2, this morning we are drifting down to 7.7. will get another HGB at 10:00 today. Albumin 25 G BID ordered over the weekend. Serum Albumin remains low. Has been off Vasopresin since last week. SBP has been stable in the 90's-110's and Pulse better in the 80's-90's. Some report of drainage from the incision, none seen on gauze or on wound today. Hernandez is in, urine output good, clear yellow this morning. A ureteral catheter remains in the right ureter and Dr. Purcell will remove it in about 6 weeks. The left ureteral catheter was removed after surgery. She has had several liquid stools, C-diff neg, denies nausea, will advance to regular diet. Continue TPN till we see how much PO she is able to take. Will add a multivitamin. Calmoseptine to the linear crease lower back upper coccyx area BID. Will be sure there is PT/OT ordered, hope to get her moving enough to pull the Hernandez soon and perhaps move to surgical floor later today or tomorrow. Hospital Course Summary Disclaimer: The visit summary below is not to be considered part of the above Progress Note. Hospital Course: 02/02/17 16:09 Impression Post op seizure like activity Post op Leukocytosis and thrombocytosis - stress response vs. infection s/p exploratory laparotomy with excision diverticulitis mass and colovaginal fistula, with takedown of end colostomy per Dr. Bowers s/p stenting of right ureter per Dr. Dela Cruz Intra-abdominal abscess with polymicrobial growth including MRSA, pseudomonas aeruginosa and citrobacter freundii. Anemia. Hypertension. Hyperlipidemia. Chronic hypercapnic respiratory failure; ROLO and O2 as needed GERD. CHF - diastolic - Echo 09/21/15 showed EF 55%; moderate TR and moderate PH. Restless leg syndrome. Anxiety and depression. Obesity with BMI 37. Chronic neck pain. Plan Place PICC Stat labs ordered - hgb stable. Lactate 11.8 - unable to determine if septic shock or if elevated lactate was from hypoperfusion (hypoxia; hypotension). She had well over 30 ml/kg IVF (89 kg x 30 mL = 2,670mL) sz precautions - Invanz may lower sz threshold; perhaps hypoxia d/t prolonged sx - consider neuro consult, head CT Abx changed to meropenem + vanco. BP was dangerously low but now improving - monitor closely as she still may need pressor support With IVF, need to monitor closely for fluid overload - measure I/O + weights. Hernandez; right ureteral stent mgt per urology. DNR status Dr. Sorensen d/w Dr. Pro. Critically ill. Time spent at bedside: 45 min. 02/03/17 09:25 POD #1 -No seizure activity since the initial one of less than 30 sec while in recovery phase post op. -Invanz cancelled as this does have a "caution/contraindication" of Seizure Hx. Zosyn and Vancomycin with pharmacy consult in place. -Urine output marginal, around 22-40/hr for the last 6-8 hours. Will give NS bolus due to marginal U/O and lower SBP -SBP tends to be in the 90's. will continue to monitor, continue fluids at 125/ hr for now. -NG without output, cannot see the tip on CXR, it appears to be out a long way, will have staff advance it 10-12 cm. -K+ upper limit of normal, although it was hemolyzed, will change IVF to D5 1/2 without K+, repeat labs. -Discussed case with Dr. Pro, he indicated we will continue to defer medical management to hospitalist team as long as pt is in CCU, he will likely ' pick her -up" when she transfers to surgical floor. 02/03/17 09:43 02/03/17 [place] No further seizure activity. Would like to proceed with CT head when hemodynamically stable to proceed to do so. No focal neurological deficits by bedside exam. Persistent hypotension-central line placed today, CVP 6-7-fluid boluses being given. Anticipate improvement in both blood pressure and tachycardia with fluids. Continue Zosyn/vancomycin. Creatinine up slightly, follow with fluids. 02/04/17 08:11 Surgery Some confusion this morning, but did call both me and Dr. Pro by name. Vasopressin was started yesterday for BP support. Additional 2000 ml fluid bolused during the night. She remains tacky 100-120's, SBP about 90's this am. Urine output 35-70 ml/hr during the night. HGB this am 7.4 and 7.1 on redraw. IT was 11.0 yesterday. WBC coming down 16 today, 20.9 yesterday. K+ removed from fluids yesterday, and is currently 3.4 With drop in HGB, tachycardia, hypotension, and requiring vasopressin and fluid bolus during the night, 1 unit PRBC orderd, repeat HGB after 1st unit, may need a 2nd. WBC 16.0, 20.9 yesterday Serum Creatinine back down to 1.0. from 1.2 yesterday CANDACE with serosanguineous fluid, not ivy blood. Fluid from Right CANDACE sent for creatinine, this is send out to [facility] and should be available by later this evening or tomorrow morning. No flatus yet, but there are hypoactive but reasonable bowel sounds. Will ask about TPN. K+ 3.4, down from 5.0 yesterday, K+ removed from IVF yesterday, IVF changed this am to NS with 20 KCla 02/04/17 [place] No further seizure activity. Would like to proceed with CT head when hemodynamically stable to proceed to do so. No focal neurological deficits by bedside exam. Persistent hypotension, remains on vasopressin, CVP 5. Convert fluids and NS with additional volume to be given. Initiate TPN-discussed with Dr. Bowers. 2 units PRBCs earlier today, hemoglobin 7.1-7.5-8.3. 02/05/17 10:40 Surgery She is more lethargic this morning, but did deny pain when asked, and denies flatus and stated she "wished she could have some." She drifts back to sleep quickly. She had 2 units PRBC yestereday, HGB went up to 8.3 and has drifted down to 7.7 this am. Urine output is good at around 75-150/hr. SBP better, around 110's - 120 and pulse better in the low 100's compared to 120 's yesterday. TPN has been started. Repeat HGB at noon today. 02/05/17 10:43 02/06/[address] head after recent seizure. Persistent sinus tachycardia-given increased oxygen demand am reluctant to use additional fluids. Resume medications for restless leg syndrome. 02/07/17 08:56 [place] Give an additional dose of lasix. Trial metoprolol if BP remains stable with diuresis later today. Continue supportive care, add nystatin powder to mya care. 02/08/17 11:13 [place] BP stabilized after albumin 25g x2; will hold further dosing Improved volume status, holding diuretics this morning Baclofen, gabapentin, toradol held acutely Hemoglobin 7.3 this AM, receiving 1 unit PRBC Chest pain resolved, no evidence of ischemia with negative troponin and normal EKG Starting low dose metoprolol 12.5 mg BID for sinus tachycardia that has been persistent KCL 40 meq IV this AM in addition to TPN, adjusting up K supplement in TPN as well Continue Zosyn and vancomycin for now, may be able to start tapering off antibiotics tomorrow Nystatin suspension for thrush 02/06-02/16; added topical nystatin 02/07 to the mya area due to erythema Home trilogy now available for nighttime use Persistent tachycardia-home medications reviewed, typically not on beta saravanan , BP improved after albumin--> will trial metoprolol 12.5 mg BID and monitor Will monitor in ICU today given borderline hemodynamics, chest pain, transfusion plans; if stable tomorrow can likely move out of ICU at that time 02/09/17 08:26 HGB dropped o7.9-3 over the weekend, 1 unit PRBC infused and HGB increased to 8.2, this morning we are drifting down to 7.7. will get another HGB at 10:00 today. Albumin 25 G BID ordered over the weekend. Serum Albumin remains low. Has been off Vasopresin since last week. SBP has been stable in the 90's-110's and Pulse better in the 80's-90's. Some report of drainage from the incision, none seen on gauze or on wound today. Hernandez is in, urine output good, clear yellow this morning. A ureteral catheter remains in the right ureter and Dr. Purcell will remove it in about 6 weeks. The left ureteral catheter was removed after surgery. She has had several liquid stools, C-diff neg, denies nausea, will advance to regular diet. Continue TPN till we see how much PO she is able to take. Will add a multivitamin. Will be sure there is PT/OT ordered, hope to get her moving enough to pull the Hernandez soon and perhaps move to surgical floor later today or tomorrow.
[2017-02-09] MEDS: NYSTATIN 500,000 units/5 ml ORAL LIQUID PO SCH ×4 (08:52→20:10)
[2017-02-09] MEDS: CALCIUM 600 + VIT D 400 TABLET PO SCH (08:52)
[2017-02-09] MEDS: PANTOPRAZOLE 40 MG INJECTION IVP SCH (08:52)
[2017-02-09] MEDS: FOLIC ACID 1 MG TABLET PO SCH (08:53)
[2017-02-09] MEDS: ASPIRIN *EC* 81 MG TABLET PO SCH (08:53)
--- NOTE | 2017-02-09 09:11 | Progress Note ---
DATE 02/08/2017 POSTOP DAY #6 HPI The patient remains in the Intensive Care Unit. She has a full liquid diet ordered. She has not been drinking much of her full liquid diet. She has been drinking some nutritional supplement fluid and has had more of this than her full liquid diet. The patient has had multiple loose bowel movements overnight last night. The patient was up in the chair a little bit yesterday in the Intensive Care Unit but has not been out of bed yet today. She is very weak. The drainage which the patient was reported to have from her incision yesterday was actually from a small laparoscopy incision at the left lateral flank area. The patient has had a little bit more serous fluid drain out through this incision over the last 24 hours. There has been no drainage from the larger vertical midline abdominal incision. The patient continues to receive TPN for nutritional support. PHYSICAL EXAMINATION VITAL SIGNS: Pulse is 94. Respiratory rate is 18. Blood pressure is 93/52. Oxygen saturation was 99% with CPAP. ABDOMEN: The abdominal incisions all look good at this time. The abdomen is soft. The patient does have a couple of Neeraj-Hughes drains in place to the peritoneal cavity and the fluid in the drain bulbs all looks serous. LABORATORY DATA White blood cell count is 9,700 with no bands this morning. Hemoglobin is 7.3 and hematocrit is 25.3 this morning. Serum sodium is 143. Serum potassium is 3.4. Serum creatinine is 0.7. Stool studies for Clostridium difficile toxin B which were performed on 02/07/2017 and 02/08/2017 are both negative. IMPRESSION 1. Doing well overall following exploratory laparotomy, extensive adhesiolysis , takedown of end colostomy, mobilization of splenic flexure, low anterior colon resection with coloproctostomy anastomosis and repair of right ureteral injury on 02/02/2017. 2. Anemia. 3. Mild hypokalemia. PLAN 1. Continue postoperative care in the Intensive Care Unit. 2. Continue TPN for nutritional support. 3. The patient is going to have transfusion of a unit of packed red blood cells today to help with the anemia. 4. The patient will be given additional potassium chloride for correction of the mild hypokalemia. 5. Physical Therapy will be consulted today to help with mobilization of the patient. CARMINE
[2017-02-09] MEDS: CALMOSEPTINE OINTMENT 113gm TUBE TP SCH ×2 (09:39→20:08)
[2017-02-09] MEDS: ALBUMIN HUMAN 12.5gm (25%) 50ml IV SCH ×2 (09:40→21:45)
--- NOTE | 2017-02-09 11:02 | Pharmacy Consult-TPN/PPN ---
Pharmacy Consult-TPN/PPN - Laboratory Information Chemistry Turbidity < 20 (0-20) 02/09/17 04:32 Sodium 141 MEQ/L (134-144) 02/09/17 04:32 Potassium 4.2 MEQ/L (3.6-5) D 02/09/17 04:32 Chloride 103 MEQ/L (98-107) 02/09/17 04:32 Carbon Dioxide 33 MEQ/L (22-30) H 02/09/17 04:32 Anion Gap 5 MEQ/L (5-15) 02/09/17 04:32 BUN 16.0 MG/DL (7-17) 02/09/17 04:32 Creatinine 0.7 MG/DL (0.7-1.2) 02/09/17 04:32 GFR Calculation 82 02/09/17 04:32 BUN/Creatinine Ratio 23 RATIO (6-26) 02/09/17 04:32 Glucose 91 MG/DL (65-110) 02/09/17 04:32 Glucometer 120 mg/dL (65-110) 02/09/17 05:25 Calculated Osmolality 272 MOSM/KG (261-280) 02/09/17 04:32 Calcium 8.0 MG/DL (8.4-10.2) L 02/09/17 04:32 Phosphorus 2.8 MG/DL (2.5-4.5) 02/09/17 04:32 Magnesium 2.1 MG/DL (1.6-2.3) 02/09/17 04:32 Total Bilirubin 0.80 MG/DL (0.20-1.30) 02/02/17 15:38 Icterus Index < 2 (0-7) 02/09/17 04:32 AST 22 U/L (14-36) 02/02/17 15:38 ALT 19 U/L (9-52) 02/02/17 15:38 Alkaline Phosphatase 82 U/L (38-126) D 02/02/17 15:38 Troponin I 0.018 ng/ml (0-0.12) 02/08/17 07:18 Total Protein 6.7 G/DL (6.3-8.2) 02/02/17 15:38 Albumin 2.6 G/DL (3.5-5.0) L 02/09/17 04:32 Globulin 3.6 G/DL (2.4-3.6) 02/02/17 15:38 Albumin/Globulin Ratio 0.9 RATIO (1.1-2.2) L 02/02/17 15:38 Plasma Lactate 2.8 MMOL/L (0.6-2.2) H 02/03/17 06:01 Procalcitonin 1.79 NG/ML 02/04/17 11:28 Specimen Hemolysis < 15 (0-25) 02/09/17 04:32 Intake and Output 02/08/17 02/09/17 02/10/17 06:59 06:59 06:59 Intake Total 4947.500 / 4947.500 4020.000 / 4020.000 540 / 540 Output Total 3067 / 3067 1910 / 1910 505 / 505 Balance 1880.500 / 3911.512 9655.000 / 2110.000 35 / 35 Weight 100.1 kg 102.6 kg 104 kg Intake: IV 3507.500 / 3507.500 3420.000 / 3420.000 320 / 320 Albumin Human 100 ml @ 50 100.000 / 100.000 mls/hr IV O ONE Rx#: [id number] Fat Emulsion 20% 100 ml @ 100.000 / 100.000 100 / 100 50 mls/hr IV 1600 [facility] Rx #:[id number] MAGNESIUM SULFATE 1gm 100 / 100 PREMIX 1 gm In 100 ml @ 33 mls/hr IV O ONE Rx#: [id number] Piperacillin/Tazobactam 3 400 / 400 400.000 / 400.000 .375 gm In Ns 100 ml @ 200 mls/hr IV Q6H [facility] Rx# :[id number] Potassium Acetate Inj 60 1920.000 / 1419.853 7251.000 / 1920.000 320 / 320 meq Multi-Vit Infusion 10 ml Multi-Trace Elements 1 ml In TPN - Standard Formula 2,000 ml @ 80 mls/hr IV .Q24H [facility] Rx#:[id number] Potassium Chloride Premix 400.000 / 400.000 10 meq In 100 ml @ 100 mls/hr IV Q1H [facility] Rx#: [id number] Vancomycin 1,750 mg In NS 987.5 / 987.5 500 / 500 500ml 500 ml @ 250 mls/ hr IV Q18H [facility] Rx#: [id number] Oral 1440 / 1440 600 / 600 120 / 120 Intake (Blood Product) 100 / 100 Amt Output: Urine Amount (Catheter) 2864 / 2864 1780 / 1780 505 / 505 Wound Drainage 203 / 203 130 / 130 Left Abdomen 74 / 74 30 / 30 Left Lower Abdomen 10 / 10 5 / 5 Right Abdomen 119 / 119 95 / 95 Other: Urine Appearance Cloudy Cloudy Cloudy Sediment Sediment Sediment Urine Color Yellow Yellow Yellow Stool Color Green Stool Consistency Liquid Size of Bowel Movement Small Drain Type Left Abdomen Bulb Bel-Ridge Bulb Bel-Ridge Left Lower Abdomen Bulb Bel-Ridge Bulb Bel-Ridge Right Abdomen Bulb Bel-Ridge Bulb Bel-Ridge # Incontinent Bowel 1 Movements - Consult Information We will continue same TPN formula as yesterday. Serum potassium at 4.2 today and will monitor closely on 02/10/17 to determine potassium acetate adjustment in TPN formula.
[2017-02-09] MEDS: MULTI-VITAMIN + MINERAL TABLET PO SCH (11:24)
[2017-02-09] MEDS ORDERED: NS 1,000 ML IV SCH (13:45)
--- NOTE | 2017-02-09 14:03 | Progress Note ---
DATE 02/09/2017 FINDINGS Ms. Magdaleno was without complaints this morning. She denied severe abdominal pain. VITALS: Afebrile. Normotensive. Last recorded vitals include temperature 98.3 , pulse 93, respirations 20, blood pressure 93/62. SaO2 97% on 2 liters per nasal cannula. HEENT. Pupils equal, round, reactive to light and accommodation. The patient' s face did appear somewhat flushed this morning. CHEST: Clear auscultation bilaterally. HEART: Regular rate and rhythm. ABDOMEN: Palpation of the abdomen revealed it to be soft and nontender. Incision is clean, dry and intact. CANDACE drainage is serosanguineous in nature. LABORATORY/RADIOGRAPH EVALUATION The patient had a CBC today and her hemoglobin was 7.7. White blood count is stable at 8.7. CMP was obtained and found to be without marked abnormalities. ASSESSMENT 76-year-old female status post takedown of end colostomy, sigmoid resection/low anterior resection with coloproctostomy, repair of right ureteral injury. The patient remains overall stable but making very slow improvement. PLAN I was a little discouraged to see Suzy had not improved very much over the course of the weekend. She has been having some loose stools apparently over the weekend. C. diff was obtained and found to be negative on the 2nd and the 3rd. I encouraged Suzy to try to increase her activity. Will have Physical Therapy work with the patient. The patient's functional status was fairly marginal even prior to surgery. I still feel the patient's overall prognosis is somewhat guarded. Hopefully, Suzy will begin to show some increasing improvement over the next couple of days. Will, otherwise, continue with current care. CARMINE
[2017-02-09] MEDS: FAT EMULSION 20% 100 ML IV SCH (16:02)
--- NOTE | 2017-02-09 19:42 | Progress Note ---
- Date 02/09/17 Subjective: Suzy denies dyspnea and reports she is only coughing when she is asked to. She reports she's had no chest pain or palpitations, no nausea and that she is unsure if she's having bowel movements because she's got a rectal tube in. She had significant diarrhea yesterday prompting tube placement. Abdominal dressings to been discontinued and she reports that she doesn't want to see the wounds. She was able to sit on the to the bed earlier and denies lightheadedness. Hernandez catheter remains in place. Nursing reports blood pressure has been lower today with CVP of 10. Objective Vital signs: Temperature 97.5 F 02/09/17 12:00 Pulse Rate 92 02/09/17 18:30 Respiratory Rate 24 02/09/17 19:15 Blood Pressure 103/56 02/09/17 18:30 Pulse Oximetry 100 - 2L 02/09/17 19:15 I/O 4020/1910 weight up 15 kg from admission EXAM General-NAD, alert HEENT-conjugate gaze, EOMI, sclerae anicteric, oral membranes clear-thrush cleared Lungs-respirations nonlabored or minimally labored, diminished airflow, anterior breath sounds clear Cardiac-regular rhythm, S1-S2 Abd-soft, obese, nontender to light palpation, bowel sounds present, incisions clean and dry, drains remain present Ext-+1 edema lower extremities, trace upper extremities Neuro-moving upper extremities well, dorsiflexion/plantarflexion intact lower extremities Skin-without rash Psych-oriented 3 - Rhythm: Normal Sinus Rhythm Height/Weight/BMI: Height 1.55 m Weight 104 kg Body Mass Index 40.5 Results - Labs CBC & Chem 7: 02/09/17 10:03 02/09/17 04:32 Labs: White count 8.7, hemoglobin 7.7, platelet count 255K at 4 AM Magnesium 2.1, phosphorus 2.8, albumin 2.6 Microbiology Results: C. difficile toxin negative 2 Assessment and Plan (1) Seizure Problem details: Postoperative Current visit: Yes Status: Acute (2) Hypotension Current visit: Yes Status: Acute Assessment and Plan: Impression Post op seizure of unclear etiology, no further seizure activity, CT head unremarkable 02/06 Hypotension with tachycardia; BP improved but tachycardia persistent Post op Leukocytosis and thrombocytosis - stress response vs. infection; resolving s/p exploratory laparotomy with excision diverticulitis mass and colovaginal fistula, with takedown of end colostomy per Dr. Bowers s/p stenting of right ureter per Dr. Dela Cruz Intra-abdominal abscess with polymicrobial growth including MRSA, pseudomonas aeruginosa and citrobacter freundii. Anemia-postoperative/chronic-2 u PRBC 02/04, 1 u 02/08 Hypertension. Hyperlipidemia. Chronic hypercapnic respiratory failure; ROLO and O2 as needed GERD, on IV protonix currently CHF - diastolic - Echo 09/21/15 showed EF 55%; moderate TR and moderate PH. Restless leg syndrome. Anxiety and depression Obesity with BMI 37 Chronic neck pain Hypokalemia, resolved with TPN ICU psychosis, improving with supportive care Thrush-02/05 and mya area yeast 12/2l; on topical nystatin Diarrhea, likely osmotic versus antibiotic induced, C diff testing negative x2 Intermittent somnolence, likely multifactorial due to medications, ROLO Plan BP variable, received IV fluids earlier today for systolic pressures in the 70s. Subsequent systolic pressure 100-121; prefer to avoid additional fluids if at all possible due to volume overload already present unless patient is clearly symptomatic. Receiving albumin to help oncotic pressure; holding diuretics. Baclofen, gabapentin, toradol on hold due to excess sedation over the weekend. Hemoglobin 7.7 this AM and afternoon after receiving wide yesterday Starting low dose metoprolol 12.5 mg BID for tachycardia that has been persistent last week-heart rate improved. Potassium improved. Remains on Zosyn and vancomycin-will discuss with surgery whether there is ongoing need for antibiotic therapy. Nystatin suspension for thrush 02/06-02/16; topical nystatin initiated 02/07 for erythema in the mya-area. Home trilogy available for nighttime use Discussed with nursing staff; discussed with Dr. Bowers-continue observation in ICU due to fluctuating blood pressure/volume status and hypoxia. Diet advance to regular-will decrease TPN tomorrow with goal of titrating off over the next 24-48 hours. Hospital Course Summary Disclaimer: The visit summary below is not to be considered part of the above Progress Note. Hospital Course: 02/02/17 16:09 Impression Post op seizure like activity Post op Leukocytosis and thrombocytosis - stress response vs. infection s/p exploratory laparotomy with excision diverticulitis mass and colovaginal fistula, with takedown of end colostomy per Dr. Bowers s/p stenting of right ureter per Dr. Dela Cruz Intra-abdominal abscess with polymicrobial growth including MRSA, pseudomonas aeruginosa and citrobacter freundii. Anemia. Hypertension. Hyperlipidemia. Chronic hypercapnic respiratory failure; ROLO and O2 as needed GERD. CHF - diastolic - Echo 09/21/15 showed EF 55%; moderate TR and moderate PH. Restless leg syndrome. Anxiety and depression. Obesity with BMI 37. Chronic neck pain. Plan Place PICC Stat labs ordered - hgb stable. Lactate 11.8 - unable to determine if septic shock or if elevated lactate was from hypoperfusion (hypoxia; hypotension). She had well over 30 ml/kg IVF (89 kg x 30 mL = 2,670mL) sz precautions - Invanz may lower sz threshold; perhaps hypoxia d/t prolonged sx - consider neuro consult, head CT Abx changed to meropenem + vanco. BP was dangerously low but now improving - monitor closely as she still may need pressor support With IVF, need to monitor closely for fluid overload - measure I/O + weights. Hernandez; right ureteral stent mgt per urology. DNR status Dr. Sorensen d/w Dr. Pro. Critically ill. Time spent at bedside: 45 min. 02/03/17 09:25 POD #1 -No seizure activity since the initial one of less than 30 sec while in recovery phase post op. -Invanz cancelled as this does have a "caution/contraindication" of Seizure Hx. Zosyn and Vancomycin with pharmacy consult in place. -Urine output marginal, around 22-40/hr for the last 6-8 hours. Will give NS bolus due to marginal U/O and lower SBP -SBP tends to be in the 90's. will continue to monitor, continue fluids at 125/ hr for now. -NG without output, cannot see the tip on CXR, it appears to be out a long way, will have staff advance it 10-12 cm. -K+ upper limit of normal, although it was hemolyzed, will change IVF to D5 1/2 without K+, repeat labs. -Discussed case with Dr. Pro, he indicated we will continue to defer medical management to hospitalist team as long as pt is in CCU, he will likely ' pick her -up" when she transfers to surgical floor. 11/28/17 09:43 02/03/17 [place] No further seizure activity. Would like to proceed with CT head when hemodynamically stable to proceed to do so. No focal neurological deficits by bedside exam. Persistent hypotension-central line placed today, CVP 6-7-fluid boluses being given. Anticipate improvement in both blood pressure and tachycardia with fluids. Continue Zosyn/vancomycin. Creatinine up slightly, follow with fluids. 02/04/17 08:11 Surgery Some confusion this morning, but did call both me and Dr. Pro by name. Vasopressin was started yesterday for BP support. Additional 2000 ml fluid bolused during the night. She remains tacky 100-120's, SBP about 90's this am. Urine output 35-70 ml/hr during the night. HGB this am 7.4 and 7.1 on redraw. IT was 11.0 yesterday. WBC coming down 16 today, 20.9 yesterday. K+ removed from fluids yesterday, and is currently 3.4 With drop in HGB, tachycardia, hypotension, and requiring vasopressin and fluid bolus during the night, 1 unit PRBC orderd, repeat HGB after 1st unit, may need a 2nd. WBC 16.0, 20.9 yesterday Serum Creatinine back down to 1.0. from 1.2 yesterday CANDACE with serosanguineous fluid, not ivy blood. Fluid from Right CANDACE sent for creatinine, this is send out to [facility] and should be available by later this evening or tomorrow morning. No flatus yet, but there are hypoactive but reasonable bowel sounds. Will ask about TPN. K+ 3.4, down from 5.0 yesterday, K+ removed from IVF yesterday, IVF changed this am to NS with 20 KCla 02/04/17 [place] No further seizure activity. Would like to proceed with CT head when hemodynamically stable to proceed to do so. No focal neurological deficits by bedside exam. Persistent hypotension, remains on vasopressin, CVP 5. Convert fluids and NS with additional volume to be given. Initiate TPN-discussed with Dr. Bowers. 2 units PRBCs earlier today, hemoglobin 7.1-7.5-8.3. 02/05/17 10:40 Surgery She is more lethargic this morning, but did deny pain when asked, and denies flatus and stated she "wished she could have some." She drifts back to sleep quickly. She had 2 units PRBC yestereday, HGB went up to 8.3 and has drifted down to 7.7 this am. Urine output is good at around 75-150/hr. SBP better, around 110's - 120 and pulse better in the low 100's compared to 120 's yesterday. TPN has been started. Repeat HGB at noon today. 02/05/17 10:43 02/06/[address] head after recent seizure. Persistent sinus tachycardia-given increased oxygen demand am reluctant to use additional fluids. Resume medications for restless leg syndrome. 02/07/17 08:56 [facility] Give an additional dose of lasix. Trial metoprolol if BP remains stable with diuresis later today. Continue supportive care, add nystatin powder to mya care. 02/08/17 11:13 [facility] BP stabilized after albumin 25g x2; will hold further dosing Improved volume status, holding diuretics this morning Baclofen, gabapentin, toradol held acutely Hemoglobin 7.3 this AM, receiving 1 unit PRBC Chest pain resolved, no evidence of ischemia with negative troponin and normal EKG Starting low dose metoprolol 12.5 mg BID for sinus tachycardia that has been persistent KCL 40 meq IV this AM in addition to TPN, adjusting up K supplement in TPN as well Continue Zosyn and vancomycin for now, may be able to start tapering off antibiotics tomorrow Nystatin suspension for thrush 02/06-02/16; added topical nystatin 02/07 to the mya area due to erythema Home trilogy now available for nighttime use Persistent tachycardia-home medications reviewed, typically not on beta saravanan , BP improved after albumin--> will trial metoprolol 12.5 mg BID and monitor Will monitor in ICU today given borderline hemodynamics, chest pain, transfusion plans; if stable tomorrow can likely move out of ICU at that time 02/09/17 08:26 HGB dropped o7.9-3 over the weekend, 1 unit PRBC infused and HGB increased to 8.2, this morning we are drifting down to 7.7. will get another HGB at 10:00 today. Albumin 25 G BID ordered over the weekend. Serum Albumin remains low. Has been off Vasopresin since last week. SBP has been stable in the 90's-110's and Pulse better in the 80's-90's. Some report of drainage from the incision, none seen on gauze or on wound today. Hernandez is in, urine output good, clear yellow this morning. A ureteral catheter remains in the right ureter and Dr. Purcell will remove it in about 6 weeks. The left ureteral catheter was removed after surgery. She has had several liquid stools, C-diff neg, denies nausea, will advance to regular diet. Continue TPN till we see how much PO she is able to take. Will add a multivitamin. Will be sure there is PT/OT ordered, hope to get her moving enough to pull the Hernandez soon and perhaps move to surgical floor later today or tomorrow. 02/09/17 - [place] BP variable, received IV fluids earlier today for systolic pressures in the 70s. Subsequent systolic pressure 100-121; prefer to avoid additional fluids if at all possible due to volume overload already present unless patient is clearly symptomatic. Receiving albumin to help oncotic pressure; holding diuretics. Baclofen, gabapentin, toradol on hold due to excess sedation over the weekend. Hemoglobin 7.7 this AM and afternoon after receiving wide yesterday Starting low dose metoprolol 12.5 mg BID for tachycardia that has been persistent last week-heart rate improved. Potassium improved. Remains on Zosyn and vancomycin-will discuss with surgery whether there is ongoing need for antibiotic therapy. Nystatin suspension for thrush 02/06-02/16; topical nystatin initiated 02/07 for erythema in the mya-area. Home trilogy available for nighttime use Diet advance to regular-will decrease TPN tomorrow with goal of titrating off over the next 24-48 hours.
[2017-02-09] MEDS: PRAMIPEXOLE 1 MG TABLET PO SCH (19:56)
[2017-02-09] MEDS: MULTI TRACE ELEMENTS IV SCH (20:08)
[2017-02-09] MEDS: MULTI VIT INFUSION IV SCH (20:08)
[2017-02-09] MEDS: POTASSIUM ACETATE IV SCH (20:08)
[2017-02-09] MEDS: [UNRECOGNIZED DRUG - OTHER] IV SCH (20:08)
[2017-02-09] MEDS ORDERED: ALTEPLASE (Cathflo*) 2mg INJECTION IV ONE (20:14)
[2017-02-09] MEDS: NS FLUSH BAG 500ml IV PRN ×2 (21:46→22:40)
[2017-02-10] MEDS: PIPERACILLIN/TAZOBACTAM 3.375 GM in NS 100 ML IV SCH ×2 (04:07→11:13)
[2017-02-10] MEDS: SALINE FLUSH 10ml SYRINGE IV PRN (04:07)
[2017-02-10] MEDS: OMEPRAZOLE 20 MG CAPSULE PO SCH (06:05)
[2017-02-10] MEDS: ALBUTEROL 2.5mg/3ml (0.083%) NEB AEROSOL SCH ×4 (06:34→19:15)
[2017-02-10] MEDS: CALCIUM 600 + VIT D 400 TABLET PO SCH (08:31)
[2017-02-10] MEDS: FOLIC ACID 1 MG TABLET PO SCH (08:31)
[2017-02-10] MEDS: MULTI-VITAMIN + MINERAL TABLET PO SCH (08:33)
[2017-02-10] MEDS: NYSTATIN 500,000 units/5 ml ORAL LIQUID PO SCH ×4 (08:34→21:01)
[2017-02-10] MEDS: CALMOSEPTINE OINTMENT 113gm TUBE TP SCH ×2 (08:34→21:03)
[2017-02-10] MEDS: ASPIRIN *EC* 81 MG TABLET PO SCH (09:13)
[2017-02-10] MEDS: ALBUMIN HUMAN 12.5gm (25%) 50ml IV SCH (09:13)
--- NOTE | 2017-02-10 10:01 | Pharmacy Consult-TPN/PPN ---
Pharmacy Consult-TPN/PPN - Laboratory Information Chemistry Turbidity < 20 (0-20) 02/10/17 03:35 Sodium 141 MEQ/L (134-144) 02/10/17 03:35 Potassium 4.3 MEQ/L (3.6-5) 02/10/17 03:35 Chloride 102 MEQ/L (98-107) 02/10/17 03:35 Carbon Dioxide 34 MEQ/L (22-30) H 02/10/17 03:35 Anion Gap 5 MEQ/L (5-15) 02/10/17 03:35 BUN 17.0 MG/DL (7-17) 02/10/17 03:35 Creatinine 0.7 MG/DL (0.7-1.2) 02/10/17 03:35 GFR Calculation 82 02/10/17 03:35 BUN/Creatinine Ratio 24 RATIO (6-26) 02/10/17 03:35 Glucose 86 MG/DL (65-110) 02/10/17 03:35 Glucometer 102 mg/dL (65-110) 02/10/17 06:00 Calculated Osmolality 272 MOSM/KG (261-280) 02/10/17 03:35 Calcium 8.1 MG/DL (8.4-10.2) L 02/10/17 03:35 Phosphorus 3.5 MG/DL (2.5-4.5) 02/10/17 03:35 Magnesium 2.1 MG/DL (1.6-2.3) 02/09/17 04:32 Total Bilirubin 0.80 MG/DL (0.20-1.30) 02/02/17 15:38 Icterus Index < 2 (0-7) 02/10/17 03:35 AST 22 U/L (14-36) 02/02/17 15:38 ALT 19 U/L (9-52) 02/02/17 15:38 Alkaline Phosphatase 82 U/L (38-126) D 02/02/17 15:38 Troponin I 0.018 ng/ml (0-0.12) 02/08/17 07:18 Total Protein 6.7 G/DL (6.3-8.2) 02/02/17 15:38 Albumin 2.6 G/DL (3.5-5.0) L 02/10/17 03:35 Globulin 3.6 G/DL (2.4-3.6) 02/02/17 15:38 Albumin/Globulin Ratio 0.9 RATIO (1.1-2.2) L 02/02/17 15:38 Plasma Lactate 2.8 MMOL/L (0.6-2.2) H 02/03/17 06:01 Procalcitonin 1.79 NG/ML 02/04/17 11:28 Specimen Hemolysis < 15 (0-25) 02/10/17 03:35 Intake and Output 02/09/17 02/10/17 02/11/17 06:59 06:59 06:59 Intake Total 4020.000 / 4020.000 4975.501 / 4975.501 200 / 200 Output Total 1910 / 1910 3775 / 3775 950 / 950 Balance 2110.000 / 2110.000 1200.501 / 1200.501 -750 / -750 Weight 102.6 kg 104 kg Intake: IV 3420.000 / 3420.000 3857.501 / 3857.501 80 / 80 Fat Emulsion 20% 100 ml @ 100 / 100 100 / 100 50 mls/hr IV 1600 [facility] Rx #:[id number] MAGNESIUM SULFATE 1gm 100 / 100 PREMIX 1 gm In 100 ml @ 33 mls/hr IV O ONE Rx#: [id number] NS 500ml 250 ml @ 999.9 250 / 250 mls/hr IV .Q15M [facility] Rx#: [id number] Ns 1,000 ml @ 250 mls/hr 266.667 / 266.667 IV .Q4H [facility] Rx#:[id number] Piperacillin/Tazobactam 3 400.000 / 400.000 400 / 400 .375 gm In Ns 100 ml @ 200 mls/hr IV Q6H [facility] Rx# :[id number] Potassium Acetate Inj 60 1920.000 / 1181.384 2430.000 / 1920.000 80 / 80 meq Multi-Vit Infusion 10 ml Multi-Trace Elements 1 ml In TPN - Standard Formula 2,000 ml @ 80 mls/hr IV .Q24H [facility] Rx#:[id number] Potassium Chloride Premix 400.000 / 400.000 10 meq In 100 ml @ 100 mls/hr IV Q1H [facility] Rx#: [id number] Vancomycin 1,750 mg In NS 500 / 500 920.834 / 920.834 500ml 500 ml @ 250 mls/ hr IV Q18H [facility] Rx#: [id number] Oral 600 / 600 1018 / 1018 120 / 120 Intake (Blood Product) 100 / 100 Amt Output: Urine Amount (Catheter) 1780 / 1780 3655 / 3655 950 / 950 Wound Drainage 130 / 130 120 / 120 Left Abdomen 30 / 30 35 / 35 Left Lower Abdomen 5 / 5 Right Abdomen 95 / 95 85 / 85 Other: Urine Appearance Cloudy Sediment Sediment Sediment Urine Color Yellow Yellow Light Anne Urine Odor Normal Stool Color Brown Green Stool Consistency Soft Size of Bowel Movement Moderate Drain Type Left Abdomen Bulb [place] Bulb [place] Left Lower Abdomen Bulb [place] Right Abdomen Bulb [place] Bulb [place] # Incontinent Bowel 1 Movements - Consult Information TPN Consult: Patient is now on a regular diet. TPN rate decreased this morning to 60 ml/hr. The Lipids are also now discontinued. The next TPN bag will be hung this evening at 40 ml/hr. This bag will be her last bag of TPN. The last bag of TPN will just have the Standard Electrolytes. No additional Potassium Acetate will be added. Thank you. Spring Roque, LalitoD
--- NOTE | 2017-02-10 10:03 | XRay Report ---
Indication: tachypnea, hypoxia PROCEDURE: XR chest 1V: Encounter: Initial Comparison: February 06, 2017 Findings: Right IJ line remains in place. There is still some increased airspace opacity in the medial aspect of the right lung without significant change. No pleural effusion or pneumothorax. Hypoinflation. Heart size and mediastinal contours are stable. Impression: Stable appearance of the chest with hypoinflation. .
--- NOTE | 2017-02-10 12:53 | Pharmacy Consult-Antibiotics ---
Pharmacy Consult-Vancomycin - Laboratory Information WBC 7.8 T/MM3 (4.5-11.0) 02/10/17 03:35 BUN 17.0 MG/DL (7-17) 02/10/17 03:35 Creatinine 0.7 MG/DL (0.7-1.2) 02/10/17 03:35 Procalcitonin 1.79 NG/ML 02/04/17 11:28 Vancomycin Trough 22.76 UG/ML (15-20) H* 02/10/17 04:35 - Consult Information VANCOMYCIN CONSULT: Vancomycin Trough 22.76 mcg/ml. Today's S Cr = 0.7 mg/dl. Estimated Cr Cl ~ 54 mL/min WBC's = 7.8 T/mm3 24-h Tmax = 99.1 Degrees F I changed the Vancomycin to 1500 mg IV q18hrs. I ordered a Vancomycin trough and serum creatinine before the 02/13 0500 dose of vancomycin. The pharmacy will continue to monitor and make adjustments accordingly. Thank you for the Vancomycin Protocol, Janes Finn, Pharmacist.
--- NOTE | 2017-02-10 17:06 | Progress Note ---
DATE 02/10/2017 FINDINGS Ms. Magdaleno was seen earlier today on rounds. The patient was alert and oriented when I had seen the patient at about lunchtime. Nursing staff states the patient was more confused earlier this morning. The patient denied any element of abdominal pain. She states that she was "feeling better." EXAM VITAL SIGNS: Afebrile, normotensive. Please refer to EMR. HEENT: Normocephalic. Pupils are equally round and react to light and accommodation. CHEST: Clear to auscultation bilaterally. HEART: Regular rate and rhythm. Normal S1 and S2 without gallops, murmurs or clicks. ABDOMEN: Palpation of the abdomen revealed it to be soft and completely nontender. There was no evidence for guarding or tenderness. Her incision was clean, dry and intact. LABORATORY/RADIOGRAPHIC EVALUATION The patient had a CBC today and her white count is stable at 7.8. Hemoglobin is stable at 7.7. Blood gas was obtained and reviewed. CMP was obtained as well today and found to be stable. ASSESSMENT 76-year-old female status post takedown of end colostomy, sigmoid resection/low anterior resection with coloproctostomy. Repair of right ureteral injury. Patient showing improvement. PLAN I do think we could go ahead and likely transfer the patient out to the medical floor at this juncture in time. She does appear clinically improved. She has had a week of broad-spectrum/intravenous antibiotics. I do believe we can go ahead and discontinue her antibiotics at this time. I still feel that her prognosis is still somewhat guarded given her limited functional status. The patient has had difficulty with getting out of bed and ambulating. I did encourage Suzy that it is very important that she put forth as much effort as possible to "get out of bed and ambulate." CARMINE
--- NOTE | 2017-02-10 17:35 | Progress Note ---
- Date 02/10/17 Subjective: Mrs. Magdaleno was seen with her daughter at the bedside. Suzy was fairly confused when evaluated midmorning. Nursing reported that she had slept little overnight and became more confused as the night progressed. She used BiPAP overnight with intermittent complaints of dyspnea. She had a 6 second episode of SVT with spontaneous conversion. This morning she denied dyspnea or abdominal pain. Nursing reports ongoing frequent small bowel movements which are loose and the rectal tube has been discontinued. When reevaluated this afternoon she had been up to the bathroom taking shuffling steps with 1 person assistance to get to the commode. Suzy denied chest pain. Appetite has been poor but she is drinking nutritional supplements. No fever recorded and she denied sweats. Objective Vital signs: Temperature 98.5 F 02/10/17 12:00 Pulse Rate 83 02/10/17 15:00 Respiratory Rate 26 H 02/10/17 15:00 Blood Pressure 106/49 02/10/17 13:09 Pulse Oximetry 95 02/10/17 15:00 I/O 4975/3775 EXAM General-NAD, confused HEENT-conjunctiva clear, sclera anicteric, conjugate gaze, BiPAP on at time of assessment Lungs-respirations nonlabored with good airflow anteriorly, diminished breath sounds at the bases laterally Cardiac-regular rhythm, S1-S2; multiple telemetry strips reviewed-sinus rhythm except isolated 6 seconds of PAT/possible atrial fibrillation overnight Abd-abdomen obese, soft, nontender, active bowel sounds Ext-trace/+1 nonpitting edema bilateral lower extremities, I can't appreciate any pitting edema in the lower back with patient lying supine by exam Neuro-email marketing coordinator symmetric, wiggles toes to command Psych-oriented only to name at time of my examination - Rhythm: Normal Sinus Rhythm Height/Weight/BMI: Height 1.55 m Weight 104.9 kg Body Mass Index 40.5 Results - Labs CBC & Chem 7: 02/10/17 03:35 02/10/17 03:35 Labs: S79, B10, L5, M4, E2 Vancomycin trough 22.76 - ABG Interpretation Attestation: I reviewed and interpreted this ABG. ABG results: 02/10/17 12:02 ABG pH 7.440 ABG pCO2 55 H ABG pO2 119 H ABG HCO3 37 H ABG Total CO2 39.1 H ABG O2 Saturation 99.0 H ABG Base Excess 11.3 H Additional comments: Compensated hypercarbia - Imaging and Cardiology Chest x-ray Status: image reviewed by me (increased markings medial right upper lobe- previously present and unchanged, poor inspiratory effort.) Assessment and Plan (1) Seizure Problem details: Postoperative Current visit: Yes Status: Acute (2) Hypotension Current visit: Yes Status: Acute Assessment and Plan: Impression Post op seizure of unclear etiology, no further seizure activity, CT head unremarkable 02/06 Hypotension with tachycardia; BP improved, tachycardia improved with low-dose metoprolol Post op Leukocytosis and thrombocytosis - stress response vs. infection; resolving SVT, 6 seconds-isolated event s/p exploratory laparotomy with excision diverticulitis mass and colovaginal fistula, with takedown of end colostomy per Dr. Bowers Right urethral injury, s/p stenting of right ureter per Dr. Dela Cruz Intra-abdominal abscess with polymicrobial growth including MRSA, pseudomonas aeruginosa and citrobacter freundii. Anemia-postoperative/chronic-2 u PRBC 02/04, 1 u 02/08 Hypertension. Hyperlipidemia. Chronic hypercapnic respiratory failure; ROLO and O2 as needed GERD, on IV protonix currently CHF - diastolic - Echo 09/21/15 showed EF 55%; moderate TR and moderate PH. Restless leg syndrome. Anxiety and depression Obesity with BMI 37 Chronic neck pain Hypokalemia, resolved with TPN ICU psychosis, improving with supportive care Thrush-02/05 and mya area yeast 12/2l; on topical nystatin Diarrhea, likely osmotic versus antibiotic induced, C diff testing negative x2 Intermittent somnolence, likely multifactorial due to medications, ROLO Plan BP improved overall, isolated lower readings but generally systolic has been > 90 past 24 hours. Continue to avoid extra fluids if at all possible due to volume overload unless lower pressures are causing symptoms. Has received albumin for several days to help oncotic pressure-will hold albumin due to limited supply; holding diuretics at present. Baclofen, gabapentin, toradol on hold due to excess sedation over the weekend. More confused this morning but reported to be alert/appropriate when seen by surgery later in the day per her daughter. Suspect not sleeping well overnight contributed to confusion earlier in the day in addition to ongoing ICU psychosis. Hemoglobin 7.7 this AM and afternoon after receiving blood 2 days ago. Starting low dose metoprolol 12.5 mg BID for tachycardia that had been persistent last week-heart rate improved. Continue telemetry, isolated tachyarrhythmia-continue low-dose beta saravanan, defer further workup at this time unless recurs. Potassium stable. Antibiotics discontinued per surgery-has received >7 days postop antibiotics, I agree with discontinuation. White count improved although left shift noted. Reassess in a.m. Nystatin suspension for thrush 02/06-02/16; topical nystatin initiated 02/07 for erythema in the mya-area. Continue ventilatory support with home BiPAP as needed. Discussed with nursing staff; discussed with Dr. Bowers-transfer out of ICU. Diet advance to regular-TPN rate being decreased sequentially with goal of discontinuing over the next [address] Pro in addition to daughter and nursing. Dr. Pro tentatively plans to assume management of medical problems on transfer to surgical floor. DVT Prophylaxis: SCD's GI Prophylaxis: other (omeprazole) Resuscitation Status: Do Not Resuscitate Hospital Course Summary Disclaimer: The visit summary below is not to be considered part of the above Progress Note. Hospital Course: 02/02/17 16:09 Impression Post op seizure like activity Post op Leukocytosis and thrombocytosis - stress response vs. infection s/p exploratory laparotomy with excision diverticulitis mass and colovaginal fistula, with takedown of end colostomy per Dr. Bowers s/p stenting of right ureter per Dr. Dela Cruz Intra-abdominal abscess with polymicrobial growth including MRSA, pseudomonas aeruginosa and citrobacter freundii. Anemia. Hypertension. Hyperlipidemia. Chronic hypercapnic respiratory failure; ROLO and O2 as needed GERD. CHF - diastolic - Echo 09/21/15 showed EF 55%; moderate TR and moderate PH. Restless leg syndrome. Anxiety and depression. Obesity with BMI 37. Chronic neck pain. Plan Place PICC Stat labs ordered - hgb stable. Lactate 11.8 - unable to determine if septic shock or if elevated lactate was from hypoperfusion (hypoxia; hypotension). She had well over 30 ml/kg IVF (89 kg x 30 mL = 2,670mL) sz precautions - Invanz may lower sz threshold; perhaps hypoxia d/t prolonged sx - consider neuro consult, head CT Abx changed to meropenem + vanco. BP was dangerously low but now improving - monitor closely as she still may need pressor support With IVF, need to monitor closely for fluid overload - measure I/O + weights. Hernandez; right ureteral stent mgt per urology. DNR status Dr. Sorensen d/w Dr. Pro. Critically ill. Time spent at bedside: 45 min. 02/03/17 09:25 POD #1 -No seizure activity since the initial one of less than 30 sec while in recovery phase post op. -Invanz cancelled as this does have a "caution/contraindication" of Seizure Hx. Zosyn and Vancomycin with pharmacy consult in place. -Urine output marginal, around 22-40/hr for the last 6-8 hours. Will give NS bolus due to marginal U/O and lower SBP -SBP tends to be in the 90's. will continue to monitor, continue fluids at 125/ hr for now. -NG without output, cannot see the tip on CXR, it appears to be out a long way, will have staff advance it 10-12 cm. -K+ upper limit of normal, although it was hemolyzed, will change IVF to D5 1/2 without K+, repeat labs. -Discussed case with Dr. Pro, he indicated we will continue to defer medical management to hospitalist team as long as pt is in CCU, he will likely ' pick her -up" when she transfers to surgical floor. 02/03/17 09:43 02/03/17 [place] No further seizure activity. Would like to proceed with CT head when hemodynamically stable to proceed to do so. No focal neurological deficits by bedside exam. Persistent hypotension-central line placed today, CVP 6-7-fluid boluses being given. Anticipate improvement in both blood pressure and tachycardia with fluids. Continue Zosyn/vancomycin. Creatinine up slightly, follow with fluids. 02/04/17 08:11 Surgery Some confusion this morning, but did call both me and Dr. Pro by name. Vasopressin was started yesterday for BP support. Additional 2000 ml fluid bolused during the night. She remains tacky 100-120's, SBP about 90's this am. Urine output 35-70 ml/hr during the night. HGB this am 7.4 and 7.1 on redraw. IT was 11.0 yesterday. WBC coming down 16 today, 20.9 yesterday. K+ removed from fluids yesterday, and is currently 3.4 With drop in HGB, tachycardia, hypotension, and requiring vasopressin and fluid bolus during the night, 1 unit PRBC orderd, repeat HGB after 1st unit, may need a 2nd. WBC 16.0, 20.9 yesterday Serum Creatinine back down to 1.0. from 1.2 yesterday CANDACE with serosanguineous fluid, not ivy blood. Fluid from Right CANDACE sent for creatinine, this is send out to [facility] and should be available by later this evening or tomorrow morning. No flatus yet, but there are hypoactive but reasonable bowel sounds. Will ask about TPN. K+ 3.4, down from 5.0 yesterday, K+ removed from IVF yesterday, IVF changed this am to NS with 20 KCla 02/04/17 [place] No further seizure activity. Would like to proceed with CT head when hemodynamically stable to proceed to do so. No focal neurological deficits by bedside exam. Persistent hypotension, remains on vasopressin, CVP 5. Convert fluids and NS with additional volume to be given. Initiate TPN-discussed with Dr. Bowers. 2 units PRBCs earlier today, hemoglobin 7.1-7.5-8.3. 02/05/17 10:40 Surgery She is more lethargic this morning, but did deny pain when asked, and denies flatus and stated she "wished she could have some." She drifts back to sleep quickly. She had 2 units PRBC yestereday, HGB went up to 8.3 and has drifted down to 7.7 this am. Urine output is good at around 75-150/hr. SBP better, around 110's - 120 and pulse better in the low 100's compared to 120 's yesterday. TPN has been started. Repeat HGB at noon today. 02/05/17 10:43 02/06/[address] head after recent seizure. Persistent sinus tachycardia-given increased oxygen demand am reluctant to use additional fluids. Resume medications for restless leg syndrome. 02/07/17 08:56 [place]tt Give an additional dose of lasix. Trial metoprolol if BP remains stable with diuresis later today. Continue supportive care, add nystatin powder to mya care. 02/08/17 11:13 [place]tt BP stabilized after albumin 25g x2; will hold further dosing Improved volume status, holding diuretics this morning Baclofen, gabapentin, toradol held acutely Hemoglobin 7.3 this AM, receiving 1 unit PRBC Chest pain resolved, no evidence of ischemia with negative troponin and normal EKG Starting low dose metoprolol 12.5 mg BID for sinus tachycardia that has been persistent KCL 40 meq IV this AM in addition to TPN, adjusting up K supplement in TPN as well Continue Zosyn and vancomycin for now, may be able to start tapering off antibiotics tomorrow Nystatin suspension for thrush 02/06-02/16; added topical nystatin 02/07 to the mya area due to erythema Home trilogy now available for nighttime use Persistent tachycardia-home medications reviewed, typically not on beta saravanan , BP improved after albumin--> will trial metoprolol 12.5 mg BID and monitor Will monitor in ICU today given borderline hemodynamics, chest pain, transfusion plans; if stable tomorrow can likely move out of ICU at that time 02/09/17 08:26 HGB dropped o7.9-3 over the weekend, 1 unit PRBC infused and HGB increased to 8.2, this morning we are drifting down to 7.7. will get another HGB at 10:00 today. Albumin 25 G BID ordered over the weekend. Serum Albumin remains low. Has been off Vasopresin since last week. SBP has been stable in the 90's-110's and Pulse better in the 80's-90's. Some report of drainage from the incision, none seen on gauze or on wound today. Hernandez is in, urine output good, clear yellow this morning. A ureteral catheter remains in the right ureter and Dr. Purcell will remove it in about 6 weeks. The left ureteral catheter was removed after surgery. She has had several liquid stools, C-diff neg, denies nausea, will advance to regular diet. Continue TPN till we see how much PO she is able to take. Will add a multivitamin. Will be sure there is PT/OT ordered, hope to get her moving enough to pull the Hernandez soon and perhaps move to surgical floor later today or tomorrow. 02/09/17 - [place] BP variable, received IV fluids earlier today for systolic pressures in the 70s. Subsequent systolic pressure 100-121; prefer to avoid additional fluids if at all possible due to volume overload already present unless patient is clearly symptomatic. Receiving albumin to help oncotic pressure; holding diuretics. Baclofen, gabapentin, toradol on hold due to excess sedation over the weekend. Hemoglobin 7.7 this AM and afternoon after receiving wide yesterday Starting low dose metoprolol 12.5 mg BID for tachycardia that has been persistent last week-heart rate improved. Potassium improved. Remains on Zosyn and vancomycin-will discuss with surgery whether there is ongoing need for antibiotic therapy. Nystatin suspension for thrush 02/06-02/16; topical nystatin initiated 02/07 for erythema in the mya-area. Home trilogy available for nighttime use Diet advance to regular-will decrease TPN tomorrow with goal of titrating off over the next 24-48 hours. 02/10/17 More confused today after sleeping poorly last night. Transfer out of ICU today; antibiotics discontinued, TPN rate decreased to 60 mL per hour and will decrease further when new bag hangs this evening. Hemoglobin stable, blood pressure stable. Albumin discontinued due to limited supply. 6 seconds SVT overnight, isolated tachyarrhythmia-continue low-dose beta saravanan , defer further workup at this time unless recurs
[2017-02-10] MEDS ORDERED: [UNRECOGNIZED DRUG - NUTRITION] IV SCH (18:00)
[2017-02-10] MEDS: PRAMIPEXOLE 1 MG TABLET PO SCH (21:01)
[2017-02-11] MEDS: OMEPRAZOLE 20 MG CAPSULE PO SCH (05:46)
[2017-02-11] MEDS: ALBUTEROL 2.5mg/3ml (0.083%) NEB AEROSOL SCH ×4 (07:02→19:03)
--- NOTE | 2017-02-11 07:40 | Family Practice Progress Note ---
Progress Note-A&P - Time Spent With Patient Total time spent is greater than 50% in coordination of care (as documented) at patient's floor/unit and/or counseling patient: less than 15 minutes (1) Anemia Status: Acute Assessment and plan: It is improving. Continue to monitor Current Visit: Yes (2) Hypotension Status: Resolved Assessment and plan: Continue IV nutrition Current Visit: Yes (3) Status post colostomy takedown Status: Acute Current Visit: Yes (4) Status post partial resection of colon Status: Acute Current Visit: Yes (5) Abdominal abscess Status: Acute Assessment and plan: Continue current antibiotics. Current Visit: No (6) Hypoxia Status: Acute Assessment and plan: Currently on 2 liters of oxygen Current Visit: Yes Subjective - Subjective Principal diagnosis: Status post partial colectomy Interval history: She reports she is feeling better. Pain is well tolerated with the medications. She denies nausea but does feel a little bloated like yesterday. No vomiting. She denies fever or chills. She had 4 bms that were loose but formed yesterday. Exam Vital signs: Temperature 98.2 F 02/11/17 04:00 Pulse Rate 81 02/11/17 04:00 Respiratory Rate 32 H 02/11/17 07:02 Blood Pressure 113/53 02/11/17 04:00 Pulse Oximetry 97 02/11/17 07:02 - Routine HEENT Exam Head: Present: normocephalic - Routine Neck Exam Present: supple - Routine Respiratory Exam Present: CTA bilaterally - Routine Cardiovascular Exam Present: RRR - Routine Abdominal Exam Present: soft, normoactive bowel sounds - Urinary Catheter Management Urethral Cath placed during this visit: yes, but has since been removed by the nurse Insertion date: 02/02/17 Insertion time: 08:00 Removal date: 02/02/17 (for intraoperative Cysto) Removal time: 13:45 Ureter Left Cath placed during this visit: yes, but has since been removed by the nurse Insertion date: 02/02/17 Insertion time: 08:00 Removal date: 02/02/17 Removal time: 13:45 Ureter Right Cath placed during this visit: yes, but has since been removed by the nurse Insertion date: 02/02/17 Insertion time: 14:50 Removal date: 02/02/17 Removal time: 13:45
--- NOTE | 2017-02-11 08:07 | General Surgery Progress Note ---
Subjective Narrative: She has been transferred to surgical unit. TPN titrated down to 40 ml/hr now. Eating regular diet, but small amounts. Loose stools have become slightly more formed. She is sleeping with Bi-PAP when I entered this am, she did arouse easily with light touch but immediately went back to sleep. WBC is creeping up but still in the normal range. Some bandemia yesterday. HGB stable, up to 8.3 today (7.7 yesterday) Antibiotic have been stopped, she has had 8 days of Vancomycin and Zosyn ( Invanz may have contributed to post op seizure) Right Ureteral stent remains in place, Dr. Dela Cruz will remove about 6 weeks post op. Urine output is good. - Vital Signs Last Vital Signs Temp 98.2 F 02/11/17 04:00 Pulse 84 02/11/17 07:45 Resp 32 H 02/11/17 07:02 BP 103/56 02/11/17 07:45 Pulse Ox 95 02/11/17 07:45 - Laboratory Result Diagrams: 02/12/17 07:21 02/11/17 04:39 - Abnormal Exam General: confused (during the night, she did not wake up enough to evaluate orientation this morning.) - Normal Exam Cardiovascular: regular rhythm, regular rate Respiratory: clear bilaterally Abdominal: soft, non-tender (lateral palpation), incision(s) (CDI), other (CANDACE's both with clear serous fluid) Assessment and Plan (1) Status post colostomy takedown Current Visit: Yes Status: Acute (2) Status post partial resection of colon Current Visit: Yes Status: Acute (3) Seizure Current Visit: Yes Status: Resolved Problem details: Postoperative (4) Leukocytosis Current Visit: No Status: Acute Qualifiers: Qualified Code(s): D72.825 - Bandemia (5) Obesity (BMI 30-39.9) Current Visit: No Status: Chronic (6) Acute blood loss as cause of postoperative anemia Current Visit: Yes Status: Resolved (7) Hypotension Current Visit: Yes Status: Resolved Qualifiers: Qualified Code(s): I95.81 - Postprocedural hypotension (8) Hypokalemia Current Visit: Yes Status: Resolved Plan: To better assess TPN needs will get a calorie count for 3 days, hope to wean her off within 1-2 days. Continue PT/OT and encourage additional ambulation with nursing. Daily labs. Continue RT treatments and Bi-Pap prn I believe Dr. Pro has assumed medical management from the hospitalist team. Hospital Course Summary Disclaimer: The visit summary below is not to be considered part of the above Progress Note. Hospital Course: 02/02/17 16:09 Impression Post op seizure like activity Post op Leukocytosis and thrombocytosis - stress response vs. infection s/p exploratory laparotomy with excision diverticulitis mass and colovaginal fistula, with takedown of end colostomy per Dr. Bowers s/p stenting of right ureter per Dr. Dela Cruz Intra-abdominal abscess with polymicrobial growth including MRSA, pseudomonas aeruginosa and citrobacter freundii. Anemia. Hypertension. Hyperlipidemia. Chronic hypercapnic respiratory failure; ROLO and O2 as needed GERD. CHF - diastolic - Echo 09/21/15 showed EF 55%; moderate TR and moderate PH. Restless leg syndrome. Anxiety and depression. Obesity with BMI 37. Chronic neck pain. Plan Place PICC Stat labs ordered - hgb stable. Lactate 11.8 - unable to determine if septic shock or if elevated lactate was from hypoperfusion (hypoxia; hypotension). She had well over 30 ml/kg IVF (89 kg x 30 mL = 2,670mL) sz precautions - Invanz may lower sz threshold; perhaps hypoxia d/t prolonged sx - consider neuro consult, head CT Abx changed to meropenem + vanco. BP was dangerously low but now improving - monitor closely as she still may need pressor support With IVF, need to monitor closely for fluid overload - measure I/O + weights. Hernandez; right ureteral stent mgt per urology. DNR status Dr. Sorensen d/w Dr. Pro. Critically ill. Time spent at bedside: 45 min. 02/03/17 09:25 POD #1 -No seizure activity since the initial one of less than 30 sec while in recovery phase post op. -Invanz cancelled as this does have a "caution/contraindication" of Seizure Hx. Zosyn and Vancomycin with pharmacy consult in place. -Urine output marginal, around 22-40/hr for the last 6-8 hours. Will give NS bolus due to marginal U/O and lower SBP -SBP tends to be in the 90's. will continue to monitor, continue fluids at 125/ hr for now. -NG without output, cannot see the tip on CXR, it appears to be out a long way, will have staff advance it 10-12 cm. -K+ upper limit of normal, although it was hemolyzed, will change IVF to D5 1/2 without K+, repeat labs. -Discussed case with Dr. Pro, he indicated we will continue to defer medical management to hospitalist team as long as pt is in CCU, he will likely ' pick her -up" when she transfers to surgical floor. 02/03/17 09:43 02/03/17 [place] No further seizure activity. Would like to proceed with CT head when hemodynamically stable to proceed to do so. No focal neurological deficits by bedside exam. Persistent hypotension-central line placed today, CVP 6-7-fluid boluses being given. Anticipate improvement in both blood pressure and tachycardia with fluids. Continue Zosyn/vancomycin. Creatinine up slightly, follow with fluids. 02/04/17 08:11 Surgery Some confusion this morning, but did call both me and Dr. Pro by name. Vasopressin was started yesterday for BP support. Additional 2000 ml fluid bolused during the night. She remains tacky 100-120's, SBP about 90's this am. Urine output 35-70 ml/hr during the night. HGB this am 7.4 and 7.1 on redraw. IT was 11.0 yesterday. WBC coming down 16 today, 20.9 yesterday. K+ removed from fluids yesterday, and is currently 3.4 With drop in HGB, tachycardia, hypotension, and requiring vasopressin and fluid bolus during the night, 1 unit PRBC orderd, repeat HGB after 1st unit, may need a 2nd. WBC 16.0, 20.9 yesterday Serum Creatinine back down to 1.0. from 1.2 yesterday CANDACE with serosanguineous fluid, not ivy blood. Fluid from Right CANDACE sent for creatinine, this is send out to [facility] and should be available by later this evening or tomorrow morning. No flatus yet, but there are hypoactive but reasonable bowel sounds. Will ask about TPN. K+ 3.4, down from 5.0 yesterday, K+ removed from IVF yesterday, IVF changed this am to NS with 20 KCla 02/04/17 [facility] No further seizure activity. Would like to proceed with CT head when hemodynamically stable to proceed to do so. No focal neurological deficits by bedside exam. Persistent hypotension, remains on vasopressin, CVP 5. Convert fluids and NS with additional volume to be given. Initiate TPN-discussed with Dr. Bowers. 2 units PRBCs earlier today, hemoglobin 7.1-7.5-8.3. 02/05/17 10:40 Surgery She is more lethargic this morning, but did deny pain when asked, and denies flatus and stated she "wished she could have some." She drifts back to sleep quickly. She had 2 units PRBC yestereday, HGB went up to 8.3 and has drifted down to 7.7 this am. Urine output is good at around 75-150/hr. SBP better, around 110's - 120 and pulse better in the low 100's compared to 120 's yesterday. TPN has been started. Repeat HGB at noon today. 02/05/17 10:43 02/06/17 [facility] Obtain CT head after recent seizure. Persistent sinus tachycardia-given increased oxygen demand am reluctant to use additional fluids. Resume medications for restless leg syndrome. 02/07/17 08:56 [place] Give an additional dose of lasix. Trial metoprolol if BP remains stable with diuresis later today. Continue supportive care, add nystatin powder to mya care. 02/08/17 11:13 [place] BP stabilized after albumin 25g x2; will hold further dosing Improved volume status, holding diuretics this morning Baclofen, gabapentin, toradol held acutely Hemoglobin 7.3 this AM, receiving 1 unit PRBC Chest pain resolved, no evidence of ischemia with negative troponin and normal EKG Starting low dose metoprolol 12.5 mg BID for sinus tachycardia that has been persistent KCL 40 meq IV this AM in addition to TPN, adjusting up K supplement in TPN as well Continue Zosyn and vancomycin for now, may be able to start tapering off antibiotics tomorrow Nystatin suspension for thrush 02/06-02/16; added topical nystatin 02/07 to the mya area due to erythema Home trilogy now available for nighttime use Persistent tachycardia-home medications reviewed, typically not on beta saravanan , BP improved after albumin--> will trial metoprolol 12.5 mg BID and monitor Will monitor in ICU today given borderline hemodynamics, chest pain, transfusion plans; if stable tomorrow can likely move out of ICU at that time 02/09/17 08:26 HGB dropped o7.9-3 over the weekend, 1 unit PRBC infused and HGB increased to 8.2, this morning we are drifting down to 7.7. will get another HGB at 10:00 today. Albumin 25 G BID ordered over the weekend. Serum Albumin remains low. Has been off Vasopresin since last week. SBP has been stable in the 90's-110's and Pulse better in the 80's-90's. Some report of drainage from the incision, none seen on gauze or on wound today. Hernandez is in, urine output good, clear yellow this morning. A ureteral catheter remains in the right ureter and Dr. Purcell will remove it in about 6 weeks. The left ureteral catheter was removed after surgery. She has had several liquid stools, C-diff neg, denies nausea, will advance to regular diet. Continue TPN till we see how much PO she is able to take. Will add a multivitamin. Will be sure there is PT/OT ordered, hope to get her moving enough to pull the Hernandez soon and perhaps move to surgical floor later today or tomorrow. 02/09/17 - [place] BP variable, received IV fluids earlier today for systolic pressures in the 70s. Subsequent systolic pressure 100-121; prefer to avoid additional fluids if at all possible due to volume overload already present unless patient is clearly symptomatic. Receiving albumin to help oncotic pressure; holding diuretics. Baclofen, gabapentin, toradol on hold due to excess sedation over the weekend. Hemoglobin 7.7 this AM and afternoon after receiving wide yesterday Starting low dose metoprolol 12.5 mg BID for tachycardia that has been persistent last week-heart rate improved. Potassium improved. Remains on Zosyn and vancomycin-will discuss with surgery whether there is ongoing need for antibiotic therapy. Nystatin suspension for thrush 02/06-02/16; topical nystatin initiated 02/07 for erythema in the mya-area. Home trilogy available for nighttime use Diet advance to regular-will decrease TPN tomorrow with goal of titrating off over the next 24-48 hours. 02/10/17 More confused today after sleeping poorly last night. Transfer out of ICU today; antibiotics discontinued, TPN rate decreased to 60 mL per hour and will decrease further when new bag hangs this evening. Hemoglobin stable, blood pressure stable. Albumin discontinued due to limited supply. 6 seconds SVT overnight, isolated tachyarrhythmia-continue low-dose beta saravanan , defer further workup at this time unless recurs 02/11/17 08:16 She has been transferred to surgical unit. TPN titrated down to 40 ml/hr now. Eating regular diet, but small amounts. Will get a calorie count to help assess nutrition. Loose stools have become slightly more formed. She is sleeping with Bi-PAP when I entered this am, she did arouse easily with light touch but immediately went back to sleep. WBC is creeping up but still in the normal range. Daily labs. HGB stable, up to 8.3 today (7.7 yesterday) Antibiotic have been stopped, she has had 8 days of Vancomycin and Zosyn ( Invanz may have contributed to post op seizure) Right Ureteral stent remains in place, Dr. Dela Cruz will remove about 6 weeks post op. Urine output is good. 02/11/17 08:20
[2017-02-11] MEDS: CALCIUM 600 + VIT D 400 TABLET PO SCH (09:12)
[2017-02-11] MEDS: MULTI-VITAMIN + MINERAL TABLET PO SCH (09:13)
[2017-02-11] MEDS: CALMOSEPTINE OINTMENT 113gm TUBE TP SCH ×2 (09:13→20:00)
[2017-02-11] MEDS: NYSTATIN 500,000 units/5 ml ORAL LIQUID PO SCH ×4 (09:13→21:51)
[2017-02-11] MEDS: FOLIC ACID 1 MG TABLET PO SCH (09:13)
[2017-02-11] MEDS: ASPIRIN *EC* 81 MG TABLET PO SCH (09:49)
[2017-02-11 16:18] VITALS: BMI 41.5
[2017-02-11] MEDS: PRAMIPEXOLE 1 MG TABLET PO SCH ×2 (17:45→19:24)
[2017-02-12] MEDS: OMEPRAZOLE 20 MG CAPSULE PO SCH (06:01)
[2017-02-12] MEDS: ALBUTEROL 2.5mg/3ml (0.083%) NEB AEROSOL SCH ×4 (07:38→19:30)
--- NOTE | 2017-02-12 07:43 | Family Practice Progress Note ---
Progress Note-A&P - Time Spent With Patient Total time spent is greater than 50% in coordination of care (as documented) at patient's floor/unit and/or counseling patient: less than 15 minutes (1) Anemia Status: Acute Assessment and plan: Improving Current Visit: Yes (2) Hypotension Status: Resolved Assessment and plan: Continue IV nutrition Current Visit: Yes (3) Status post colostomy takedown Status: Acute Assessment and plan: Continue current pain medications. Current Visit: Yes (4) Status post partial resection of colon Status: Acute Current Visit: Yes (5) Abdominal abscess Status: Acute Assessment and plan: Continue current antibiotics. Two drains present. Appears to be functioning normally. Current Visit: No (6) Hypoxia Status: Acute Assessment and plan: Sating 98% on 1 liter. Improving. Current Visit: Yes (7) Debility Status: Acute Assessment and plan: PT and OT are consulted. Current Visit: Yes Subjective - Subjective Principal diagnosis: post partial colectomy Interval history: She reports feeling better. She did eat some solid food yesterday. She is having some semi formed stools. She denies vomiting. She feels bloated. Exam Vital signs: Temperature 97.1 F 02/12/17 04:00 Pulse Rate 85 02/12/17 04:00 Respiratory Rate 16 02/12/17 04:00 Blood Pressure 113/64 02/12/17 04:00 Pulse Oximetry 98 02/12/17 04:00 - Constitutional no acute distress - Routine HEENT Exam Head: Present: normocephalic, atraumatic ENT: Present: mucous membranes moist - Routine Neck Exam Present: supple - Routine Respiratory Exam Present: CTA bilaterally - Routine Cardiovascular Exam Present: RRR - Routine Abdominal Exam Present: soft, normoactive bowel sounds, non distended - Urinary Catheter Management Urethral Cath placed during this visit: yes, but has since been removed by the nurse Insertion date: 02/02/17 Insertion time: 08:00 Removal date: 02/02/17 (for intraoperative Cysto) Removal time: 13:45 Ureter Left Cath placed during this visit: yes, but has since been removed by the nurse Insertion date: 02/02/17 Insertion time: 08:00 Removal date: 02/02/17 Removal time: 13:45 Ureter Right Cath placed during this visit: yes, but has since been removed by the nurse Urethral indwelling: Yes Insertion date: 02/02/17 Insertion time: 14:50 Removal date: 02/02/17 Removal time: 13:45
[2017-02-12] MEDS ORDERED: INSULIN ASPART 100unit/ml INJECTION SQ PRN (09:30)
[2017-02-12] MEDS: CALMOSEPTINE OINTMENT 113gm TUBE TP SCH ×2 (09:32→20:00)
[2017-02-12] MEDS: NYSTATIN 500,000 units/5 ml ORAL LIQUID PO SCH ×4 (09:32→20:00)
[2017-02-12] MEDS: CALCIUM 600 + VIT D 400 TABLET PO SCH (09:33)
[2017-02-12] MEDS: FOLIC ACID 1 MG TABLET PO SCH (09:33)
[2017-02-12] MEDS: MULTI-VITAMIN + MINERAL TABLET PO SCH (09:33)
[2017-02-12] MEDS: ASPIRIN *EC* 81 MG TABLET PO SCH (09:38)
--- NOTE | 2017-02-12 10:44 | General Surgery Progress Note ---
Subjective Patient reports: tolerating a regular diet (in small amounts), bowel movement ( loose, frequently incontinent) Narrative: States she slept better last night. Hallucinations have ceased. She expresses fear of falling when trying to stand or ambulate. A discussion then took place regarding the need to walk in order to get stronger. She then agreed to walk at least twice this afternoon and once this evening. Even if it is very short walks. TPN and fluids have been DC'd. Dr. Chaney has been by this morning. Patient states he mentioned [place] as a possibility after discharge. CM has also mentioned [facility] as an option. - Vital Signs Last Vital Signs Temp 98.0 F 02/12/17 08:00 Pulse 92 02/12/17 08:00 Resp 28 H 02/12/17 08:00 BP 114/65 02/12/17 08:00 Pulse Ox 98 02/12/17 08:00 - Laboratory Result Diagrams: 02/12/17 07:21 02/12/17 07:21 - Abnormal Exam Abdominal: obese - Normal Exam General: awake, alert, oriented Cardiovascular: regular rhythm, regular rate Respiratory: clear bilaterally, no labored breathing Abdominal: BS normo active x4, soft, appropriately tender (midline), non-tender (lateral), incision(s) (CDI), other (JPs both with serous fluid) Assessment and Plan (1) Status post colostomy takedown Current Visit: Yes Status: Acute (2) Status post partial resection of colon Current Visit: Yes Status: Acute (3) Seizure Current Visit: Yes Status: Resolved Problem details: Postoperative (4) Leukocytosis Current Visit: No Status: Acute Qualifiers: Leukocytosis type: bandemia Qualified Code(s): D72.825 - Bandemia (5) Obesity (BMI 30-39.9) Current Visit: No Status: Chronic (6) Acute blood loss as cause of postoperative anemia Current Visit: Yes Status: Resolved (7) Hypotension Current Visit: Yes Status: Resolved Qualifiers: Hypotension type: postprocedural hypotension Qualified Code(s): I95.81 - Postprocedural hypotension (8) Hypokalemia Current Visit: Yes Status: Resolved Plan: TPN DC'd. She is taking PO supplemental nutrition. Stools loose and at times incontinent. Debility is getting worse, she is reluctant to walk, encouragement given. PT/OT as well as nursing are trying to work with her. WBC is creeping up 10.2 today, 8.5 yesterday. No bandemia today. will continue to monitor. ABX have been DC'd 2 days ago. HGB stable at 8.8 Will start bladder retraining with Preciado, and likely Dc Preciado tomorrow morning. Would like to start looking toward discharge by early next week if she makes enough progress to go to [facility] and there are no unexpected issues. Hospital Course Summary Disclaimer: The visit summary below is not to be considered part of the above Progress Note. Hospital Course: 02/02/17 16:09 Impression Post op seizure like activity Post op Leukocytosis and thrombocytosis - stress response vs. infection s/p exploratory laparotomy with excision diverticulitis mass and colovaginal fistula, with takedown of end colostomy per Dr. Bowers s/p stenting of right ureter per Dr. Dela Cruz Intra-abdominal abscess with polymicrobial growth including MRSA, pseudomonas aeruginosa and citrobacter freundii. Anemia. Hypertension. Hyperlipidemia. Chronic hypercapnic respiratory failure; ROLO and O2 as needed GERD. CHF - diastolic - Echo 09/21/15 showed EF 55%; moderate TR and moderate PH. Restless leg syndrome. Anxiety and depression. Obesity with BMI 37. Chronic neck pain. Plan Place PICC Stat labs ordered - hgb stable. Lactate 11.8 - unable to determine if septic shock or if elevated lactate was from hypoperfusion (hypoxia; hypotension). She had well over 30 ml/kg IVF (89 kg x 30 mL = 2,670mL) sz precautions - Invanz may lower sz threshold; perhaps hypoxia d/t prolonged sx - consider neuro consult, head CT Abx changed to meropenem + vanco. BP was dangerously low but now improving - monitor closely as she still may need pressor support With IVF, need to monitor closely for fluid overload - measure I/O + weights. Preciado; right ureteral stent mgt per urology. DNR status Dr. Sorensen d/w Dr. Pro. Critically ill. Time spent at bedside: 45 min. 02/03/17 09:25 POD #1 -No seizure activity since the initial one of less than 30 sec while in recovery phase post op. -Invanz cancelled as this does have a "caution/contraindication" of Seizure Hx. Zosyn and Vancomycin with pharmacy consult in place. -Urine output marginal, around 22-40/hr for the last 6-8 hours. Will give NS bolus due to marginal U/O and lower SBP -SBP tends to be in the 90's. will continue to monitor, continue fluids at 125/ hr for now. -NG without output, cannot see the tip on CXR, it appears to be out a long way, will have staff advance it 10-12 cm. -K+ upper limit of normal, although it was hemolyzed, will change IVF to D5 1/2 without K+, repeat labs. -Discussed case with Dr. Pro, he indicated we will continue to defer medical management to hospitalist team as long as pt is in CCU, he will likely ' pick her -up" when she transfers to surgical floor. 02/03/17 09:43 02/03/17 [place] No further seizure activity. Would like to proceed with CT head when hemodynamically stable to proceed to do so. No focal neurological deficits by bedside exam. Persistent hypotension-central line placed today, CVP 6-7-fluid boluses being given. Anticipate improvement in both blood pressure and tachycardia with fluids. Continue Zosyn/vancomycin. Creatinine up slightly, follow with fluids. 02/04/17 08:11 Surgery Some confusion this morning, but did call both me and Dr. Pro by name. Vasopressin was started yesterday for BP support. Additional 2000 ml fluid bolused during the night. She remains tacky 100-120's, SBP about 90's this am. Urine output 35-70 ml/hr during the night. HGB this am 7.4 and 7.1 on redraw. IT was 11.0 yesterday. WBC coming down 16 today, 20.9 yesterday. K+ removed from fluids yesterday, and is currently 3.4 With drop in HGB, tachycardia, hypotension, and requiring vasopressin and fluid bolus during the night, 1 unit PRBC orderd, repeat HGB after 1st unit, may need a 2nd. WBC 16.0, 20.9 yesterday Serum Creatinine back down to 1.0. from 1.2 yesterday CANDACE with serosanguineous fluid, not ivy blood. Fluid from Right CANDACE sent for creatinine, this is send out to [facility] and should be available by later this evening or tomorrow morning. No flatus yet, but there are hypoactive but reasonable bowel sounds. Will ask about TPN. K+ 3.4, down from 5.0 yesterday, K+ removed from IVF yesterday, IVF changed this am to NS with 20 KCla 02/04/17 [place] No further seizure activity. Would like to proceed with CT head when hemodynamically stable to proceed to do so. No focal neurological deficits by bedside exam. Persistent hypotension, remains on vasopressin, CVP 5. Convert fluids and NS with additional volume to be given. Initiate TPN-discussed with Dr. Bowers. 2 units PRBCs earlier today, hemoglobin 7.1-7.5-8.3. 02/05/17 10:40 Surgery She is more lethargic this morning, but did deny pain when asked, and denies flatus and stated she "wished she could have some." She drifts back to sleep quickly. She had 2 units PRBC yestereday, HGB went up to 8.3 and has drifted down to 7.7 this am. Urine output is good at around 75-150/hr. SBP better, around 110's - 120 and pulse better in the low 100's compared to 120 's yesterday. TPN has been started. Repeat HGB at noon today. 02/05/17 10:43 02/06/[address] head after recent seizure. Persistent sinus tachycardia-given increased oxygen demand am reluctant to use additional fluids. Resume medications for restless leg syndrome. 02/07/17 08:56 [place] Give an additional dose of lasix. Trial metoprolol if BP remains stable with diuresis later today. Continue supportive care, add nystatin powder to mya care. 02/08/17 11:13 [place]oi BP stabilized after albumin 25g x2; will hold further dosing Improved volume status, holding diuretics this morning Baclofen, gabapentin, toradol held acutely Hemoglobin 7.3 this AM, receiving 1 unit PRBC Chest pain resolved, no evidence of ischemia with negative troponin and normal EKG Starting low dose metoprolol 12.5 mg BID for sinus tachycardia that has been persistent KCL 40 meq IV this AM in addition to TPN, adjusting up K supplement in TPN as well Continue Zosyn and vancomycin for now, may be able to start tapering off antibiotics tomorrow Nystatin suspension for thrush 02/06-02/16; added topical nystatin 02/07 to the mya area due to erythema Home trilogy now available for nighttime use Persistent tachycardia-home medications reviewed, typically not on beta saravanan , BP improved after albumin--> will trial metoprolol 12.5 mg BID and monitor Will monitor in ICU today given borderline hemodynamics, chest pain, transfusion plans; if stable tomorrow can likely move out of ICU at that time 02/09/17 08:26 HGB dropped o7.9-3 over the weekend, 1 unit PRBC infused and HGB increased to 8.2, this morning we are drifting down to 7.7. will get another HGB at 10:00 today. Albumin 25 G BID ordered over the weekend. Serum Albumin remains low. Has been off Vasopresin since last week. SBP has been stable in the 90's-110's and Pulse better in the 80's-90's. Some report of drainage from the incision, none seen on gauze or on wound today. Preciado is in, urine output good, clear yellow this morning. A ureteral catheter remains in the right ureter and Dr. uPrcell will remove it in about 6 weeks. The left ureteral catheter was removed after surgery. She has had several liquid stools, C-diff neg, denies nausea, will advance to regular diet. Continue TPN till we see how much PO she is able to take. Will add a multivitamin. Will be sure there is PT/OT ordered, hope to get her moving enough to pull the Preciado soon and perhaps move to surgical floor later today or tomorrow. 02/09/17 - [place] BP variable, received IV fluids earlier today for systolic pressures in the 70s. Subsequent systolic pressure 100-121; prefer to avoid additional fluids if at all possible due to volume overload already present unless patient is clearly symptomatic. Receiving albumin to help oncotic pressure; holding diuretics. Baclofen, gabapentin, toradol on hold due to excess sedation over the weekend. Hemoglobin 7.7 this AM and afternoon after receiving wide yesterday Starting low dose metoprolol 12.5 mg BID for tachycardia that has been persistent last week-heart rate improved. Potassium improved. Remains on Zosyn and vancomycin-will discuss with surgery whether there is ongoing need for antibiotic therapy. Nystatin suspension for thrush 02/06-02/16; topical nystatin initiated 02/07 for erythema in the mya-area. Home trilogy available for nighttime use Diet advance to regular-will decrease TPN tomorrow with goal of titrating off over the next 24-48 hours. 02/10/17 More confused today after sleeping poorly last night. Transfer out of ICU today; antibiotics discontinued, TPN rate decreased to 60 mL per hour and will decrease further when new bag hangs this evening. Hemoglobin stable, blood pressure stable. Albumin discontinued due to limited supply. 6 seconds SVT overnight, isolated tachyarrhythmia-continue low-dose beta saravanan , defer further workup at this time unless recurs 02/11/17 08:16 She has been transferred to surgical unit. TPN titrated down to 40 ml/hr now. Eating regular diet, but small amounts. Will get a calorie count to help assess nutrition. Loose stools have become slightly more formed. She is sleeping with Bi-PAP when I entered this am, she did arouse easily with light touch but immediately went back to sleep. WBC is creeping up but still in the normal range. Daily labs. HGB stable, up to 8.3 today (7.7 yesterday) Antibiotic have been stopped, she has had 8 days of Vancomycin and Zosyn ( Invanz may have contributed to post op seizure) Right Ureteral stent remains in place, Dr. Dela Cruz will remove about 6 weeks post op. Urine output is good. 02/12/17 10:53 TPN DC'd. She is taking PO supplemental nutrition. Stools loose and at times incontinent. Debility is getting worse, she is reluctant to walk, encouragement given. PT/OT as well as nursing are trying to work with her. WBC is creeping up 10.2 today, 8.5 yesterday. No bandemia today. will continue to monitor. ABX have been DC'd 2 days ago. HGB stable at 8.8 Will start bladder retraining with Preciado, and likely DC preciado in the morning. Would like to start looking toward discharge by early next week if she makes enough progress to go to [facility] and there are no unexpected issues. 02/12/17 10:54
[2017-02-12] MEDS ORDERED: ALTEPLASE (Cathflo*) 2mg INJECTION IV ONE (13:57)
--- NOTE | 2017-02-12 15:54 | Operative Note ---
DATE OF SERVICE 02/12/2017 FINDINGS Ms. Magdaleno was seen earlier this morning on rounds. She still was having some liquidy stools. Denied much in the way of abdominal pain. Patient states that she has not been putting forth much effort in ambulation. She states that she is "scared." PHYSICAL EXAM VITAL SIGNS: Afebrile, normotensive. Please refer to EMR. ABDOMEN: Soft, nontender. Incision is clean, dry and intact. CANDACE drainage is minimal and serosanguineous in nature. LABORATORY/RADIOGRAPHIC EVALUATION The patient had a CBC today that was unremarkable. White count is 10.2. Hemoglobin is stable at 0.8. CMP obtained and found to be without marked abnormalities. ASSESSMENT 76-year-old female status post extensive adhesiolysis, takedown of end colostomy with sigmoid resection/low anterior resection/coloproctostomy. Repair of right ureteral injury. Patient showing slow improvement. PLAN I again encouraged Suzy that it is very important that she put forth effort to get out of bed and ambulate. I informed the patient that if she does not put forth the effort in regards to ambulation and her physical therapy that she will likely not improve and leave our facility. Again I provided strong encouragement. Will otherwise continue with current care. CARMINE
[2017-02-12] MEDS: [UNRECOGNIZED DRUG - OTHER] IV SCH (19:02)
[2017-02-12] MEDS: D5 IV SCH (19:02)
[2017-02-12] MEDS: POTASSIUM CHLORIDE IV SCH (19:02)
[2017-02-12] MEDS: PRAMIPEXOLE 1 MG TABLET PO SCH (20:00)
[2017-02-13] MEDS: OMEPRAZOLE 20 MG CAPSULE PO SCH (05:35)
--- NOTE | 2017-02-13 06:14 | Family Practice Progress Note ---
Progress Note-A&P - Time Spent With Patient Total time spent is greater than 50% in coordination of care (as documented) at patient's floor/unit and/or counseling patient: less than 15 minutes (1) Anemia Status: Acute Assessment and plan: Stable Current Visit: Yes (2) Hypotension Status: Acute Assessment and plan: D5 1/2NS with 10 kcl ordered yesterday evening. Running at 50 an hour. Metoprolol held. Current Visit: Yes (3) Status post colostomy takedown Status: Acute Assessment and plan: Continue current pain medications. Current Visit: Yes (4) Status post partial resection of colon Status: Acute Current Visit: Yes (5) Abdominal abscess Status: Suspected Assessment and plan: No longer on antibiotics. Current Visit: No (6) Hypoxia Status: Acute Assessment and plan: Sating 98% on 1 liter. Improving. Current Visit: Yes (7) Debility Status: Acute Assessment and plan: PT and OT are consulted. Current Visit: Yes (8) Urinary catheter in place Status: Acute Assessment and plan: She did bladder training yesterday and removal ordered today. Current Visit: Yes (9) Thrombocytosis Status: Acute Assessment and plan: I think this is related to volume depletion. Current Visit: Yes (10) Dehydration Status: Acute Current Visit: Yes (11) Dehydration Status: Acute Assessment and plan: IVF ordered. Encourage oral intake. Current Visit: Yes Subjective - Subjective Interval history: She denies nausea. She has pain with movement but otherwise it is well controlled. The nurse called yesterday evening and reported a low blood pressure and less than average oral intake. Metoprolol was held and ivf were given. Exam Vital signs: Temperature 97.7 F 02/13/17 03:42 Pulse Rate 83 02/13/17 03:42 Respiratory Rate 18 02/13/17 03:42 Blood Pressure 117/63 02/13/17 03:42 Pulse Oximetry 99 02/13/17 03:42 - Constitutional no acute distress - Routine HEENT Exam Head: Present: normocephalic, atraumatic - Routine Respiratory Exam Present: CTA bilaterally - Routine Cardiovascular Exam Present: RRR - Routine Abdominal Exam Present: soft, normoactive bowel sounds, non distended, non tender - Urinary Catheter Management Urethral Cath placed during this visit: yes, but has since been removed by the nurse Insertion date: 02/02/17 Insertion time: 08:00 Removal date: 02/02/17 (for intraoperative Cysto) Removal time: 13:45 Ureter Left Cath placed during this visit: yes, but has since been removed by the nurse Insertion date: 02/02/17 Insertion time: 08:00 Removal date: 02/02/17 Removal time: 13:45 Ureter Right Cath placed during this visit: yes, but has since been removed by the nurse Urethral indwelling: Yes Insertion date: 02/02/17 Insertion time: 14:50 Removal date: 02/02/17 Removal time: 13:45
[2017-02-13] MEDS: ALBUTEROL 2.5mg/3ml (0.083%) NEB AEROSOL SCH ×4 (08:30→19:17)
[2017-02-13] MEDS: MULTI-VITAMIN + MINERAL TABLET PO SCH (08:54)
[2017-02-13] MEDS: FOLIC ACID 1 MG TABLET PO SCH (08:54)
[2017-02-13] MEDS: CALCIUM 600 + VIT D 400 TABLET PO SCH (08:54)
[2017-02-13] MEDS: NYSTATIN 500,000 units/5 ml ORAL LIQUID PO SCH ×4 (08:55→20:15)
[2017-02-13] MEDS: CALMOSEPTINE OINTMENT 113gm TUBE TP SCH ×2 (08:57→20:15)
[2017-02-13] MEDS: SALINE FLUSH 10ml SYRINGE IV PRN (09:00)
[2017-02-13] MEDS: ASPIRIN *EC* 81 MG TABLET PO SCH (11:50)
--- NOTE | 2017-02-13 12:50 | General Surgery Progress Note ---
Subjective Patient reports: feels better (able to ambulate with assistance to nurses station and back), tolerating a regular diet (although eating only small portions and she states nothing really tastes good or sounds good), voiding w/o difficulty, bowel movement (liquidy brown 2 so far today, 4 yesterday area), shortness of breath (remains on oxygen at 1 L, she states respiratory therapy "is pushy" but realizes she needs to work at [employer] sp[employer] and [employer]) Narrative: Reports indicates she was a little hypotensive yesterday and fluids were ordered in the evening. She is currently getting IV fluids at 50 ML per hour. States she is no longer having hallucinations. She is planning on discharge to [facility] next week hoping she can get stronger before she goes. - Vital Signs Last Vital Signs Temp 97.8 F 02/13/17 12:18 Pulse 86 02/13/17 12:18 Resp 16 02/13/17 12:18 BP 98/56 02/13/17 12:18 Pulse Ox 97 02/13/17 12:18 - Laboratory Result Diagrams: 02/13/17 04:21 02/13/17 04:21 - Abnormal Exam Abdominal: obese - Normal Exam General: awake, alert, oriented Cardiovascular: regular rhythm, regular rate Respiratory: clear bilaterally, no labored breathing Abdominal: appropriately tender, non-tender, incision(s) (clean dry and intact) , other (1 incision CANDACE drain 2 both with clear serous fluid) Psychiatric: normal affect (although still nervous about ambulating) Assessment and Plan (1) Status post colostomy takedown Current Visit: Yes Status: Acute (2) Status post partial resection of colon Current Visit: Yes Status: Acute (3) Seizure Current Visit: Yes Status: Resolved Problem details: Postoperative (4) Leukocytosis Current Visit: No Status: Acute Qualifiers: Leukocytosis type: bandemia Qualified Code(s): D72.825 - Bandemia (5) Obesity (BMI 30-39.9) Current Visit: No Status: Chronic (6) Acute blood loss as cause of postoperative anemia Current Visit: Yes Status: Resolved (7) Hypotension Current Visit: Yes Status: Acute Qualifiers: Hypotension type: postprocedural hypotension Qualified Code(s): I95.81 - Postprocedural hypotension (8) Hypokalemia Current Visit: Yes Status: Resolved (9) Dehydration Current Visit: Yes Status: Acute (10) Hypoxia Current Visit: Yes Status: Acute Plan: She is making improvements, no longer having trouble with hallucinations. Not taking pain medication. Incision is clean dry and intact, anticipate staple removal Thursday or Thursday next week. Hypotension and medical management per Dr. Pro. Dehydration, fluids ordered. Preciado removed and she has voided. Bowel movements soft/liquid and brown. WBC better today at 19.2 compared to 10.2 yesterday no longer trending upward. Hemoglobin stable at 8.4 compared to 8.8 yesterday, continue daily labs. Still requiring 1 L oxygen by nasal cannula. Would like better by mouth intake before discharge and if she could be weaned off of oxygen that would also be great. Hospital Course Summary Disclaimer: The visit summary below is not to be considered part of the above Progress Note. Hospital Course: 02/02/17 16:09 Impression Post op seizure like activity Post op Leukocytosis and thrombocytosis - stress response vs. infection s/p exploratory laparotomy with excision diverticulitis mass and colovaginal fistula, with takedown of end colostomy per Dr. Bowers s/p stenting of right ureter per Dr. Dela Cruz Intra-abdominal abscess with polymicrobial growth including MRSA, pseudomonas aeruginosa and citrobacter freundii. Anemia. Hypertension. Hyperlipidemia. Chronic hypercapnic respiratory failure; ROLO and O2 as needed GERD. CHF - diastolic - Echo 09/21/15 showed EF 55%; moderate TR and moderate PH. Restless leg syndrome. Anxiety and depression. Obesity with BMI 37. Chronic neck pain. Plan Place PICC Stat labs ordered - hgb stable. Lactate 11.8 - unable to determine if septic shock or if elevated lactate was from hypoperfusion (hypoxia; hypotension). She had well over 30 ml/kg IVF (89 kg x 30 mL = 2,670mL) sz precautions - Invanz may lower sz threshold; perhaps hypoxia d/t prolonged sx - consider neuro consult, head CT Abx changed to meropenem + vanco. BP was dangerously low but now improving - monitor closely as she still may need pressor support With IVF, need to monitor closely for fluid overload - measure I/O + weights. Preciado; right ureteral stent mgt per urology. DNR status Dr. Sorensen d/w Dr. Pro. Critically ill. Time spent at bedside: 45 min. 02/03/17 09:25 POD #1 -No seizure activity since the initial one of less than 30 sec while in recovery phase post op. -Invanz cancelled as this does have a "caution/contraindication" of Seizure Hx. Zosyn and Vancomycin with pharmacy consult in place. -Urine output marginal, around 22-40/hr for the last 6-8 hours. Will give NS bolus due to marginal U/O and lower SBP -SBP tends to be in the 90's. will continue to monitor, continue fluids at 125/ hr for now. -NG without output, cannot see the tip on CXR, it appears to be out a long way, will have staff advance it 10-12 cm. -K+ upper limit of normal, although it was hemolyzed, will change IVF to D5 1/2 without K+, repeat labs. -Discussed case with Dr. Pro, he indicated we will continue to defer medical management to hospitalist team as long as pt is in CCU, he will likely ' pick her -up" when she transfers to surgical floor. 02/03/17 09:43 02/03/17 [place] No further seizure activity. Would like to proceed with CT head when hemodynamically stable to proceed to do so. No focal neurological deficits by bedside exam. Persistent hypotension-central line placed today, CVP 6-7-fluid boluses being given. Anticipate improvement in both blood pressure and tachycardia with fluids. Continue Zosyn/vancomycin. Creatinine up slightly, follow with fluids. 02/04/17 08:11 Surgery Some confusion this morning, but did call both me and Dr. Pro by name. Vasopressin was started yesterday for BP support. Additional 2000 ml fluid bolused during the night. She remains tacky 100-120's, SBP about 90's this am. Urine output 35-70 ml/hr during the night. HGB this am 7.4 and 7.1 on redraw. IT was 11.0 yesterday. WBC coming down 16 today, 20.9 yesterday. K+ removed from fluids yesterday, and is currently 3.4 With drop in HGB, tachycardia, hypotension, and requiring vasopressin and fluid bolus during the night, 1 unit PRBC orderd, repeat HGB after 1st unit, may need a 2nd. WBC 16.0, 20.9 yesterday Serum Creatinine back down to 1.0. from 1.2 yesterday CANDACE with serosanguineous fluid, not ivy blood. Fluid from Right CANDACE sent for creatinine, this is send out to [facility] and should be available by later this evening or tomorrow morning. No flatus yet, but there are hypoactive but reasonable bowel sounds. Will ask about TPN. K+ 3.4, down from 5.0 yesterday, K+ removed from IVF yesterday, IVF changed this am to NS with 20 KCla 02/04/17 [place] No further seizure activity. Would like to proceed with CT head when hemodynamically stable to proceed to do so. No focal neurological deficits by bedside exam. Persistent hypotension, remains on vasopressin, CVP 5. Convert fluids and NS with additional volume to be given. Initiate TPN-discussed with Dr. Bowers. 2 units PRBCs earlier today, hemoglobin 7.1-7.5-8.3. 02/05/17 10:40 Surgery She is more lethargic this morning, but did deny pain when asked, and denies flatus and stated she "wished she could have some." She drifts back to sleep quickly. She had 2 units PRBC yestereday, HGB went up to 8.3 and has drifted down to 7.7 this am. Urine output is good at around 75-150/hr. SBP better, around 110's - 120 and pulse better in the low 100's compared to 120 's yesterday. TPN has been started. Repeat HGB at noon today. 02/05/17 10:43 02/06/17 [facility] Obtain CT head after recent seizure. Persistent sinus tachycardia-given increased oxygen demand am reluctant to use additional fluids. Resume medications for restless leg syndrome. 02/07/17 08:56 [place] Give an additional dose of lasix. Trial metoprolol if BP remains stable with diuresis later today. Continue supportive care, add nystatin powder to mya care. 02/08/17 11:13 [place] BP stabilized after albumin 25g x2; will hold further dosing Improved volume status, holding diuretics this morning Baclofen, gabapentin, toradol held acutely Hemoglobin 7.3 this AM, receiving 1 unit PRBC Chest pain resolved, no evidence of ischemia with negative troponin and normal EKG Starting low dose metoprolol 12.5 mg BID for sinus tachycardia that has been persistent KCL 40 meq IV this AM in addition to TPN, adjusting up K supplement in TPN as well Continue Zosyn and vancomycin for now, may be able to start tapering off antibiotics tomorrow Nystatin suspension for thrush 02/06-02/16; added topical nystatin 02/07 to the mya area due to erythema Home trilogy now available for nighttime use Persistent tachycardia-home medications reviewed, typically not on beta saravanan , BP improved after albumin--> will trial metoprolol 12.5 mg BID and monitor Will monitor in ICU today given borderline hemodynamics, chest pain, transfusion plans; if stable tomorrow can likely move out of ICU at that time 02/09/17 08:26 HGB dropped o7.9-3 over the weekend, 1 unit PRBC infused and HGB increased to 8.2, this morning we are drifting down to 7.7. will get another HGB at 10:00 today. Albumin 25 G BID ordered over the weekend. Serum Albumin remains low. Has been off Vasopresin since last week. SBP has been stable in the 90's-110's and Pulse better in the 80's-90's. Some report of drainage from the incision, none seen on gauze or on wound today. Preciado is in, urine output good, clear yellow this morning. A ureteral catheter remains in the right ureter and Dr. Purcell will remove it in about 6 weeks. The left ureteral catheter was removed after surgery. She has had several liquid stools, C-diff neg, denies nausea, will advance to regular diet. Continue TPN till we see how much PO she is able to take. Will add a multivitamin. Will be sure there is PT/OT ordered, hope to get her moving enough to pull the Preciado soon and perhaps move to surgical floor later today or tomorrow. 02/09/17 - [place] BP variable, received IV fluids earlier today for systolic pressures in the 70s. Subsequent systolic pressure 100-121; prefer to avoid additional fluids if at all possible due to volume overload already present unless patient is clearly symptomatic. Receiving albumin to help oncotic pressure; holding diuretics. Baclofen, gabapentin, toradol on hold due to excess sedation over the weekend. Hemoglobin 7.7 this AM and afternoon after receiving wide yesterday Starting low dose metoprolol 12.5 mg BID for tachycardia that has been persistent last week-heart rate improved. Potassium improved. Remains on Zosyn and vancomycin-will discuss with surgery whether there is ongoing need for antibiotic therapy. Nystatin suspension for thrush 02/06-02/16; topical nystatin initiated 02/07 for erythema in the mya-area. Home trilogy available for nighttime use Diet advance to regular-will decrease TPN tomorrow with goal of titrating off over the next 24-48 hours. 02/10/17 More confused today after sleeping poorly last night. Transfer out of ICU today; antibiotics discontinued, TPN rate decreased to 60 mL per hour and will decrease further when new bag hangs this evening. Hemoglobin stable, blood pressure stable. Albumin discontinued due to limited supply. 6 seconds SVT overnight, isolated tachyarrhythmia-continue low-dose beta saravanan , defer further workup at this time unless recurs 02/11/17 08:16 She has been transferred to surgical unit. TPN titrated down to 40 ml/hr now. Eating regular diet, but small amounts. Will get a calorie count to help assess nutrition. Loose stools have become slightly more formed. She is sleeping with Bi-PAP when I entered this am, she did arouse easily with light touch but immediately went back to sleep. WBC is creeping up but still in the normal range. Daily labs. HGB stable, up to 8.3 today (7.7 yesterday) Antibiotic have been stopped, she has had 8 days of Vancomycin and Zosyn ( Invanz may have contributed to post op seizure) Right Ureteral stent remains in place, Dr. Dela Cruz will remove about 6 weeks post op. Urine output is good. 02/12/17 10:53 TPN DC'd. She is taking PO supplemental nutrition. Stools loose and at times incontinent. Debility is getting worse, she is reluctant to walk, encouragement given. PT/OT as well as nursing are trying to work with her. WBC is creeping up 10.2 today, 8.5 yesterday. No bandemia today. will continue to monitor. ABX have been DC'd 2 days ago. HGB stable at 8.8 Will start bladder retraining with Preciado, and likely DC preciado in the morning. Would like to start looking toward discharge by early next week if she makes enough progress to go to [facility] and there are no unexpected issues. 02/12/17 10:54 02/13/17 12:53 She is making improvements, no longer having trouble with hallucinations. Not taking pain medication. Preciado removed and she has voided. Bowel movements soft/liquid and brown. Incision is clean dry and intact, anticipate staple removal Thursday or Thursday next week. Hypotension and medical management per Dr. Pro. Dehydration, fluids ordered. WBC better today at 19.2 compared to 10.2 yesterday no longer trending upward. Hemoglobin stable at 8.4 compared to 8.8 yesterday, continue daily labs. Still requiring 1 L oxygen by nasal cannula. Would like better by mouth intake before discharge and if she could be weaned off of oxygen that would also be great.
[2017-02-13] MEDS: [UNRECOGNIZED DRUG - OTHER] IV SCH (16:11)
[2017-02-13] MEDS: D5 IV SCH (16:11)
[2017-02-13] MEDS: POTASSIUM CHLORIDE IV SCH (16:11)
[2017-02-13] MEDS: PRAMIPEXOLE 1 MG TABLET PO SCH (18:47)
--- NOTE | 2017-02-13 19:33 | Progress Note ---
DATE OF SERVICE 02/13/2017 FINDINGS Suzy was seen earlier this evening on rounds. She was in good spirits. She states that she has ambulated further today. Denied significant abdominal pain. States that her diarrhea has improved. PHYSICAL EXAM VITAL SIGNS: Afebrile, normotensive. ABDOMEN: Soft, nontender. Incision clean, dry and intact. LABORATORY/RADIOGRAPHIC EVALUATION The patient had a CBC and BMP obtained today that were unremarkable. ASSESSMENT 76-year-old female status post takedown of end colostomy, sigmoid resection/low anterior section with coloproctostomy and repair of right ureteral injury. Patient currently doing well. PLAN Continue with current care. Suzy is now finally beginning to make some clinical improvement. Dr. Alonzo will be seeing the patient over the course of this weekend during my absence. CARMINE
[2017-02-14] MEDS: OMEPRAZOLE 20 MG CAPSULE PO SCH (06:54)
[2017-02-14] MEDS: ALBUTEROL 2.5mg/3ml (0.083%) NEB AEROSOL SCH ×4 (07:00→21:00)
--- NOTE | 2017-02-14 09:53 | Family Practice Progress Note ---
Progress Note-A&P - Time Spent With Patient Total time spent is greater than 50% in coordination of care (as documented) at patient's floor/unit and/or counseling patient: less than 15 minutes (1) Anemia Status: Acute Assessment and plan: Stable Current Visit: Yes (2) Hypotension Status: Resolved Assessment and plan: DC IVF today and encourage po intake. Current Visit: Yes (3) Status post colostomy takedown Status: Acute Assessment and plan: Continue current pain medications. Current Visit: Yes (4) Status post partial resection of colon Status: Acute Current Visit: Yes (5) Abdominal abscess Status: Resolved Current Visit: No (6) Hypoxia Status: Resolved Assessment and plan: Current Visit: Yes (7) Debility Status: Acute Assessment and plan: Encourage ambulation 4 x a day. She has poor confidence in her strength. Current Visit: Yes (8) Urinary catheter in place Status: Resolved Current Visit: Yes (9) Thrombocytosis Status: Acute Assessment and plan: I think this is related to volume depletion. Current Visit: Yes (10) Dehydration Status: Resolved Current Visit: Yes (11) Dehydration Status: Resolved Assessment and plan: IVF ordered. Encourage oral intake. Current Visit: Yes (12) Hypokalemia due to inadequate potassium intake Status: Acute Assessment and plan: I am discontinuing IVF today and will recheck k tomorrow. Current Visit: Yes (13) Ureteral stent retained Status: Acute Assessment and plan: Plan removal 6 weeks after surgery. Current Visit: Yes (14) Hyperglycemia Status: Acute Assessment and plan: She has not needed insulin since the TPN stopped. Will DC insulin and BGMs. Current Visit: Yes Subjective - Subjective Interval history: She denies pain except when her abd is moved. She reports it takes 2 people to get her out of bed. She is eating solid food and her bowel movements are getting firmer. She denies nausea. She reports since the urinary cath was removed that she is urinating ok and denies pain with urination. Exam Vital signs: Temperature 97.3 F 02/14/17 08:30 Pulse Rate 92 02/14/17 08:30 Respiratory Rate 20 02/14/17 08:30 Blood Pressure 132/60 02/14/17 08:30 Pulse Oximetry 96 02/14/17 08:30 - Constitutional no acute distress, well developed - Routine HEENT Exam Head: Present: normocephalic, atraumatic - Routine Neck Exam Present: supple - Routine Respiratory Exam Present: CTA bilaterally - Routine Cardiovascular Exam Present: RRR - Routine Abdominal Exam Present: soft, normoactive bowel sounds, non distended Comments: Incision has [address] that has some dried drainage present. No evidence of blood. The skin surrounding the incision is normal color. - Routine Neurological Exam Present: alert, oriented X3 - Routine Psychiatric Exam Present: normal affect - Urinary Catheter Management Urethral Cath placed during this visit: yes, but has since been removed by the nurse Insertion date: 02/02/17 Insertion time: 08:00 Removal date: 02/13/17 Removal time: 06:23 Ureter Left Cath placed during this visit: yes, but has since been removed by the nurse Insertion date: 02/02/17 Insertion time: 08:00 Removal date: 02/02/17 Removal time: 13:45 Ureter Right Cath placed during this visit: yes, but has since been removed by the nurse Urethral indwelling: Yes Insertion date: 02/02/17 Insertion time: 14:50 Removal date: 02/02/17 Removal time: 13:45
[2017-02-14] MEDS: CALCIUM 600 + VIT D 400 TABLET PO SCH (10:41)
[2017-02-14] MEDS: ASPIRIN *EC* 81 MG TABLET PO SCH (10:41)
[2017-02-14] MEDS: FOLIC ACID 1 MG TABLET PO SCH (10:41)
[2017-02-14] MEDS: NYSTATIN 500,000 units/5 ml ORAL LIQUID PO SCH ×4 (10:41→22:08)
[2017-02-14] MEDS: CALMOSEPTINE OINTMENT 113gm TUBE TP SCH ×2 (10:41→22:08)
[2017-02-14] MEDS: MULTI-VITAMIN + MINERAL TABLET PO SCH (10:41)
[2017-02-14] MEDS: SALINE FLUSH 10ml SYRINGE IV PRN (13:16)
--- NOTE | 2017-02-14 15:53 | Progress Note ---
DATE OF VISIT 02/14/2017 REASON FOR VISIT Covering surgical care for Dr. Bowers. SALVADOR Almonte had some drainage from the lower aspect of her midline incision when the patient stood up earlier. The nurse had called and reported this. An ABD dressing was placed. The patient says she is eating well but the nursing staff says that she has been eating fair and consuming a large amount of Pepsi. She denies significant abdominal pain. PHYSICAL EXAMINATION VITAL SIGNS: Afebrile with stable vitals on room air. ABDOMEN: Soft, nontender. Her prior colostomy site is healing well. Drains have serosanguineous output. They have had minimal output this shift. Her midline incision does show rolling of the skin edges internally at the lower aspect of her wound. I do not see a large defect in the skin or incision. There is serosanguineous drainage on the overlying ABD but I do not see any evidence of surrounding cellulitis, infection, or foul odor of the drainage. One skin staple was loose but the other nicky are all intact. The upper incision is healing well. IMPRESSION Status post colostomy reversal with sigmoid resection/low anterior resection/ coloproctostomy/repair of right ureteral injury. She seems to be making appropriate clinical progress. I think that her drainage was simply a subcutaneous fluid pocket related to her obesity with BMI of 41. It seems to be draining spontaneously and I do not appreciate any palpable residual fluid collection. PLAN Continue current care. I will follow her lower midline wound closely tomorrow. CARMINE
[2017-02-14] MEDS: PRAMIPEXOLE 1 MG TABLET PO SCH (18:56)
[2017-02-15] MEDS: SALINE FLUSH 10ml SYRINGE IV PRN (04:37)
[2017-02-15] MEDS: OMEPRAZOLE 20 MG CAPSULE PO SCH (05:47)
[2017-02-15] MEDS: ALBUTEROL 2.5mg/3ml (0.083%) NEB AEROSOL SCH ×4 (07:45→21:05)
--- NOTE | 2017-02-15 10:48 | Family Practice Progress Note ---
Progress Note-A&P - Time Spent With Patient Total time spent is greater than 50% in coordination of care (as documented) at patient's floor/unit and/or counseling patient: (1) Anemia Status: Acute Assessment and plan: Stable Current Visit: Yes (2) Hypotension Status: Resolved Assessment and plan: DC IVF today and encourage po intake. Current Visit: Yes (3) Status post colostomy takedown Status: Acute Assessment and plan: Continue current pain medications. Current Visit: Yes (4) Status post partial resection of colon Status: Acute Current Visit: Yes (5) Hypoxia Status: Inactive Assessment and plan: Current Visit: Yes (6) Debility Status: Acute Assessment and plan: Encourage ambulation 4 x a day. She has poor confidence in her strength. Current Visit: Yes (7) Urinary catheter in place Status: Inactive Assessment and plan: She did bladder training yesterday and removal ordered today. Current Visit: Yes (8) Thrombocytosis Status: Acute Assessment and plan: I think this is related to volume depletion. Current Visit: Yes (9) Dehydration Status: Inactive Current Visit: Yes (10) Dehydration Status: Inactive Assessment and plan: IVF ordered. Encourage oral intake. Current Visit: Yes (11) Hypokalemia due to inadequate potassium intake Status: Acute Assessment and plan: potassium ordered already Current Visit: Yes (12) Ureteral stent retained Status: Acute Assessment and plan: Plan removal 6 weeks after surgery. Current Visit: Yes (13) Hyperglycemia Status: Resolved Assessment and plan: Current Visit: Yes Subjective - Subjective Interval history: She denies fever or chills. She reports her abd only hurts when she is moved. She walked 100 ft with the nurse this morning. She is having some fecal incont. She denies trouble urinating or blood in the urine or pain with urination. Exam Vital signs: Temperature 97.7 F 02/15/17 07:09 Pulse Rate 89 02/15/17 07:09 Respiratory Rate 22 02/15/17 07:45 Blood Pressure 93/64 02/15/17 07:09 Pulse Oximetry 98 02/15/17 07:45 - Constitutional no acute distress, well developed - Routine HEENT Exam Head: Present: normocephalic, atraumatic - Routine Neck Exam Present: supple - Routine Respiratory Exam Present: CTA bilaterally - Routine Cardiovascular Exam Present: RRR - Routine Abdominal Exam Present: soft, normoactive bowel sounds, non distended - Urinary Catheter Management Urethral Cath placed during this visit: yes, but has since been removed by the nurse Insertion date: 02/02/17 Insertion time: 08:00 Removal date: 02/13/17 Removal time: 06:23 Ureter Left Cath placed during this visit: yes, but has since been removed by the nurse Insertion date: 02/02/17 Insertion time: 08:00 Removal date: 02/02/17 Removal time: 13:45 Ureter Right Cath placed during this visit: yes, but has since been removed by the nurse Urethral indwelling: Yes Insertion date: 02/02/17 Insertion time: 14:50 Removal date: 02/02/17 Removal time: 13:45
[2017-02-15] MEDS: MULTI-VITAMIN + MINERAL TABLET PO SCH (10:49)
[2017-02-15] MEDS: FOLIC ACID 1 MG TABLET PO SCH (10:49)
[2017-02-15] MEDS: CALCIUM 600 + VIT D 400 TABLET PO SCH (10:49)
[2017-02-15] MEDS: ASPIRIN *EC* 81 MG TABLET PO SCH (10:49)
[2017-02-15] MEDS: CALMOSEPTINE OINTMENT 113gm TUBE TP SCH ×2 (10:50→21:22)
[2017-02-15] MEDS: NYSTATIN 500,000 units/5 ml ORAL LIQUID PO SCH ×4 (10:50→21:22)
[2017-02-15] MEDS: PRAMIPEXOLE 1 MG TABLET PO SCH (21:22)
[2017-02-16] MEDS: OMEPRAZOLE 20 MG CAPSULE PO SCH (05:30)
[2017-02-16] MEDS: ALBUTEROL 2.5mg/3ml (0.083%) NEB AEROSOL SCH (06:37)
--- NOTE | 2017-02-16 08:14 | Family Practice Progress Note ---
Progress Note-A&P - Time Spent With Patient Total time spent is greater than 50% in coordination of care (as documented) at patient's floor/unit and/or counseling patient: less than 15 minutes (1) Anemia Status: Acute Assessment and plan: Stable Current Visit: Yes (2) Hypotension Status: Inactive Assessment and plan: DC IVF today and encourage po intake. Current Visit: Yes (3) Status post colostomy takedown Status: Acute Assessment and plan: Continue current pain medications. Current Visit: Yes (4) Status post partial resection of colon Status: Acute Current Visit: Yes (5) Debility Status: Acute Assessment and plan: Improving. Considering discharge today. I am checking into options about going home versus PRA. Current Visit: Yes (6) Thrombocytosis Status: Acute Current Visit: Yes (7) Hypokalemia due to inadequate potassium intake Status: Acute Assessment and plan: Potassium ordered today. Current Visit: Yes (8) Ureteral stent retained Status: Acute Assessment and plan: Plan removal 6 weeks after surgery. Current Visit: Yes (9) Hyperglycemia Status: Resolved Assessment and plan: Current Visit: Yes Subjective - Subjective Interval history: She denies nausea, problems urinating, eating, chills. She had some more formed bms yesterday. She was walking 100-200 feet 3 x a day. Exam Vital signs: Temperature 97.2 F 02/16/17 04:00 Pulse Rate 94 02/16/17 04:00 Respiratory Rate 18 02/16/17 06:38 Blood Pressure 122/61 02/16/17 04:00 Pulse Oximetry 94 02/16/17 06:38 - Constitutional no acute distress - Routine HEENT Exam Head: Present: normocephalic, atraumatic - Routine Respiratory Exam Present: CTA bilaterally - Routine Cardiovascular Exam Present: RRR - Routine Abdominal Exam Present: soft, normoactive bowel sounds - Urinary Catheter Management Urethral Cath placed during this visit: yes, but has since been removed by the nurse Insertion date: 02/02/17 Insertion time: 08:00 Removal date: 02/13/17 Removal time: 06:23 Ureter Left Cath placed during this visit: yes, but has since been removed by the nurse Insertion date: 02/02/17 Insertion time: 08:00 Removal date: 02/02/17 Removal time: 13:45 Ureter Right Cath placed during this visit: yes, but has since been removed by the nurse Urethral indwelling: Yes Insertion date: 02/02/17 Insertion time: 14:50 Removal date: 02/02/17 Removal time: 13:45
--- NOTE | 2017-02-16 08:44 | Progress Note ---
DATE OF VISIT 02/15/2017 REASON FOR VISIT Covering surgical care for Dr. Bowers. SUBJECTIVE Suzy is doing well. She says that she has been eating fair. Nurse notes no significant drainage from her lower incision. OBJECTIVE VITAL SIGNS: Afebrile with stable vitals on 1 liter nasal cannula. ABDOMEN: Soft, nontender. Her midline incision is stable with no evidence of infection or undrained fluid collection. There is no drainage on her undergarments overlying the lower incision. IMPRESSION Status post colostomy reversal with sigmoid resection/low anterior resection/ coloproctostomy/repair of right ureteral injury. She continues to do fairly well clinically. I do not see any ongoing problems with her inferior incision. PLAN Continue current care. Dr. Bowers will be returning tomorrow. CARMINE
--- NOTE | 2017-02-16 09:01 | General Surgery Progress Note ---
Subjective Patient reports: feels better (I was able to witness her get up with her walker and independently go to the bathroom. I was stand=by assist only.), pain is less (no pain meds for about a week, did not complain of any discomfort with staple removal, or when she got up to the bathroom.), tolerating a regular diet , voiding w/o difficulty, bowel movement (loose brown), shortness of breath ( with activity), other (Reports of some serous drainage from incision over the weekend,incision dry now.) - Vital Signs Last Vital Signs Temp 97.2 F 02/16/17 04:00 Pulse 94 02/16/17 04:00 Resp 18 02/16/17 06:38 BP 122/61 02/16/17 04:00 Pulse Ox 94 02/16/17 06:38 - Laboratory Result Diagrams: 02/16/17 03:52 02/16/17 03:52 - Abnormal Exam Abdominal: obese - Normal Exam General: awake, alert, oriented, no acute distress Cardiovascular: regular rhythm, regular rate Respiratory: clear bilaterally, no labored breathing Abdominal: soft, no guarding, non-tender, incision(s) (CDI, no drainage noted, palpation did not produce drainage. Manohar removed today without difficulty), other (JPs both with clear serous fluid, both are DC'd today and dry gauze applied.) Psychiatric: normal affect Neurological: CN 2-12 grossly intact Assessment and Plan (1) Status post colostomy takedown Current Visit: Yes Status: Acute (2) Status post partial resection of colon Current Visit: Yes Status: Acute (3) Seizure Current Visit: Yes Status: Resolved Problem details: Postoperative (4) Leukocytosis Current Visit: No Status: Acute Qualifiers: Leukocytosis type: bandemia Qualified Code(s): D72.825 - Bandemia (5) Obesity (BMI 30-39.9) Current Visit: No Status: Chronic (6) Acute blood loss as cause of postoperative anemia Current Visit: Yes Status: Resolved (7) Hypokalemia Current Visit: Yes Status: Resolved Plan: HGB stable, 8.2 today, 7-8 yesterday, seems to fluctuate in the upper 7 low 8 range. WBC normal at 7.2 No additional ABX at this time. On room air. Serous drainage from incision during the weekend, no indication of erythema or drainage this morning. Both CANDACE' DC'd, right from the abd cavity and the left from the old colostomy pocket. Hypokalemia, Dr. Pro ordering K+ and repeat lab tomorrow if she is here, or in a facility he will order that. Eating regular diet, having soft/lose BM/s prior c-diff was neg. Manohar Dc'd today. She may be able to be discharged today or tomorrow. ADDENDUM: when Dr. Bowers went in later in the morning, she had started draining fluid from 2 small holes mid incision. Hospital Course Summary Disclaimer: The visit summary below is not to be considered part of the above Progress Note. Hospital Course: 02/02/17 16:09 Impression Post op seizure like activity Post op Leukocytosis and thrombocytosis - stress response vs. infection s/p exploratory laparotomy with excision diverticulitis mass and colovaginal fistula, with takedown of end colostomy per Dr. Bowers s/p stenting of right ureter per Dr. Dela Cruz Intra-abdominal abscess with polymicrobial growth including MRSA, pseudomonas aeruginosa and citrobacter freundii. Anemia. Hypertension. Hyperlipidemia. Chronic hypercapnic respiratory failure; ROLO and O2 as needed GERD. CHF - diastolic - Echo 09/21/15 showed EF 55%; moderate TR and moderate PH. Restless leg syndrome. Anxiety and depression. Obesity with BMI 37. Chronic neck pain. Plan Place PICC Stat labs ordered - hgb stable. Lactate 11.8 - unable to determine if septic shock or if elevated lactate was from hypoperfusion (hypoxia; hypotension). She had well over 30 ml/kg IVF (89 kg x 30 mL = 2,670mL) sz precautions - Invanz may lower sz threshold; perhaps hypoxia d/t prolonged sx - consider neuro consult, head CT Abx changed to meropenem + vanco. BP was dangerously low but now improving - monitor closely as she still may need pressor support With IVF, need to monitor closely for fluid overload - measure I/O + weights. Preciado; right ureteral stent mgt per urology. DNR status Dr. Sorensen d/w Dr. Pro. Critically ill. Time spent at bedside: 45 min. 02/03/17 09:25 POD #1 -No seizure activity since the initial one of less than 30 sec while in recovery phase post op. -Invanz cancelled as this does have a "caution/contraindication" of Seizure Hx. Zosyn and Vancomycin with pharmacy consult in place. -Urine output marginal, around 22-40/hr for the last 6-8 hours. Will give NS bolus due to marginal U/O and lower SBP -SBP tends to be in the 90's. will continue to monitor, continue fluids at 125/ hr for now. -NG without output, cannot see the tip on CXR, it appears to be out a long way, will have staff advance it 10-12 cm. -K+ upper limit of normal, although it was hemolyzed, will change IVF to D5 1/2 without K+, repeat labs. -Discussed case with Dr. Pro, he indicated we will continue to defer medical management to hospitalist team as long as pt is in CCU, he will likely ' pick her -up" when she transfers to surgical floor. 02/03/17 09:43 02/03/17 [place] No further seizure activity. Would like to proceed with CT head when hemodynamically stable to proceed to do so. No focal neurological deficits by bedside exam. Persistent hypotension-central line placed today, CVP 6-7-fluid boluses being given. Anticipate improvement in both blood pressure and tachycardia with fluids. Continue Zosyn/vancomycin. Creatinine up slightly, follow with fluids. 02/04/17 08:11 Surgery Some confusion this morning, but did call both me and Dr. Pro by name. Vasopressin was started yesterday for BP support. Additional 2000 ml fluid bolused during the night. She remains tacky 100-120's, SBP about 90's this am. Urine output 35-70 ml/hr during the night. HGB this am 7.4 and 7.1 on redraw. IT was 11.0 yesterday. WBC coming down 16 today, 20.9 yesterday. K+ removed from fluids yesterday, and is currently 3.4 With drop in HGB, tachycardia, hypotension, and requiring vasopressin and fluid bolus during the night, 1 unit PRBC orderd, repeat HGB after 1st unit, may need a 2nd. WBC 16.0, 20.9 yesterday Serum Creatinine back down to 1.0. from 1.2 yesterday CANDACE with serosanguineous fluid, not ivy blood. Fluid from Right CANDACE sent for creatinine, this is send out to [facility] and should be available by later this evening or tomorrow morning. No flatus yet, but there are hypoactive but reasonable bowel sounds. Will ask about TPN. K+ 3.4, down from 5.0 yesterday, K+ removed from IVF yesterday, IVF changed this am to NS with 20 KCla 02/04/17 [place] No further seizure activity. Would like to proceed with CT head when hemodynamically stable to proceed to do so. No focal neurological deficits by bedside exam. Persistent hypotension, remains on vasopressin, CVP 5. Convert fluids and NS with additional volume to be given. Initiate TPN-discussed with Dr. Bowers. 2 units PRBCs earlier today, hemoglobin 7.1-7.5-8.3. 02/05/17 10:40 Surgery She is more lethargic this morning, but did deny pain when asked, and denies flatus and stated she "wished she could have some." She drifts back to sleep quickly. She had 2 units PRBC yestereday, HGB went up to 8.3 and has drifted down to 7.7 this am. Urine output is good at around 75-150/hr. SBP better, around 110's - 120 and pulse better in the low 100's compared to 120 's yesterday. TPN has been started. Repeat HGB at noon today. 02/05/17 10:43 02/06/[address] head after recent seizure. Persistent sinus tachycardia-given increased oxygen demand am reluctant to use additional fluids. Resume medications for restless leg syndrome. 02/07/17 08:56 [place] Give an additional dose of lasix. Trial metoprolol if BP remains stable with diuresis later today. Continue supportive care, add nystatin powder to mya care. 02/08/17 11:13 [place] BP stabilized after albumin 25g x2; will hold further dosing Improved volume status, holding diuretics this morning Baclofen, gabapentin, toradol held acutely Hemoglobin 7.3 this AM, receiving 1 unit PRBC Chest pain resolved, no evidence of ischemia with negative troponin and normal EKG Starting low dose metoprolol 12.5 mg BID for sinus tachycardia that has been persistent KCL 40 meq IV this AM in addition to TPN, adjusting up K supplement in TPN as well Continue Zosyn and vancomycin for now, may be able to start tapering off antibiotics tomorrow Nystatin suspension for thrush 02/06-02/16; added topical nystatin 02/07 to the mya area due to erythema Home trilogy now available for nighttime use Persistent tachycardia-home medications reviewed, typically not on beta saravanan , BP improved after albumin--> will trial metoprolol 12.5 mg BID and monitor Will monitor in ICU today given borderline hemodynamics, chest pain, transfusion plans; if stable tomorrow can likely move out of ICU at that time 02/09/17 08:26 HGB dropped o7.9-3 over the weekend, 1 unit PRBC infused and HGB increased to 8.2, this morning we are drifting down to 7.7. will get another HGB at 10:00 today. Albumin 25 G BID ordered over the weekend. Serum Albumin remains low. Has been off Vasopresin since last week. SBP has been stable in the 90's-110's and Pulse better in the 80's-90's. Some report of drainage from the incision, none seen on gauze or on wound today. Preciado is in, urine output good, clear yellow this morning. A ureteral catheter remains in the right ureter and Dr. Purcell will remove it in about 6 weeks. The left ureteral catheter was removed after surgery. She has had several liquid stools, C-diff neg, denies nausea, will advance to regular diet. Continue TPN till we see how much PO she is able to take. Will add a multivitamin. Will be sure there is PT/OT ordered, hope to get her moving enough to pull the Preciado soon and perhaps move to surgical floor later today or tomorrow. 02/09/17 - [place] BP variable, received IV fluids earlier today for systolic pressures in the 70s. Subsequent systolic pressure 100-121; prefer to avoid additional fluids if at all possible due to volume overload already present unless patient is clearly symptomatic. Receiving albumin to help oncotic pressure; holding diuretics. Baclofen, gabapentin, toradol on hold due to excess sedation over the weekend. Hemoglobin 7.7 this AM and afternoon after receiving wide yesterday Starting low dose metoprolol 12.5 mg BID for tachycardia that has been persistent last week-heart rate improved. Potassium improved. Remains on Zosyn and vancomycin-will discuss with surgery whether there is ongoing need for antibiotic therapy. Nystatin suspension for thrush 02/06-02/16; topical nystatin initiated 02/07 for erythema in the mya-area. Home trilogy available for nighttime use Diet advance to regular-will decrease TPN tomorrow with goal of titrating off over the next 24-48 hours. 02/10/17 More confused today after sleeping poorly last night. Transfer out of ICU today; antibiotics discontinued, TPN rate decreased to 60 mL per hour and will decrease further when new bag hangs this evening. Hemoglobin stable, blood pressure stable. Albumin discontinued due to limited supply. 6 seconds SVT overnight, isolated tachyarrhythmia-continue low-dose beta saravanan , defer further workup at this time unless recurs 02/11/17 08:16 She has been transferred to surgical unit. TPN titrated down to 40 ml/hr now. Eating regular diet, but small amounts. Will get a calorie count to help assess nutrition. Loose stools have become slightly more formed. She is sleeping with Bi-PAP when I entered this am, she did arouse easily with light touch but immediately went back to sleep. WBC is creeping up but still in the normal range. Daily labs. HGB stable, up to 8.3 today (7.7 yesterday) Antibiotic have been stopped, she has had 8 days of Vancomycin and Zosyn ( Invanz may have contributed to post op seizure) Right Ureteral stent remains in place, Dr. Dela Cruz will remove about 6 weeks post op. Urine output is good. 02/12/17 10:53 TPN DC'd. She is taking PO supplemental nutrition. Stools loose and at times incontinent. Debility is getting worse, she is reluctant to walk, encouragement given. PT/OT as well as nursing are trying to work with her. WBC is creeping up 10.2 today, 8.5 yesterday. No bandemia today. will continue to monitor. ABX have been DC'd 2 days ago. HGB stable at 8.8 Will start bladder retraining with Preciado, and likely DC preciado in the morning. Would like to start looking toward discharge by early next week if she makes enough progress to go to [facility] and there are no unexpected issues. 02/12/17 10:54 02/13/17 12:53 She is making improvements, no longer having trouble with hallucinations. Not taking pain medication. Preciado removed and she has voided. Bowel movements soft/liquid and brown. Incision is clean dry and intact, anticipate staple removal Thursday or Thursday next week. Hypotension and medical management per Dr. Pro. Dehydration, fluids ordered. WBC better today at 19.2 compared to 10.2 yesterday no longer trending upward. Hemoglobin stable at 8.4 compared to 8.8 yesterday, continue daily labs. Still requiring 1 L oxygen by nasal cannula. Would like better by mouth intake before discharge and if she could be weaned off of oxygen that would also be great. 02/16/17 09:08 HGB stable, 8.2 today, 7-8 yesterday, seems to fluctuate in the upper 7 low 8 range. WBC normal at 7.2 No additional ABX at this time. On room air. Serous drainage from incision during the weekend, no indication of erythema or drainage this morning. Both CANDACE' DC'd, right from the abd cavity and the left from the old colostomy pocket. Hypokalemia, Dr. Pro ordering K+ and repeat lab tomorrow if she is here, or in a facility he will order that. Eating regular diet, having soft/lose BM/s prior c-diff was neg. Manohar Dc'd today. When Dr. Bowers saw her later in the morning, she had been up and dressings had drainage from 2 small holes mid incision. Will keep these covered and allow to drain at will. ADDENDUM: note from Dr. Pro, [place] will be able to take her at 2 pm today. 02/16/17 11:02
[2017-02-16] MEDS: FOLIC ACID 1 MG TABLET PO SCH (11:50)
[2017-02-16] MEDS: MULTI-VITAMIN + MINERAL TABLET PO SCH (11:50)
[2017-02-16] MEDS: ASPIRIN *EC* 81 MG TABLET PO SCH (11:50)
[2017-02-16] MEDS: CALCIUM 600 + VIT D 400 TABLET PO SCH (11:51)
[2017-02-16] MEDS: CALMOSEPTINE OINTMENT 113gm TUBE TP SCH (11:52)
[2017-02-16] MEDS: SALINE FLUSH 10ml SYRINGE IV PRN (11:53)
[2017-02-16 12:23] VITALS: BP 115/67; PULSE 92; TEMP 96.8
--- NOTE | 2017-02-16 12:57 | Progress Note ---
DATE OF SERVICE 02/16/217 FINDINGS. Suzy was seen earlier this morning. She states that she is doing well. She is still concerned about her overall strength. She states it is difficult for her to get out of bed and ambulate. She states that she is no longer having diarrhea. She has been able to control her stools. She denies any element of abdominal pain. PHYSICAL EXAM VITAL SIGNS: Afebrile, normotensive. Please refer to EMR. ABDOMEN: Soft, nontender. Incision is clean, dry and intact. Manohar were removed earlier today as well as her prior drains by my nurse practitioner. There is some minimal serosanguineous drainage coming forth from the lower aspect of the incision. There is, however, no evidence for erythema or induration along her incision. LABORATORY/RADIOGRAPHIC EVALUATION The patient had a CBC today and her white count was normal at 7.2. Hemoglobin is overall stable at 8.2. BMP obtained and found to be without marked abnormalities. Potassium slightly low at 3.1. ASSESSMENT 76-year-old female status post takedown of end colostomy, sigmoid resection with coloproctostomy and repair of right ureteral injury. Patient currently doing quite well. PLAN I did speak with her primary care physician, Dr. Pro, today. Patient is going to be sent out today to [facility] for ongoing strength and conditioning before final discharge to home. I am pleased with Suzy's progress. [facility]
[2017-02-16 13:03] VITALS: RESP 18; O2SAT 90
--- NOTE | 2017-02-16 13:11 | Extended Care Facility Orders ---
Admission Orders Admit to:: Custodial Allergies/Adverse Reactions: Allergies hydrocodone Allergy (Unknown, Verified 12/12/16 17:52) Admitting Diagnosis: sigmoid resection L02.211 z87.19 n82.3 Admitting Physician: Alejandro Bowers MD Attending Physician: Aeljandro Bowers MD Code Status: Do Not Resuscitate Anticiapted Length of Stay: 30 days or less Rehab Potential: fair Rehab Prognosis: fair Diet: 02/11/17 Lunch Regular Diet [DIET] Diet Modifications: Other Diet Modifiers: RUBIN COUNT May use Facility Protocol or Standing Orders: Yes May have flu vaccine: Yes Evaluations/Treatment: PT, OT Custodial Certification: I certify that SNF services are required to be given on an Inpatient basis because of the patients need for care home care on a continuing basis for the condition(s) for which he/she received inpatient hospital services prior to his/her transfer to the SNF. SNF inpatient care is necessary for the following reasons Indication for Custodial: Postop Assessment Care - Additional Information In Event of Arrest: Do Not Start CPR Resident is Aware of Diagnosis: Yes Referrals: Alejandro Bowers MD [Physician] - (10-14 days.) Baltazar Dela Cruz MD [Physician] - (for right ureteral stent removal)
[2017-02-16] MEDS: ENOXAPARIN 40 MG/0.4 ML INJECTION SQ SCH (13:25)
[2017-02-16] MEDS ORDERED: NEOMYCIN/POLYMYXIN/BACITRACIN OINT PACKET TP ONE (14:22)
--- NOTE | 2017-02-17 17:03 | Discharge Summary ---
Discharge Information Date of admission: 02/02/17 05:19 Anticipated date of discharge: 02/16/17 Attending Physician: Alejandro Bowers MD Primary care physician: Kevin Pro MD Consults: 02/02/17 05:39 Consult to Anesthesiology [CONS] Routine Reason For Exam: SURGERY 02/02/17 15:28 Physician Consult [CONS] Routine Consulting Provider: Kim Sorensen Reason For Exam: seizure, medical managment Ordering Provider has Notified Limited Radiology Technician: Yes 02/03/17 07:00 Physician Consult [CONS] Routine Consulting Provider: Kevin Pro Reason For Exam: medical managent, hypotention, seizure, etc. Ordering Provider has Notified Limited Radiology Technician: Yes Comment: Dr. Sorensen notified Morteza in 02/0202/11/17 08:22 Dietary Consult [CONS] Routine Comment: start with breakfast today if possible. Reason For Exam: Calorie count for 3 days please, 02/12/17 15:19 Physician [Physician Consult] [CONS] Routine Consulting Provider: Tika Laws Reason For Exam: CONT CARE Ordering Provider has Notified Limited Radiology Technician: Yes - Discharge Diagnosis (1) Status post colostomy takedown Status: Acute (2) Status post partial resection of colon Status: Acute (3) Seizure Status: Resolved (4) Leukocytosis Status: Acute (5) Obesity (BMI 30-39.9) Status: Chronic (6) Acute blood loss as cause of postoperative anemia Status: Resolved (7) Debility Status: Acute (8) Hypokalemia due to inadequate potassium intake Status: Acute - Procedures Procedures: 02/02/2017 SURGEON Alejandro Bowers MD [employer] Nitesh Waite APRN PREOPERATIVE DIAGNOSIS Personal history for ruptured diverticulitis, history for a prior exploratory laparotomy with creation of diverting end colostomy, personal history for multiple intraabdominal abscesses requiring CT-guided percutaneous drainage, 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 POSTOPERATIVE DIAGNOSIS Same, right iatrogenic ureteral injury. PROCEDURE Exploratory laparotomy, extensive adhesiolysis, takedown of end colostomy, low anterior resection with coloproctostomy, mobilization of the splenic flexure. Repair of right ureteral iatrogenic injury (will be dictated by Dr. Dela Cruz). 02/02/2017 PREOPERATIVE DIAGNOSIS Bilateral ureteral catheters for colorectal surgery. POSTOPERATIVE DIAGNOSIS Bilateral ureteral catheters for colorectal surgery. PROCEDURE PERFORMED Cystoscopy with placement of bilateral ureteral catheters. SURGEON Baltazar Dela Cruz MD 02/02/2017 PREOPERATIVE DIAGNOSIS Right ureteral injury. POSTOPERATIVE DIAGNOSIS Right ureteral injury. PROCEDURE PERFORMED 1. Right ureteroureterostomy. 2. Right stent placement. 3. Right ureteroscopy. SURGEON Baltazar Dela Cruz MD - Laboratory Labs: 02/16/17 03:52 02/16/17 03:52 Laboratory Tests 02/02/17 02/02/17 02/03/17 05:59 15:38 06:01 WBC 9.0 29.3 H* D 20.9 H Hgb 11.0 L Potassium 02/04/17 02/04/17 02/04/17 04:28 04:28 06:57 WBC 16.0 H Hgb 7.4 L D 7.1 L Potassium 3.4 L 02/04/17 02/04/17 02/04/17 11:28 15:41 16:29 WBC Hgb 7.5 L 8.3 L Potassium 3.2 L 02/04/17 02/05/17 02/05/17 19:46 04:59 11:34 WBC Hgb 8.0 L 7.7 L 7.9 L Potassium 02/06/17 02/06/17 02/07/17 04:56 09:51 04:30 WBC 11.9 H Hgb 9.1 L D 8.0 L D 8.9 L D Potassium 02/08/17 02/08/17 02/09/17 05:23 14:29 04:32 WBC Hgb 7.3 L D 8.2 L D 7.7 L Potassium 02/09/17 02/10/17 02/11/17 10:03 03:35 04:39 WBC Hgb 7.7 L 7.7 L 8.3 L Potassium 02/11/17 02/12/17 02/13/17 04:39 07:21 04:21 WBC 10.2 Hgb 8.8 L 8.4 L Potassium 3.9 02/13/17 02/14/17 02/14/17 04:21 06:08 06:08 WBC Hgb 8.2 L Potassium 3.6 3.5 L 02/15/17 02/15/17 02/16/17 04:32 04:32 03:52 WBC 7.2 Hgb 7.8 L 8.2 L Potassium 3.4 L 02/16/17 03:52 WBC Hgb Potassium 3.1 L - Radiology Radiology: Date of Exam: 02/04/17 Ordering Provider: Kim Sorensen MD Type of Exam(s): XR chest 1V Reason for Exam(s): hypoxia Indication: hypoxia PROCEDURE: XR chest 1V: Encounter: Initial Comparison: January 14, 2017 Findings: Right IJ line remains in place. Nasogastric tube is stable in appearance. Improving aeration of the lungs with decreasing basilar atelectasis. There is continued airspace consolidation in the medial right upper lobe. No pneumothorax. Small left effusion. Heart size and mediastinal contours are stable. Pulmonary vascularity appears normal. Impression: Improving atelectasis. Date of Exam: 02/06/17 Ordering Provider: Kim Sorensen MD Type of Exam(s): CT head/brain wo con Reason for Exam(s): recent seizure Indication: recent seizure PROCEDURE: CT head/brain wo con: Encounter: Initial Comparison: None Technique: Axial CT images through the head were performed without contrast. Iterative Reconstruction dose reducing technique was utilized. FINDINGS: Exam is limited due to asymmetric positioning of the patient in the scanner. The ventricles are of normal size, shape, and contour for the patient's age. There are scattered areas of low attenuation in the white matter which most likely represent changes from chronic microvascular ischemia. The brainstem, cerebellum, and cerebral hemispheres otherwise have a normal morphology and CT attenuation. There is no evidence of midline displacement. No hemorrhage, signs of acute territorial stroke, mass effect, mass lesions, or edema is evident. The visualized portions of the skull base, midface, and calvarium demonstrate no abnormality. The paranasal sinuses are well aerated and free of significant disease. The tympanic and mastoid cavities appear normal. IMPRESSION: Limited exam. No acute intracranial abnormality or hemorrhage. Date of Exam: 02/10/17 Ordering Provider: Kim Sorensen MD Type of Exam(s): XR chest 1V Reason for Exam(s): tachypnea, hypoxia Indication: tachypnea, hypoxia PROCEDURE: XR chest 1V: Encounter: Initial Comparison: February 06, 2017 Findings: Right IJ line remains in place. There is still some increased airspace opacity in the medial aspect of the right lung without significant change. No pleural effusion or pneumothorax. Hypoinflation. Heart size and mediastinal contours are stable. Impression: Stable appearance of the chest with hypoinflation. - Pathology Sigmoid colon and rectum; chronic diverticulitis with mucosal erosion and reactive and reparative epithelial changes. Focal abscess of bowel wall with marked acute and chronic inflammation. No atypia or malignant neoplasm identified. - History of Present Illness HPI: BRIEF HISTORY/INDICATIONS Mrs. Magdaleno is a 76-year-old female who has very unique history. I initially met Mrs. Magdaleno quite some time ago when she presented to our facility as a result of a surgical abdomen/perforated sigmoid diverticulitis. The patient at that time underwent exploratory laparotomy. There was such an extensive phlegmon present involving her sigmoid colon/left lower quadrant I was unable to perform a sigmoidectomy with creation of a Batsheva's pouch at the time of her original surgery. I was able, however, to drain multiple intraabdominal abscesses and perform a diverting end colostomy. It was my hope that after her fecal stream had been diverted that the sigmoid diverticulitis/phlegmonous process would resolve on its own behalf with additional antibiotics. Unfortunately, the patient over the last several months has continued to have ongoing problems with diverticulitis. She recently had developed an additional intraabdominal abscess requiring a percutaneous CT-guided drainage and recent prolonged hospitalization. Additionally, upon radiographic evaluation, the patient was found to have evidence for a colovaginal fistula as well as a colo- colonic fistula. The patient clinically also has had a fair amount of purulent/ mucous material draining forth from the vagina consistent with her radiographic findings. The patient has been on a prolonged course of intravenous and oral antibiotics. She presents today to undergo elective sigmoid resection with possible coloproctostomy, possible creation of a temporary diverting loop ileostomy, possible continued end colostomy. I did request also that Urology place ureteral stents preoperatively given the fact that she was known to have a large phlegmonous process previously and likely continues to have ongoing inflammatory changes present within the peritoneal cavity Hospital Course This is a general summary of the patient's hospital course. For more details refer to the complete medical record. Hospital course: 02/02/2017 open sigmoid resection with takedown and colostomy. Transferred to CCU postoperatively. 02/02/17 16:09 Impression hospitalist note Post op seizure like activity Post op Leukocytosis and thrombocytosis - stress response vs. infection s/p exploratory laparotomy with excision diverticulitis mass and colovaginal fistula, with takedown of end colostomy per Dr. Bowers s/p stenting of right ureter per Dr. Dela Cruz Intra-abdominal abscess with polymicrobial growth including MRSA, pseudomonas aeruginosa and citrobacter freundii. Anemia. Hypertension. Hyperlipidemia. Chronic hypercapnic respiratory failure; ROLO and O2 as needed GERD. CHF - diastolic - Echo 09/21/15 showed EF 55%; moderate TR and moderate PH. Restless leg syndrome. Anxiety and depression. Obesity with BMI 37. Chronic neck pain. Plan Place PICC Stat labs ordered - hgb stable. Lactate 11.8 - unable to determine if septic shock or if elevated lactate was from hypoperfusion (hypoxia; hypotension). She had well over 30 ml/kg IVF (89 kg x 30 mL = 2,670mL) sz precautions - Invanz may lower sz threshold; perhaps hypoxia d/t prolonged sx - consider neuro consult, head CT Abx changed to meropenem + vanco. BP was dangerously low but now improving - monitor closely as she still may need pressor support With IVF, need to monitor closely for fluid overload - measure I/O + weights. Hernandez; right ureteral stent mgt per urology. DNR status Dr. Sorensen d/w Dr. Pro. Critically ill. Time spent at bedside: 45 min. 02/03/17 09:25 POD #1 -No seizure activity since the initial one of less than 30 sec while in recovery phase post op. -Invanz cancelled as this does have a "caution/contraindication" of Seizure Hx. Zosyn and Vancomycin with pharmacy consult in place. -Urine output marginal, around 22-40/hr for the last 6-8 hours. Will give NS bolus due to marginal U/O and lower SBP -SBP tends to be in the 90's. will continue to monitor, continue fluids at 125/ hr for now. -NG without output, cannot see the tip on CXR, it appears to be out a long way, will have staff advance it 10-12 cm. -K+ upper limit of normal, although it was hemolyzed, will change IVF to D5 1/2 without K+, repeat labs. -Discussed case with Dr. Pro, he indicated we will continue to defer medical management to hospitalist team as long as pt is in CCU, he will likely ' pick her -up" when she transfers to surgical floor. 02/03/17 09:43 02/03/17 [place] No further seizure activity. Would like to proceed with CT head when hemodynamically stable to proceed to do so. No focal neurological deficits by bedside exam. Persistent hypotension-central line placed today, CVP 6-7-fluid boluses being given. Anticipate improvement in both blood pressure and tachycardia with fluids. Continue Zosyn/vancomycin. Creatinine up slightly, follow with fluids. 02/04/17 08:11 Surgery Some confusion this morning, but did call both me and Dr. Pro by name. Vasopressin was started yesterday for BP support. Additional 2000 ml fluid bolused during the night. She remains tacky 100-120's, SBP about 90's this am. Urine output 35-70 ml/hr during the night. HGB this am 7.4 and 7.1 on redraw. It was 11.0 yesterday. WBC coming down 16 today, 20.9 yesterday. K+ removed from fluids yesterday, and is currently 3.4 With drop in HGB, tachycardia, hypotension, and requiring vasopressin and fluid bolus during the night, 1 unit PRBC orderd, repeat HGB after 1st unit, may need a 2nd. WBC 16.0, 20.9 yesterday Serum Creatinine back down to 1.0. from 1.2 yesterday CANDACE with serosanguineous fluid, not ivy blood. Fluid from Right CANDACE sent for creatinine, this is send out to [facility] and should be available by later this evening or tomorrow morning. No flatus yet, but there are hypoactive but reasonable bowel sounds. Will ask about TPN. K+ 3.4, down from 5.0 yesterday, K+ removed from IVF yesterday, IVF changed this am to NS with 20 KCla 02/04/17 [place] No further seizure activity. Would like to proceed with CT head when hemodynamically stable to proceed to do so. No focal neurological deficits by bedside exam. Persistent hypotension, remains on vasopressin, CVP 5. Convert fluids and NS with additional volume to be given. Initiate TPN- 2 units PRBCs earlier today, hemoglobin 7.1-7.5-8.3. 02/05/17 10:40 Surgery She is more lethargic this morning, but did deny pain when asked, and denies flatus and stated she "wished she could have some." She drifts back to sleep quickly. She had 2 units PRBC yestereday, HGB went up to 8.3 and has drifted down to 7.7 this am. Urine output is good at around 75-150/hr. SBP better, around 110's - 120 and pulse better in the low 100's compared to 120 's yesterday. TPN has been started. Repeat HGB at noon today. 02/05/17 10:43 02/06/[address] head after recent seizure. Persistent sinus tachycardia-given increased oxygen demand am reluctant to use additional fluids. Resume medications for restless leg syndrome. 02/07/17 08:56 [place] Give an additional dose of lasix. Trial metoprolol if BP remains stable with diuresis later today. Continue supportive care, add nystatin powder to mya care. 02/08/17 11:13 [place] BP stabilized after albumin 25g x2; will hold further dosing Improved volume status, holding diuretics this morning Baclofen, gabapentin, toradol held acutely Hemoglobin 7.3 this AM, receiving 1 unit PRBC Chest pain resolved, no evidence of ischemia with negative troponin and normal EKG Starting low dose metoprolol 12.5 mg BID for sinus tachycardia that has been persistent KCL 40 meq IV this AM in addition to TPN, adjusting up K supplement in TPN as well Continue Zosyn and vancomycin for now, may be able to start tapering off antibiotics tomorrow Nystatin suspension for thrush 02/06-02/16; added topical nystatin 02/07 to the mya area due to erythema Home trilogy now available for nighttime use Persistent tachycardia-home medications reviewed, typically not on beta saravanan , BP improved after albumin--> will trial metoprolol 12.5 mg BID and monitor Will monitor in ICU today given borderline hemodynamics, chest pain, transfusion plans; if stable tomorrow can likely move out of ICU at that time 02/09/17 08:26 HGB dropped 7.9 over the weekend, 1 unit PRBC infused and HGB increased to 8.2, this morning we are drifting down to 7.7. will get another HGB at 10:00 today. Albumin 25 G BID ordered over the weekend. Serum Albumin remains low. Has been off Vasopresin since last week. SBP has been stable in the 90's-110's and Pulse better in the 80's-90's. Some report of drainage from the incision, none seen on gauze or on wound today. Hernandez is in, urine output good, clear yellow this morning. A ureteral catheter remains in the right ureter and Dr. Purcell will remove it in about 6 weeks. The left ureteral catheter was removed after surgery. She has had several liquid stools, C-diff neg, denies nausea, will advance to regular diet. Continue TPN till we see how much PO she is able to take. Will add a multivitamin. Will be sure there is PT/OT ordered, hope to get her moving enough to pull the Hernandez soon and perhaps move to surgical floor later today or tomorrow. 02/09/17 - [place] BP variable, received IV fluids earlier today for systolic pressures in the 70s. Subsequent systolic pressure 100-121; prefer to avoid additional fluids if at all possible due to volume overload already present unless patient is clearly symptomatic. Receiving albumin to help oncotic pressure; holding diuretics. Baclofen, gabapentin, toradol on hold due to excess sedation over the weekend. Hemoglobin 7.7 this AM and afternoon after receiving wide yesterday Starting low dose metoprolol 12.5 mg BID for tachycardia that has been persistent last week-heart rate improved. Potassium improved. Remains on Zosyn and vancomycin-will discuss with surgery whether there is ongoing need for antibiotic therapy. Nystatin suspension for thrush 02/06-02/16; topical nystatin initiated 02/07 for erythema in the mya-area. Home trilogy available for nighttime use Diet advance to regular-will decrease TPN tomorrow with goal of titrating off over the next 24-48 hours. 02/10/17 More confused today after sleeping poorly last night. Transfer out of ICU today; antibiotics discontinued, TPN rate decreased to 60 mL per hour and will decrease further when new bag hangs this evening. Hemoglobin stable, blood pressure stable. Albumin discontinued due to limited supply. 6 seconds SVT overnight, isolated tachyarrhythmia-continue low-dose beta saravanan , defer further workup at this time unless recurs 02/11/17 08:16 She has been transferred to surgical unit. TPN titrated down to 40 ml/hr now. Eating regular diet, but small amounts. Will get a calorie count to help assess nutrition. Loose stools have become slightly more formed. She is sleeping with Bi-PAP when I entered this am, she did arouse easily with light touch but immediately went back to sleep. WBC is creeping up but still in the normal range. Daily labs. HGB stable, up to 8.3 today (7.7 yesterday) Antibiotic have been stopped, she has had 8 days of Vancomycin and Zosyn ( Invanz may have contributed to post op seizure) Right Ureteral stent remains in place, Dr. Dela Cruz will remove about 6 weeks post op. Urine output is good. 02/12/17 10:53 TPN DC'd. She is taking PO supplemental nutrition. Stools loose and at times incontinent. Debility is getting worse, she is reluctant to walk, encouragement given. PT/OT as well as nursing are trying to work with her. WBC is creeping up 10.2 today, 8.5 yesterday. No bandemia today. will continue to monitor. ABX have been DC'd 2 days ago. HGB stable at 8.8 Will start bladder retraining with Hernandez. 02/13/17 12:53 She is making improvements, no longer having trouble with hallucinations. Not taking pain medication. Hernandez removed and she has voided. Bowel movements soft/liquid and brown. Incision is clean dry and intact, anticipate staple removal Thursday or Thursday next week. Hypotension and medical management per Dr. Pro. Dehydration, fluids ordered. WBC better today at 19.2 compared to 10.2 yesterday no longer trending upward. Hemoglobin stable at 8.4 compared to 8.8 yesterday, continue daily labs. Still requiring 1 L oxygen by nasal cannula. Would like better by mouth intake before discharge and if she could be weaned off of oxygen that would also be great. 02/16/17 09:08 HGB stable, 8.2 today, 7-8 yesterday, seems to fluctuate in the upper 7 low 8 range. WBC normal at 7.2 No additional ABX at this time. On room air. Serous drainage from incision during the weekend, no indication of erythema or drainage this morning. Both CANDACE' DC'd, right from the abd cavity and the left from the old colostomy pocket. Hypokalemia, Dr. Pro ordering K+ and repeat lab tomorrow if she is here, or in a facility he will order that. Eating regular diet, having soft/lose BM/s prior c-diff was neg. Manohar Dc'd today. When Dr. Bowers saw her later in the morning, she had been up and dressings had drainage from 2 small holes mid incision. Will keep these covered and allow to drain at will. ADDENDUM: note from Dr. Pro, [place] will be able to take her at 2 pm today. 02/16/17 11:02 Time spent with patient: 25 - 35 minutes DVT Prophylaxis: SCD's, Lovenox GI Prophylaxis: Protonix Discharge Plan - Med Rec/Dispo Referrals/Follow Up: Baltazar Dela Cruz MD [Physician] - (for right ureteral stent removal) Alejandro Bowers MD [Physician] - (10-14 days.) [place] Instructions: Bowel Resection (DC), Blood Transfusion (GEN) Prescriptions: Continue Pramipexole Di-HCl [Pramipexole Dihydrochloride] 2 mg PO DAILY #0 Discontinued Spironolactone [Aldactone] 25 mg PO DAILY 10 Days #10 tab Ferrous Sulfate 324 mg PO WB 30 Days #30 tab Furosemide 40 mg PO DAILY 30 Days #30 tab Folic Acid [Folate] 1 tab PO DAILY Calcium Carbonate/Vitamin D3 [Calcium 600-Vit D3 200 Tablet] 1 each PO DAILY Baclofen [Lioresal] 1 tab PO TID Sertraline [Zoloft] 150 mg PO DAILY Gabapentin [Neurontin] 600 mg PO 1700 tab Potassium Chloride [K-Dur] 20 meq PO BIDWM tab Aspirin [Aspir-Low] 81 mg PO DAILY #0 Lovastatin 40 mg PO WS #0 tab Cyanocobalamin (B-12) [Vit. B-12] 1,000 mcg IM Q14D Calcium 600 + D [Caltrate + D] 1 tab PO DAILY tab Acetaminophen [Tylenol] 650 mg PO Q5H PRN tab PRN Reason: Discomfort Ciprofloxacin HCl [Cipro] 500 mg PO BID 30 Days #60 tab metroNIDAZOLE [Flagyl] 500 mg PO TID 30 Days #90 tab erythromycin 500 mg tablet 1,000 mg PO TID #6 tab - Disposition 03 To SNU Not [facility] ([facility])
== END 2017-02-16 14:50 | DRG 330 ==
LOC: EDBD → SRG 05:19 → CCU 07:46 → SRG 02-10 19:19
PROVIDERS: ADMIT Surgery; ATTEND Surgery